=== PATIENT | female | born 1995 | race Caucasian/White ===

== ENCOUNTER 2023-05-06 13:55 | Emergency (ER) | payer MEDICAID, SELFPAY ==
[2023-05-06 14:08] VITALS: BP 103/63; PULSE 85; TEMP 37.1; O2SAT 96; BMI 31.4
[2023-05-06 14:34] LABS: Appearance Urine Clear (Clear); Bilirubin Urine Negative (Negative); Blood Urine Trace-intact (Negative); Color Urine Yellow (Yellow); Glucose Urine Negative (Negative); Ketones Urine Negative (Negative); Leukocyte Esterase Urine Negative (Negative); Nitrite Urine Negative (Negative); Protein Urine Negative (Negative); Specific Gravity Urine 1.025 (1.000-1.030); Urobilinogen Urine 0.2 (0.2-1.0)
--- NOTE | 2023-05-06 14:43 | ED_ITS ---
HPI - General Adult General Chief complaint: Nausea/Vomiting Stated complaint: 6 months pre, vomiting Time Seen by Provider: 05/06/23 14:03 History of Present Illness HPI narrative: This 28-year-old female comes in reporting nausea and vomiting symptoms for the past couple weeks. She states this she is at about 6 weeks gestation. She reports some brief episodes of feeling hot and chilled but does not report any fevers. She does report some dysuria symptoms and wonders if she has a urinary tract infection. Related Data Home Medications Medication Instructions Recorded Confirmed omeprazole 20 mg capsule,delayed 20 mg PO DAILY 05/06/23 05/06/23 release Previous Rx's Medication Instructions Recorded ondansetron HCl 4 mg tablet 4 mg PO Q6H #20 tabs 05/06/23 Allergies Allergy/AdvReac Type Severity Reaction Status Date / Time No Known Drug Allergies Allergy Verified 05/06/23 14:08 Review of Systems Status of ROS: Reports: 10 or more systems reviewed and unremarkable except as noted in History and below Narrative: Constitutional: Generalized weakness. Eyes: No discharge. No vision changes. HENT: No congestion, no sore throat, no ear pain. Cardiovascular: No chest pain, no palpitations. Respiratory: No shortness of breath, no wheezes, no cough. Gastrointestinal: She reports some crampy abdominal pains. Nausea and vomiting episodes. Genitourinary: No dysuria, no hematuria. Musculoskeletal: Normal range of motion. Skin: No rashes, no pruritis. Neurological: No dizziness, weakness, sensory change, speech change. Endo/Heme/Allergies: No bruising or bleeding. No polydipsia. Pysch: no suicidality, no anxiety, no insomnia. All other systems reviewed and are negative. PFSH PFSH Social History Smoking Status: Never smoker How often do you have six or more drinks on one occasion: Never AUDIT-C Alcohol total score: 0 Non-prescribed substance use: denies use Exam Narrative: Exam Narrative: Constitutional: Well-developed, well-nourished, no acute distress. HEENT: Normocephalic, atraumatic. Neck: Normal range of motion. Nontender. Supple. Heart: Regular. No murmurs. Normal rate. Intact distal pulses. Lungs: Clear to auscultation. No chest discomfort. No wheezes, rhonchi, or rales. Abdomen: Normal bowel sounds. Nontender. No rebound tenderness. Genitalia: Deferred. Back: No midline tenderness. Normal range of motion. Extremities: Normal range of motion. No injury. Skin: Intact. No rash. Warm. No erythema or pallor. Neurologic: No altered sensation. No weakness. Alert and oriented. Psychiatric: No suicidality. No anxiety or depression. No insomnia. Nursing notes and vitals signs are reviewed. Const: Vital Signs, click to edit/add: Vital Signs - 24 hr 05/06/23 14:08 Temperature 98.7 F Pulse Rate [Pulse Oximeter] 85 Blood Pressure [Ri ght Upper Arm] 103/63 Pulse Oximetry 96 Oxygen Delivery Me thod Room Air Course Vital Signs Vital signs: Initial Vital Signs Temperature 98.7 F 05/06/23 14:08 Temperature Source Temporal Artery Scan 05/06/23 14:08 Pulse Rate 85 05/06/23 14:08 Pulse Rhythm Regular 05/06/23 14:08 Blood Pressure 103/63 05/06/23 14:08 Blood Pressure Mean 76 05/06/23 14:08 Blood Pressure Position Sitting 05/06/23 14:08 Pulse Oximetry 96 05/06/23 14:08 Oxygen Delivery Method Room Air 05/06/23 14:08 Vital Signs Temperature 98.7 F 05/06/23 14:08 Pulse Rate 85 05/06/23 14:08 Blood Pressure 103/63 05/06/23 14:08 Pulse Oximetry 96 05/06/23 14:08 Oxygen Delivery Method Room Air 05/06/23 14:08 Temperature 98.7 F 05/06/23 14:08 Pulse Rate 85 05/06/23 14:08 Blood Pressure 103/63 05/06/23 14:08 Pulse Oximetry 96 05/06/23 14:08 Oxygen Delivery Method Room Air 05/06/23 14:08 Medications Administered Medications: Discontinued Medications Generic Name Dose Route Start Last Admin Trade Name Freq PRN Reason Stop Dose Admin Sodium Chloride 1,000 mls @ 1,000 mls/hr 05/06/23 14:45 05/06/23 15:50 0.9 % Sodium Chloride 1000 Ml IV 05/06/23 15:44 Infused .Q1H WHITNEY Infusion Ketorolac Tromethamine 15 mg 05/06/23 14:42 05/06/23 15:11 Ketorolac 30 Mg/Ml Inj IVP 05/06/23 14:43 15 mg ONCE ONE Administration Ondansetron HCl 4 mg 05/06/23 14:42 05/06/23 15:11 Ondansetron 2 Mg/Ml Inj IVP 05/06/23 14:43 4 mg ONCE ONE Administration Medical Decision Making MDM Narrative Medical decision making narrative: This patient is 6 weeks and has persistent vomiting typical of hyperemesis gravidarum. An IV was established where the patient did receive a L of normal saline with Toradol 15 mg and Zofran 4 mg. She states that she is feeling better. Lab results in urinalysis returned with normal findings. The patient is okay to be discharged home. She received a prescription for Zofran. Lab Data Labs: Lab Results 05/06/23 05/06/23 05/06/23 Range/Units 14:17 14:28 15:00 WBC 8.79 (4.50-11.00) K/uL RBC 4.23 (4.00-5.20) m/uL Hgb 12.7 (12.0-16.0) gm/dL Hct 38.6 (33.0-51.0) % MCV 91 (80-100) fL MCH 30 (26-34) pg MCHC 33 (32-36) gm/dL RDW Coeff of Davis 12.7 (11.5-15.5) % Plt Count 257 (140-440) K/uL Neut % (Auto) 66.0 (42.0-72.0) % Lymph % (Auto) 23.5 (20-44) % [place] % (Auto) 8.5 (0.0-11.0) % Eos % (Auto) 0.9 (0.0-7.0) % Baso % (Auto) 0.3 (0.0-3.0) % Neut # (Auto) 5.79 (1.7-7.0) K/uL Lymph # (Auto) 2.07 (0.90-2.90) K/uL [place] # (Auto) 0.70 (0.00-0.90) K/UL Eos # (Auto) 0.08 (0.00-0.50) K/uL Baso # (Auto) 0.03 (0.00-0.30) K/uL Abs Immat Gran (auto) 0.07 (0.00-0.30) K/uL Imm/Tot Granulo (auto) 0.8 % Sodium 138 (135-149) mmol/L Potassium 3.9 (3.6-5.1) mmol/L Chloride 109 (96-114) mmol/L Carbon Dioxide 18 L (20-32) mmol/L Anion Gap 11 (7-15) mEq/L BUN 9 (5-24) mg/dL Creatinine 0.6 (0.5-1.5) mg/dL Estimated Creat Clear 128.35 Estimated GFR 124 ml/min Glucose 97 (60-115) mg/dL Calcium 8.8 (8.4-10.6) mg/dL Urine Color Yellow (Yellow) Urine Appearance Clear (Clear) Urine pH 7.0 (5.0-8.5) Ur Specific [place] 1.025 (1.000-1.030) Urine Protein Negative (Negative) Urine Glucose (UA) Negative (Negative) Urine Ketones Negative (Negative) Urine Blood Trace-intact A (Negative) Urine Nitrite Negative (Negative) Urine Bilirubin Negative (Negative) Urine Urobilinogen 0.2 (0.2-1.0) Ur Leukocyte Esterase Negative (Negative) Urine RBC 2-5 A (0-2) Urine WBC 0-2 (0-5) Ur Squamous Epith Cells Few (None-Few) Urine Bacteria Few A (None) SARS-CoV-2 (PCR) Negative SARS-CoV-2 (Negative) Influenza Type A (PCR) Negative PCR FLU A (Negative) Influenza Type B (PCR) Negative PCR FLU B (Negative) RSV (PCR) Negative PCR RSV (Negative) Discharge Plan Discharge Clinical Impression: Hyperemesis gravidarum Patient Disposition: Home, Self-Care Condition: Improved Additional Instructions: Take medication as needed and indicated. Take frequent sips of fluids. Follow up with MD return if worsening. Prescriptions: New ondansetron HCl 4 mg tablet 4 mg PO Q6H Qty: 20 0RF No Action omeprazole 20 mg capsule,delayed release(DR/EC) 20 mg PO DAILY Follow Up/Referrals: Provider,Not a Local [Primary Care Provider] - Stand Alone Forms: [email or web address] Info Instructions
[2023-05-06 14:50] LABS: Bacteria Urine Few; Squamous Epithelial Cell Urine Few (None-Few); WBC Urine 0-2 (0-5)
[2023-05-06 15:07] LABS: Basophils Absolute Auto 0.03 K/uL (0.00-0.30); Basophils Percent Auto 0.3 % (0.0-3.0); Eosinophils Absolute Auto 0.08 K/uL (0.00-0.50); Eosinophils Percent Auto 0.9 % (0.0-7.0); Hematocrit 38.6 % (33.0-51.0); Hemoglobin* 12.7 gm/dL (12.0-16.0); Immature Granulocytes Abs Auto 0.07 K/uL (0.00-0.30); Immature Granulocytes Pct Auto 0.8 %; Lymphocytes Absolute Auto 2.07 K/uL (0.90-2.90); Lymphocytes Percent Auto 23.5 % (20-44); Mean Corpuscular HGB Conc 33 gm/dL (32-36); Mean Corpuscular Hemoglobin 30 pg (26-34); Mean Corpuscular Volume 91 fL (80-100); Monocytes Percent Auto 8.5 % (0.0-11.0); Neutrophils Absolute Auto 5.79 K/uL (1.7-7.0); Platelet Count* 257 K/uL (140-440); RDW Coefficient of Variation % 12.7 % (11.5-15.5); Red Blood Count 4.23 m/uL (4.00-5.20); White Blood Count* 8.79 K/uL (4.50-11.00)
[2023-05-06] MEDS: 0.9 % SODIUM CHLORIDE 1000 ml 1,000 ML IV (15:11)
[2023-05-06] MEDS: ONDANSETRON 2 MG/ML inj 4 MG IVP (15:11)
[2023-05-06] MEDS: KETOROLAC 30 MG/ML inj 15 MG IVP (15:11)
[2023-05-06 15:12] LABS: PCR FLU A Negative PCR FLU A (Negative); PCR FLU B Negative PCR FLU B (Negative); PCR RSV Negative PCR RSV (Negative); SARS PCR* Negative SARS-CoV-2 (Negative)
[2023-05-06 15:19] LABS: Slide Review Reflex No
[2023-05-06 15:22] LABS: Chloride* 109 mmol/L (96-114); Potassium* 3.9 mmol/L (3.6-5.1); Sodium* 138 mmol/L (135-149)
[2023-05-06 15:25] LABS: Anion Gap 11 mEq/L (7-15); Blood Urea Nitrogen* 9 mg/dL (5-24); Carbon Dioxide* 18 mmol/L (20-32); Creatinine* 0.6 mg/dL (0.5-1.5); Est. Creatinine Clearance* 128.35; Estimated Glomerular Filt Rate 124 ml/min; Glucose* 97 mg/dL (60-115)
[2023-05-06 15:26] LABS: Calcium* 8.8 mg/dL (8.4-10.6)
== END 2023-05-06 16:28 | disposition home or self-care (01) ==
PROVIDERS: Emergency Provider Emergency Medicine Emergency Medical Services
DX: O21.0 Mild hyperemesis gravidarum (principal); Z3A.01 Less than 8 weeks gestation of pregnancy
CPT/HCPCS: 36415; 80048; 81001; 85025; 87086; 87631; 96374; 96375; 99283; 99284; J1885; J2405; J7030

== ENCOUNTER 2024-05-13 22:10 | Emergency (ER) | payer SELFPAY ==
--- OUTSIDE RECORDS SUMMARY | 2024-05-13 22:12 | XMS_ITS | Encounter Summary ---
Author Organization [facility] Address [address] [place] [address] Care Team Providers Care Maintenance Millwright Name Role Phone Montse Ruiz D.O. Primary Care Provider [phone] Reason for Visit * Reason Comments Abdominal Pain Encounter Details Date Type Department Care Team (Late st Contact Info) Description 05/12/2024 3:14 AM LAMINATION SPINNER Emergency [facility] [address] [place] [phone] Social History Tobacco Use Types Packs/Day Years Used Date Smoking Tobacco: Former Cigarettes Smokeless Tobacco: Never Alcohol Use Standard Drinks/Week Comments Not Currently 0 (1 standard drink = 0.6 oz pur e alcohol) PHQ-2 Answer Date Recorded PHQ-2 Score 5 06/21/2023 Depression Answer Date Recor ded PHQ-9 Total Score (max 27) 18 06/20 Dental Answer Date Recorded Dental: Regular Dentist Unknown 04/30/19 Education Answer Date Recorded What is the highest level of school you have completed or the highest degree you have received? Associate degree: academic program 05/24/2023 Comments No Sex and Gender Information Value Date Recorded Sex Assigned at Not on file Legal Sex Female 8:30 AM LAMINATION SPINNER Gender Identity Not on file Sexual Orientation Not on file documented as of this encounter Plan of Treatment Not on file documented as of this encounter Visit Diagnoses Not on filedocumented in this encounter Additional Health Concerns Assessment Noted Time PHQ-9 Depression Total Score: 18 024 4:50 PM CDT documented as of this encounter Care Teams Maintenance Millwright Relationship Specialty Start Date End Date Montse Ruiz D.O. [address] [place] [phone] PCP - General Family Medicine 11/27/23 documented as of this encounter
--- OUTSIDE RECORDS SUMMARY | 2024-05-13 22:12 | XMS_ITS | Encounter Summary ---
Author Organization [facility] Address [address] [place] [address] Care Team Providers Care Parallel Computing Software Engineer Name Role Phone Montse Ruiz D.O. Primary Care Provider [phone] Reason for Visit * Reason Comments Abdominal Pain Vomiting Diarrhea Encounter Details Date Type Department Care Team (Late st Contact Info) Description 04/11/2024 4:47 AM QUALITY CONTROL ENGINEERING TECHNICIAN - 04/11/2024 11:59 PM QUALITY CONTROL ENGINEERING TECHNICIAN Emergency [facility] [address] [place] [phone] Discharge Disposition: Home or Self Care Social History Tobacco Use Types Packs/Day Years Used Date Smoking Tobacco: Former Cigarettes Smokeless Tobacco: Never Alcohol Use Standard Drinks/Week Comments Not Currently 0 (1 standard drink = 0.6 oz pur e alcohol) PHQ-2 Answer Date Recorded PHQ-2 Score 5 06/21/2023 Depression Answer Date Recor ded PHQ-9 Total Score (max 27) 18 06/20 Dental Answer Date Recorded Dental: Regular Dentist Unknown 04/30/19 24 Education Answer Date Recorded What is the highest level of school you have completed or the highest degree you have received? Associate degree: academic program 05/24/2023 Comments No Sex and Gender Information Value Date Recorded Sex Assigned at Not on file Legal Sex Female 8:30 AM QUALITY CONTROL ENGINEERING TECHNICIAN Gender Identity Not on file Sexual Orientation Not on file documented as of this encounter Medications at Time of Discharge alum-mag hydroxide-simeth (Maalox) 200-200-20 mg/5 mL suspensionIndicat ions:Pain Epigastric Take 30 mL by mouth daily as needed for indigestion. 354 mL 12/06/2023 dicyclomine (BENTYL) 10 mg capsuleIndication s:Pain Abdominal Chronic Take 1 capsule (10 mg total) by mouth 4 (four) times a day as needed (adominal pain). 120 capsule 5 08/27/2023 08/26/2024 famotidine (Pepcid) 20 mg tabletIndications :Nausea Take 1 tablet (20 mg total) by mouth daily. 90 tablet 3 12/06/2023 FLUoxetine (PROzac) 20 mg capsuleIndication s:Anxiety Generalized Disorder Take 1 capsule (20 mg total) by mouth daily. 90 capsule 3 12/06/2023 hydrOXYzine (Atarax) 25 mg tabletIndications :Anxiety,Insomnia Take 1 tablet (25 mg total) by mouth every 8 (eight) hours as needed for anxiety (at bedtime and to prevent panic attacks). 60 tablet 11/05/2023 omeprazole (PriLOSEC) [address] capsuleIndication s:Pain Abdominal Chronic,Pain Epigastric Take 1 capsule (20 mg total) by mouth daily before morning meal. 90 capsule 3 12/06/2023 12/05/2024 traZODone (DesyreL) 50 mg tabletIndications :Anxiety Generalized Disorder take one tablet by mouth at bedtime as needed for sleep 30 tablet 01/07/2024 documented as of this encounter Plan of Treatment Not on file documented as of this encounter Procedures Procedure Name Priority Date/Time Associated Diagnosis Comments US GALLBLADDER AND OR BILIARY DUCTS RAD - Routine (most inpatients and all outpatients) 04/11/2024 6:49 AM QUALITY CONTROL ENGINEERING TECHNICIAN documented in this encounter Results * US Gallbladder and or Biliary Ducts (04/11/2024 6:49 AM QUALITY CONTROL ENGINEERING TECHNICIAN) Anatomical Region Laterality Modality Abdomen, Ultrasound RST LOS, Ultrasound ARZ LOS, Ultrasound FLA LOS N/A Ultrasound Impressions 04/11/2024 7:03 AM QUALITY CONTROL ENGINEERING TECHNICIAN Biliary sludge without evidence of acute cholecystitis or biliary ductal dilatation. Narrative 04/11/2024 7:03 AM QUALITY CONTROL ENGINEERING TECHNICIAN EXAM: US GALLBLADDER AND OR BILIARY DUCTS COMPARISON: Comparison CT 08/12/2023, ultrasound 08/21/2023. FINDINGS: Gallbladder: Layering biliary sludge is observed within the gallbladder. No gallstones visible. No abnormal wall thickening/pericholecystic fluid. Negative sonographic Crespo sign. Intrahepatic ducts: Not dilated. Common duct: Not dilated. Aorta: Normal caliber. Procedure Note Chaparro Enriquez M.D. - 04/11/2024 EXAM: US GALLBLADDER AND OR BILIARY DUCTS COMPARISON: Comparison CT 08/12/2023, ultrasound 08/21/2023. FINDINGS: Gallbladder: Layering biliary sludge is observed within the gallbladder.No gallstones visible. No abnormal wall thickening/pericholecystic fluid.Negative sonographic Crespo sign. Intrahepatic ducts: Not dilated. Common duct: Not dilated. Aorta: Normal caliber. IMPRESSION: Biliary sludge without evidence of acute cholecystitis or biliary ductaldilatation. us Kaden Mejía M.D. IMG US PROCEDURES Final Res ult documented in this encounter Visit Diagnoses Not on filedocumented in this encounter Additional Health Concerns Assessment Noted Time PHQ-9 Depression Total Score: 18 024 4:50 PM CDT documented as of this encounter Care Teams Parallel Computing Software Engineer Relationship Specialty Start Date End Date Montse Ruiz D.O. [address] [place] [phone] PCP - General Family Medicine 11/27/23 documented as of this encounter
--- OUTSIDE RECORDS SUMMARY | 2024-05-13 22:12 | XMS_ITS | Encounter Summary ---
Author Organization [facility] Address [address] [place] [address] Care Team Providers Care Guide Dog Instructor Name Role Phone Montse Ruiz D.O. Primary Care Provider [phone] Reason for Visit * Reason Comments Abdominal Pain Encounter Details Date Type Department Care Team (Late st Contact Info) Description 04/22/2024 10:59 PM JIG BOX OPERATOR - 04/22/2024 11:59 PM JIG BOX OPERATOR Emergency [facility] [address] [place] [phone] Discharge Disposition: Home or Self Care Social [...] on file Legal Sex Female 8:30 AM JIG BOX OPERATOR Gender Identity Not on file Sexual Orientation [...] documented as of this encounter Care Teams Guide Dog Instructor Relationship Specialty Start Date End Date Montse Ruiz D.O. [address] [place] [phone] PCP - General Family Medicine 11/27/23 documented as of this encounter
--- OUTSIDE RECORDS SUMMARY | 2024-05-13 22:12 | XMS_ITS | Clinical Summary ---
Author Organization [facility] Address [address] [place] [id number] Care Team Providers Care Agricultural Engineering Teacher Name Role Phone Montse Ruiz D.O. Primary Care Provider [phone] Source Comments Patient records contain information from all sites at [facility]. For routine questions regarding patient records, call [phone] during business hours, M-F 8:00 AM - 5:00 PM Central Time. Record requests for emergency care only can be directed to [phone] at any time.[facility] Allergies No known active allergies Medications dicyclomine (BENTYL) 10 mg capsuleIndicatio ns:Pain Abdominal Chronic Take 1 capsule (10 mg total) by mouth 4 (four) times a day as needed (adominal pain). 120 capsule 5 08/27/2023 08/27/19 25 Active hydrOXYzine (Atarax) 25 mg tabletIndication s:Anxiety,Insomn ia Take 1 tablet (25 mg total) by mouth every 8 (eight) hours as needed for anxiety (at bedtime and to prevent panic attacks). 60 tablet 11/05/2023 Active FLUoxetine (PROzac) 20 mg capsuleIndicatio ns:Anxiety Generalized Disorder Take 1 capsule (20 mg total) by mouth daily. 90 capsule 3 12/06/2023 Active alum-mag hydroxide-simeth (Maalox) 200-200-20 mg/5 mL suspensionIndica tions:Pain Epigastric Take 30 mL by mouth daily as needed for indigestion. 354 mL 12/06/2023 Active famotidine (Pepcid) 20 mg tabletIndication s:Nausea Take 1 tablet (20 mg total) by mouth daily. 90 tablet 3 12/06/2023 Active omeprazole (PriLOSEC) [address] capsuleIndicatio ns:Pain Abdominal Chronic,Pain Epigastric Take 1 capsule (20 mg total) by mouth daily before morning meal. 90 capsule 3 12/06/2023 12/06/19 25 Active traZODone (DesyreL) 50 mg tabletIndication s:Anxiety Generalized Disorder take one tablet by mouth at bedtime as needed for sleep 30 tablet 01/07/2024 Active Active Problems No known active problems Encounters Date Type Department Care Team Description 05/12/2024 3:14 AM [facility] Emergency [facility] [address] [place] [phone] 04/22/2024 10:59 PM CHO[facility] ACCOMPANIST - 04/22/2024 11:59 PM [facility] Emergency [facility] [address] [place] [phone] Discharge Disposition: Home or Self Care 04/16/2024 5:11 AM CHO[facility] ACCOMPANIST - 04/16/2024 11:59 PM [facility] Emergency [facility] [address] [place] [phone] Discharge Disposition: Home or Self Care 04/11/2024 4:47 AM CHOIR ACCOMPANIST - 04/11/2024 11:59 PM [facility] Emergency [facility] [address] [place] [phone] Discharge Disposition: Home or Self Care from Last 3 Months Family History Medical History Relation Name Comments Hypertension Grandmother Stroke Grandmother Cancer Maternal Grandfather Prostate cancer Maternal Grandfather Hypertension Mother Relation Name Status Comments Grandmother Alive Maternal Grandfather Mother Social History Tobacco Use Types Packs/Day Years Used Date Smoking Tobacco: Former Cigarettes Smokeless Tobacco: Never Tobacco Cessation:Counseling Given: Not Answered Alcohol Use Standard Drinks/Week Comments Not Currently [...] on file Legal Sex Female 8:30 AM CHOIR ACCOMPANIST Gender Identity Not on file Sexual Orientation Not on file Last Filed Vital Signs Vital Sign Reading Time Taken Comments Blood Pressure 113/76 12/06/2023 1:10 PM CDT Pulse 82 12/06/2023 1:10 PM CDT Temperature 36.7 C (98.1 F) 12/06/2023 1:10 PM CDT Respiratory Rate 19 09/05/2023 12:12 PM CDT Oxygen Saturation 98% 11/05/2023 6:17 PM CDT Inhaled Oxygen Concentration - - Weight 90.8 kg (200 lb 2.8 oz) 12/06/2023 1:10 P M CDT Height 170 cm (5' 6.93) 09/12/2023 2:33 PM CDT Body Mass Index 31.42 09/12/2023 2:33 PM CDT Plan of Treatment Health Maintenance Due Date Last Done Comments Hepatitis C Screening 1993 DTaP,Tdap,and Td Vaccines (1 - Tdap) 2012 Hepatitis B Vaccines (1 of 3 - 19+ 3-dose series) 2012 COVID-19 Vaccine ( - 2023-2 5 season) 2023 Influenza Vaccine (#1) 2023 Depression Screening (Annual PHQ-2) 03/26/2024 Cervical/Vaginal Cancer Screening 05/30/2028 05/31/2023, 05/31/2023 HPV Vaccines Aged Out No longer eligi ble based on patient's age to complete this topic IPV Vaccines Aged Out No longer eligi ble based on patient's age to complete this topic Pneumococcal vaccine (0-49 years) Aged Out No longer eligible b ased on patient's age to complete this topic Procedures Procedure Name Priority Date/Time Associated Diagnosis Comments CT CHEST ABDOMEN PELVIS ANGIOGRAM WITH IV CONTRAST RAD - Semiurgent (Fast; most ED patients; some inpatients) 04/16/2024 6:10 AM CHOIR ACCOMPANIST US GALLBLADDER AND OR BILIARY DUCTS RAD - Routine (most inpatients and all outpatients) 04/11/2024 6:49 AM CHOIR ACCOMPANIST HPV WITH GENOTYPING, PCR, THINPREP Routine 05/31/2023 4:11 PM CHOIR ACCOMPANIST from Last 3 Months or Most Recently Relevant to Health Maintenance Results * CT Chest Abdomen Pelvis Angiogram with IV Contrast (04/16/2024 6:10 AM CHOIR ACCOMPANIST) Anatomical Region Laterality Modality Chest, Abdomen, Pelvis, Card iovascular RST LOS, Abdominal ARZ LOS, Thoracic ARZ LOS, Vascular Interventional ARZ LOS, Thoracic FLA LOS, Procedural, Vascular Interventional NWWI LOS Computed Tomography 04/16/2024 6:13 AM CHOIR ACCOMPANIST Impressions 04/16/2024 6:58 AM CHOIR ACCOMPANIST No acute abnormality in the chest, abdomen, or pelvis. Narrative 04/16/2024 6:58 AM CHOIR ACCOMPANIST EXAM: CT CHEST ABDOMEN PELVIS ANGIOGRAM WITH IV CONTRAST Including 3D image post-processing with or without AI assistance. COMPARISON: 08/12/2023 FINDINGS: Lower Neck / Thoracic inlet: No pathologically enlarged lymph nodes. Mediastinum: No pathologically enlarged lymph nodes. Heart/great vessels: No enlarging aneurysm or evidence of acute aortic injury. Lung/pleura: No pneumothorax. No evidence of pneumonia. Chest wall soft tissues/axilla: No pathologically enlarged lymph nodes. No hematoma or abnormal soft tissue mass. Liver: No suspicious lesion. Gallbladder/bile ducts: No bile duct enlargement. Vicarious excreted contrast. Pancreas: No organized peripancreatic collection or acute inflammatory changes. Spleen: No suspicious lesion. Adrenal glands: Unremarkable. Kidneys, ureters, bladder: No hydronephrosis. GI tract, mesentery/peritoneum: No obstruction. Normal appendix. No bowel wall thickening. No pneumoperitoneum. No pneumatosis. Vasculature: No evidence of aortic aneurysm. Lymph Nodes: No pathologically enlarged lymph nodes. Reproductive: Unremarkable. Bones/soft tissues: No abnormal soft tissue mass or acute fracture. Procedure Note Steve Rojas M.D. - 04/16/2024 EXAM: CT CHEST ABDOMEN PELVIS ANGIOGRAM WITH IV CONTRAST Including 3D image post-processing with or without AI assistance. COMPARISON: 08/12/2023 FINDINGS: Lower Neck / Thoracic inlet: No pathologically enlarged lymph nodes. Mediastinum: No pathologically enlarged lymph nodes. Heart/great vessels: No enlarging aneurysm or evidence of acute aorticinjury. Lung/pleura: No pneumothorax. No evidence of pneumonia. Chest wall soft tissues/axilla: No pathologically enlarged lymph nodes. Nohematoma or abnormal soft tissue mass. Liver: No suspicious lesion. Gallbladder/bile ducts: No bile duct enlargement. Vicarious excretedcontrast. Pancreas: No organized peripancreatic collection or acute inflammatorychanges. Spleen: No suspicious lesion. Adrenal glands: Unremarkable. Kidneys, ureters, bladder: No hydronephrosis. GI tract, mesentery/peritoneum: No obstruction. Normal appendix. No bowelwall thickening. No pneumoperitoneum. No pneumatosis. Vasculature: No evidence of aortic aneurysm. Lymph Nodes: No pathologically enlarged lymph nodes. Reproductive: Unremarkable. Bones/soft tissues: No abnormal soft tissue mass or acute fracture. IMPRESSION: No acute abnormality in the chest, abdomen, or pelvis. us Ronel Hendricks M.D. IM CT PROCEDURES Final Result * US Gallbladder and or Biliary Ducts (04/11/2024 6:49 AM CHOIR ACCOMPANIST) Anatomical Region Laterality Modality Abdomen, Ultrasound RST LOS, Ultrasound ARZ LOS, Ultrasound FLA LOS N/A Ultrasound Impressions 04/11/2024 7:03 AM CHOIR ACCOMPANIST Biliary sludge without evidence of acute cholecystitis or biliary ductal dilatation. Narrative 04/11/2024 7:03 AM CHOIR ACCOMPANIST EXAM: US GALLBLADDER AND OR BILIARY DUCTS [...] M.D. IMG US PROCEDURES Final Res ult * HPV with Genotyping, PCR, ThinPrep (05/31/2023 4:11 PM CHOIR ACCOMPANIST) HPV with Genotyping, ThinPrep, PCR Negative Negative 06/01/2023 3:42 PM CHOIR ACCOMPANIST [facility] Comment: Negative for high risk HPV by nucleic acid amplification. The following high risk HPV types were not detected: 16, 18, 31, 33, 35, 39, 45, 51, 52, 56, 58, 59, 66, and 68 This result does not rule out HPV in the patient, as the sensitivity of the test depends on the timing of the specimen collection and the quality of the specimen. Result should be correlated with patient's history, clinical presentation, and MARKET INTELLIGENCE CONSULTANT cytology report. 05/31/2023 4:11 PM CHOIR ACCOMPANIST 06/01/2023 7:37 AM CHOIR ACCOMPANIST Shanna Gallagher CNM, D.N.P. LAB MICROBIOLOGY - NERAL ORDERABLES Final Result [facility] [address] [place] [id number], [facility] [address] [place] [phone] from Last 3 Months or Most Recently Relevant to Health Maintenance Care Teams Agricultural Engineering Teacher Relationship Specialty Start Date End Date Montse Ruiz D.O. [address] [place] [phone] PCP - General Family Medicine 11/27/23
--- OUTSIDE RECORDS SUMMARY | 2024-05-13 22:12 | XMS_ITS | Encounter Summary ---
Author Organization [facility] Address [address] [place] [address] Care Team Providers Care Home Service Demonstrator Name Role Phone Montse Ruiz D.O. Primary Care Provider [phone] Reason for Visit * Reason Comments Abdominal Pain Encounter Details Date Type Department Care Team (Late st Contact Info) Description 04/16/2024 5:[address] [place] APPEALS JUDGE - 04/16/2024 11:[address] [facility] APPEALS JUDGE Emergency [facility] [address] [place] [phone] Discharge Disposition: Home or Self Care Social [...] on file Legal Sex Female 8:[address] OF APPEALS JUDGE Gender Identity Not on file Sexual Orientation [...] ED patients; some inpatients) 04/16/2024 6:[address] [place] APPEALS JUDGE documented in this encounter Results * CT Chest Abdomen Pelvis Angiogram with IV Contrast (04/16/2024 6:[address] OF APPEALS JUDGE) Anatomical Region Laterality Modality Chest, Abdomen, Pelvis, Card iovascular RST LOS, Abdominal ARZ LOS, Thoracic ARZ LOS, Vascular Interventional ARZ LOS, Thoracic FLA LOS, Procedural, Vascular Interventional NWWI LOS Computed Tomography 04/16/2024 6:[address] OF APPEALS JUDGE Impressions 04/16/2024 6:[address] OF APPEALS JUDGE No acute abnormality in the chest, abdomen, or pelvis. Narrative 04/16/2024 6:[address] OF APPEALS JUDGE EXAM: CT CHEST ABDOMEN PELVIS ANGIOGRAM WITH [...] abnormality in the chest, abdomen, or pelvis. Ronel CHICAS CT PROCEDURES Final Result documented in this encounter Visit Diagnoses Not on filedocumented in this encounter Administered Medications Inactive Administered Medications - up to 3 most recent administrations Medication Order MAR Action Action Date Dose Rate Site iopromide 370 mg iodine/mL injection 100 mL (Ultravist) 100 mL, intravenous, Once in imaging, contrast, Starting on Sun04/16/24 at 0611, For 1 dose Given 04/16/2024 6:[address] OF APPEALS JUDGE 100 mL R ight Forearm sodium chloride 0.9 % flush 80 mL 80 mL, intravenous, Once, On Sun04/16/24 at 0615, For 1 dose Given 04/16/2024 6:[address] OF APPEALS JUDGE 80 mL Right Forearm sodium chloride 0.9 % injection 10 mL 10 mL, intravenous, Once, On Sun04/16/24 at 0615, For 1 dose Given 04/16/2024 6:[address] OF APPEALS JUDGE 10 mL Right Forearm documented in this encounter Active and Recently Administered Medications Times are shown in COURT OF APPEALS JUDGE. Scheduled Medication Order 04/14/2024 04/15/2024 04/16/2024 sodium chloride 0.9 % flush 80 mL (COMPLETED) 80 mL, intravenous, Once, On Sun04/16/24 at 0615, For 1 dose 0606 (Given - Provid er: Malik Fernandez - Comment: ED IV) sodium chloride 0.9 % injection 10 mL (COMPLETED) 10 mL, intravenous, Once, On Sun04/16/24 at 0615, For 1 dose 0606 (Given - Provid er: Malik Fernandez - Comment: ED IV) PRN Medication Order 04/14/2024 04/15/2024 04/16/2024 iopromide 370 mg iodine/mL injection 100 mL (Ultravist) (COMPLETED) 100 mL, intravenous, Once in imaging, contrast, Starting on Sun04/16/24 at 0611, For 1 dose 0606 (Given - Provid er: Malik Fernandez - Comment: ED IV) documented in this encounter Additional Health Concerns Assessment Noted Time PHQ-9 Depression Total Score: 18 024 4:50 PM CDT documented as of this encounter Care Teams Home Service Demonstrator Relationship Specialty Start Date End Date Montse Ruiz D.O. NPNora: [phone] [address] [phone] PCP - General Family Medicine 11/27/23 documented as of this encounter
--- OUTSIDE RECORDS SUMMARY | 2024-05-13 22:13 | XMS_ITS | Clinical Summary ---
Author Organization [facility] Address [address] [place] [id number] Care Team Providers Care Sap Fico Architect Name Role Phone Pcp, No Primary Care Provider Unavailabl e Allergies No known active allergies Medications ondansetron (ZOFRAN ODT) 4 mg disintegrating tabletIndications :Chronic epigastric pain Place 1 Tablet (4 mg) on the tongue every 8 hours if needed for Nausea/Vom iting. 15 Tablet 04/30/19 24 Active polyethylene glycol (Miralax) 17 g per packet packetIndications :Constipation, unspecified constipation type Mix 17 g in liquid then take by mouth once daily. 24 Each 05/17/19 24 Active metoclopramide HCl (REGLAN) 10 mg tabletIndications :Nausea and vomiting during Take 1 Tablet (10 mg) by mouth every 6 hours if needed for Nausea/Vom iting. 20 Tablet 05/17/19 24 Active dicyclomine (BENTYL) 20 mg tabletIndications :Epigastric pain Take 1 Tablet (20 mg) by mouth four times daily. 10 Tablet 04/19/19 25 Active sucralfate (CARAFATE) 100 mg/mL suspensionIndicat ions:Epigastric pain Take 10 mL (1,000 mg) by mouth 2 times daily if needed for GI Upset. Take on empty stomach. 414 mL 04/19/19 25 Active bisacodyL (DULCOLAX) 5 mg delayed release tabletIndications :Chronic abdominal pain Take 2 Tablets (10 mg) by mouth once daily. 30 Tablet 04/23/19 25 Active aluminum-magnesiu m hydroxide-simethi cone (MAALOX PLUS) 200-200-20 mg/5 mL suspensionIndicat ions:Chronic abdominal pain Take 15 mL by mouth 4 times daily if needed for GI Upset. Shake Well. 355 mL 05/12/19 25 Active esomeprazole delayed release capsule (NEXIUM) 40 mgIndications:Chr onic abdominal pain Take 1 Capsule (40 mg) by mouth once daily before a meal. 30 Capsule 05/12/19 25 Active sucralfate (CARAFATE) 1 gram tabletIndications :Epigastric pain,Gastroesopha geal reflux disease, unspecified whether esophagitis present Take 1 Tablet (1 g) by mouth four times daily before meals and at bedtime. 30 Tablet 05/12/19 25 Active omeprazole (PRILOSEC) 20 mg Delayed-Release capsuleIndication s:Abdominal pain, unspecified abdominal location Take 1 Capsule (20 mg) by mouth two times daily before meals. 28 Capsule 08/21/19 24 025 Discontinued sucralfate (CARAFATE) 1 gram tabletIndications :Epigastric pain,Gastroesopha geal reflux disease, unspecified whether esophagitis present Take 1 Tablet (1 g) by mouth four times daily before meals and at bedtime. 30 Tablet 09/30/19 24 025 Discontinued omeprazole (PRILOSEC) 20 mg Delayed-Release capsuleIndication s:Abdominal pain, unspecified abdominal location Take 1 Capsule (20 mg) by mouth two times daily before meals. 28 Capsule 04/16/19 25 025 Discontinued omeprazole (PRILOSEC) 20 mg Delayed-Release capsuleIndication s:Abdominal pain, unspecified abdominal location Take 1 Capsule (20 mg) by mouth two times daily before meals. 28 Capsule 04/16/19 25 025 Discontinued(*M ed complete/Regime n complete/Level of care change) sucralfate (CARAFATE) 100 mg/mL suspensionIndicat ions:Epigastric pain Take 10 mL (1,000 mg) by mouth 2 times daily if needed for GI Upset. Take on empty stomach. 414 mL 04/19/19 25 025 Discontinued dicyclomine (BENTYL) 20 mg tabletIndications :Epigastric pain Take 1 Tablet (20 mg) by mouth four times daily. 10 Tablet 04/19/19 25 025 Discontinued esomeprazole delayed release capsule (NEXIUM) 40 mgIndications:Chr onic abdominal pain Take 1 Capsule (40 mg) by mouth once daily before a meal. 30 Capsule 04/23/19 025 Discontinued aluminum-magnesiu m hydroxide-simethi cone (MAALOX PLUS) 200-200-20 mg/5 mL suspensionIndicat ions:Chronic abdominal pain Take 15 mL by mouth 4 times daily if needed for GI Upset. Shake Well. 355 mL 04/23/19 025 Discontinued Encounters Date Type Department Care Team Description 05/12/2024 3:12 AM [facility] - 05/12/2024 4:[address] [address] Angelo Aggarwal MD Chronic gastritis, presence of bleeding unspecified, unspecified gastritis type (Primary Dx); Chronic abdominal pain; Epigastric pain; Gastroesophageal reflux disease, unspecified whether esophagitis present Discharge Disposition: Home Self Care 05/12/2024 Travel 04/22/2024 11:09 PM [facility] - 04/23/2024 1:[address] [address] Kaden Santos MD Chronic abdominal pain (Primary Dx) Discharge Disposition: Home Self Care 04/22/2024 Travel 04/19/2024 7:53 AM [facility] - 04/19/2024 10:[address] [address] Wallace See DO Epigastric pain (Primary Dx) Discharge Disposition: Home Self Care 04/19/2024 Travel 04/16/2024 5:08 AM [facility] - 04/16/2024 10:[address] [address] Ronel Hendricks MD Ball, Julieanne Patricia, MD Upper abdominal pain (Primary Dx); Vomiting and diarrhea; Abdominal pain, unspecified abdominal location Discharge Disposition: Home Self Care 04/16/2024 Telephone [facility] [address] [place] [address] Sorin Nickerson MD Appointment 04/16/2024 Telephone [facility] [address] [place] [address] Sorin Nickerson MD Appointment (KATHERINE ) 04/11/2024 4:50 AM SCIENTIST PROPAGATOR - 04/11/2024 7:32 AM SCIENTIST PROPAGATOR Emergency [facility] [address] [place] [address] Kaden Mejía MD Chronic abdominal pain (Primary Dx) Discharge Disposition: Home Self Care 04/11/2024 Travel from Last 3 Months Social History Tobacco Use Types Packs/Day Years Used Date Smoking Tobacco: Never Smokeless Tobacco: Never Tobacco Cessation:Counseling Given: Not Answered Alcohol Use Standard Drinks/Week Comments Never 0 (1 standard drink = 0.6 oz pur e alcohol) Interpersonal Safety Answer Date Record ed Are you being hit, kicked, p ushed or yelled at (see row info)? No 05/12/2024 Interpersonal Safety Abuse 12 - 18 Not on file 05/12/2024 Interpersonal Safety Ambulatory Vulnerability No t on file 05/12/2024 Comments No Sex and Gender Information Value Date Recorded Sex Assigned at Not on file Legal Sex Female 8:24 AM SCIENTIST PROPAGATOR Gender Identity Not on file Sexual Orientation Not on file Obstetrics History Para Term AB IAB SAB Ectopic Multiple Livin g Live Births 1 Date Outcome GA Total Labor Labor/2nd/3rd Weight Sex Type Anes PTL Anabell A1 A5 Name Clin Last Filed Vital Signs Vital Sign Reading Time Taken Comments Blood Pressure 115/77 05/12/2024 3:24 AM SCIENTIST PROPAGATOR Pulse 89 05/12/2024 3:24 AM SCIENTIST PROPAGATOR Temperature 36.5 C (97.7 F) 05/12/2024 3:24 AM SCIENTIST PROPAGATOR Respiratory Rate 18 05/12/2024 3:24 AM SCIENTIST PROPAGATOR Oxygen Saturation 99% 05/12/2024 3:24 AM SCIENTIST PROPAGATOR Inhaled Oxygen Concentration - - Weight 96.9 kg (213 lb 9.6 oz) 05/12/2024 3:17 A M SCIENTIST PROPAGATOR Height 165.1 cm (5' 5) 05/12/2024 3:17 AM SCIENTIST PROPAGATOR Body Mass Index 35.54 05/12/2024 3:17 AM SCIENTIST PROPAGATOR Plan of Treatment Upcoming Encounters Date Type Department Care Team (Late st Contact Info) Description 07/10/2024 9:00 AM CDT Office Visit [facility] [address] [facility] [place] [address] Sorin Nickerson MD [address] [place] [address] Health Maintenance Due Date Last Done Comments Tdap 2004 Depression screening for age 12+ 2005 HIV for age 15-65 2008 BMI (ht and wt on same day) for age 18+ 2011 Hepatitis C screening for ag e 18-79 2011 Tetanus booster 2013 Pap test for age 21-65 2014 COVID-19 vaccine series (2023- season) 2023 Influenza for age 9-49 11/25/2023 Pneumococcal series for age 6-49 Aged Out No longer eligible based on patient's age to complete this topic Procedures Procedure Name Priority Date/Time Associated Diagnosis Comments LIPASE STAT 04/19/2024 9:16 AM SCIENTIST PROPAGATOR HEPATIC FUNCTION PANEL STAT 04/19/2024 9:16 AM SCIENTIST PROPAGATOR BASIC METABOLIC PANEL STAT 04/19/2024 9:16 AM SCIENTIST PROPAGATOR CBC WITH AUTO DIFFERENTIAL STAT 04/19/2024 8:16 AM SCIENTIST PROPAGATOR ,SERUM QUALITATIVE STAT 04/19/2024 8:16 AM SCIENTIST PROPAGATOR CBC WITH AUTO DIFFERENTIAL STAT 04/19/2024 8:16 AM SCIENTIST PROPAGATOR TROPONIN T (HS) ONE TIME STAT 04/16/2024 7:41 AM SCIENTIST PROPAGATOR LACTATE VENOUS STAT 04/16/2024 7:41 AM SCIENTIST PROPAGATOR URINALYSIS MICROSCOPIC STAT 04/16/2024 6:15 AM SCIENTIST PROPAGATOR UA W/ SEDIMENT EXAM REFLEXED PER CRITERIA STAT 04/16/2024 6:15 AM SCIENTIST PROPAGATOR DRUG SCREEN RAPID URINE INHOUSE STAT 04/16/2024 6:15 AM SCIENTIST PROPAGATOR CTA CHEST ABDOMEN PELVIS AORTIC DISSECTION W STAT 04/16/2024 6:14 AM SCIENTIST PROPAGATOR EKG 12 LEAD STAT 04/16/2024 5:21 AM SCIENTIST PROPAGATOR C-REACTIVE PROTEIN STAT 04/16/2024 5: 20 AM SCIENTIST PROPAGATOR MAGNESIUM STAT 04/16/2024 5:20 AM SCIENTIST PROPAGATOR CBC WITH AUTO DIFFERENTIAL STAT 04/16/2024 5:20 AM SCIENTIST PROPAGATOR LACTATE VENOUS STAT 04/16/2024 5:20 AM SCIENTIST PROPAGATOR TROPONIN T (HS) ACUTE W/2HR REFLEX STAT 04/16/2024 5:20 AM SCIENTIST PROPAGATOR ,SERUM QUALITATIVE STAT 04/16/2024 5:20 AM SCIENTIST PROPAGATOR LIPASE STAT 04/16/2024 5:20 AM SCIENTIST PROPAGATOR HEPATIC FUNCTION PANEL STAT 04/16/2024 5:20 AM SCIENTIST PROPAGATOR BASIC METABOLIC PANEL STAT 04/16/2024 5:20 AM SCIENTIST PROPAGATOR CBC WITH AUTO DIFFERENTIAL STAT 04/16/2024 5:20 AM SCIENTIST PROPAGATOR US ABDOMEN LIMITED RUQ STAT 04/11/2024 6:47 AM SCIENTIST PROPAGATOR URINALYSIS MICROSCOPIC STAT 04/11/2024 6:04 AM SCIENTIST PROPAGATOR UA W/ SEDIMENT EXAM REFLEXED PER CRITERIA STAT 04/11/2024 6:04 AM SCIENTIST PROPAGATOR ,SERUM QUALITATIVE STAT 04/11/2024 5:13 AM SCIENTIST PROPAGATOR LIPASE STAT 04/11/2024 5:11 AM SCIENTIST PROPAGATOR HEPATIC FUNCTION PANEL STAT 04/11/2024 5:11 AM SCIENTIST PROPAGATOR BASIC METABOLIC PANEL STAT 04/11/2024 5:11 AM SCIENTIST PROPAGATOR CBC W PLT NO DIFF STAT 04/11/2024 5:1 0 AM SCIENTIST PROPAGATOR from Last 3 Months Results * LIPASE (04/19/2024 9:16 AM SCIENTIST PROPAGATOR) Only the most recent of3 resultswithin the time period is included. LIPASE 33.7 13.0 - 60.0 IU/L 04/19/2024 9:[address] [facility] Blood BLOOD SPECIMEN / Unknown Venipuncture / Unknown 04/19/2024 9:16 AM SCIENTIST PROPAGATOR 04/19/2024 9:20 AM SCIENTIST PROPAGATOR Wallace See DO CHEMISTRY Final Resul t [facility] [address] [address] * (ABNORMAL) HEPATIC FUNCTION PANEL (04/19/2024 9:16 AM SCIENTIST PROPAGATOR) Only the most recent of3 resultswithin the time period is included. ALBUMIN 3.9(L) 4.0 - 4.9 g/dL 04/19/2024 9:43 AM SCIENTIST PROPAGATOR [facility] PROTEIN,TOTAL 7.1 6.0 - 8.0 g/dL 04/19/2024 9:[address] [facility] BILIRUBIN,TOTAL 0.2 0.0 - 1.2 mg/dL 04/19/2024 9:43 AM SCIENTIST PROPAGATOR [facility] BILIRUBIN,DIRECT 0.1 0.0 - 0.2 mg/dL 04/19/2024 9:[address] [facility] ALK PHOSPHATASE 70 35 - 104 IU/L 04/19/2024 9:[address] [facility] ALT (SGPT) 22 10 - 35 IU/L 04/19/2024 9:[address] [facility] AST (SGOT) 22 10 - 35 IU/L 04/19/2024 9:[address] [facility] Blood BLOOD SPECIMEN / Unknown Venipuncture / Unknown 04/19/2024 9:16 AM SCIENTIST PROPAGATOR 04/19/2024 9:20 AM [facility] us Wallace See DO CHEMISTRY Final Resul t [facility] [address] [address] * (ABNORMAL) BASIC METABOLIC PANEL (04/19/2024 9:16 AM [facility]) Only the most recent of3 resultswithin the time period is included. SODIUM 140 136 - 145 mmol/L 04/19/2024 9:[address] [facility] POTASSIUM 3.8 3.5 - 5.1 mmol/L 04/19/2024 9:[address] [facility] CHLORIDE 106 98 - 107 mmol/L 04/19/2024 9:[address] [facility] CO2,TOTAL 23 22 - 29 mmol/L 04/19/2024 9:[address] [facility] ANION GAP 11 5 - 18 04/19/2024 9:[address] [facility] GLUCOSE 98 70 - 99 mg/dL 04/19/2024 9:[address] [facility] CALCIUM 8.4(L) 8.8 - 10.4 mg/dL 04/19/2024 9:[address] [facility] Comment: Reference ranges for this test were updated on 01/29/2024 to reflect our healthy population more accurately. Reference range changes are not retroactively applied to results, but previous results using the same methodology can be interpreted in the context of the new reference range. BUN 9 6 - 20 mg/dL 04/19/2024 9:[address] [facility] CREATININE 0.56 0.50 - 0.90 mg/dL 04/19/2024 9:[address] [facility] BUN/CREAT RATIO 16 10 - 20 9:[address] [facility] eGFR >90 >90 mL/min/1.7 3m2 04/19/2024 9:[address] [facility] Comment:As of 2021, eG FR is calculated by the CKD-EPI creatinine equation without race adjustment. eGFR can be influenced by muscle mass, exercise, and diet. The reported eGFR is an estimation only and is only applicable if the renal function is stable. Blood BLOOD SPECIMEN / Unknown Venipuncture / Unknown 04/19/2024 9:16 AM SCIENTIST PROPAGATOR 04/19/2024 9:20 AM [facility] us Wallace See DO CHEMISTRY Final Resul t [facility] [address] [address] * CBC WITH AUTO DIFFERENTIAL (04/19/2024 8:16 AM [facility]) Only the most recent of2 resultswithin the time period is included. WHITE BLOOD COUNT 7.9 4.5 - 11.0 thou/cu mm 04/19/2024 8:[address] [facility] RED BLOOD COUNT 4.33 4.00 - 5.20 mil/cu mm 04/19/2024 8:[address] [facility] HEMOGLOBIN 13.1 12.0 - 16.0 g/dL 04/19/2024 8:[address] [facility] HEMATOCRIT 38.7 33.0 - 51.0 % 04/19/2024 8:[address] [facility] MCV 89 80 - 100 fL 04/19/2024 8:[address] [facility] MCH 30.3 26.0 - 34.0 pg 04/19/2024 8:[address] [facility] MCHC 33.9 32.0 - 36.0 g/dL 04/19/2024 8:[address] [facility] RDW 12.5 11.5 - 15.5 % 04/19/2024 8:[address] [facility] PLATELET COUNT 248 140 - 440 thou/cu mm 04/19/2024 8:[address] [facility] MPV 10.8 6.5 - 11.0 fL 04/19/2024 8:[address] [facility] % NEUT 61.0 % 04/19/2024 8:[address] [facility] % LYMPH 26.5 % 04/19/2024 8:[address] [facility] % MONO 9.6 % 04/19/2024 8:[address] [facility] % EOS 2.5 % 04/19/2024 8:[address] [facility] % BASO 0.4 % 04/19/2024 8:[address] [facility] ABSOLUTE NEUTROPHILS 4.8 1.7 - 7.0 thou/cu mm 04/19/2024 8:[address] [facility] ABSOLUTE LYMPHOCYTES 2.1 0.9 - 2.9 thou/cu mm 04/19/2024 8:[address] [facility] ABSOLUTE MONOCYTES 0.8 <0.9 thou/cu mm 04/19/2024 8:[address] [facility] ABSOLUTE EOSINOPHILS 0.2 <0.5 thou/cu mm 04/19/2024 8:[address] [facility] ABSOLUTE BASOPHILS 0.0 <0.3 thou/cu mm 04/19/2024 8:[address] [facility] Blood BLOOD SPECIMEN / Unknown IV Start / Unknown 04/19/2024 8:16 AM [facility] 04/19/2024 8:18 AM [facility] us Wallace See DO HEMATOLOGY Final Resul t [facility] [address] [address] * ,SERUM QUALITATIVE (04/19/2024 8:16 AM [facility]) Only the most recent of3 resultswithin the time period is included. ,SERU M Negative Negative 04/19/2024 8:34 AM SCIENTIST PROPAGATOR [facility] Blood BLOOD SPECIMEN / Unknown IV Start / Unknown 04/19/2024 8:16 AM SCIENTIST PROPAGATOR 04/19/2024 8:18 AM SCIENTIST PROPAGATOR us Wallace See DO CHEMISTRY Final Resul t Performing Organization Address [facility] Number [facility] [address] [place] [phone] * TROPONIN T (HS) ONE TIME (04/16/2024 7:41 AM SCIENTIST PROPAGATOR) Pathologist [facility] TROPONIN T HS <6 6-10 ng/L ng/L 04/16/2024 8:[address] [facility] Blood BLOOD SPECIMEN / Unknown Venipuncture / Unknown 04/16/2024 7:41 AM SCIENTIST PROPAGATOR 04/16/2024 7:45 AM SCIENTIST PROPAGATOR us Ronel Hendricks MD CHEMISTRY Final Result Performing Organization Address [facility] Number [facility] [address] [phone] * LACTATE VENOUS (04/16/2024 7:41 AM SCIENTIST PROPAGATOR) Only the most recent of2 resultswithin the time period is included. Pathologist [facility] LACTATE,VENOUS 1.9 0.5 - 2.0 mmol/L 04/16/2024 8:[address] [facility] Blood BLOOD SPECIMEN / Unknown Venipuncture / Unknown 04/16/2024 7:41 AM SCIENTIST PROPAGATOR 04/16/2024 7:45 AM SCIENTIST PROPAGATOR us Ronel Hendricks MD CHEMISTRY Final Result Performing Organization Address [facility] Phone [facility] [address] [place] [phone] * DRUG SCREEN RAPID URINE INHOUSE (04/16/2024 6:15 AM SCIENTIST PROPAGATOR) Pathologist [facility] THC METABOLITES,ANA L Not Detected Not Detected 04/16/2024 6:[address] [facility] PCP,QUAL Not Detected Not Detected 04/16/2024 6:[address] [facility] COCAINE,QUAL Not Detected Not Detected 04/16/19 6:[address] [facility] METHAMPHETAMINE , QUALITATIVE Not Detected Not Detected 04/16/2024 6:[address] [facility] OPIATES,QUAL Not Detected Not Detected 04/16/19 6:[address] [facility] AMPHETAMINE, QUALITATIVE Not Detected Not Detected 04/16/2024 6:[address] [facility] BENZODIAZEPINES ,QUAL Not Detected Not Detected 04/16/2024 6:[address] [facility] TRICYCLICS,QUAL Not Detected Not Detected 04/16 6:[address] [facility] METHADONE, QUALITATIVE Not Detected Not Detected 04/16/2024 6:[address] [facility] BARBITURATES,QU AL Not Detected Not Detected 04/16/2024 6:[address] [facility] OXYCODONE, QUALITATIVE Not Detected Not Detected 04/16/2024 6:[address] [facility] BUPRENORPHINE, QUALITATIVE Not Detected Not Detected 04/16/2024 6:[address] [facility] Urine URINE SPECIMEN / Unknown Non-Blood / Unknown 04/16/2024 6:15 AM [facility] 04/16/2024 6:18 AM [facility] - 04/16/2024 6:31 AM [facility] Please Note: This is a screening test only, all results are unconfirmed and should be used for medical purposes only. Unconfirmed results must not be used for non-medical purposes (e.g., employment testing, legal testing). Suggest analyte specific confirmation for all non-negative results. Specimens will be held for 24 hours if additional testing is needed. The following threshold concentrations are used for this analysis: Drug Screening Threshold Buprenorphine 10 ng/mL PCP 25 ng/mL THC Metabolites 50 ng/mL *Opiates 100 ng/mL Oxycodone 100 ng/mL Cocaine 150 ng/mL Benzodiazepines 150 ng/mL Methadone 200 ng/mL Barbiturates 200 ng/mL Tricyclic Antidepressants 300 ng/mL Amphetamines 500 ng/mL Methamphetamines 500 ng/mL *Includes related compounds: Codeine 50 ng/mL Heroin 100 ng/mL Morphine 100 ng/mL Hydrocodone 400 ng/mL Hydromorphone 800 ng/mL Venlafaxine (Effexor) is a known cross reactant in the PCP assay. If clinically indicated, order PCP confirmation. us Ronel Hnedricks MD URINE Final Result Performing Organization Address [facility] Co de Phone Number [address] [phone] * (ABNORMAL) URINALYSIS MICROSCOPIC (04/16/2024 6:15 AM SCIENTIST PROPAGATOR) Only the most recent of2 resultswithin the time period is included. RBC 11-25(A) 0-2, None Seen /HPF 04/16/2024 6:[address] [facility] WBC 0-2 0-2, 3-5, None Seen /HPF 04/16/2024 6:[address] [facility] BACTERIA Few None Seen, Rare, Few Bacteria/H PF 04/16/2024 6:[address] [facility] EPITHELIAL CELLS Few None Seen, Few Epi/HPF 04/16/2024 6:[address] [facility] Urine URINE SPECIMEN / Unknown Non-Blood / Unknown 04/16/2024 6:15 AM SCIENTIST PROPAGATOR 04/16/2024 6:18 AM SCIENTIST PROPAGATOR us Ronel Hendricks MD URINE Final Result Performing Organization Address [facility] Co de Phone Number [address] [phone] * (ABNORMAL) UA W/ SEDIMENT EXAM REFLEXED PER CRITERIA (04/16/2024 6:15 AM SCIENTIST PROPAGATOR) Only the most recent of2 resultswithin the time period is included. COLOR Yellow Yellow Color 04/16/2024 6:[address] [facility] CLARITY Clear Clear Clarity 04/16/2024 6:[address] [facility] SPECIFIC GRAVITY,URINE <=1.005(A) 1.010, 1.015, 1.020, 1.025 04/16/2024 6:[address] [facility] PH,URINE 6.0 6.0, 7.0, 8.0, 5.5, 6.5, 7.5, 8.5 04/16/2024 6:[address] [facility] UROBILINOGEN, QUALITATIVE Normal Normal EU/dl 04/16/2024 6:[address] [facility] PROTEIN, URINE Negative Negative mg/dL 04/16/2024 6:[address] [facility] GLUCOSE, URINE Negative Negative mg/dL 04/16/2024 6:[address] [facility] KETONES,URINE Negative Negative mg/dL 04/16/2024 6:[address] [facility] BILIRUBIN,URI NE Negative Negative 04/16/2024 6:[address] [facility] OCCULT BLOOD,URINE Large(A) Negative 04/16/2024 6:[address] [facility] NITRITE Negative Negative 04/16/2024 6:[address] [facility] LEUKOCYTE ESTERASE Negative Negative 04/16/2024 6:[address] [facility] Urine URINE SPECIMEN / Unknown Non-Blood / Unknown 04/16/2024 6:15 AM SCIENTIST PROPAGATOR 04/16/2024 6:18 AM SCIENTIST PROPAGATOR us Ronel Hendricks MD URINE Final Result Performing Organization Address City/State/[facility] Co de Phone Number [facility] [address] [phone] * CTA CHEST ABDOMEN PELVIS AORTIC DISSECTION W (04/16/2024 6:14 AM SCIENTIST PROPAGATOR) Anatomical Region Laterality Modality CHEST, Abdomen, Pelvis, AORTA, THORAX, HEART Computed Tomography us Ronel Hendricks MD CT Final Result * EKG 12 LEAD (04/16/2024 5:21 AM SCIENTIST PROPAGATOR) Interpretation Normal sinus rhythm Normal ECG No previous ECGs available BEYOND NOW Ventricular Rate 81 BPM BEYOND NOW Atrial Rate 81 BPM BEYOND NOW P-R Interval 148 ms BEYOND NOW QRS Duration 76 ms BEYOND NOW QT 380 ms BEYOND NOW QTc 441 ms BEYOND NOW P [place] 53 degrees BEYOND NOW R [place] 66 degrees BEYOND NOW T [place] 54 degrees BEYOND NOW 04/16/2024 5:21 AM SCIENTIST PROPAGATOR 04/16/2024 8:01 PM SCIENTIST PROPAGATOR us Ronel Hendricks MD EKG ORD Final Result BEYOND NOW [place], [place] * TROPONIN T (HS) ACUTE W/2HR REFLEX (04/16/2024 5:20 AM SCIENTIST PROPAGATOR) TROPONIN T HS 7 6-10 ng/L ng/L 04/16/2024 5:[address] [facility] Blood BLOOD SPECIMEN / Unknown IV Start / Unknown 04/16/2024 5:20 AM SCIENTIST PROPAGATOR 04/16/2024 5:21 AM SCIENTIST PROPAGATOR Narrative [facility] - 04/16/2024 5:52 AM SCIENTIST PROPAGATOR hs-cTnT (Elecsys Troponin T Gen 5) concentration (s) above the sex-specific 99th percentile (16 ng/L or greater for males or 11 ng/L or greater for females) are indicative of myocardial injury. If initial hs-cTnT <=100 ng/L at presentation, a 0h/2h ABSOLUTE (ng/L) delta change (rising or falling) of >=10 ng/L suggests a significant change, whereas a 0h/2h delta change <=3 ng/L suggests no significant change. If initial hs-cTnT >100 ng/L at presentation, a 0h/2h/ RELATIVE (percent, %) delta change of 20% is suggested to distinguish patients with acute vs. chronic myocardial injury. There are multiple etiologies that can cause hs-cTnT increases above the 99th percentile (myocardial injury) other than acute myocardial infarction. Clinical context and careful clinical evaluation are critical for diagnosis and risk-stratification. The diagnosis of acute myocardial infarction requires a rising and/or falling pattern in hs-cTnT concentrations with at least one value above the sex-specific 99th percentile PLUS at least one of the following clinical criteria: ischemic symptoms, new or presumed new significant ST-T wave changes or new LBBB, development of pathological Q waves, imaging evidence of new loss of viable myocardium or new regional wall motion abnormality, or identification of intracoronary atherothrombosis or an acute angiographic culprit on coronary angiography. In appropriate low-risk patients with a non-ischemic electrocardiogram without active chest pain with a symptom onset >3-hours without recurrence, a single initial hs-cTnT<6 ng/L identifies patient with a very low risk in emergency department patient population. us Ronel Hendricks MD CHEMISTRY Final Result Performing Organization Address [facility] Co de Phone Number [facility] [address] [place] [phone] * (ABNORMAL) C-REACTIVE PROTEIN (04/16/2024 5:20 AM SCIENTIST PROPAGATOR) C-REACTIVE PROTEIN 0.5(H) <0.5 mg/dL 04/16/2024 6:18 AM SCIENTIST PROPAGATOR [facility] Blood BLOOD SPECIMEN / Unknown IV Start / Unknown 04/16/2024 5:20 AM SCIENTIST PROPAGATOR 04/16/2024 5:21 AM SCIENTIST PROPAGATOR us Ronel Hendricks MD CHEMISTRY Final Result Performing Organization Address [facility] de Phone Number [facility] [address] [place] [phone] * MAGNESIUM (04/16/2024 5:20 AM SCIENTIST PROPAGATOR) MAGNESIUM 2.0 1.6 - 2.6 mg/dL 04/16/2024 5:55 AM SCIENTIST PROPAGATOR [facility] Blood BLOOD SPECIMEN / Unknown IV Start / Unknown 04/16/2024 5:20 AM SCIENTIST PROPAGATOR 04/16/2024 5:21 AM SCIENTIST PROPAGATOR Ronel Hendricks MD CHEMISTRY Final Result Performing Organization Address [facility] Co de Phone Number [facility] [address] [phone] * US ABDOMEN LIMITED RUQ (04/11/2024 6:47 AM SCIENTIST PROPAGATOR) Anatomical Region Laterality Modality Abdomen, LIVER Ultrasound us Kaden Mejía MD US Final Result * CBC W PLT NO DIFF (04/11/2024 5:10 AM SCIENTIST PROPAGATOR) WHITE BLOOD COUNT 8.9 4.5 - 11.0 thou/cu mm 04/11/2024 5:[address] [facility] RED BLOOD COUNT 4.08 4.00 - 5.20 mil/cu mm 04/11/2024 5:[address] [facility] HEMOGLOBIN 12.5 12.0 - 16.0 g/dL 04/11/2024 5:[address] [facility] HEMATOCRIT 36.8 33.0 - 51.0 % 04/11/2024 5:[address] [facility] MCV 90 80 - 100 fL 04/11/2024 5:[address] [facility] MCH 30.6 26.0 - 34.0 pg 04/11/2024 5:[address] [facility] MCHC 34.0 32.0 - 36.0 g/dL 04/11/2024 5:[address] [facility] RDW 12.7 11.5 - 15.5 % 04/11/2024 5:[address] [facility] PLATELET COUNT 238 140 - 440 thou/cu mm 04/11/2024 5:[address] [facility] MPV 10.3 6.5 - 11.0 fL 04/11/2024 5:[address] [facility] Blood BLOOD SPECIMEN / Unknown Venipuncture / Unknown 04/11/2024 5:10 AM SCIENTIST PROPAGATOR 04/11/2024 5:13 AM SCIENTIST PROPAGATOR Kaden Mejía MD HEMATOLOGY Final Result [facility] [address] [phone] from Last 3 Months Insurance [facility] REFERRAL Member Subscriber Plan / Payer (Ef fective 2024-Present) Name:Esvin Rendon Member ID:[id number] Relation to Subscriber:Self Name:Esvin Rendon Subscriber ID:[id number] Payer ID:Not on file Group ID:Not on file Type:Not on file Address: [employer] Care Teams Sap Fico Architect Relationship Specialty Start Date End Date Pcp, No . PCP - General 04/30/23
[2024-05-13 22:19] VITALS: BP 111/75; PULSE 77; RESP 16; TEMP 36.6; O2SAT 98; BMI 32.6
--- NOTE | 2024-05-13 22:51 | ED.GENADULT ---
HPI - General Adult General Date Seen: 05/13/24 Chief complaint: Heartburn/Gastritis Stated complaint: Pain in esophagus Time Seen by Provider: 05/13/24 22:29 Source: patient and other (Boyfriend interpreting) Mode of arrival: ambulatory Limitations: no limitations History of Present Illness HPI narrative: Patient is a 29-year-old female presenting to the emergency department for epigastric pain. She states she has been dealing with this for several years now. She has been evaluated at the [facility] multiple times for this issue. She states they have told her that her heart is fine and she eventually was able to seem NG. 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 She sees them again on Sunday. She is hoping for something to manage her pain until then. She states typically GI cocktails will help for few days along with an IV dose of Protonix. Oral Protonix does not help she states. She is not having any chest pain or shortness of breath. Denies fevers, chills, diarrhea, constipation, weakness, numbness. Is currently taking Nexium and cimetidine. Related Data Home Medications ?Medication ?Instructions ?Recorded ?Confirmed omeprazole 20 mg capsule,delayed 20 mg PO DAILY 05/06/23 05/06/23 release Previous Rx's ?Medication ?Instructions ?Recorded ondansetron HCl 4 mg tablet 4 mg PO Q6H #20 tabs 05/06/23 Allergies Allergy/AdvReac Type Severity Reaction Status Date / Time No Known Drug Allergies Allergy Verified 05/06/23 14:08 Review of Systems Status of ROS: Reports: 10 or more systems reviewed and unremarkable except as noted in History and below [facility] Social History Smoking Status: Never smoker How often do you have six or more drinks on one occasion: Never AUDIT-C Alcohol total score: 0 Non-prescribed substance use: denies use Exam Narrative: Exam Narrative: Const: Well-nourished, Well-developed, in mild distress Eyes: PERRL, no conjunctival injection, and symmetrical lids HENT: Atraumatic external nose and ears. Moist mucous membranes. Neck: Symmetric, trachea midline, No thyromegaly. CVS: RRR, No murmurs or gallops. Peripheral pulses 2+ and equal in all extremities RESP: Unlabored respiratory effort. Clear to auscultation bilaterally. GI: Nontender/Nondistended, No rebound or guarding. MSK:Extremities w/o deformity, Normal Active ROM Skin: Warm, Dry. No rashes or lesions. Neuro: Normal Muscle tone, No focal neurological deficits. Psych: Awake, Alert, & Oriented x3. Appropriate mood and affect. Const: Vital Signs, click to edit/add: Vital Signs - 24 hr 05/13/24 22:19 Temperature 98 F Pulse Rate [Pulse Oximeter] 77 Respiratory Rate 16 Blood Pressure [[facility]] 111/75 Pulse Oximetry 98 Oxygen Delivery Me thod Room Air Course Vital Signs Vital signs: Initial Vital Signs Temperature 98 F 05/13/24 22:19 Temperature Source Temporal Artery Scan 05/13/24 22:19 Pulse Rate 77 05/13/24 22:19 Respiratory Rate 16 05/13/24 22:19 Blood Pressure 111/75 05/13/24 22:19 Blood Pressure Mean 87 05/13/24 22:19 Blood Pressure Position Sitting 05/13/24 22:19 Pulse Oximetry 98 05/13/24 22:19 Oxygen Delivery Method Room Air 05/13/24 22:19 Vital Signs Temperature 98 F 05/13/24 22:19 Pulse Rate 77 05/13/24 22:19 Respiratory Rate 16 05/13/24 22:19 Blood Pressure 111/75 05/13/24 22:19 Pulse Oximetry 98 05/13/24 22:19 Oxygen Delivery Method Room Air 05/13/24 22:19 Temperature 98 F 05/13/24 22:19 Pulse Rate 77 05/13/24 22:19 Respiratory Rate 16 05/13/24 22:19 Blood Pressure 111/75 05/13/24 22:19 Pulse Oximetry 98 05/13/24 22:19 Oxygen Delivery Method Room Air 05/13/24 22:19 Medications Administered Medications: Generic Name Dose Route Start Last Admin Trade Name Freq PRN Reason Stop Dose Admin Lidocaine/Aluminum/Magnesium/Simeth 30 ml 05/13/24 22:49 05/13/24 23:06 Gi Cocktail (Visc Lido/Antacid) 30 Ml PO 05/13/24 22:50 30 ml ONCE ONE Administration Pantoprazole Sodium 40 mg 05/13/24 22:49 05/13/24 22:58 Pantoprazole Sodium 40 Mg Inj IVP 05/13/24 22:50 40 mg ONCE ONE Administration Medical Decision Making MDM Narrative Medical decision making narrative: Patient is a 29-year-old female presenting to emergency department for gastritis. Has had previous endoscopy showing his gastritis and is scheduled to see GI in a couple days. Has already been evaluated for showing that her heart is fine. Considering all her pain is in epigastric region this is a known problem I do not believe repeat cardiac workup is necessary. At this time I will give her a GI cocktail and give her I would the Protonix as she states that is what helps her the best. Hopefully this will help her manage her pain until her appointment this Sunday. She is feeling much better after the medication. She is feeling well enough to go home she states. Patient will be discharged Discharge Plan Discharge Clinical Impression: Chronic GERD Patient Disposition: Home, Self-Care Condition: Improved Instructions: GERD (Gastroesophageal Reflux Disease) (DC) Additional Instructions: Continue your home medications. Make sure to keep your follow-up appointment on Sunday with [facility]. Prescriptions: No Action omeprazole 20 mg capsule,delayed release(DR/EC) 20 mg PO DAILY ondansetron HCl 4 mg tablet 4 mg PO Q6H Qty: 20 0RF Follow Up/Referrals: Provider,Not a Local [Primary Care Provider] - Stand Alone Forms: Eversight Info Instructions
[2024-05-13] MEDS: PANTOPRAZOLE SODIUM 40 MG INJ IVP (22:58)
--- OUTSIDE RECORDS SUMMARY | 2024-05-13 23:00 | XMS_ITS | Encounter Summary ---
Author Organization [facility] Address [address] [place] [address] Care Team Providers Care Awning Frame Maker Name Role Phone Montse Ruiz D.O. Primary Care Provider [phone] Reason for Visit * Reason Comments Abdominal Pain Encounter Details Date Type Department Care Team (Late st Contact Info) Description 04/16/2024 5:11 AM SPECIAL FORCES WARRANT OFFICER - 04/16/2024 11:59 PM SPECIAL FORCES WARRANT OFFICER Emergency [facility] [address] [place] [phone] Discharge Disposition: Home or Self Care Social [...] on file Legal Sex Female 8:30 AM SPECIAL FORCES WARRANT OFFICER Gender Identity Not on file Sexual Orientation [...] ED patients; some inpatients) 04/16/2024 6:10 AM [employer] FORCES WARRANT OFFICER documented in this encounter Results * CT Chest Abdomen Pelvis Angiogram with IV Contrast (04/16/2024 6:10 AM SPECIAL FORCES WARRANT OFFICER) Anatomical Region Laterality Modality Chest, Abdomen, Pelvis, Card iovascular RST LOS, Abdominal ARZ LOS, Thoracic ARZ LOS, Vascular Interventional ARZ LOS, Thoracic FLA LOS, Procedural, Vascular Interventional NWWI LOS Computed Tomography 04/16/2024 6:13 AM SPECIAL FORCES WARRANT OFFICER Impressions 04/16/2024 6:58 AM [employer] FORCES WARRANT OFFICER No acute abnormality in the chest, abdomen, or pelvis. Narrative 04/16/2024 6:58 AM SPECIAL FORCES WARRANT OFFICER EXAM: CT CHEST ABDOMEN PELVIS ANGIOGRAM WITH [...] For 1 dose Given 04/16/2024 6:06 AM SPECIAL FORCES WARRANT OFFICER 100 mL R ight Forearm sodium chloride 0.9 % flush 80 mL 80 mL, intravenous, Once, On Sun04/16/24 at 0615, For 1 dose Given 04/16/2024 6:06 AM [employer]CES WARRANT OFFICER 80 mL Right Forearm sodium chloride 0.9 % injection 10 mL 10 mL, intravenous, Once, On Sun04/16/24 at 0615, For 1 dose Given 04/16/2024 6:06 AM [employer]CES WARRANT OFFICER 10 mL Right Forearm documented in this encounter Active and Recently Administered Medications Times are shown in SPECIAL FORCES WARRANT OFFICER. Scheduled Medication Order 04/14/2024 04/15/2024 04/16/2024 sodium [...] documented as of this encounter Care Teams Awning Frame Maker Relationship Specialty Start Date End Date Montse Ruiz D.O. NPNora: [phone] [address] [phone] PCP - General Family Medicine 11/27/23 documented as of this encounter
--- OUTSIDE RECORDS SUMMARY | 2024-05-13 23:00 | XMS_ITS | Encounter Summary ---
Author Organization [facility] Address [address] [place] [address] Care Team Providers Care Maintainability Engineer Name Role Phone Montse Ruiz D.O. Primary Care Provider [phone] Reason for Visit * Reason Comments Abdominal Pain Encounter Details Date Type Department Care Team (Late st Contact Info) Description 04/22/2024 10:59 PM BROACH TROUBLE SHOOTER - 04/22/2024 11:59 PM BROACH TROUBLE SHOOTER Emergency [facility] [address] [place] [phone] Discharge Disposition: Home or Self Care Social [...] on file Legal Sex Female 8:30 AM BROACH TROUBLE SHOOTER Gender Identity Not on file Sexual Orientation [...] documented as of this encounter Care Teams Maintainability Engineer Relationship Specialty Start Date End Date Montse Ruiz D.O. [address] [place] [phone] PCP - General Family Medicine 11/27/23 documented as of this encounter
--- OUTSIDE RECORDS SUMMARY | 2024-05-13 23:00 | XMS_ITS | Encounter Summary ---
Author Organization [facility] Address [address] [place] [address] Care Team Providers Care Livestock Dealer Name Role Phone Montse Ruiz D.O. Primary Care Provider [phone] Reason for Visit * Reason Comments Abdominal Pain Encounter Details Date Type Department Care Team (Late st Contact Info) Description 05/12/2024 3:14 AM CLERK TELEVISION PRODUCTION Emergency [facility] [address] [place] [phone] Social History Tobacco Use Types [...] on file Legal Sex Female 8:30 AM CLERK TELEVISION PRODUCTION Gender Identity Not on file Sexual Orientation Not on file documented as of this encounter Plan of Treatment Not on file documented as of this encounter Visit Diagnoses Not on filedocumented in this encounter Additional Health Concerns Assessment Noted Time PHQ-9 Depression Total Score: 18 024 4:50 PM CDT documented as of this encounter Care Teams Livestock Dealer Relationship Specialty Start Date End Date Montse Ruiz D.O. [address] [place] [phone] PCP - General Family Medicine 11/27/23 documented as of this encounter
--- OUTSIDE RECORDS SUMMARY | 2024-05-13 23:00 | XMS_ITS | Encounter Summary ---
Author Organization [facility] Address [address] [place] [address] Care Team Providers Care Foreign Service Teacher Name Role Phone Montse Ruiz D.O. Primary Care Provider [phone] Reason for Visit * Reason Comments Abdominal Pain Vomiting Diarrhea Encounter Details Date Type Department Care Team (Late st Contact Info) Description 04/11/2024 4:47 AM TIME STUDY STATISTICIAN - 04/11/2024 11:59 PM TIME STUDY STATISTICIAN Emergency [facility] [address] [place] [phone] Discharge Disposition: Home or Self Care Social [...] on file Legal Sex Female 8:30 AM TIME STUDY STATISTICIAN Gender Identity Not on file Sexual Orientation [...] inpatients and all outpatients) 04/11/2024 6:49 AM TIME STUDY STATISTICIAN documented in this encounter Results * US Gallbladder and or Biliary Ducts (04/11/2024 6:49 AM TIME STUDY STATISTICIAN) Anatomical Region Laterality Modality Abdomen, Ultrasound RST LOS, Ultrasound ARZ LOS, Ultrasound FLA LOS N/A Ultrasound Impressions 04/11/2024 7:03 AM TIME STUDY STATISTICIAN Biliary sludge without evidence of acute cholecystitis or biliary ductal dilatation. Narrative 04/11/2024 7:03 AM TIME STUDY STATISTICIAN EXAM: US GALLBLADDER AND OR BILIARY DUCTS [...] documented as of this encounter Care Teams Foreign Service Teacher Relationship Specialty Start Date End Date Montse Ruiz D.O. [address] [place] [phone] PCP - General Family Medicine 11/27/23 documented as of this encounter
--- OUTSIDE RECORDS SUMMARY | 2024-05-13 23:01 | XMS_ITS | Clinical Summary ---
Author Organization [facility] Address [address] [place] [address] Care Team Providers Care Licensed Land Surveyor Name Role Phone Montse Ruiz D.O. Primary Care Provider [phone] Source Comments Patient records contain information from all sites at [facility]. For routine questions regarding patient records, call [phone] during business hours, M-F 8:00 AM - 5:00 PM Central Time. Record requests for emergency care only can be directed to [phone] at any time.[facility] Allergies No known active allergies Medications dicyclomine [...] Department Care Team Description 05/12/2024 3:14 AM [facility] Emergency [facility] [address] [place] [phone] 04/22/2024 10:59 PM INVESTIGATION CLERK - 04/22/2024 11:59 PM [facility] Emergency [facility] [address] [place] [phone] Discharge Disposition: Home or Self Care 04/16/2024 5:11 AM INVESTIGATION CLERK - 04/16/2024 11:59 PM [facility] Emergency [facility] [address] [place] [phone] Discharge Disposition: Home or Self Care 04/11/2024 4:47 AM INVESTIGATION CLERK - 04/11/2024 11:59 PM [facility] Emergency [facility] [address] [place] [phone] Discharge Disposition: Home or Self Care from [...] on file Legal Sex Female 8:30 AM INVESTIGATION CLERK Gender Identity Not on file Sexual Orientation [...] ED patients; some inpatients) 04/16/2024 6:10 AM INVESTIGATION CLERK US GALLBLADDER AND OR BILIARY DUCTS RAD - Routine (most inpatients and all outpatients) 04/11/2024 6:49 AM INVESTIGATION CLERK HPV WITH GENOTYPING, PCR, THINPREP Routine 05/31/2023 4:11 PM INVESTIGATION CLERK from Last 3 Months or Most Recently Relevant to Health Maintenance Results * CT Chest Abdomen Pelvis Angiogram with IV Contrast (04/16/2024 6:10 AM INVESTIGATION CLERK) Anatomical Region Laterality Modality Chest, Abdomen, Pelvis, Card iovascular RST LOS, Abdominal ARZ LOS, Thoracic ARZ LOS, Vascular Interventional ARZ LOS, Thoracic FLA LOS, Procedural, Vascular Interventional NWWI LOS Computed Tomography 04/16/2024 6:13 AM INVESTIGATION CLERK Impressions 04/16/2024 6:58 AM INVESTIGATION CLERK No acute abnormality in the chest, abdomen, or pelvis. Narrative 04/16/2024 6:58 AM INVESTIGATION CLERK EXAM: CT CHEST ABDOMEN PELVIS ANGIOGRAM WITH [...] and or Biliary Ducts (04/11/2024 6:49 AM INVESTIGATION CLERK) Anatomical Region Laterality Modality Abdomen, Ultrasound RST LOS, Ultrasound ARZ LOS, Ultrasound FLA LOS N/A Ultrasound Impressions 04/11/2024 7:03 AM INVESTIGATION CLERK Biliary sludge without evidence of acute cholecystitis or biliary ductal dilatation. Narrative 04/11/2024 7:03 AM INVESTIGATION CLERK EXAM: US GALLBLADDER AND OR BILIARY DUCTS [...] with Genotyping, PCR, ThinPrep (05/31/2023 4:11 PM INVESTIGATION CLERK) HPV with Genotyping, ThinPrep, PCR Negative Negative 06/01/2023 3:42 PM INVESTIGATION CLERK MKTO Comment: Negative for high risk HPV [...] correlated with patient's history, clinical presentation, and DIRECTORY COMPILER cytology report. 05/31/2023 4:11 PM INVESTIGATION CLERK 06/01/2023 7:37 AM INVESTIGATION CLERK Shanna Gallagher CNM, D.N.P. LAB MICROBIOLOGY - NERAL ORDERABLES Final Result [facility] [address] [place] [id number], [place] [address] [place] [phone] from Last 3 Months or Most Recently Relevant to Health Maintenance Care Teams Licensed Land Surveyor Relationship Specialty Start Date End Date Montse Ruiz D.O. [address] [place] [phone] PCP - General Family Medicine 11/27/23
--- OUTSIDE RECORDS SUMMARY | 2024-05-13 23:01 | XMS_ITS | Clinical Summary ---
Author Organization [facility] Address [address] [place] [id number] Care Team Providers Care Pot Fluxer Name Role Phone Pcp, No Primary Care [...] Department Care Team Description 05/12/2024 3:12 AM [facility] - 05/12/2024 4:[address] [address] Angelo Aggarwal MD Chronic gastritis, presence of bleeding unspecified, unspecified gastritis type (Primary Dx); Chronic abdominal pain; Epigastric pain; Gastroesophageal reflux disease, unspecified whether esophagitis present Discharge Disposition: Home Self Care 05/12/2024 Travel 04/22/2024 11:09 PM [facility] - 04/23/2024 1:[address] [address] Kaden Santos MD Chronic abdominal pain (Primary Dx) Discharge Disposition: Home Self Care 04/22/2024 Travel 04/19/2024 7:53 AM [facility] - 04/19/2024 10:[address] [address] Wallace See DO Epigastric pain (Primary Dx) Discharge Disposition: Home Self Care 04/19/2024 Travel 04/16/2024 5:08 AM [facility] - 04/16/2024 10:[address] [address] Ronel Hendricks MD Ball, Julieanne Patricia, MD Upper abdominal pain (Primary Dx); Vomiting and diarrhea; Abdominal pain, unspecified abdominal location Discharge Disposition: Home Self Care 04/16/2024 Telephone [facility] [address] [facility] [place] [address] Sorin Nickerson MD Appointment 04/16/2024 Telephone [facility] [address] [facility] [place] [address] Sorin Nickerson MD Appointment (KATHERINE ) 04/11/2024 4:50 AM [facility] - 04/11/2024 7:32 AM [facility] Emergency [facility] [address] [place] [address] Kaedn Mejía MD Chronic abdominal pain (Primary Dx) [...] on file Legal Sex Female 8:24 AM [facility] Gender Identity Not on file Sexual Orientation Not on file Obstetrics History Para Term AB IAB SAB Ectopic Multiple Livin g Live Births 1 Date Outcome GA Total Labor Labor/2nd/3rd Weight Sex Type Anes PTL Anabell A1 A5 Name Clin Last Filed Vital Signs Vital Sign Reading Time Taken Comments Blood Pressure 115/77 05/12/2024 3:24 AM [facility] Pulse 89 05/12/2024 3:24 AM [facility] Temperature 36.5 C (97.7 F) 05/12/2024 3:24 AM [facility] Respiratory Rate 18 05/12/2024 3:24 AM [facility] Oxygen Saturation 99% 05/12/2024 3:24 AM [facility] Inhaled Oxygen Concentration - - Weight 96.9 kg (213 lb 9.6 oz) 05/12/2024 3:17 A M [facility] Height 165.1 cm (5' 5) 05/12/2024 3:17 AM [facility] Body Mass Index 35.54 05/12/2024 3:17 AM [facility] Plan of Treatment Upcoming Encounters Date Type Department Care Team (Late st Contact Info) Description 07/10/2024 9:00 AM CDT Office Visit [facility] [address] [facility] [place] [address] Sorin Nickerson MD [address] [address] Health Maintenance Due Date Last Done Comments [...] Diagnosis Comments LIPASE STAT 04/19/2024 9:16 AM [facility] HEPATIC FUNCTION PANEL STAT 04/19/2024 9:16 AM [facility] BASIC METABOLIC PANEL STAT 04/19/2024 9:16 AM [facility] CBC WITH AUTO DIFFERENTIAL STAT 04/19/2024 8:16 AM [facility] ,SERUM QUALITATIVE STAT 04/19/2024 8:16 AM [facility] CBC WITH AUTO DIFFERENTIAL STAT 04/19/2024 8:16 AM [facility] TROPONIN T (HS) ONE TIME STAT 04/16/2024 7:41 AM [facility] LACTATE VENOUS STAT 04/16/2024 7:41 AM [facility] URINALYSIS MICROSCOPIC STAT 04/16/2024 6:15 AM [facility] UA W/ SEDIMENT EXAM REFLEXED PER CRITERIA STAT 04/16/2024 6:15 AM [facility] DRUG SCREEN RAPID URINE INHOUSE STAT 04/16/2024 6:15 AM [facility] CTA CHEST ABDOMEN PELVIS AORTIC DISSECTION W STAT 04/16/2024 6:14 AM [facility] EKG 12 LEAD STAT 04/16/2024 5:21 AM [facility] C-REACTIVE PROTEIN STAT 04/16/2024 5: 20 AM [facility] MAGNESIUM STAT 04/16/2024 5:20 AM [facility] CBC WITH AUTO DIFFERENTIAL STAT 04/16/2024 5:20 AM [facility] LACTATE VENOUS STAT 04/16/2024 5:20 AM [facility] TROPONIN T (HS) ACUTE W/2HR REFLEX STAT 04/16/2024 5:20 AM [facility] ,SERUM QUALITATIVE STAT 04/16/2024 5:20 AM [facility] LIPASE STAT 04/16/2024 5:20 AM [facility] HEPATIC FUNCTION PANEL STAT 04/16/2024 5:20 AM [facility] BASIC METABOLIC PANEL STAT 04/16/2024 5:20 AM [facility] CBC WITH AUTO DIFFERENTIAL STAT 04/16/2024 5:20 AM [facility] US ABDOMEN LIMITED RUQ STAT 04/11/2024 6:47 AM [facility] URINALYSIS MICROSCOPIC STAT 04/11/2024 6:04 AM [facility] UA W/ SEDIMENT EXAM REFLEXED PER CRITERIA STAT 04/11/2024 6:04 AM [facility] ,SERUM QUALITATIVE STAT 04/11/2024 5:13 AM [facility] LIPASE STAT 04/11/2024 5:11 AM [facility] HEPATIC FUNCTION PANEL STAT 04/11/2024 5:11 AM [facility] BASIC METABOLIC PANEL STAT 04/11/2024 5:11 AM [facility] CBC W PLT NO DIFF STAT 04/11/2024 5:1 0 AM [facility] from Last 3 Months Results * LIPASE (04/19/2024 9:16 AM [facility]) Only the most recent of3 resultswithin the time period is included. LIPASE 33.7 13.0 - 60.0 IU/L 04/19/2024 9:43 AM [facility] Blood BLOOD SPECIMEN / Unknown Venipuncture / Unknown 04/19/2024 9:16 AM [facility] 04/19/2024 9:20 AM [facility] Wallace See DO CHEMISTRY Final Resul t [facility] [address] [address] * (ABNORMAL) HEPATIC FUNCTION PANEL (04/19/2024 9:16 AM [facility]) Only the most recent of3 resultswithin the time period is included. ALBUMIN 3.9(L) 4.0 - 4.9 g/dL 04/19/2024 9:43 AM [facility] PROTEIN,TOTAL 7.1 6.0 - 8.0 g/dL 04/19/2024 9:43 AM [facility] BILIRUBIN,TOTAL 0.2 0.0 - 1.2 mg/dL 04/19/2024 9:43 AM [facility] BILIRUBIN,DIRECT 0.1 0.0 - 0.2 mg/dL 04/19/2024 9:43 AM [facility] ALK PHOSPHATASE 70 35 - 104 IU/L 04/19/2024 9:43 AM [facility] ALT (SGPT) 22 10 - 35 IU/L 04/19/2024 9:43 AM [facility] AST (SGOT) 22 10 - 35 IU/L 04/19/2024 9:43 AM [facility] Blood BLOOD SPECIMEN / Unknown Venipuncture / Unknown 04/19/2024 9:16 AM [facility] 04/19/2024 9:20 AM [facility] us Wallace See DO CHEMISTRY Final Resul t [facility] [address] [address] * (ABNORMAL) BASIC METABOLIC PANEL (04/19/2024 9:16 AM [facility]) Only the most recent of3 resultswithin the time period is included. SODIUM 140 136 - 145 mmol/L 04/19/2024 9:43 AM [facility] POTASSIUM 3.8 3.5 - 5.1 mmol/L 04/19/2024 9:43 AM [facility] CHLORIDE 106 98 - 107 mmol/L 04/19/2024 9:43 AM [facility] CO2,TOTAL 23 22 - 29 mmol/L 04/19/2024 9:43 AM [facility] ANION GAP 11 5 - 18 04/19/2024 9:43 AM [facility] GLUCOSE 98 70 - 99 mg/dL 04/19/2024 9:43 AM [facility] CALCIUM 8.4(L) 8.8 - 10.4 mg/dL 04/19/2024 9:43 AM [facility] Comment: Reference ranges for this test were updated on 01/29/2024 to reflect our healthy population more accurately. Reference range changes are not retroactively applied to results, but previous results using the same methodology can be interpreted in the context of the new reference range. BUN 9 6 - 20 mg/dL 04/19/2024 9:43 AM [facility] CREATININE 0.56 0.50 - 0.90 mg/dL 04/19/2024 9:43 AM [facility] BUN/CREAT RATIO 16 10 - 20 9:43 AM [facility] eGFR >90 >90 mL/min/1.7 3m2 04/19/2024 9:43 AM [facility] Comment:As of 2021, eG FR is calculated by the CKD-EPI creatinine equation without race adjustment. eGFR can be influenced by muscle mass, exercise, and diet. The reported eGFR is an estimation only and is only applicable if the renal function is stable. Blood BLOOD SPECIMEN / Unknown Venipuncture / Unknown 04/19/2024 9:16 AM [facility] 04/19/2024 9:20 AM [facility] us Wallace See DO CHEMISTRY Final Resul t [facility] [address] [address] * CBC WITH AUTO DIFFERENTIAL (04/19/2024 8:16 AM [facility]) Only the most recent of2 resultswithin the time period is included. WHITE BLOOD COUNT 7.9 4.5 - 11.0 thou/cu mm 04/19/2024 8:23 AM [facility] RED BLOOD COUNT 4.33 4.00 - 5.20 mil/cu mm 04/19/2024 8:23 AM [facility] HEMOGLOBIN 13.1 12.0 - 16.0 g/dL 04/19/2024 8:23 AM [facility] HEMATOCRIT 38.7 33.0 - 51.0 % 04/19/2024 8:23 AM [facility] MCV 89 80 - 100 fL 04/19/2024 8:23 AM [facility] MCH 30.3 26.0 - 34.0 pg 04/19/2024 8:23 AM [facility] MCHC 33.9 32.0 - 36.0 g/dL 04/19/2024 8:23 AM [facility] RDW 12.5 11.5 - 15.5 % 04/19/2024 8:23 AM [facility] PLATELET COUNT 248 140 - 440 thou/cu mm 04/19/2024 8:23 AM [facility] MPV 10.8 6.5 - 11.0 fL 04/19/2024 8:23 AM [facility] % NEUT 61.0 % 04/19/2024 8:23 AM [facility] % LYMPH 26.5 % 04/19/2024 8:23 AM [facility] % MONO 9.6 % 04/19/2024 8:23 AM [facility] % EOS 2.5 % 04/19/2024 8:23 AM [facility] % BASO 0.4 % 04/19/2024 8:23 AM [facility] ABSOLUTE NEUTROPHILS 4.8 1.7 - 7.0 thou/cu mm 04/19/2024 8:23 AM [facility] ABSOLUTE LYMPHOCYTES 2.1 0.9 - 2.9 thou/cu mm 04/19/2024 8:23 AM [facility] ABSOLUTE MONOCYTES 0.8 <0.9 thou/cu mm 04/19/2024 8:23 AM [facility] ABSOLUTE EOSINOPHILS 0.2 <0.5 thou/cu mm 04/19/2024 8:23 AM [facility] ABSOLUTE BASOPHILS 0.0 <0.3 thou/cu mm 04/19/2024 8:23 AM [facility] Blood BLOOD SPECIMEN / Unknown IV Start / Unknown 04/19/2024 8:16 AM [facility] 04/19/2024 8:18 AM [facility] us Wallace See DO HEMATOLOGY Final Resul t [facility] [address] [address] * ,SERUM QUALITATIVE (04/19/2024 8:16 AM [facility]) Only the most recent of3 resultswithin the time period is included. ,SERU M Negative Negative 04/19/2024 8:34 AM [facility] Blood BLOOD SPECIMEN / Unknown IV Start / Unknown 04/19/2024 8:16 AM [facility] 04/19/2024 8:18 AM [facility] us Wallace See DO CHEMISTRY Final Resul t Performing Organization Address [facility] Number [facility] [address] [place] [phone] * TROPONIN T (HS) ONE TIME (04/16/2024 7:41 AM [facility]ILER) Pathologist [facility] TROPONIN T HS <6 6-10 ng/L ng/L 04/16/2024 8:13 AM [facility] Blood BLOOD SPECIMEN / Unknown Venipuncture / Unknown 04/16/2024 7:41 AM [facility] 04/16/2024 7:45 AM [facility] us Ronel Hendricks MD CHEMISTRY Final Result Performing Organization Address [facility] Number [facility] [address] [address] * LACTATE VENOUS (04/16/2024 7:41 AM [facility]) Only the most recent of2 resultswithin the time period is included. Pathologist [facility] LACTATE,VENOUS 1.9 0.5 - 2.0 mmol/L 04/16/2024 8:13 AM [facility] Blood BLOOD SPECIMEN / Unknown Venipuncture / Unknown 04/16/2024 7:41 AM [facility] 04/16/2024 7:45 AM [facility] us Ronel Hendricks MD CHEMISTRY Final Result Performing Organization Address [facility] Phone [facility] [address] [place] [phone] * DRUG SCREEN RAPID URINE INHOUSE (04/16/2024 6:15 AM [facility]) Pathologist [facility] THC METABOLITES,ANA L Not Detected Not Detected 04/16/2024 6:31 AM [facility] PCP,QUAL Not Detected Not Detected 04/16/2024 6:31 AM [facility] COCAINE,QUAL Not Detected Not Detected 04/16/19 6:31 AM [facility] METHAMPHETAMINE , QUALITATIVE Not Detected Not Detected 04/16/2024 6:31 AM [facility] OPIATES,QUAL Not Detected Not Detected 04/16/19 6:31 AM [facility] AMPHETAMINE, QUALITATIVE Not Detected Not Detected 04/16/2024 6:31 AM [facility] BENZODIAZEPINES ,QUAL Not Detected Not Detected 04/16/2024 6:31 AM [facility] TRICYCLICS,QUAL Not Detected Not Detected 04/16 6:31 AM [facility] METHADONE, QUALITATIVE Not Detected Not Detected 04/16/2024 6:31 AM [facility] BARBITURATES,QU AL Not Detected Not Detected 04/16/2024 6:31 AM [facility] OXYCODONE, QUALITATIVE Not Detected Not Detected 04/16/2024 6:31 AM [facility] BUPRENORPHINE, QUALITATIVE Not Detected Not Detected 04/16/2024 6:31 AM [facility] Urine URINE SPECIMEN / Unknown Non-Blood / Unknown 04/16/2024 6:15 AM [facility] 04/16/2024 6:18 AM [facility] - 04/16/2024 6:31 AM [facility] Please Note: This is a screening [...] clinically indicated, order PCP confirmation. us Ronel Hendricks MD URINE Final Result Performing Organization Address [facility] Co de Phone Number [address] [phone] * (ABNORMAL) URINALYSIS MICROSCOPIC (04/16/2024 6:15 AM [facility]) Only the most recent of2 resultswithin the time period is included. RBC 11-25(A) 0-2, None Seen /HPF 04/16/2024 6:28 AM [facility] WBC 0-2 0-2, 3-5, None Seen /HPF 04/16/2024 6:28 AM [facility] BACTERIA Few None Seen, Rare, Few Bacteria/H PF 04/16/2024 6:28 AM [facility] EPITHELIAL CELLS Few None Seen, Few Epi/HPF 04/16/2024 6:28 AM [facility] Urine URINE SPECIMEN / Unknown Non-Blood / Unknown 04/16/2024 6:15 AM [facility] 04/16/2024 6:18 AM [facility] us Ronel Hendricks MD URINE Final Result Performing Organization Address [facility] Co de Phone Number [address] [phone] * (ABNORMAL) UA W/ SEDIMENT EXAM REFLEXED PER CRITERIA (04/16/2024 6:15 AM [facility]) Only the most recent of2 resultswithin the time period is included. COLOR Yellow Yellow Color 04/16/2024 6:23 AM [facility] CLARITY Clear Clear Clarity 04/16/2024 6:23 AM [facility] SPECIFIC GRAVITY,URINE <=1.005(A) 1.010, 1.015, 1.020, 1.025 04/16/2024 6:23 AM [facility] PH,URINE 6.0 6.0, 7.0, 8.0, 5.5, 6.5, 7.5, 8.5 04/16/2024 6:23 AM [facility] UROBILINOGEN, QUALITATIVE Normal Normal EU/dl 04/16/2024 6:23 AM [facility] PROTEIN, URINE Negative Negative mg/dL 04/16/2024 6:23 AM [facility] GLUCOSE, URINE Negative Negative mg/dL 04/16/2024 6:23 AM [facility] KETONES,URINE Negative Negative mg/dL 04/16/2024 6:23 AM [facility] BILIRUBIN,URI NE Negative Negative 04/16/2024 6:23 AM [facility] OCCULT BLOOD,URINE Large(A) Negative 04/16/2024 6:23 AM [facility] NITRITE Negative Negative 04/16/2024 6:23 AM [facility] LEUKOCYTE ESTERASE Negative Negative 04/16/2024 6:23 AM [facility] Urine URINE SPECIMEN / Unknown Non-Blood / Unknown 04/16/2024 6:15 AM [facility] 04/16/2024 6:18 AM [facility] us Ronel Hendricks MD URINE Final Result Performing Organization Address City/State/[facility] Co de Phone Number [facility] [address] [phone] * CTA CHEST ABDOMEN PELVIS AORTIC DISSECTION W (04/16/2024 6:14 AM [facility]) Anatomical Region Laterality Modality CHEST, Abdomen, Pelvis, AORTA, THORAX, HEART Computed Tomography us Ronel Hendricks MD CT Final Result * EKG 12 LEAD (04/16/2024 5:21 AM [facility]) Interpretation Normal sinus rhythm Normal ECG No previous ECGs available BEYOND NOW Ventricular Rate 81 BPM BEYOND NOW Atrial Rate 81 BPM BEYOND NOW P-R Interval 148 ms BEYOND NOW QRS Duration 76 ms BEYOND NOW QT 380 ms BEYOND NOW QTc 441 ms BEYOND NOW P [place] 53 degrees BEYOND NOW R [place] 66 degrees BEYOND NOW T [place] 54 degrees BEYOND NOW 04/16/2024 5:21 AM [facility] 04/16/2024 8:01 PM [facility] us Ronel Hendricks MD EKG ORD Final Result [place] NOW [place], [place] * TROPONIN T (HS) ACUTE W/2HR REFLEX (04/16/2024 5:20 AM [facility]) TROPONIN T HS 7 6-10 ng/L ng/L 04/16/2024 5:52 AM [facility] Blood BLOOD SPECIMEN / Unknown IV Start / Unknown 04/16/2024 5:20 AM [facility] 04/16/2024 5:21 AM [facility]ER Narrative [facility] - 04/16/2024 5:52 AM [facility]ER hs-cTnT (Elecsys Troponin T Gen 5) concentration [...] MD CHEMISTRY Final Result Performing Organization Address [facility] Co de Phone Number [facility] [address] [place] [phone] * (ABNORMAL) C-REACTIVE PROTEIN (04/16/2024 5:20 AM [facility]) C-REACTIVE PROTEIN 0.5(H) <0.5 mg/dL 04/16/2024 6:18 AM [facility]ILER [facility] Blood BLOOD SPECIMEN / Unknown IV Start / Unknown 04/16/2024 5:20 AM [facility] 04/16/2024 5:21 AM [facility] us Ronel Hendricks MD CHEMISTRY Final Result Performing Organization Address [facility] de Phone Number [facility] [address] [place] [phone] * MAGNESIUM (04/16/2024 5:20 AM [facility]ER) MAGNESIUM 2.0 1.6 - 2.6 mg/dL 04/16/2024 5:55 AM [facility]LINE OILER [facility] Blood BLOOD SPECIMEN / Unknown IV Start / Unknown 04/16/2024 5:20 AM [facility] 04/16/2024 5:21 AM [facility]ER Ronel Hendricks MD CHEMISTRY Final Result Performing Organization Address [facility] Co de Phone Number [facility] [address] [phone] * US ABDOMEN LIMITED RUQ (04/11/2024 6:47 AM [facility]) Anatomical Region Laterality Modality Abdomen, LIVER Ultrasound us Kaden Mejía MD US Final Result * CBC W PLT NO DIFF (04/11/2024 5:10 AM [facility]ER) WHITE BLOOD COUNT 8.9 4.5 - 11.0 thou/cu mm 04/11/2024 5:17 AM [facility] RED BLOOD COUNT 4.08 4.00 - 5.20 mil/cu mm 04/11/2024 5:17 AM [facility] HEMOGLOBIN 12.5 12.0 - 16.0 g/dL 04/11/2024 5:17 AM [facility] HEMATOCRIT 36.8 33.0 - 51.0 % 04/11/2024 5:17 AM [facility] MCV 90 80 - 100 fL 04/11/2024 5:17 AM [facility] MCH 30.6 26.0 - 34.0 pg 04/11/2024 5:17 AM [facility] MCHC 34.0 32.0 - 36.0 g/dL 04/11/2024 5:17 AM [facility] RDW 12.7 11.5 - 15.5 % 04/11/2024 5:17 AM [facility] PLATELET COUNT 238 140 - 440 thou/cu mm 04/11/2024 5:17 AM [facility] MPV 10.3 6.5 - 11.0 fL 04/11/2024 5:17 AM [facility] Blood BLOOD SPECIMEN / Unknown Venipuncture / Unknown 04/11/2024 5:10 AM [facility] 04/11/2024 5:13 AM [facility]ER Kaden Mejía MD HEMATOLOGY Final Result [facility] [address] [phone] from Last 3 Months Insurance [facility] REFERRAL Member Subscriber Plan / Payer (Ef fective 2024-Present) Name:Esvin Rendon Member ID:[id number] Relation to Subscriber:Self Name:Esvin Rendon Subscriber ID:[id number] Payer ID:Not on file Group ID:Not on file Type:Not on file Address: [employer] Care Teams Pot Fluxer Relationship Specialty Start Date End Date Pcp, No . PCP - General 04/30/23
[2024-05-13] MEDS: GI COCKTAIL (VISC LIDO/ANTACID) 30 ML PO (23:06)
== END 2024-05-13 23:37 | disposition home or self-care (01) ==
PROVIDERS: Emergency Provider Student in an Organized Health Care Education/Training Program
DX: K21.9 Gastro-esophageal reflux disease without esophagitis (principal)
CPT/HCPCS: 96374; 99283; 99284; A9270; J2470

== ENCOUNTER 2024-05-23 22:13 | Inpatient (IN) | payer OTHER, SELFPAY ==
[2024-05-23 22:31] VITALS: BP 121/88; PULSE 99; RESP 18; TEMP 36.7; O2SAT 97; BMI 33.1
[2024-05-23 23:28] LABS: Albumin* 4.4 g/dL (3.3-5.0); Basophils Absolute Auto 0.04 K/uL (0.00-0.30); Basophils Percent Auto 0.4 % (0.0-3.0); Chloride* 103 mmol/L (96-114); Eosinophils Absolute Auto 0.15 K/uL (0.00-0.50); Eosinophils Percent Auto 1.5 % (0.0-7.0); Hematocrit 37.5 % (33.0-51.0); Hemoglobin* 12.6 gm/dL (12.0-16.0); Immature Granulocytes Abs Auto 0.01 K/uL (0.00-0.30); Immature Granulocytes Pct Auto 0.1 %; Lymphocytes Absolute Auto 2.22 K/uL (0.90-2.90); Lymphocytes Percent Auto 21.7 % (20-44); Mean Corpuscular HGB Conc 34 gm/dL (32-36); Mean Corpuscular Hemoglobin 31 pg (26-34); Mean Corpuscular Volume 91 fL (80-100); Monocytes Percent Auto 8.5 % (0.0-11.0); Neutrophils Absolute Auto 6.94 K/uL (1.7-7.0); Neutrophils Percent Auto 67.8 % (42.0-72.0); Platelet Count* 267 K/uL (140-440); RDW Coefficient of Variation % 12.1 % (11.5-15.5); Red Blood Count 4.13 m/uL (4.00-5.20); White Blood Count* 10.23 K/uL (4.50-11.00)
--- NOTE | 2024-05-23 23:28 | ED.GENADULT ---
HPI - General Adult General Chief complaint: Abdominal Pain <Camila Israel MD - Last Filed: 05/25/24 09:25> Stated complaint: gallstone/surgery scheduled 05/27 <Camila Israel MD - Last Filed: 05/25/24 09:25> Time Seen by Provider: 05/23/24 22:46 <Camila Israel MD - Last Filed: 05/25/24 09:25> Source: patient <Camila Israel MD - Last Filed: 05/25/24 09:25> Mode of arrival: ambulatory <Camila Israel MD - Last Filed: 05/25/24 09:25> Limitations: no limitations <Camila Israel MD - Last Filed: 05/25/24 09:25> History of Present Illness HPI narrative: 29-year-old female coming in today complaining of right upper quadrant pain. Patient has had multiple ED visits in [place] for abdominal pain. She had a right upper quadrant ultrasound 05/21/2024 that showed gallstones. She has a cholecystectomy scheduled for 05/27/2024 but states that she cannot wait until then. She states that the pain is daily and constant. She was seen in the ER in [place] this morning. She was discharged home with oxycodone, Maalox and Carafate. She states that her pain is not controlled. She reports constipation and nausea. No vomiting. No fevers. Pain in her epigastric and radiates into her back. Past medical history significant for chronic epigastric abdominal pain that has been diagnosed as dysfunctional dyspepsia until recently when she was found have gallstones. She has never had surgery. Denies any other medical problems. Ate at 8:00 p.m. <Camila Israel MD - Last Filed: 05/25/24 09:25> Related Data Home medications: Home Medications ?Medication ?Instructions ?Recorded ?Confirmed omeprazole 20 mg capsule,delayed 20 mg PO DAILY 05/06/23 05/06/23 release Previous Rx's ?Medication ?Instructions ?Recorded ondansetron HCl 4 mg tablet 4 mg PO Q6H #20 tabs 05/06/23 <Camila Israel MD - Last Filed: 05/25/24 09:25> Allergies/adverse reactions: Allergies Allergy/AdvReac Type Severity Reaction Status Date / Time No Known Drug Allergies Allergy Verified 05/24/24 09:43 <Camila Israel MD - Last Filed: 05/25/24 09:25> Review of Systems Status of ROS: Reports: 10 or more systems reviewed and unremarkable except as noted in History and below <Camila Israel MD - Last Filed: 05/25/24 09:25> [facility] Medical History: Medical History Obesity ?E66.9 - Obesity, unspecified (ICD-10) Miscarriage ?O03.9 - Complete or unspecified spontaneous without complication (ICD-10) H. pylori infection ?A04.8 - Other specified bacterial intestinal infections (ICD-10) <Camila Israel MD - Last Filed: 05/25/24 09:25> Social History: Social History What is your current living situation?: I presently have a place to live Problems where you live: no known problems Problems where you live details: n/a In the past 12 months, utilities in danger of being shut off: no In past 12 months, lack of transportation kept you from medical appts, meetings, work, or getting things needed for daily living: no In the past 12 mos, have been you worried that your food would run out before you had money to buy more?: never true In the past 12 mos, the food you bought just didn't last and you didn't have money to buy more?: never true Highest level of school completed/degree received: some college, no degree Smoking Status: Former smoker How often do you have a drink containing alcohol: monthly or less How often do you have six or more drinks on one occasion: Never AUDIT-C Alcohol total score: 1 Non-prescribed substance use: denies use Caffeine: No How often does anyone, including family, friends and others, physically hurt you: never How often does anyone, including family, friends and others, insult or talk down to you: never How often does anyone, including family, friends and others, threaten you with harm: never How often does anyone, including family, friends and others, scream or curse at you: never service: No <Camila Israel MD - Last Filed: 05/25/24 09:25> Exam Narrative: Exam Narrative: Well-nourished well-developed patient, writhing in pain, groaning reminiscent of a woman in labor. Answers questions appropriately. does most of the speaking for her. HEENT: Normocephalic atraumatic. Pupils are equally round reactive to light. Extraocular muscles are intact. Conjunctivae are moist without any icterus noted. Moist mucous membranes. Posterior pharynx is normal. Neck is soft without any lymphadenopathy or thyromegaly. No masses are appreciated. Cardiovascular: Heart is regular rate and rhythm S1 and S2 are present without any murmurs. Lungs: Clear to auscultation bilaterally no wheezes rhonchi or rales are appreciated. Patient takes deep breaths without any discomfort. Abdomen: Soft and nondistended. Patient yells in pain with right upper quadrant palpation. Normal bowel sounds. Extremities: Bilateral lower extremities are without edema. Normal DP and PT pulses. Skin: Well perfused without any obvious rashes. <Camila Israel MD - Last Filed: 05/25/24 09:25> Const: Vital Signs, click to edit/add: Vital Signs - 24 hr 05/24/24 10:00 05/24/24 12:00 05/24/24 14:00 Temperature 98 F 98 F 98 F Pulse Rate Pulse Rate [Pulse Oximeter] 80 95 95 Respiratory Rate 18 18 18 Blood Pressure Blood Pressure [Le ft Arm] 105/72 117/70 117/70 Pulse Oximetry 98 99 99 Oxygen Delivery Me thod Room Air Room Air Room Air Oxygen Flow Rate 05/24/24 17:21 05/24/24 17:25 05/24/24 17:30 Temperature 97.9 F Pulse Rate 110 H 102 H 89 Pulse Rate [Pulse Oximeter] Respiratory Rate 16 15 15 Blood Pressure 131/76 131/82 120/77 Blood Pressure [Le ft Arm] Pulse Oximetry 96 94 97 Oxygen Delivery Me thod Room Air Room Air Nasal Cannula Oxygen Flow Rate 2 05/24/24 17:35 05/24/24 17:40 05/24/24 17:45 Temperature Pulse Rate 86 99 83 Pulse Rate [Pulse Oximeter] Respiratory Rate 13 19 15 Blood Pressure 125/79 120/73 116/70 Blood Pressure [Le ft Arm] Pulse Oximetry 97 98 93 Oxygen Delivery Me thod Nasal Cannula Nasal Cannula Room Air Oxygen Flow Rate 2 2 05/24/24 17:50 05/24/24 18:00 05/24/24 18:15 Temperature 99.1 F 97.7 F 97.7 F Pulse Rate 95 96 95 Pulse Rate [Pulse Oximeter] Respiratory Rate 12 14 14 Blood Pressure 113/66 127/81 116/70 Blood Pressure [Le ft Arm] Pulse Oximetry 94 91 92 Oxygen Delivery Me thod Room Air Room Air Room Air Oxygen Flow Rate 05/24/24 18:30 05/24/24 18:45 05/24/24 19:00 Temperature 97.5 F L 98.9 F 98.5 F Pulse Rate 86 86 99 Pulse Rate [Pulse Oximeter] Respiratory Rate 14 14 16 Blood Pressure 111/73 112/74 122/71 Blood Pressure [Le ft Arm] Pulse Oximetry 92 93 93 Oxygen Delivery Me thod Room Air Room Air Room Air Oxygen Flow Rate 05/24/24 19:30 05/24/24 20:00 05/24/24 21:00 Temperature 98.5 F 98.7 F Pulse Rate 95 104 H 112 H Pulse Rate [Pulse Oximeter] Respiratory Rate 18 16 14 Blood Pressure 115/75 143/87 H 112/68 Blood Pressure [Le ft Arm] Pulse Oximetry 98 95 93 Oxygen Delivery Me thod Room Air Room Air Room Air Oxygen Flow Rate 05/24/24 22:00 05/24/24 23:00 05/24/24 23:00 Temperature 98.9 F 98.5 F Pulse Rate 114 H 97 Pulse Rate [Pulse Oximeter] 97 Respiratory Rate 16 20 20 Blood Pressure 114/83 116/75 Blood Pressure [Le ft Arm] 116/75 Pulse Oximetry 93 97 97 Oxygen Delivery Me thod Room Air Room Air Room Air Oxygen Flow Rate 05/25/24 00:00 05/25/24 04:19 05/25/24 08:38 Temperature 98.5 F 99.2 F 98.1 F Pulse Rate 108 H Pulse Rate [Pulse Oximeter] 85 94 Respiratory Rate 18 14 18 Blood Pressure 114/67 Blood Pressure [Le ft Arm] 112/83 118/81 Pulse Oximetry 96 94 96 Oxygen Delivery Me thod Room Air Room Air Room Air Oxygen Flow Rate <Camila Israel MD - Last Filed: 05/25/24 09:25> Vital Signs, click to edit/add: Vital Signs - 24 hr 05/24/24 10:00 05/24/24 12:00 05/24/24 14:00 Temperature 98 F 98 F 98 F Pulse Rate Pulse Rate [Pulse Oximeter] 80 95 95 Respiratory Rate 18 18 18 Blood Pressure Blood Pressure [Le ft Arm] 105/72 117/70 117/70 Pulse Oximetry 98 99 99 Oxygen Delivery Me thod Room Air Room Air Room Air Oxygen Flow Rate 05/24/24 17:21 05/24/24 17:25 05/24/24 17:30 Temperature 97.9 F Pulse Rate 110 H 102 H 89 Pulse Rate [Pulse Oximeter] Respiratory Rate 16 15 15 Blood Pressure 131/76 131/82 120/77 Blood Pressure [Le ft Arm] Pulse Oximetry 96 94 97 Oxygen Delivery Me thod Room Air Room Air Nasal Cannula Oxygen Flow Rate 2 05/24/24 17:35 05/24/24 17:40 05/24/24 17:45 Temperature Pulse Rate 86 99 83 Pulse Rate [Pulse Oximeter] Respiratory Rate 13 19 15 Blood Pressure 125/79 120/73 116/70 Blood Pressure [Le ft Arm] Pulse Oximetry 97 98 93 Oxygen Delivery Me thod Nasal Cannula Nasal Cannula Room Air Oxygen Flow Rate 2 2 05/24/24 17:50 05/24/24 18:00 05/24/24 18:15 Temperature 99.1 F 97.7 F 97.7 F Pulse Rate 95 96 95 Pulse Rate [Pulse Oximeter] Respiratory Rate 12 14 14 Blood Pressure 113/66 127/81 116/70 Blood Pressure [Le ft Arm] Pulse Oximetry 94 91 92 Oxygen Delivery Me thod Room Air Room Air Room Air Oxygen Flow Rate 05/24/24 18:30 05/24/24 18:45 05/24/24 19:00 Temperature 97.5 F L 98.9 F 98.5 F Pulse Rate 86 86 99 Pulse Rate [Pulse Oximeter] Respiratory Rate 14 14 16 Blood Pressure 111/73 112/74 122/71 Blood Pressure [Le ft Arm] Pulse Oximetry 92 93 93 Oxygen Delivery Me thod Room Air Room Air Room Air Oxygen Flow Rate 05/24/24 19:30 05/24/24 20:00 05/24/24 21:00 Temperature 98.5 F 98.7 F Pulse Rate 95 104 H 112 H Pulse Rate [Pulse Oximeter] Respiratory Rate 18 16 14 Blood Pressure 115/75 143/87 H 112/68 Blood Pressure [Le ft Arm] Pulse Oximetry 98 95 93 Oxygen Delivery Me thod Room Air Room Air Room Air Oxygen Flow Rate 05/24/24 22:00 05/24/24 23:00 05/24/24 23:00 Temperature 98.9 F 98.5 F Pulse Rate 114 H 97 Pulse Rate [Pulse Oximeter] 97 Respiratory Rate 16 20 20 Blood Pressure 114/83 116/75 Blood Pressure [Le ft Arm] 116/75 Pulse Oximetry 93 97 97 Oxygen Delivery Me thod Room Air Room Air Room Air Oxygen Flow Rate 05/25/24 00:00 05/25/24 04:19 05/25/24 08:38 Temperature 98.5 F 99.2 F 98.1 F Pulse Rate 108 H Pulse Rate [Pulse Oximeter] 85 94 Respiratory Rate 18 14 18 Blood Pressure 114/67 Blood Pressure [Le ft Arm] 112/83 118/81 Pulse Oximetry 96 94 96 Oxygen Delivery Me thod Room Air Room Air Room Air Oxygen Flow Rate <Chaparro Moscoso MD - Last Filed: 05/24/24 03:28> Course Course ED Course: IV is established and patient was given a L of normal saline and IV Dilaudid. If this helps her pain quite a bit. Blood work is unremarkable. Patient is markedly anxious. Given that this is her 3rd ER visit in a couple of days I do think that she will not do well as an outpatient. We do not have any hospital beds at this time. Therefore patient will stay in the ER overnight and will plan for surgery morning since she ate at 8:00 p.m. today. Patient will be kept NPO. I will give her a dose of Ativan to help her sleep tonight. <Camila Israel MD - Last Filed: 05/25/24 09:25> Reevaluation(s) Reevaluation #1: The patient was signed out to me by Dr. Israel with a plan to keep her in the emergency department overnight and have Dr. Casarez operate on her tomorrow morning to remove her gallbladder. After midnight we did have a bed opened up on med/surg and I contacted [facility] for admission. She had been given Ativan and Dilaudid and was resting comfortably. Her went home. Prior to moving her to the floor she is given a 2nd dose of Dilaudid 0.5 mg. She will be kept NPO. I believed that Dr. Israel had spoken to Dr. Casarez but she should be paged in the morning to make sure that she is aware of the admission. <Chaparro Moscoso MD - Last Filed: 05/24/24 03:28> Vital Signs Vital signs: Initial Vital Signs Temperature 98.0 F 05/23/24 22:31 Temperature Source Temporal Artery Scan 05/23/24 22:31 Pulse Rate 99 05/23/24 22:31 Pulse Rhythm Regular 05/23/24 22:31 Respiratory Rate 18 05/23/24 22:31 Blood Pressure 121/88 05/23/24 22:31 Blood Pressure Mean 99 05/23/24 22:31 Blood Pressure Position Sitting 05/23/24 22:31 Pulse Oximetry 97 05/23/24 22:31 Oxygen Delivery Method Room Air 05/23/24 22:31 Vital Signs Temperature 98.0 F 05/23/24 22:31 Pulse Rate 99 05/23/24 22:31 Respiratory Rate 18 05/23/24 22:31 Blood Pressure 121/88 05/23/24 22:31 Pulse Oximetry 97 05/23/24 22:31 Oxygen Delivery Method Room Air 05/23/24 22:31 Temperature 98.1 F 05/25/24 08:38 Pulse Rate 94 05/25/24 08:38 Respiratory Rate 18 05/25/24 08:38 Blood Pressure 118/81 05/25/24 08:38 Pulse Oximetry 96 05/25/24 08:38 Oxygen Delivery Method Room Air 05/25/24 08:38 Oxygen Flow Rate 2 05/24/24 17:40 <Camila Israel MD - Last Filed: 05/25/24 09:25> Initial Vital Signs Temperature 98.0 F 05/23/24 22:31 Temperature Source Temporal Artery Scan 05/23/24 22:31 Pulse Rate 99 05/23/24 22:31 Pulse Rhythm Regular 05/23/24 22:31 Respiratory Rate 18 05/23/24 22:31 Blood Pressure 121/88 05/23/24 22:31 Blood Pressure Mean 99 05/23/24 22:31 Blood Pressure Position Sitting 05/23/24 22:31 Pulse Oximetry 97 05/23/24 22:31 Oxygen Delivery Method Room Air 05/23/24 22:31 Vital Signs Temperature 98.0 F 05/23/24 22:31 Pulse Rate 99 05/23/24 22:31 Respiratory Rate 18 05/23/24 22:31 Blood Pressure 121/88 05/23/24 22:31 Pulse Oximetry 97 05/23/24 22:31 Oxygen Delivery Method Room Air 05/23/24 22:31 Temperature 98.1 F 05/25/24 08:38 Pulse Rate 94 05/25/24 08:38 Respiratory Rate 18 05/25/24 08:38 Blood Pressure 118/81 05/25/24 08:38 Pulse Oximetry 96 05/25/24 08:38 Oxygen Delivery Method Room Air 05/25/24 08:38 Oxygen Flow Rate 2 05/24/24 17:40 <Chaparro Moscoso MD - Last Filed: 05/24/24 03:28> Medications Administered Medications: Generic Name Dose Route Start Last Admin Trade Name Freq PRN Reason Stop Dose Admin Acetaminophen 650 mg 05/25/24 06:40 05/25/24 06:45 Acetaminophen 325 Mg Tablet PO 650 mg Q6H PRN Administration As needed for fever, headache, or minor pain Hydrocodone Bitart/Acetaminophen 1 tab 05/24/24 18:05 05/25/24 01:39 Hydrocodone-Acetamin 5-325 Mg 1 Tab PO 1 tab Q6H PRN Administration Docusate Sodium 100 mg 05/25/24 05:27 05/25/24 06:45 Docusate Sodium 100 Mg Capsule PO 100 mg BID PRN Administration Constipation Hydromorphone HCl 0.5 - 1 mg 05/24/24 03:53 05/25/24 06:44 Hydromorphone 0.5 Mg/0.5 Ml Inj IVP 1 mg Q2H PRN Administration Pain Piperacillin Sod/Tazobactam 100 mls @ 200 mls/hr 05/24/24 21:00 05/25/24 09:02 Sod 3.375 gm/ Sodium Chloride IVPB 200 mls/hr Q6H WHITNEY Administration Ketorolac Tromethamine 30 mg 05/24/24 21:45 05/25/24 04:18 Ketorolac 30 Mg/Ml Inj IVP 30 mg Q6H PRN Administration Moderate Pain Sodium Chloride 5 ml 05/24/24 09:00 05/25/24 09:02 Sodium Chloride 0.9 % (Flush) 10 Ml Syringe IVF 5 ml BID WHITNEY Administration Discontinued Medications Generic Name Dose Route Start Last Admin Trade Name Ricardoq PRN Reason Stop Dose Admin Bupivacaine HCl 30 ml 05/24/24 15:35 05/24/24 15:16 Bupivacaine 0.25% 30 Ml INJECTION 05/24/24 15:36 10 ml ONCE ONE Administration Fentanyl 50 mcg 05/24/24 17:26 05/24/24 17:43 Fentanyl 100 Mcg/2 Ml Inj IVP 50 mcg Q5M PRN Administration Hydromorphone HCl 0.5 mg 05/23/24 23:15 05/23/24 23:43 Hydromorphone 0.5 Mg/0.5 Ml Inj IVP 05/23/24 23:16 0.5 mg ONCE ONE Administration Hydromorphone HCl 0.5 mg 05/24/24 03:03 05/24/24 03:15 Hydromorphone 0.5 Mg/0.5 Ml Inj IVP 05/24/24 03:04 0.5 mg ONCE ONE Administration Sodium Chloride 1,000 mls @ 1,000 mls/hr 05/23/24 23:15 05/24/24 01:10 0.9 % Sodium Chloride 1000 Ml IV 05/24/24 00:14 Infused .Q1H WHITNEY Infusion Sodium Chloride 1,000 mls @ 125 mls/hr 05/24/24 03:56 05/24/24 15:18 0.9 % Sodium Chloride 1000 Ml IV Infused .Q8H WHITNEY Infusion Lactated Ringer's 1,000 mls @ 125 mls/hr 05/24/24 14:30 05/25/24 03:29 Lactated Ringers 1000 Ml IV Infused .Q8H WHTINEY Infusion Lidocaine/Epinephrine 20 ml 05/24/24 15:35 05/24/24 15:16 Lidocaine 1%-Epi 1:100,000 INFILTRATI 05/24/24 15:36 10 ml ONCE ONE Administration Lorazepam 0.5 mg 05/24/24 00:34 05/24/24 00:56 Lorazepam 2 Mg/Ml Inj IVP 05/24/24 00:35 0.5 mg ONCE ONE Administration Ondansetron HCl 4 mg 05/23/24 23:15 05/23/24 23:43 Ondansetron 2 Mg/Ml Inj IVP 05/23/24 23:16 4 mg ONCE ONE Administration Pantoprazole Sodium 40 mg 05/24/24 03:53 05/24/24 04:56 Pantoprazole Sodium 40 Mg Inj IVP 05/24/24 03:54 40 mg DAILY ONE Administration Piperacillin Sod/Tazobactam Sod 3.375 gm 05/24/24 14:48 05/24/24 15:05 Piperacillin/Tazobactam 3.375 Gm Inj IVPB 05/24/24 14:49 3.375 gm ONCE ONE Administration Sodium Chloride 5 ml 05/24/24 03:52 05/24/24 04:56 Sodium Chloride 0.9 % (Flush) 10 Ml Syringe IVF 5 ml .FLUSH PRN Administration <Camila Israel MD - Last Filed: 05/25/24 09:25> Generic Name Dose Route Start Last Admin Trade Name Freq PRN Reason Stop Dose Admin Acetaminophen 650 mg 05/25/24 06:40 05/25/24 06:45 Acetaminophen 325 Mg Tablet PO 650 mg Q6H PRN Administration As needed for fever, headache, or minor pain Hydrocodone Bitart/Acetaminophen 1 tab 05/24/24 18:05 05/25/24 01:39 Hydrocodone-Acetamin 5-325 Mg 1 Tab PO 1 tab Q6H PRN Administration Docusate Sodium 100 mg 05/25/24 05:27 05/25/24 06:45 Docusate Sodium 100 Mg Capsule PO 100 mg BID PRN Administration Constipation Hydromorphone HCl 0.5 - 1 mg 05/24/24 03:53 05/25/24 06:44 Hydromorphone 0.5 Mg/0.5 Ml Inj IVP 1 mg Q2H PRN Administration Pain Piperacillin Sod/Tazobactam 100 mls @ 200 mls/hr 05/24/24 21:00 05/25/24 09:02 Sod 3.375 gm/ Sodium Chloride IVPB 200 mls/hr Q6H WHITNEY Administration Ketorolac Tromethamine 30 mg 05/24/24 21:45 05/25/24 04:18 Ketorolac 30 Mg/Ml Inj IVP 30 mg Q6H PRN Administration Moderate Pain Sodium Chloride 5 ml 05/24/24 09:00 05/25/24 09:02 Sodium Chloride 0.9 % (Flush) 10 Ml Syringe IVF 5 ml BID WHITNEY Administration Discontinued Medications Generic Name Dose Route Start Last Admin Trade Name Sera PRN Reason Stop Dose Admin Bupivacaine HCl 30 ml 05/24/24 15:35 05/24/24 15:16 Bupivacaine 0.25% 30 Ml INJECTION 05/24/24 15:36 10 ml ONCE ONE Administration Fentanyl 50 mcg 05/24/24 17:26 05/24/24 17:43 Fentanyl 100 Mcg/2 Ml Inj IVP 50 mcg Q5M PRN Administration Hydromorphone HCl 0.5 mg 05/23/24 23:15 05/23/24 23:43 Hydromorphone 0.5 Mg/0.5 Ml Inj IVP 05/23/24 23:16 0.5 mg ONCE ONE Administration Hydromorphone HCl 0.5 mg 05/24/24 03:03 05/24/24 03:15 Hydromorphone 0.5 Mg/0.5 Ml Inj IVP 05/24/24 03:04 0.5 mg ONCE ONE Administration Sodium Chloride 1,000 mls @ 1,000 mls/hr 05/23/24 23:15 05/24/24 01:10 0.9 % Sodium Chloride 1000 Ml IV 05/24/24 00:14 Infused .Q1H WHITNEY Infusion Sodium Chloride 1,000 mls @ 125 mls/hr 05/24/24 03:56 05/24/24 15:18 0.9 % Sodium Chloride 1000 Ml IV Infused .Q8H WHITNEY Infusion Lactated Ringer's 1,000 mls @ 125 mls/hr 05/24/24 14:30 05/25/24 03:29 Lactated Ringers 1000 Ml IV Infused .Q8H WHITNEY Infusion Lidocaine/Epinephrine 20 ml 05/24/24 15:35 05/24/24 15:16 Lidocaine 1%-Epi 1:100,000 INFILTRATI 05/24/24 15:36 10 ml ONCE ONE Administration Lorazepam 0.5 mg 05/24/24 00:34 05/24/24 00:56 Lorazepam 2 Mg/Ml Inj IVP 05/24/24 00:35 0.5 mg ONCE ONE Administration Ondansetron HCl 4 mg 05/23/24 23:15 05/23/24 23:43 Ondansetron 2 Mg/Ml Inj IVP 05/23/24 23:16 4 mg ONCE ONE Administration Pantoprazole Sodium 40 mg 05/24/24 03:53 05/24/24 04:56 Pantoprazole Sodium 40 Mg Inj IVP 05/24/24 03:54 40 mg DAILY ONE Administration Piperacillin Sod/Tazobactam Sod 3.375 gm 05/24/24 14:48 05/24/24 15:05 Piperacillin/Tazobactam 3.375 Gm Inj IVPB 05/24/24 14:49 3.375 gm ONCE ONE Administration Sodium Chloride 5 ml 05/24/24 03:52 05/24/24 04:56 Sodium Chloride 0.9 % (Flush) 10 Ml Syringe IVF 5 ml .FLUSH PRN Administration <Chaparro Moscoso MD - Last Filed: 05/24/24 03:28> Medical Decision Making Lab Data Labs: Lab Results 05/23/24 05/24/24 05/24/24 Range/Units 22:44 00:00 08:17 WBC 10.23 7.90 (4.50-11.00) K/uL RBC 4.13 4.25 (4.00-5.20) m/uL Hgb 12.6 12.8 (12.0-16.0) gm/dL Hct 37.5 39.3 (33.0-51.0) % MCV 91 93 (80-100) fL MCH 31 30 (26-34) pg MCHC 34 33 (32-36) gm/dL RDW Coeff of Davis 12.1 12.4 (11.5-15.5) % Plt Count 267 268 (140-440) K/uL Neut % (Auto) 67.8 65.5 (42.0-72.0) % Lymph % (Auto) 21.7 24.9 (20-44) % [place] % (Auto) 8.5 8.1 (0.0-11.0) % Eos % (Auto) 1.5 1.0 (0.0-7.0) % Baso % (Auto) 0.4 0.4 (0.0-3.0) % Neut # (Auto) 6.94 5.17 (1.7-7.0) K/uL Lymph # (Auto) 2.22 1.97 (0.90-2.90) K/uL [place] # (Auto) 0.90 0.60 (0.00-0.90) K/UL Eos # (Auto) 0.15 0.08 (0.00-0.50) K/uL Baso # (Auto) 0.04 0.03 (0.00-0.30) K/uL Abs Immat Gran (auto) 0.01 0.01 (0.00-0.30) K/uL Imm/Tot Granulo (auto) 0.1 0.1 % Sodium 136 138 (135-149) mmol/L Potassium 3.8 3.8 (3.6-5.1) mmol/L Chloride 103 103 (96-114) mmol/L Carbon Dioxide 25 27 (20-32) mmol/L Anion Gap 8 8 (7-15) mEq/L BUN 10 8 (5-24) mg/dL Creatinine 0.6 0.6 (0.5-1.5) mg/dL Estimated Creat Clear 127.18 122.25 Estimated GFR 123 123 ml/min Glucose 88 95 (60-115) mg/dL Lactate 1.0 (0.5-1.9) mmol/L Calcium 8.6 8.4 (8.4-10.6) mg/dL Total Bilirubin 0.1 0.5 (0.1-1.5) mg/dL Direct Bilirubin 0.1 (0.0-0.5) mg/dL AST 33 35 (12-35) U/L ALT 39 H 41 H (4-35) U/L Alkaline Phosphatase 66 60 (40-150) U/L C-Reactive Protein 1.1 H (0.5-1.0) mg/dL Total Protein 7.7 7.4 (6.0-8.3) g/dL Albumin 4.4 4.1 (3.3-5.0) g/dL Lipase 91 66 (23-300) U/L Urine Color Yellow (Yellow) Urine Appearance Clear (Clear) Urine pH 7.0 (5.0-8.5) Ur Specific [place] 1.015 (1.000-1.030) Urine Protein Negative (Negative) Urine Glucose (UA) Negative (Negative) Urine Ketones Negative (Negative) Urine Blood Trace-intact A (Negative) Urine Nitrite Negative (Negative) Urine Bilirubin Negative (Negative) Urine Urobilinogen 0.2 (0.2-1.0) Ur Leukocyte Esterase Negative (Negative) Urine RBC 0-2 (0-2) Urine WBC 0-2 (0-5) Ur Squamous Epith Cells None (None-Few) Urine Bacteria None (None) Urine HCG, Qual Negative (Negative) 05/25/24 Range/Units 08:22 WBC 11.08 H (4.50-11.00) K/uL RBC 3.93 L (4.00-5.20) m/uL Hgb 11.9 L (12.0-16.0) gm/dL Hct 35.7 (33.0-51.0) % MCV 91 (80-100) fL MCH 30 (26-34) pg MCHC 33 (32-36) gm/dL RDW Coeff of Davis 12.1 (11.5-15.5) % Plt Count 267 (140-440) K/uL Neut % (Auto) 86.8 H (42.0-72.0) % Lymph % (Auto) 7.5 L (20-44) % [place] % (Auto) 5.5 (0.0-11.0) % Eos % (Auto) 0.0 (0.0-7.0) % Baso % (Auto) 0.1 (0.0-3.0) % Neut # (Auto) 9.60 H (1.7-7.0) K/uL Lymph # (Auto) 0.80 L (0.90-2.90) K/uL [place] # (Auto) 0.60 (0.00-0.90) K/UL Eos # (Auto) 0.00 (0.00-0.50) K/uL Baso # (Auto) 0.00 (0.00-0.30) K/uL Abs Immat Gran (auto) 0.00 (0.00-0.30) K/uL Imm/Tot Granulo (auto) 0.1 % Sodium (135-149) mmol/L Potassium (3.6-5.1) mmol/L Chloride (96-114) mmol/L Carbon Dioxide (20-32) mmol/L Anion Gap (7-15) mEq/L BUN (5-24) mg/dL Creatinine (0.5-1.5) mg/dL Estimated Creat Clear Estimated GFR ml/min Glucose (60-115) mg/dL Lactate (0.5-1.9) mmol/L Calcium (8.4-10.6) mg/dL Total Bilirubin 0.3 (0.1-1.5) mg/dL Direct Bilirubin 0.1 (0.0-0.5) mg/dL AST 52 H (12-35) U/L ALT 56 H (4-35) U/L Alkaline Phosphatase 61 (40-150) U/L C-Reactive Protein (0.5-1.0) mg/dL Total Protein 6.9 (6.0-8.3) g/dL Albumin 3.8 (3.3-5.0) g/dL Lipase (23-300) U/L Urine Color (Yellow) Urine Appearance (Clear) Urine pH (5.0-8.5) Ur Specific [place] (1.000-1.030) Urine Protein (Negative) Urine Glucose (UA) (Negative) Urine Ketones (Negative) Urine Blood (Negative) Urine Nitrite (Negative) Urine Bilirubin (Negative) Urine Urobilinogen (0.2-1.0) Ur Leukocyte Esterase (Negative) Urine RBC (0-2) Urine WBC (0-5) Ur Squamous Epith Cells (None-Few) Urine Bacteria (None) Urine HCG, Qual (Negative) <Camila Israel MD - Last Filed: 05/25/24 09:25> Lab Results 05/23/24 05/24/24 05/24/24 Range/Units 22:44 00:00 08:17 WBC 10.23 7.90 (4.50-11.00) K/uL RBC 4.13 4.25 (4.00-5.20) m/uL Hgb 12.6 12.8 (12.0-16.0) gm/dL Hct 37.5 39.3 (33.0-51.0) % MCV 91 93 (80-100) fL MCH 31 30 (26-34) pg MCHC 34 33 (32-36) gm/dL RDW Coeff of [place] 12.1 12.4 (11.5-15.5) % Plt Count 267 268 (140-440) K/uL Neut % (Auto) 67.8 65.5 (42.0-72.0) % Lymph % (Auto) 21.7 24.9 (20-44) % [place] % (Auto) 8.5 8.1 (0.0-11.0) % Eos % (Auto) 1.5 1.0 (0.0-7.0) % Baso % (Auto) 0.4 0.4 (0.0-3.0) % Neut # (Auto) 6.94 5.17 (1.7-7.0) K/uL Lymph # (Auto) 2.22 1.97 (0.90-2.90) K/uL [place] # (Auto) 0.90 0.60 (0.00-0.90) K/UL Eos # (Auto) 0.15 0.08 (0.00-0.50) K/uL Baso # (Auto) 0.04 0.03 (0.00-0.30) K/uL Abs Immat Gran (auto) 0.01 0.01 (0.00-0.30) K/uL Imm/Tot Granulo (auto) 0.1 0.1 % Sodium 136 138 (135-149) mmol/L Potassium 3.8 3.8 (3.6-5.1) mmol/L Chloride 103 103 (96-114) mmol/L Carbon Dioxide 25 27 (20-32) mmol/L Anion Gap 8 8 (7-15) mEq/L BUN 10 8 (5-24) mg/dL Creatinine 0.6 0.6 (0.5-1.5) mg/dL Estimated Creat Clear 127.18 122.25 Estimated GFR 123 123 ml/min Glucose 88 95 (60-115) mg/dL Lactate 1.0 (0.5-1.9) mmol/L Calcium 8.6 8.4 (8.4-10.6) mg/dL Total Bilirubin 0.1 0.5 (0.1-1.5) mg/dL Direct Bilirubin 0.1 (0.0-0.5) mg/dL AST 33 35 (12-35) U/L ALT 39 H 41 H (4-35) U/L Alkaline Phosphatase 66 60 (40-150) U/L C-Reactive Protein 1.1 H (0.5-1.0) mg/dL Total Protein 7.7 7.4 (6.0-8.3) g/dL Albumin 4.4 4.1 (3.3-5.0) g/dL Lipase 91 66 (23-300) U/L Urine Color Yellow (Yellow) Urine Appearance Clear (Clear) Urine pH 7.0 (5.0-8.5) Ur Specific [place] 1.015 (1.000-1.030) Urine Protein Negative (Negative) Urine Glucose (UA) Negative (Negative) Urine Ketones Negative (Negative) Urine Blood Trace-intact A (Negative) Urine Nitrite Negative (Negative) Urine Bilirubin Negative (Negative) Urine Urobilinogen 0.2 (0.2-1.0) Ur Leukocyte Esterase Negative (Negative) Urine RBC 0-2 (0-2) Urine WBC 0-2 (0-5) Ur Squamous Epith Cells None (None-Few) Urine Bacteria None (None) Urine HCG, Qual Negative (Negative) 05/25/24 Range/Units 08:22 WBC 11.08 H (4.50-11.00) K/uL RBC 3.93 L (4.00-5.20) m/uL Hgb 11.9 L (12.0-16.0) gm/dL Hct 35.7 (33.0-51.0) % MCV 91 (80-100) fL MCH 30 (26-34) pg MCHC 33 (32-36) gm/dL RDW Coeff of [place] 12.1 (11.5-15.5) % Plt Count 267 (140-440) K/uL Neut % (Auto) 86.8 H (42.0-72.0) % Lymph % (Auto) 7.5 L (20-44) % [place] % (Auto) 5.5 (0.0-11.0) % Eos % (Auto) 0.0 (0.0-7.0) % Baso % (Auto) 0.1 (0.0-3.0) % Neut # (Auto) 9.60 H (1.7-7.0) K/uL Lymph # (Auto) 0.80 L (0.90-2.90) K/uL [place] # (Auto) 0.60 (0.00-0.90) K/UL Eos # (Auto) 0.00 (0.00-0.50) K/uL Baso # (Auto) 0.00 (0.00-0.30) K/uL Abs Immat Gran (auto) 0.00 (0.00-0.30) K/uL Imm/Tot Granulo (auto) 0.1 % Sodium (135-149) mmol/L Potassium (3.6-5.1) mmol/L Chloride (96-114) mmol/L Carbon Dioxide (20-32) mmol/L Anion Gap (7-15) mEq/L BUN (5-24) mg/dL Creatinine (0.5-1.5) mg/dL Estimated Creat Clear Estimated GFR ml/min Glucose (60-115) mg/dL Lactate (0.5-1.9) mmol/L Calcium (8.4-10.6) mg/dL Total Bilirubin 0.3 (0.1-1.5) mg/dL Direct Bilirubin 0.1 (0.0-0.5) mg/dL AST 52 H (12-35) U/L ALT 56 H (4-35) U/L Alkaline Phosphatase 61 (40-150) U/L C-Reactive Protein (0.5-1.0) mg/dL Total Protein 6.9 (6.0-8.3) g/dL Albumin 3.8 (3.3-5.0) g/dL Lipase (23-300) U/L Urine Color (Yellow) Urine Appearance (Clear) Urine pH (5.0-8.5) Ur Specific [place] (1.000-1.030) Urine Protein (Negative) Urine Glucose (UA) (Negative) Urine Ketones (Negative) Urine Blood (Negative) Urine Nitrite (Negative) Urine Bilirubin (Negative) Urine Urobilinogen (0.2-1.0) Ur Leukocyte Esterase (Negative) Urine RBC (0-2) Urine WBC (0-5) Ur Squamous Epith Cells (None-Few) Urine Bacteria (None) Urine HCG, Qual (Negative) <Chaparro Moscoso MD - Last Filed: 05/24/24 03:28> Discharge Plan Discharge Clinical Impression: Cholelithiasis <Camila Israel MD - Last Filed: 05/25/24 09:25> Patient Disposition: Admitted As Observation <Camila Israel MD - Last Filed: 05/25/24 09:25> Discharge Location: [facility] <Camila Israel MD - Last Filed: 05/25/24 09:25> Condition: Stable <Camila Israel MD - Last Filed: 05/25/24 09:25>
[2024-05-23 23:29] LABS: Potassium* 3.8 mmol/L (3.6-5.1); Sodium* 136 mmol/L (135-149)
[2024-05-23 23:30] LABS: Slide Review Reflex No
[2024-05-23 23:31] LABS: Anion Gap 8 mEq/L (7-15); Aspartate Amino Transferase* 33 U/L (12-35); Bilirubin Direct* 0.1 mg/dL (0.0-0.5); Bilirubin Total* 0.1 mg/dL (0.1-1.5); Blood Urea Nitrogen* 10 mg/dL (5-24); Carbon Dioxide* 25 mmol/L (20-32); Creatinine* 0.6 mg/dL (0.5-1.5); Est. Creatinine Clearance* 127.18; Estimated Glomerular Filt Rate 123 ml/min; Total Protein* 7.7 g/dL (6.0-8.3)
[2024-05-23 23:32] LABS: Alanine Aminotransferase* 39 U/L (4-35); Alkaline Phosphatase* 66 U/L (40-150); Calcium* 8.6 mg/dL (8.4-10.6); Glucose* 88 mg/dL (60-115); Lipase* 91 U/L (23-300)
[2024-05-23 23:34] LABS: C Reactive Protein* 1.1 mg/dL (0.5-1.0)
[2024-05-23] MEDS: ONDANSETRON 2 MG/ML inj 4 MG IVP (23:43)
[2024-05-23] MEDS: HYDROmorphone 0.5 mg/0.5 ml inj IVP (23:43)
[2024-05-23] MEDS: 0.9 % SODIUM CHLORIDE 1000 ml 1,000 ML IV (23:43)
[2024-05-24] VITALS (21 sets, daily range): BP systolic 105–143; BP diastolic 66–87; PULSE 80–114; RESP 12–20; TEMP 36.4–37.3; O2SAT 91–100; BMI 35.3
[2024-05-24 00:03] LABS: Appearance Urine Clear (Clear); Bilirubin Urine Negative (Negative); Blood Urine Trace-intact (Negative); Color Urine Yellow (Yellow); Glucose Urine Negative (Negative); Ketones Urine Negative (Negative); Leukocyte Esterase Urine Negative (Negative); Nitrite Urine Negative (Negative); Protein Urine Negative (Negative); Specific Gravity Urine 1.015 (1.000-1.030); Urobilinogen Urine 0.2 (0.2-1.0)
[2024-05-24 00:06] LABS: RBC Urine 0-2 (0-2); Ur HCG Qualitative* Negative (Negative); WBC Urine 0-2 (0-5)
[2024-05-24] MEDS: LORazepam 2 MG/ML inj 0.5 MG IVP (00:56)
[2024-05-24] MEDS: HYDROmorphone 0.5 mg/0.5 ml inj IVP ×4 (03:15→22:30)
--- NOTE | 2024-05-24 04:09 | W.PM.TELEH&P ---
Telehealth- H&P: HPI History of Present Illness Time Seen by Provider: 04:06 Date Seen: 05/24/24 Chief complaint: gallstone/surgery scheduled 05/27 Narrative: Esvin Taylor is seen as an Interactive Telehealth visit. Esvin Taylor is a 29 year old male who has been admitted through the emergency department. The patient is being admitted with the assistance of nursing staff. She does not speak German - a workers compensation paralegal was used. She denied significant past medical history but does take Nexium on a regular basis for presumed gastroesophageal reflux disease. She presented to the [facility] emergency department on 05/23/2024 for evaluation of right upper quadrant abdominal pain. The patient had previously had multiple ED visits in [place] for the same reason. She had a right upper quadrant ultrasound on 05/21/2024 that revealed gallstones. She reportedly has a scheduled cholecystectomy on 05/27/2024 but stated that she could not wait until then because her pain was too severe and constant. On discharge from [place] she was given pain medication, Maalox, and Carafate but this has not controlled her pain, which prompted her to come to the emergency department. She denied prior history of surgery. She reported that her last meal was at about 8 PM . She was originally going to stay in the ER until the morning and see general surgery due to lack of availability of beds. A bed materialized and now she will be admitted to the general medical floor prior to being seen by surgery. The patient's right upper quadrant ultrasound (in the [facility] system at [place]), was done on 05/21/2024 and showed showed gallstones without evidence of biliary tree dilatation or cholecystitis. Review of Systems Narrative: She did note epigastric/right upper quadrant abdominal pain which radiated to the back, as well as occasional nausea and vomiting. She denied fever, chills, chest pain, shortness of breath, bright red blood per rectum, hematuria, dysuria [facility] Social History Smoking Status: Never smoker How often do you have six or more drinks on one occasion: Never AUDIT-C Alcohol total score: 0 Non-prescribed substance use: denies use Meds Home Medications and Allergies Home Medications ?Medication ?Instructions ?Recorded ?Confirmed ?Type omeprazole 20 mg capsule,delayed 20 mg PO DAILY 05/06/23 05/06/23 History release Allergies Allergy/AdvReac Type Severity Reaction Status Date / Time No Known Drug Allergies Allergy Verified 05/06/23 14:08 Exam Narrative Exam Narrative: Physical Exam GENERAL: ?vital signs reviewed, well developed and nourished, in no distress HEENT: pupils are equal round and reactive to light, extraocular movements are grossly within normal limits and oral mucosa is moist. NECK: Supple without lymphadenopathy or thyromegaly according to nursing staff examination observation HEART: Regular rate and rhythm without any rubs, murmurs, or gallops. LUNGS: Clear to auscultation bilaterally with good air movement throughout ABDOMEN: Observation from nurse assisted exam, abdomen appears soft, + RUQ tenderness, and nondistended with Positive bowel sounds. EXTREMITIES: No edema noted SKIN:? Observed warm and dry with color normal Const Vital Signs, click to edit/add: Vital Signs - 24 hr 05/23/24 22:31 Temperature 98.0 F Pulse Rate [Pulse Oximeter] 99 Respiratory Rate 18 Blood Pressure [Right Upper Arm] 121/88 Pulse Oximetry 97 Oxygen Delivery Method Room Air Documenting provider has reviewed patient's vital signs: yes Hospitalist - H&P: Result Labs Labs: Short CBC 05/23/24 Range/Units 22:44 WBC 10.23 (4.50-11.00) K/uL Hgb 12.6 (12.0-16.0) gm/dL Hct 37.5 (33.0-51.0) % Plt Count 267 (140-440) K/uL BMP 05/23/24 22:44 Sodium 136 Potassium 3.8 Chloride 103 Carbon Dioxide 25 BUN 10 Creatinine 0.6 Glucose 88 Calcium 8.6 Liver Function 05/23/24 Range/Units 22:44 Total Bilirubin 0.1 (0.1-1.5) mg/dL Direct Bilirubin 0.1 (0.0-0.5) mg/dL AST 33 (12-35) U/L ALT 39 H (4-35) U/L Alkaline Phosphatase 66 (40-150) U/L Albumin 4.4 (3.3-5.0) g/dL Urine 05/24/24 Range/Units 00:00 Urine Color Yellow (Yellow) Urine Appearance Clear (Clear) Urine pH 7.0 (5.0-8.5) Ur Specific [place] 1.015 (1.000-1.030) Urine Protein Negative (Negative) Urine Glucose (UA) Negative (Negative) Assessment and Plan Assessment and plan (1) Cholelithiasis: Status: Acute (2) Chronic GERD: Status: Acute Plan Cholelithiasis with abdominal pain Observation -IV fluids -Antiemetics -As needed IV narcotics -N.p.o. -General Surgery aware of the patient and will see her later this morning -Patient medically optimized for planned procedure Chronic gastroesophageal reflux disease -Will give IV Protonix for now CODE STATUS full Telehealth: Statement Statement Telehealth Visit: Today's History and Physical is provided via interactive telehealth by Ramin Stringer MD.? Patient is located at [facility].? Provider is located at [facility].? Nursing staff assisted with the patient's exam. The visit being done today meets criteria for a telehealth visit and the patient or patient?s parent/guardian is aware the visit is a telehealth visit. Camera Start Time: 04:06 Camera End Time: 04:26
[2024-05-24] MEDS: PANTOPRAZOLE SODIUM 40 MG INJ IVP (04:56)
[2024-05-24] MEDS: 0.9 % SODIUM CHLORIDE 1000 ml 1,000 ML 125 ML IV (04:56)
[2024-05-24] MEDS: SODIUM CHLORIDE 0.9 % (FLUSH) 10 ML SYRINGE 5 ML IVF ×2 (04:56→20:15)
--- NOTE | 2024-05-24 05:48 | PC.NURSE ---
Patient to the unit at 0320 with c/o URQ abd pain. Independent in room. Seneg[place]e speaking so utilized iPad diplomatic interpreter/translator. Pain managed with PRN medication. NPO. Anticipate surgery Sunday.
[2024-05-24 08:26] LABS: Basophils Absolute Auto 0.03 K/uL (0.00-0.30); Basophils Percent Auto 0.4 % (0.0-3.0); Eosinophils Absolute Auto 0.08 K/uL (0.00-0.50); Hematocrit 39.3 % (33.0-51.0); Hemoglobin* 12.8 gm/dL (12.0-16.0); Immature Granulocytes Abs Auto 0.01 K/uL (0.00-0.30); Immature Granulocytes Pct Auto 0.1 %; Lymphocytes Absolute Auto 1.97 K/uL (0.90-2.90); Lymphocytes Percent Auto 24.9 % (20-44); Mean Corpuscular HGB Conc 33 gm/dL (32-36); Mean Corpuscular Hemoglobin 30 pg (26-34); Mean Corpuscular Volume 93 fL (80-100); Monocytes Percent Auto 8.1 % (0.0-11.0); Neutrophils Absolute Auto 5.17 K/uL (1.7-7.0); Neutrophils Percent Auto 65.5 % (42.0-72.0); Platelet Count* 268 K/uL (140-440); RDW Coefficient of Variation % 12.4 % (11.5-15.5); Red Blood Count 4.25 m/uL (4.00-5.20)
[2024-05-24 08:28] LABS: Slide Review Reflex No
[2024-05-24 08:38] LABS: Albumin* 4.1 g/dL (3.3-5.0); Chloride* 103 mmol/L (96-114); Sodium* 138 mmol/L (135-149)
[2024-05-24 08:39] LABS: Potassium* 3.8 mmol/L (3.6-5.1)
[2024-05-24 08:41] LABS: Alkaline Phosphatase* 60 U/L (40-150); Anion Gap 8 mEq/L (7-15); Aspartate Amino Transferase* 35 U/L (12-35); Bilirubin Total* 0.5 mg/dL (0.1-1.5); Blood Urea Nitrogen* 8 mg/dL (5-24); Calcium* 8.4 mg/dL (8.4-10.6); Carbon Dioxide* 27 mmol/L (20-32); Creatinine* 0.6 mg/dL (0.5-1.5); Est. Creatinine Clearance* 122.25; Estimated Glomerular Filt Rate 123 ml/min; Glucose* 95 mg/dL (60-115); Lipase* 66 U/L (23-300); Total Protein* 7.4 g/dL (6.0-8.3)
[2024-05-24 08:42] LABS: Alanine Aminotransferase* 41 U/L (4-35)
--- NOTE | 2024-05-24 09:16 | PM.IMPN1 ---
Progress Note: A&P Assessment and plan (1) Chronic abdominal pain: Problem details: - worsening abdominal pain that has been going on over the last year. Was previously treated for H pylori and has since tested negative. Has been on medication for dyspepsia without much relief. Gallstones found recently which may be symptomatic. Recent chills without fever and white count is within normal limits, unlikely cholecystitis, but will do imaging today. I spoke with Dr. Casarez from General surgery who recommended repeating CT abdomen and pelvis and right upper quadrant ultrasound. - update: Results of imaging are above. Dr. Casarez is planning to take the patient to the OR today for cholecystectomy. Status: Acute (2) Cholelithiasis: Problem details: - suspect symptomatic, as above Status: Acute (3) Chronic GERD: Problem details: - continue omeprazole Status: Chronic (4) Obesity: Status: Chronic Time Spent With Patient Total time spent: Today I spent 50 minutes seeing the patient with an per diem interpreter, discussing the case with Dr. Casarez, reviewing [facility] and [facility] notes/diagnostics/labs, discussing the care plan with our care team that includes social work, PT/OT, pharmacy, RT, detention and documenting my impressions and plan in the medical record. Subjective Time Seen by Provider: 08:49 Date Seen: 05/24/24 Interval history: I spoke with Betty via a video interpreter deaf. Betty started having abdominal pain when she was in March through May of last year. She had a miscarriage, but continued to have abdominal pain after that. She had an EGD and was diagnosed with H pylori. She completed the treatment for that and was H pylori negative on the next check, but continued to have the same abdominal pain. She was then diagnosed with dyspepsia and started on medications for that. She notes that she had about 10-15 days where she was completely pain-free while on medications for dyspepsia. It is unclear what started up the pain again, but she has had multiple ER visits and imaging studies due to ongoing chronic abdominal pain. She notes that the pain is mostly on her right side, mostly in the upper abdomen and occasionally radiates across her abdomen and into the back just off to the right. the pain also sometimes goes up and down. it appears that she is talking about intensity when she made that remark, because she says that the pain never goes up into her chest or down into her lower abdomen. She has never had any shoulder pain. She denies fevers, but does have some chills in the last few days when the pain is severe. Pain medications help with the pain. She notes worsening of the pain with eating, but no other exacerbating factors. She is having normal bowel movements and flatus. Exam Narrative: Exam Narrative: General: No acute distress. Flat affect. No eye contact. Awake, alert, oriented x3. No pallor. No jaundice. Obese. Oropharynx: Clear. Mucous membranes moist. Cardiovascular: Regular rate and rhythm. No murmurs, gallops, or rubs. Respiratory: Clear to auscultation bilaterally. No wheezes or crackles. Abdomen: Bowel sounds present. Soft, nondistended, tender in the right upper quadrant, positive Crespo sign. Also tender in the right lower quadrant, which is tender to a greater degree than in the right upper quadrant. She was unaware of the right lower quadrant pain and notes that it does not hurt if I am not pressing on it. She has no rebound tenderness or guarding. Const: Vital Signs, click to edit/add: Vital Signs - 24 hr 05/23/24 22:31 05/24/24 04:12 Temperature 98.0 F 97.6 F Pulse Rate [Pulse Oximeter] 99 87 Respiratory Rate 18 16 Blood Pressure [Le ft Arm] 112/77 Blood Pressure [Ri ght Upper Arm] 121/88 Pulse Oximetry 97 100 Oxygen Delivery Me thod Room Air Room Air Labs Labs: Laboratory Results - last 24 hr 05/23/24 05/24/24 05/24/24 22:44 00:00 08:17 WBC 10.23 7.90 RBC 4.13 4.25 Hgb 12.6 12.8 Hct 37.5 39.3 MCV 91 93 MCH 31 30 MCHC 34 33 RDW Coeff of [place] 12.1 12.4 Plt Count 267 268 Neut % (Auto) 67.8 65.5 Lymph % (Auto) 21.7 24.9 [place] % (Auto) 8.5 8.1 Eos % (Auto) 1.5 1.0 Baso % (Auto) 0.4 0.4 Neut # (Auto) 6.94 5.17 Lymph # (Auto) 2.22 1.97 [place] # (Auto) 0.90 0.60 Eos # (Auto) 0.15 0.08 Baso # (Auto) 0.04 0.03 Abs Immat Gran (auto) 0.01 0.01 Imm/Tot Granulo (auto) 0.1 0.1 Sodium 136 138 Potassium 3.8 3.8 Chloride 103 103 Carbon Dioxide 25 27 Anion Gap 8 8 BUN 10 8 Creatinine 0.6 0.6 Estimated Creat Clear 127.18 122.25 Estimated GFR 123 123 Glucose 88 95 Lactate 1.0 Calcium 8.6 8.4 Total Bilirubin 0.1 0.5 Direct Bilirubin 0.1 AST 33 35 ALT 39 H 41 H Alkaline Phosphatase 66 60 C-Reactive Protein 1.1 H Total Protein 7.7 7.4 Albumin 4.4 4.1 Lipase 91 66 Urine Color Yellow Urine Appearance Clear Urine pH 7.0 Ur Specific [place] 1.015 Urine Protein Negative Urine Glucose (UA) Negative Urine Ketones Negative Urine Blood Trace-intact A Urine Nitrite Negative Urine Bilirubin Negative Urine Urobilinogen 0.2 Ur Leukocyte Esterase Negative Urine RBC 0-2 Urine WBC 0-2 Ur Squamous Epith Cells None Urine Bacteria None Urine HCG, Qual Negative
[2024-05-24] MEDS: LACTATED RINGERS 1000 ML 1,000 ML 125 ML IV ×2 (14:29→20:15)
--- NOTE | 2024-05-24 14:48 | PM.GSCN ---
History of Present Illness Consult details Date Seen: 05/24/24 Consult date: 05/24/24 Narrative: 29-year-old female presented to emergency room with right upper quadrant abdominal pain. Patient had this pain on and off for several weeks. She was previously seen in [facility] at least 4 times. She was diagnosed with gastritis and her last with visit was yesterday. She does have a history of H pylori that was diagnosed in the summer of 2024 and has been taking Nexium for a while. Since she tolerated p.o. she was discharged home with clinic follow-up. Patient's pain persisted and she decided to present to emergency room at the [facility]. Patient states that the pain usually is brought on by eating and sometimes can happen without eating at all. In the past she had an abdominal CT scan that did not show any gallbladder inflammation or other acute abnormalities that would explain her abdominal pain. Previous ultrasound in [facility] the system showed sludge in the gallbladder without stones, that was in March of 2024. I personally reviewed her workup at the [facility]. Her WBC was found to be normal. Her LFTs were normal. An abdominal CT was obtained that showed distended gallbladder with pericholecystic inflammation. There was no evidence of dilated small large intestine. A gallbladder ultrasound was obtained that showed common bile duct of almost 7 mm with distended gallbladder and no definitive evidence of gallstones. Review of Systems Narrative: General: no fevers HENT: no problems swallowing CV: no shortness of breath Resp: no cough GI: No nausea, vomiting, abdominal pain : no dysuria, no increased urinary frequency, no hematuria Skin: no new rashes Musculoskeletal: no back pain Neuro: no muscle weakness Psyche: no depression, no anxiety PFSH PFSH Medical History Obesity ?E66.9 - Obesity, unspecified (ICD-10) Miscarriage ?O03.9 - Complete or unspecified spontaneous without complication (ICD-10) H. pylori infection ?A04.8 - Other specified bacterial intestinal infections (ICD-10) Social History What is your current living situation?: I presently have a place to live Problems where you live: no known problems Problems where you live details: n/a In the past 12 months, utilities in danger of being shut off: no In past 12 months, lack of transportation kept you from medical appts, meetings, work, or getting things needed for daily living: no In the past 12 mos, have been you worried that your food would run out before you had money to buy more?: never true In the past 12 mos, the food you bought just didn't last and you didn't have money to buy more?: never true Highest level of school completed/degree received: some college, no degree Smoking Status: Former smoker How often do you have a drink containing alcohol: monthly or less How often do you have six or more drinks on one occasion: Never AUDIT-C Alcohol total score: 1 Non-prescribed substance use: denies use Caffeine: No How often does anyone, including family, friends and others, physically hurt you: never How often does anyone, including family, friends and others, insult or talk down to you: never How often does anyone, including family, friends and others, threaten you with harm: never How often does anyone, including family, friends and others, scream or curse at you: never service: No Meds Home Medications and Allergies Home Medications ?Medication ?Instructions ?Recorded ?Confirmed ?Type omeprazole 20 mg capsule,delayed 20 mg PO DAILY 05/06/23 05/06/23 History release Allergies Allergy/AdvReac Type Severity Reaction Status Date / Time No Known Drug Allergies Allergy Verified 05/24/24 09:43 Exam Narrative: Exam Narrative: General appearance: Alert, cooperative, and in no distress Pulmonary: Chest symmetric, lungs clear bilaterally Cardiovascular Heart: Regular rate and rhythm, S1, S2, no murmurs/rubs/gallops Gastrointestinal Abdominal: soft, not distended, patient is tender to palpation in the right upper quadrant with positive Crespo sign. No tenderness anywhere else. Skin: Normal skin color, texture, and turgor. No rashes or lesions. Psychiatric: Alert, cooperative, normal affect. Const: Vital Signs, click to edit/add: Vital Signs - 24 hr 05/23/24 22:31 05/24/24 04:12 05/24/24 10:00 Temperature 98.0 F 97.6 F 98 F Pulse Rate [Pulse Oximeter] 99 87 80 Respiratory Rate 18 16 18 Blood Pressure [Le ft Arm] 112/77 105/72 Blood Pressure [Ri ght Upper Arm] 121/88 Pulse Oximetry 97 100 98 Oxygen Delivery Me thod Room Air Room Air Room Air 05/24/24 12:00 Temperature 98 F Pulse Rate [Pulse Oximeter] 95 Respiratory Rate 18 Blood Pressure [Le ft Arm] 117/70 Blood Pressure [Ri ght Upper Arm] Pulse Oximetry 99 Oxygen Delivery Me thod Room Air Results Labs Labs: Abnormal lab results 05/23/24 05/24/24 05/24/24 Range/Units 22:44 00:00 08:17 ALT 39 H 41 H (4-35) U/L C-Reactive Protein 1.1 H (0.5-1.0) mg/dL Urine Blood Trace-intact A (Negative) Diabetes panel 05/23/24 05/24/24 Range/Units 22:44 08:17 Sodium 136 138 (135-149) mmol/L Potassium 3.8 3.8 (3.6-5.1) mmol/L Chloride 103 103 (96-114) mmol/L Carbon Dioxide 25 27 (20-32) mmol/L BUN 10 8 (5-24) mg/dL Creatinine 0.6 0.6 (0.5-1.5) mg/dL Glucose 88 95 (60-115) mg/dL Calcium 8.6 8.4 (8.4-10.6) mg/dL AST 33 35 (12-35) U/L ALT 39 H 41 H (4-35) U/L Alkaline Phosphatase 66 60 (40-150) U/L Total Protein 7.7 7.4 (6.0-8.3) g/dL Albumin 4.4 4.1 (3.3-5.0) g/dL Calcium panel 05/23/24 05/24/24 Range/Units 22:44 08:17 Calcium 8.6 8.4 (8.4-10.6) mg/dL Albumin 4.4 4.1 (3.3-5.0) g/dL Pituitary panel 05/23/24 05/24/24 Range/Units 22:44 08:17 Sodium 136 138 (135-149) mmol/L Potassium 3.8 3.8 (3.6-5.1) mmol/L Chloride 103 103 (96-114) mmol/L Carbon Dioxide 25 27 (20-32) mmol/L BUN 10 8 (5-24) mg/dL Creatinine 0.6 0.6 (0.5-1.5) mg/dL Glucose 88 95 (60-115) mg/dL Calcium 8.6 8.4 (8.4-10.6) mg/dL Adrenal panel 05/23/24 05/24/24 Range/Units 22:44 08:17 Sodium 136 138 (135-149) mmol/L Potassium 3.8 3.8 (3.6-5.1) mmol/L Chloride 103 103 (96-114) mmol/L Carbon Dioxide 25 27 (20-32) mmol/L BUN 10 8 (5-24) mg/dL Creatinine 0.6 0.6 (0.5-1.5) mg/dL Glucose 88 95 (60-115) mg/dL Calcium 8.6 8.4 (8.4-10.6) mg/dL Total Bilirubin 0.1 0.5 (0.1-1.5) mg/dL AST 33 35 (12-35) U/L ALT 39 H 41 H (4-35) U/L Alkaline Phosphatase 66 60 (40-150) U/L Total Protein 7.7 7.4 (6.0-8.3) g/dL Albumin 4.4 4.1 (3.3-5.0) g/dL All other labs normal. Progress Note:A&P Assessment and plan (1) Cholecystitis, acute: Status: Acute Plan 29-year-old female presents with recurrent episodes of right upper quadrant pain that is most likely due to acute cholecystitis. I discussed with the patient my clinical findings. We also talked about her laboratory and imaging findings. Patient's clinical history and her imaging findings are consistent with acute cholecystitis. I recommended to proceed with laparoscopic cholecystectomy. The procedure was discussed in detail. The risks associated procedure including infection, bleeding, injury to intra-abdominal organs, and injury to the common bile duct were all discussed with the patient through cognos report developer and she agreed to proceed.
--- NOTE | 2024-05-24 14:54 | PM.GSPRC ---
Operative Note Date of procedure: 05/24/24 Pre-op diagnosis: 1. Acute on chronic cholecystitis. Post-op diagnosis: 1. Acute on chronic cholecystitis. Type of Procedure: 1. Laparoscopic cholecystectomy. Indications: 29-year-old female presented to emergency room with recurrent episodes of abdominal pain. She was seen in the emergency room at the outside hospital multiple times. Patient was seen at outside hospital emergency room 2 days ago and was then discharged home with follow-up in surgery clinic.. However her pain continued to be persistent and patient presented to our hospital. Patient's workup revealed distended gallbladder on the abdominal CT scan. There was no evidence of pancreatitis. There was no evidence of dilated small or large intestine. On clinical exam patient had tenderness to palpation in the right upper quadrant with positive Crespo sign. Given patient's clinical history and her physical exam, acute cholecystitis was suspected and laparoscopic cholecystectomy was recommended. The procedure discussed in detail. The risks associated procedure including infection, bleeding, injury to intra-abdominal organs, injury to the common bile duct were all discussed with the patient, and she agreed to proceed. Procedure Description: After discussing the risks and benefits of the procedure, the patient signed informed consent.? The operative site was marked and the patient was brought to the operating room and placed on the operating table in supine position.? Care was taken to pad the patient's pressure points.?? The patient was then intubated by anesthesia.?? The operative site was then prepped and draped in the usual sterile fashion.? A time-out was then performed. A 5-mm laparoscopy port was placed in the left upper quadrant guided by a 5-mm laparoscope placed into a translucent trochar.~ Passage through the layers of the abdominal wall was visualized with the laparoscope.~ A pneumoperitoneum was established. A 0-degree 5-mm laparoscope was advanced into the abdomen. The abdomen was briefly surveyed, and no adhesions were noted. A 10-mm port were placed infraumbilically and two more 5 mm ports were placed on the right under direct visualization by laparoscope. The camera was then changed to 10 mm 30-degree scope and placed into the abdomen through the 10 mm port. The left upper quadrant port entrance was examined and no injury to intra-abdominal organs was identified. The gallbladder was identified, and was distended and taut. The gallbladder was decompressed with laparoscopic needle and syringe. Clear fluid was suctioned from the gallbladder with a needle confirming diagnosis of gallbladder hydrops. The fundus grasped and retracted cephalad. The infundibulum was grasped and retracted laterally, exposing the peritoneum overlying the triangle of Calot. Moderate amount of inflammation was noted in the gallbladder wall and in the triangle of Calot. The structures of triangle of Calot then were dissected bluntly and with hook cautery carefully. The cystic artery was identified in the medial gallbladder fossa and was dissected circumferentially. Only the distal most portion of the cystic duct was seen and the rest of the cystic duct was covered with a fatty inflammatory tissue. The soft tissue in the triangle of Calot was carefully divided bluntly and with hook cautery until a clear window was identified and the liver was seen posterior to the cystic duct. The cystic artery was clearly going into the gallbladder. This was clipped with two 5 mm clips on the patient's side and a single clip on the specimen side and divided with scissors. Despite multiple attempts to clear the distal cystic duct off the inflammatory fatty tissue, I was not successful. To avoid injury to the common bile duct and portal structures I elected to divide the cystic duct at the most distal part at its entrance to the infundibulum. However, this was edematous and thickened, and I was not able to place a 5 mm or 10 mm clip across the infundibulum. I elected to use Endo DAVID stapler. The left upper quadrant port was upsized to 12 mm port. A vascular staple load was then used to divide the gallbladder at its infundibulum. No bleeding was seen from the staple line. I then continued dissecting the gallbladder from the gallbladder fossa. The gallbladder wall was edematous with acute and chronic inflammation. Multiple openings were created in the gallbladder wall because it was difficult to tell the plane between the gallbladder and the liver. The gallbladder was free of the gallbladder fossa, it was placed into an Endo-Catch bag and removed from the abdomen through the infraumbilical incision. Fascia of the infraumbilical incision had to be divided further to accommodate removal of the gallbladder. The surgical field was then examined for bleeding and oozing was noted from the gallbladder fossa. This was controlled with hook cautery. Gavin was then sprayed into the gallbladder fossa. I elected to place a 15 round Favio drain into the subhepatic fossa. The drain was advanced into the abdomen through the lowest right sided abdominal incision. The port was removed and the drain was secured to the skin with nylon stitch. The drain was placed into the subhepatic space. The infraumbilical incision was then closed under direct visualization using 0-0 Vicryl and Alexander-Guillermina. Left upper quadrant port was also removed and the fascia of the left upper quadrant port was then closed with 0-0 Vicryl using Alexander Esa as well. Pneumoperitoneum was completely reduced. The skin was then closed with 4-0 monocryl and steristrips were applied. Drain sponge was applied under the drain. Instrument, sponge, and needle counts were correct at closure and at the conclusion of the case. The patient was transferred to PACU in stable condition. Findings: Acute and chronic inflammation with moderate edema in the triangle of Calot and surrounding the gallbladder. Gallbladder hydrops. Anesthesia: DELMIS Surgeon: Oj Casarez MD Estimated blood loss (mL): 10 Specimen: Gallbladder Condition: stable Disposition: PACU
--- NOTE | 2024-05-24 14:56 | PC.NURSE ---
Updated patient with plan of care at approximately 0830 via submarine diver. Answered questions. Patient denies pain on assessment, says it is mild/tolerable and is not wanting any medications. Spoke with patient via around 1300. Patient is thrashing in bed, moaning, and raising voice. Declines submarine diver (has signed declination and has opted to use at this time). explains that patient wants to transfer to another hospital and feels things are moving fast enough. Explained that CT/US results are being evaluated by surgeon. I have asked patient if she is having pain and again she states she is not having pain, she is moaning because she is wanting to eat and feeling hungry. asking if patient can eat, explained that with pending surgery it would not be safe to eat anything at this time. Patient states she is dehydrated because her IV is not working. IVF have been running when I have been in room. Intermittently beeping as patient has IV in AC and is bending arm. At this time, IV was noted to be turned off and facing patient. Myself and primary nurse have not turned pump off. Pump had been on and infusing in prior 10 minutes when I was in room. IVF turned back on by this nurse. Assured patient she is getting IVF and this is keeping her hydrated. Patient was updated via on telephone at 1330 that surgery plan is for 1430. Patient and are agreeable to this plan. Awaiting surgeon arrival.
[2024-05-24] MEDS: PIPERACILLIN/TAZOBACTAM 3.375 GM INJ IVPB (15:05)
[2024-05-24] MEDS: LIDOCAINE 1%-EPI 1:100,000 20 ML INFILTRATI (15:16)
[2024-05-24] MEDS: BUPIVACAINE 0.25% 30 ML INJECTION (15:16)
--- NOTE | 2024-05-24 15:41 | W.ANESCHARGE ---
Anesthesia Charges Start Date/Time Anesthesia Start Date: 05/24/24 Anesthesia Start Time: 14:54 Stop Date/Time Anesthesia Stop Date: 05/24/24 Anesthesia Stop Time: 17:25 Summary Emergency: FUEL CELL REPAIRER Coding CPT Codes CPT Codes: ANESTH SURG UPPER ABDOMEN - 58943 ([id number]) P2 - PATIENT W/MILD SYST DISEASE, QZ - FUEL CELL REPAIRER SVC W/O NURSES' ASSOCIATION COUNSELOR BY Additional Codes: Summary - Emergency: FUEL CELL REPAIRER ([id number])
[2024-05-24] MEDS: fentaNYL 100 MCG/2 ML inj 50 MCG IVP ×3 (17:26→17:43)
--- NOTE | 2024-05-24 19:00 | PC.NURSE ---
Shift Summary: Patient pleasant and cooperative. Up independently prior to surgery, post-op has not gotten up yet, returned to floor around 1800. o2 sat >90% on RA. IMANI drain present, dressing C/D/I. Cable Television Technician used throughout shift. PRN medication for pain, see MAR.
[2024-05-24] MEDS: PIPERACILLIN/TAZOBACTAM 3.375 GM in 0.9 % SODIUM CHLORIDE Mini-bag 100 ML IVPB (22:23)
[2024-05-24] MEDS: KETOROLAC 30 MG/ML inj IVP (22:30)
[2024-05-25] VITALS (7 sets, daily range): BP systolic 112–120; BP diastolic 67–83; PULSE 85–108; RESP 14–22; TEMP 36.6–37.3; O2SAT 94–96
[2024-05-25] MEDS: HYDROmorphone 0.5 mg/0.5 ml inj IVP ×4 (01:39→23:41)
[2024-05-25] MEDS: HYDROCODONE-ACETAMIN 5-325 MG 1 TAB PO ×4 (01:39→22:03)
[2024-05-25] MEDS: PIPERACILLIN/TAZOBACTAM 3.375 GM in 0.9 % SODIUM CHLORIDE Mini-bag 100 ML IVPB ×4 (03:35→21:01)
[2024-05-25] MEDS: KETOROLAC 30 MG/ML inj IVP ×3 (04:18→21:11)
--- NOTE | 2024-05-25 05:41 | PC.NURSE ---
[id number]: Patient with 8-10/10 abd pain. PRN Montezuma, Dilaudid, and Toradol utilized for relief. Ice used for a short period but patient states it is too cold. Patient moaning loudly and walking in a bent-over position when up to BR. Speech Language Pathology Assistant used when SO not present. Dressing to abd C/D/I. IMANI drain patent. Denies N/V. Eating and voiding. Afebrile.
[2024-05-25] MEDS: ACETAMINOPHEN 325 MG TABLET 650 MG PO (06:45)
[2024-05-25] MEDS: DOCUSATE SODIUM 100 MG CAPSULE PO (06:45)
[2024-05-25 08:53] LABS: Albumin* 3.8 g/dL (3.3-5.0)
[2024-05-25 08:56] LABS: Alkaline Phosphatase* 61 U/L (40-150); Aspartate Amino Transferase* 52 U/L (12-35); Bilirubin Direct* 0.1 mg/dL (0.0-0.5); Bilirubin Total* 0.3 mg/dL (0.1-1.5); Total Protein* 6.9 g/dL (6.0-8.3)
[2024-05-25 08:57] LABS: Alanine Aminotransferase* 56 U/L (4-35); Basophils Percent Auto 0.1 % (0.0-3.0); Hematocrit 35.7 % (33.0-51.0); Hemoglobin* 11.9 gm/dL (12.0-16.0); Immature Granulocytes Pct Auto 0.1 %; Lymphocytes Percent Auto 7.5 % (20-44); Mean Corpuscular HGB Conc 33 gm/dL (32-36); Mean Corpuscular Hemoglobin 30 pg (26-34); Mean Corpuscular Volume 91 fL (80-100); Monocytes Percent Auto 5.5 % (0.0-11.0); Neutrophils Percent Auto 86.8 % (42.0-72.0); Platelet Count* 267 K/uL (140-440); RDW Coefficient of Variation % 12.1 % (11.5-15.5); Red Blood Count 3.93 m/uL (4.00-5.20); White Blood Count* 11.08 K/uL (4.50-11.00)
[2024-05-25] MEDS: SODIUM CHLORIDE 0.9 % (FLUSH) 10 ML SYRINGE 5 ML IVF ×2 (09:02→22:03)
[2024-05-25 09:04] LABS: Slide Review Reflex No
--- NOTE | 2024-05-25 09:36 | PM.GSPN ---
Subjective Subjective Date Seen: 05/25/24 Interval history: Patient complained of pain overnight. The pain is mostly present with movement. IMANI drain put out minimal amount of fluid. Patient tolerated some Jell-O yesterday. Urinated multiple times. Exam Narrative: Exam Narrative: Abdomen is soft, not distended, tender palpation in epigastrium and right upper quadrant, no peritoneal signs. IMANI drain with minimal amount of serosanguineous fluid. Const: Vital Signs, click to edit/add: Vital Signs - 24 hr 05/24/24 10:00 05/24/24 12:00 05/24/24 14:00 Temperature 98 F 98 F 98 F Pulse Rate Pulse Rate [Pulse Oximeter] 80 95 95 Respiratory Rate 18 18 18 Blood Pressure Blood Pressure [Le ft Arm] 105/72 117/70 117/70 Pulse Oximetry 98 99 99 Oxygen Delivery Me thod Room Air Room Air Room Air Oxygen Flow Rate 05/24/24 17:21 05/24/24 17:25 05/24/24 17:30 Temperature 97.9 F Pulse Rate 110 H 102 H 89 Pulse Rate [Pulse Oximeter] Respiratory Rate 16 15 15 Blood Pressure 131/76 131/82 120/77 Blood Pressure [Le ft Arm] Pulse Oximetry 96 94 97 Oxygen Delivery Me thod Room Air Room Air Nasal Cannula Oxygen Flow Rate 2 05/24/24 17:35 05/24/24 17:40 05/24/24 17:45 Temperature Pulse Rate 86 99 83 Pulse Rate [Pulse Oximeter] Respiratory Rate 13 19 15 Blood Pressure 125/79 120/73 116/70 Blood Pressure [Le ft Arm] Pulse Oximetry 97 98 93 Oxygen Delivery Me thod Nasal Cannula Nasal Cannula Room Air Oxygen Flow Rate 2 2 05/24/24 17:50 05/24/24 18:00 05/24/24 18:15 Temperature 99.1 F 97.7 F 97.7 F Pulse Rate 95 96 95 Pulse Rate [Pulse Oximeter] Respiratory Rate 12 14 14 Blood Pressure 113/66 127/81 116/70 Blood Pressure [Le ft Arm] Pulse Oximetry 94 91 92 Oxygen Delivery Me thod Room Air Room Air Room Air Oxygen Flow Rate 05/24/24 18:30 05/24/24 18:45 05/24/24 19:00 Temperature 97.5 F L 98.9 F 98.5 F Pulse Rate 86 86 99 Pulse Rate [Pulse Oximeter] Respiratory Rate 14 14 16 Blood Pressure 111/73 112/74 122/71 Blood Pressure [Le ft Arm] Pulse Oximetry 92 93 93 Oxygen Delivery Me thod Room Air Room Air Room Air Oxygen Flow Rate 05/24/24 19:30 05/24/24 20:00 05/24/24 21:00 Temperature 98.5 F 98.7 F Pulse Rate 95 104 H 112 H Pulse Rate [Pulse Oximeter] Respiratory Rate 18 16 14 Blood Pressure 115/75 143/87 H 112/68 Blood Pressure [Le ft Arm] Pulse Oximetry 98 95 93 Oxygen Delivery Me thod Room Air Room Air Room Air Oxygen Flow Rate 05/24/24 22:00 05/24/24 23:00 05/24/24 23:00 Temperature 98.9 F 98.5 F Pulse Rate 114 H 97 Pulse Rate [Pulse Oximeter] 97 Respiratory Rate 16 20 20 Blood Pressure 114/83 116/75 Blood Pressure [Le ft Arm] 116/75 Pulse Oximetry 93 97 97 Oxygen Delivery Me thod Room Air Room Air Room Air Oxygen Flow Rate 05/25/24 00:00 05/25/24 04:19 05/25/24 08:38 Temperature 98.5 F 99.2 F 98.1 F Pulse Rate 108 H Pulse Rate [Pulse Oximeter] 85 94 Respiratory Rate 18 14 18 Blood Pressure 114/67 Blood Pressure [Le ft Arm] 112/83 118/81 Pulse Oximetry 96 94 96 Oxygen Delivery Me thod Room Air Room Air Room Air Oxygen Flow Rate Progress Note:A&P Assessment and plan (1) Cholecystitis, acute: Status: Acute Plan 29-year-old female s/p laparoscopic cholecystectomy POD 1. Patient's WBC was elevated to 11. I discussed with the patient through the per diem interpreter that we will keep her on antibiotics for now. Patient can advance her diet as tolerated. We will keep the IMANI drain in place for now. Given the amount of inflammation patient had surrounding the gallbladder, I am not surprised that she has a lot of pain. We will work on controlling her pain with p.o. medications. Possible discharge home tomorrow.
[2024-05-25] MEDS: polyethylene glycoL 3350 17 GM PACK PO (11:15)
--- NOTE | 2024-05-25 13:11 | PM.IMPN1 ---
Progress Note: A&P Assessment and plan (1) Cholecystitis, acute: Problem details: - status post laparoscopic cholecystectomy by Dr. Casarez on 05/24/2024 - 05/[address] Casarez, white count is mildly elevated and patient is painful in right upper quadrant, continue Zosyn Status: Acute (2) Dysuria: Problem details: - urinalysis done yesterday is unremarkable. Patient is on Zosyn for treatment of acute cholecystitis, which would cover for UTI anyway. Status: Acute (3) Chronic abdominal pain: Problem details: - worsening abdominal pain that has been going on over the last year. Was previously treated for H pylori and has since tested negative. Has been on medication for dyspepsia without much relief. Gallstones found recently which may be symptomatic. Recent chills without fever and white count is within normal limits, unlikely cholecystitis, but will do imaging today. I spoke with Dr. Casarez from General surgery who recommended repeating CT abdomen and pelvis and right upper quadrant ultrasound. - update: Results of imaging are above. Dr. Casarez is planning to take the patient to the OR today for cholecystectomy. - 30 laparoscopic cholecystectomy yesterday. Patient has pain today in right upper quadrant related to surgery. Unclear if chronic abdominal pain has improved or resolved. Status: Acute (4) Cholelithiasis: Problem details: - suspect symptomatic, as above - lap felicia 05/24/2024 Status: Resolved (5) Chronic GERD: Problem details: - continue omeprazole Status: Chronic (6) Obesity: Status: Chronic Time Spent With Patient Total time spent: Today I spent 35 minutes seeing the patient, reviewing [facility]panse and EPIC notes/diagnostics/labs, discussing the care plan with our care team that includes social work, PT/OT, pharmacy, RT, [place] [facility] and documenting my impressions and plan in the medical record. Subjective Time Seen by Provider: 12:00 Date Seen: 05/25/24 Interval history: I spoke with Betty with the help of a video language interpreter. Betty complains of pain in the RUQ. She no longer has pain in her RLQ. She endorses constipation and pain with urination. Exam Narrative: Exam Narrative: General: No acute distress. Flat affect. No eye contact. Awake, alert, oriented. No pallor. No jaundice. Obese. Oropharynx: Clear. Mucous membranes moist. Cardiovascular: Regular rate and rhythm. No murmurs, gallops, or rubs. Respiratory: Clear to auscultation bilaterally. No wheezes or crackles. Abdomen: Bowel sounds present. Post surgical abdomen with IMANI drain. Scant amount of serosanguineous fluid in the drain. Tender to palpation in the right upper quadrant without rebound tenderness or guarding. Abdomen is otherwise nontender. Surgical wounds are clean, dry, and intact. Const: Vital Signs, click to edit/add: Vital Signs - 24 hr 05/24/24 14:00 05/24/24 17:21 05/24/24 17:25 Temperature 98 F 97.9 F Pulse Rate 110 H 102 H Pulse Rate [Pulse Oximeter] 95 Respiratory Rate 18 16 15 Blood Pressure 131/76 131/82 Blood Pressure [Le ft Arm] 117/70 Pulse Oximetry 99 96 94 Oxygen Delivery Me thod Room Air Room Air Room Air Oxygen Flow Rate 05/24/24 17:30 05/24/24 17:35 05/24/24 17:40 Temperature Pulse Rate 89 86 99 Pulse Rate [Pulse Oximeter] Respiratory Rate 15 13 19 Blood Pressure 120/77 125/79 120/73 Blood Pressure [Le ft Arm] Pulse Oximetry 97 97 98 Oxygen Delivery Me thod Nasal Cannula Nasal Cannula Nasal Cannula Oxygen Flow Rate 2 2 2 05/24/24 17:45 05/24/24 17:50 05/24/24 18:00 Temperature 99.1 F 97.7 F Pulse Rate 83 95 96 Pulse Rate [Pulse Oximeter] Respiratory Rate 15 12 14 Blood Pressure 116/70 113/66 127/81 Blood Pressure [Le ft Arm] Pulse Oximetry 93 94 91 Oxygen Delivery Me thod Room Air Room Air Room Air Oxygen Flow Rate 05/24/24 18:15 05/24/24 18:30 05/24/24 18:45 Temperature 97.7 F 97.5 F L 98.9 F Pulse Rate 95 86 86 Pulse Rate [Pulse Oximeter] Respiratory Rate 14 14 14 Blood Pressure 116/70 111/73 112/74 Blood Pressure [Le ft Arm] Pulse Oximetry 92 92 93 Oxygen Delivery Me thod Room Air Room Air Room Air Oxygen Flow Rate 05/24/24 19:00 05/24/24 19:30 05/24/24 20:00 Temperature 98.5 F 98.5 F 98.7 F Pulse Rate 99 95 104 H Pulse Rate [Pulse Oximeter] Respiratory Rate 16 18 16 Blood Pressure 122/71 115/75 143/87 H Blood Pressure [Le ft Arm] Pulse Oximetry 93 98 95 Oxygen Delivery Me thod Room Air Room Air Room Air Oxygen Flow Rate 05/24/24 21:00 05/24/24 22:00 05/24/24 23:00 Temperature 98.9 F 98.5 F Pulse Rate 112 H 114 H Pulse Rate [Pulse Oximeter] 97 Respiratory Rate 14 16 20 Blood Pressure 112/68 114/83 Blood Pressure [Le ft Arm] 116/75 Pulse Oximetry 93 93 97 Oxygen Delivery Me thod Room Air Room Air Room Air Oxygen Flow Rate 05/24/24 23:00 05/25/24 00:00 05/25/24 04:19 Temperature 98.5 F 99.2 F Pulse Rate 97 108 H Pulse Rate [Pulse Oximeter] 85 Respiratory Rate 20 18 14 Blood Pressure 116/75 114/67 Blood Pressure [Le ft Arm] 112/83 Pulse Oximetry 97 96 94 Oxygen Delivery Me thod Room Air Room Air Room Air Oxygen Flow Rate 05/25/24 08:38 05/25/24 11:00 Temperature 98.1 F 97.9 F Pulse Rate Pulse Rate [Pulse Oximeter] 94 99 Respiratory Rate 18 20 Blood Pressure Blood Pressure [Le ft Arm] 118/81 112/77 Pulse Oximetry 96 96 Oxygen Delivery Me thod Room Air Room Air Oxygen Flow Rate Labs Labs: Laboratory Results - last 24 hr 05/25/24 08:22 WBC 11.08 H RBC 3.93 L Hgb 11.9 L Hct 35.7 MCV 91 MCH 30 MCHC 33 RDW Coeff of Davis 12.1 Plt Count 267 Neut % (Auto) 86.8 H Lymph % (Auto) 7.5 L Marshall % (Auto) 5.5 Eos % (Auto) 0.0 Baso % (Auto) 0.1 Neut # (Auto) 9.60 H Lymph # (Auto) 0.80 L Marshall # (Auto) 0.60 Eos # (Auto) 0.00 Baso # (Auto) 0.00 Abs Immat Gran (auto) 0.00 Imm/Tot Granulo (auto) 0.1 Total Bilirubin 0.3 Direct Bilirubin 0.1 AST 52 H ALT 56 H Alkaline Phosphatase 61 Total Protein 6.9 Albumin 3.8
--- NOTE | 2024-05-25 18:53 | PC.NURSE ---
Shift Summary: Patient pleasant and cooperative. Up independently, when having pain has called staff into room to assist getting out of bed. Vitals stable and WNL, afebrile. Denies nausea with regular diet however did have pain following dinner, see MAR for pharmacological pain management. Tolerating ice pack over abdomen. Lap sites C/D/I, IMANI has little output throughout shift. Patient passing gas and had BM, stated she felt much better after. Ipad court interpreter used throughout shift.
[2024-05-26] MEDS: CALCIUM CARBONATE 500 MG CHEW 1000 MG PO (00:20)
[2024-05-26] MEDS: KETOROLAC 30 MG/ML inj IVP (03:08)
[2024-05-26] MEDS: PIPERACILLIN/TAZOBACTAM 3.375 GM in 0.9 % SODIUM CHLORIDE Mini-bag 100 ML IVPB ×2 (03:11→09:15)
[2024-05-26 03:15] VITALS: BP 124/75; RESP 20; TEMP 36.9; O2SAT 94
--- NOTE | 2024-05-26 06:51 | PC.NURSE ---
End of shift summary: Pt has been A&O, afebrile and VSS overnight. She c/o mid abdominal pain continuously at 8-9/10. PRN IV Toradol given x2 with last dose @ 0310 and IV Dilaudid x1 dose @ 2340. Pt reports adequate pain relief with IV pain meds. She is SBA with transfers d/t needing help getting out of bed d/t pain. hourly sign language interpreter used on iPad and?S/O?was here for a few hours so he translated for patient as well. PIV in right AC SL. IMANI drain in RUQ dressing C/D/I with a total output of 20 mL overnight. Lap sites x3 have some dried, bloody drainage on steri-strips but they?re still intact. RQ bowel sounds were absent and LQ bowel sounds were hypoactive. Pt c/o pain with eating but had Jell-O, apples and chicken salad at bedside from significant other. Pt does not feel like she?s ready for discharge today 3/3 d/t pain not being under control. ?
[2024-05-26 07:00] VITALS: BP 122/68; RESP 18; TEMP 36.8; O2SAT 94
[2024-05-26] MEDS: HYDROCODONE-ACETAMIN 5-325 MG 1 TAB PO (07:49)
[2024-05-26] MEDS: HYDROmorphone 0.5 mg/0.5 ml inj IVP (07:50)
[2024-05-26] MEDS: SODIUM CHLORIDE 0.9 % (FLUSH) 10 ML SYRINGE 5 ML IVF (09:15)
[2024-05-26] MEDS: polyethylene glycoL 3350 17 GM PACK PO (09:15)
--- NOTE | 2024-05-26 09:15 | PM.DS1 ---
DS: Providers Provider Date Seen: 05/26/24 Primary care physician: Not a Local Provider Consults: 05/24/24 03:53 Consult to Physician [CONS] Routine Comment: Consulting Provider: Oj Casarez Has provider been notified: Yes 05/24/24 04:17 Consult to Ship Captain [CONS] Routine Comment: Reason for Consult:: Plant Reliability Engineer Needed Attending Physician on discharge: Oj Casarez MD DS: Diagnosis Discharge Diagnosis (1) S/P laparoscopic cholecystectomy: Status: Acute DS: Summary Hospital Course Hospital Course: Patient was admitted to the hospital after she underwent laparoscopic cholecystectomy for hydrops gallbladder. Patient had significant amount of pain postoperatively. Her pain was controlled with pain medication. Her drain put out small amount of serosanguineous fluid and was removed today. Patient tolerated diet. She had a bowel movement after having MiraLax. Time Spent with Patient Time attestation: Total time spent providing and/or coordinating discharge services: Exam Narrative: Exam Narrative: Abdomen is soft, not distended, mildly sent tender to palpation in the right upper quadrant, this is improved from yesterday, laparoscopic incisions are covered with dry steries. IMANI drain had small amount of serosanguineous fluid. The IMANI drain was removed. Bacitracin and gauze were placed over the IMANI drain site. Const: Vital Signs, click to edit/add: Vital Signs - 24 hr 05/25/24 11:00 05/25/24 15:27 05/25/24 21:10 Temperature 97.9 F 98.1 F 98.6 F Pulse Rate [Pulse Oximeter] 99 98 94 Respiratory Rate 20 18 20 Blood Pressure [Le ft Arm] 112/77 120/75 115/80 Pulse Oximetry 96 95 96 Oxygen Delivery Me thod Room Air Room Air Room Air Oxygen Flow Rate 05/25/24 23:40 05/25/24 23:40 05/26/24 03:15 Temperature 98.2 F 98.4 F Pulse Rate [Pulse Oximeter] 94 94 Respiratory Rate 22 22 20 Blood Pressure [Le ft Arm] 114/75 124/75 Pulse Oximetry 95 94 Oxygen Delivery Me thod Room Air Room Air Oxygen Flow Rate 2 Discharge Plan Discharge Disposition: Home w/ Parent or Adult Discharging Surgeon: Oj Casarez Follow-Up Appointment: 2 weeks [facility] Prescriptions: New polyethylene glycol 3350 [Miralax] 17 gram powder in packet 17 g PO DAILY Qty: 10 0RF oxycodone-acetaminophen 5-325 mg tablet 1 tab PO Q6H PRN (Reason: pain) Qty: 25 0RF omeprazole magnesium [Prilosec OTC] 20 mg tablet,delayed release (DR/EC) 20 mg PO DAILY Qty: 30 2RF amoxicillin-pot clavulanate 875-125 mg tablet 1 tab PO BID Qty: 10 0RF Continued metoclopramide HCl 10 mg tablet 10 mg PO Q6H PRN polyethylene glycol 3350 [ClearLax] 17 gram/dose powder 17 g PO DAILY PRN Discontinued alum-mag hydroxide-simeth [Antacid Plus Anti-Gas] 200-200-20 mg/5 mL suspension 15 ml PO Q6H PRN esomeprazole magnesium 40 mg capsule,delayed release(DR/EC) 40 mg PO DAILY oxycodone 5 mg tablet 5 mg PO Q4H PRN ondansetron HCl 4 mg tablet 4 mg PO Q8H PRN (Reason: nausea and vomiting) No Action sucralfate 1 gram tablet 1 g PO ACHS Activity Level: No strenuous activity Activity Detail: No strenuous activity or lifting more than 15-20 lbs for 4-6 weeks. Take laxative such as MiraLax for the first 10 days after surgery to prevent constipation. Discharge Diet: Regular Patient Instructions: General Anesthesia (DC), Laparoscopic Cholecystectomy (DC), Post-Operative Instructions: Laparoscopic Cholecystectomy Additional Instructions: Apply bacitracin and gauze to the right mid abdominal incision where the drain used to be. Prior to taking a shower remove the dressing. Okay to shower and let the water run around the incision. Reapply bacitracin and gauze over the incision. Change the dressing at least daily. When there is no drainage noted from that incision, you can stop applying bacitracin and gauze. Follow-up: Oj Casarez MD [Staff Physician] - Discharge Orders: Discharge Order (Routine); Ordered 05/26/24 Ordered By: Oj Casarez
[2024-05-26 11:00] VITALS: BP 106/58; RESP 18; TEMP 36.6; O2SAT 100
--- NOTE | 2024-05-26 15:06 | PC.NURSE ---
Pt discharged @ 1445 via wheelchair, accompanied by spouse. IV removed. Discharge form signed. Discharge instructions given via in person cable testers helper. Pt reported understanding. Pain controlled. AxOx4.
== END 2024-05-26 14:45 | disposition home or self-care (01) | DRG 263 ==
LOC: ED 05-24 03:11 → MEDSURG 05-24 14:04 → SS 05-24 14:48 → MEDSURG 05-24 18:15 → SS 05-26 09:51 → MEDSURG 05-26 10:14
PROVIDERS: Admitting Provider Family Medicine; Emergency Provider Family Medicine; Visit Provider Surgery
PROC: 0FT44ZZ Resection of Gallbladder, Percutaneous Endoscopic Approach (ICD-10-PCS; CPT 47562; principal; 2024-05-24 14:30)
DX: K80.12 Calculus of gallbladder with acute and chronic cholecystitis without obstruction (principal); K82.1 Hydrops of gallbladder; G89.18 Other acute postprocedural pain; R10.11 Right upper quadrant pain; R30.0 Dysuria; K21.9 Gastro-esophageal reflux disease without esophagitis; E66.9 Obesity, unspecified; Z68.34 Body mass index [BMI] 34.0-34.9, adult; G89.29 Other chronic pain
CPT/HCPCS: 00790; 36415; 74177; 76705; 80048; 80053; 80076; 81001; 81025; 83605; 83690; 85025; 86140; 88304; 99140; 99284; 99285; T1013; A9270; G0378; J0330; J0665; J1100; J1171; J1885; J2060; J2250; J2405; J2470; J2543; J2704; J3010; J3490; J7030; J7120; Q9967

== ENCOUNTER 2024-05-26 20:57 | Observation (INO) | payer OTHER, SELFPAY ==
--- OUTSIDE RECORDS SUMMARY | 2024-05-26 21:00 | XMS_ITS | Encounter Summary ---
Author Organization [facility] Address [address] [place] [address] Care Team Providers Care Retoucher Name Role Phone Montse Ruiz D.O. Primary Care Provider [phone] Reason for Visit * Reason Comments Abdominal Pain Encounter Details Date Type Department Care Team (Late st Contact Info) Description 04/22/2024 10:59 PM GLASS EDGER - 04/22/2024 11:59 PM GLASS EDGER Emergency [facility] [address] [place] [address] Discharge Disposition: Home or Self Care Social [...] on file Legal Sex Female 8:30 AM GLASS EDGER Gender Identity Not on file Sexual Orientation [...] documented as of this encounter Care Teams Retoucher Relationship Specialty Start Date End Date Montse Ruiz D.O. [address] [place] [address] PCP - General Family Medicine 11/27/23 documented as of this encounter
--- OUTSIDE RECORDS SUMMARY | 2024-05-26 21:00 | XMS_ITS | Encounter Summary ---
Author Organization [facility] Address [address] [place] [address] Care Team Providers Care Toy Painter Name Role Phone Montse Ruiz D.O. Primary Care Provider [phone] Reason for Visit * Reason Comments Abdominal Pain Encounter Details Date Type Department Care Team (Late st Contact Info) Description 05/12/2024 3:14 AM CREDIT SPECIALIST - 05/12/2024 11:59 PM CREDIT SPECIALIST Emergency [facility] [address] [facility] [place] [address] Discharge Disposition: Home or Self [...] on file Legal Sex Female 8:30 AM CREDIT SPECIALIST Gender Identity Not on file Sexual Orientation [...] documented as of this encounter Care Teams Toy Painter Relationship Specialty Start Date End Date Montse Ruiz D.O. [address] [place] [address] PCP - General Family Medicine 11/27/23 documented as of this encounter
--- OUTSIDE RECORDS SUMMARY | 2024-05-26 21:00 | XMS_ITS | Encounter Summary ---
Author Organization [facility] Address [address] [place] [address] Care Team Providers Care National Expansion Recruiter Name Role Phone Montse Ruiz D.O. Primary Care Provider [phone] Reason for Visit * Reason Comments Abdominal Pain Encounter Details Date Type Department Care Team (Late st Contact Info) Description 04/16/2024 5:11 AM LOADING MANAGER - 04/16/2024 11:59 PM LOADING MANAGER Emergency [facility] [address] [place] [address] Discharge Disposition: Home or Self [...] on file Legal Sex Female 8:30 AM LOADING MANAGER Gender Identity Not on file Sexual Orientation [...] ED patients; some inpatients) 04/16/2024 6:10 AM LOADING MANAGER documented in this encounter Results * CT Chest Abdomen Pelvis Angiogram with IV Contrast (04/16/2024 6:10 AM LOADING MANAGER) Anatomical Region Laterality Modality Chest, Abdomen, Pelvis, Card iovascular RST LOS, Abdominal ARZ LOS, Thoracic ARZ LOS, Vascular Interventional ARZ LOS, Thoracic FLA LOS, Procedural, Vascular Interventional NWWI LOS Computed Tomography 04/16/2024 6:13 AM LOADING MANAGER Impressions 04/16/2024 6:58 AM LOADING MANAGER No acute abnormality in the chest, abdomen, or pelvis. Narrative 04/16/2024 6:58 AM LOADING MANAGER EXAM: CT CHEST ABDOMEN PELVIS ANGIOGRAM WITH [...] abdomen, or pelvis. us Ronel Hendricks M.D. IMRodo CT PROCEDURES Final Result documented in this [...] For 1 dose Given 04/16/2024 6:06 AM LOADING MANAGER 100 mL R ight Forearm sodium chloride 0.9 % flush 80 mL 80 mL, intravenous, Once, On Sun04/16/24 at 0615, For 1 dose Given 04/16/2024 6:06 AM LOADING MANAGER 80 mL Right Forearm sodium chloride 0.9 % injection 10 mL 10 mL, intravenous, Once, On Sun04/16/24 at 0615, For 1 dose Given 04/16/2024 6:06 AM LOADING MANAGER 10 mL Right Forearm documented in this encounter Active and Recently Administered Medications Times are shown in LOADING MANAGER. Scheduled Medication Order 04/14/2024 04/15/2024 04/16/2024 sodium [...] documented as of this encounter Care Teams National Expansion Recruiter Relationship Specialty Start Date End Date Montse Ruiz D.O. [address] [place] [address] PCP - General Family Medicine 11/27/23 documented as of this encounter
--- OUTSIDE RECORDS SUMMARY | 2024-05-26 21:00 | XMS_ITS | Encounter Summary ---
Author Organization [facility] Address [address] [place] [address] Care Team Providers Care Diesel Automotive Technician Name Role Phone Montse Ruiz D.O. Primary Care Provider [phone] Reason for Visit * Reason Comments Abdominal Pain Vomiting Diarrhea Encounter Details Date Type Department Care Team (Late st Contact Info) Description 04/11/2024 4:47 AM PRIVATE BRANCH EXCHANGE SERVICE ADVISER - 04/11/2024 11:59 PM PRIVATE BRANCH EXCHANGE SERVICE ADVISER [facility] [place] [address] Discharge Disposition: Home or Self [...] on file Legal Sex Female 8:30 AM PRIVATE BRANCH EXCHANGE SERVICE ADVISER Gender Identity Not on file Sexual Orientation [...] inpatients and all outpatients) 04/11/2024 6:49 AM PRIVATE BRANCH EXCHANGE SERVICE ADVISER documented in this encounter Results * US Gallbladder and or Biliary Ducts (04/11/2024 6:49 AM PRIVATE BRANCH EXCHANGE SERVICE ADVISER) Anatomical Region Laterality Modality Abdomen, Ultrasound RST LOS, Ultrasound ARZ LOS, Ultrasound FLA LOS N/A Ultrasound Impressions 04/11/2024 7:03 AM PRIVATE BRANCH EXCHANGE SERVICE ADVISER Biliary sludge without evidence of acute cholecystitis or biliary ductal dilatation. Narrative 04/11/2024 7:03 AM PRIVATE BRANCH EXCHANGE SERVICE ADVISER EXAM: US GALLBLADDER AND OR BILIARY DUCTS [...] documented as of this encounter Care Teams Diesel Automotive Technician Relationship Specialty Start Date End Date Montse Ruiz D.O. NPNora: [id number] [address] [place] [phone] PCP - General Family Medicine 11/27/23 documented as of this encounter
--- OUTSIDE RECORDS SUMMARY | 2024-05-26 21:01 | XMS_ITS | Encounter Summary ---
Author Organization [facility] Address [address] [place] [address] Care Team Providers Care Ammunition Specialist Name Role Phone Montse Ruiz D.O. Primary Care Provider [phone] Encounter Details Date Type Department Care Team (Late st Contact Info) Description 05/23/2024 Orders Only Department of Radiology in [place], [place] [address] [place] [address] Stephenie Anne R.TRosa(R)(CT), R.T.(R) [address] [place] [address] Social History Tobacco Use Types Packs/Day Years [...] on file Legal Sex Female 8:30 AM OPTICAL MANAGER Gender Identity Not on file Sexual Orientation Not on file documented as of this encounter Plan of Treatment Not on file documented as of this encounter Visit Diagnoses Not on filedocumented in this encounter Additional Health Concerns Assessment Noted Time PHQ-9 Depression Total Score: 18 06/20/ 024 4:50 PM CDT documented as of this encounter Care Teams Ammunition Specialist Relationship Specialty Start Date End Date Montse Ruiz D.O. [address] [place] [phone] PCP - General Family Medicine 11/27/23 documented as of this encounter
--- OUTSIDE RECORDS SUMMARY | 2024-05-26 21:01 | XMS_ITS | Clinical Summary ---
Author Organization [facility] Address [address] [place] [id number] Care Team Providers Care Sales Performance Analyst Name Role Phone Pcp, No Primary Care Provider Unavailabl e Allergies No known active allergies Medications ondansetron (ZOFRAN ODT) 4 mg disintegrating tabletIndications: Chronic epigastric pain Place 1 Tablet (4 mg) on the tongue every 8 hours if needed for Nausea/Vomi ting. 15 Tablet 04/30/19 24 Active polyethylene glycol (Miralax) 17 g per packet packetIndications: Constipation, unspecified constipation type Mix 17 g in liquid then take by mouth once daily. 24 Each 05/17/19 24 Active metoclopramide HCl (REGLAN) 10 mg tabletIndications: Nausea and vomiting during Take 1 Tablet (10 mg) by mouth every 6 hours if needed for Nausea/Vomi ting. 20 Tablet 05/17/19 24 Active dicyclomine (BENTYL) 20 mg tabletIndications: Epigastric pain Take 1 Tablet (20 mg) by mouth four times daily. 10 Tablet 04/19/19 25 Active sucralfate (CARAFATE) 100 mg/mL suspensionIndicati ons:Epigastric pain Take 10 mL (1,000 mg) by mouth 2 times daily if needed for GI Upset. Take on empty stomach. 414 mL 04/19/19 25 Active bisacodyL (DULCOLAX) 5 mg delayed release tabletIndications: Chronic abdominal pain Take 2 Tablets (10 mg) by mouth once daily. 30 Tablet 04/23/19 25 Active aluminum-magnesium hydroxide-simethic one (MAALOX PLUS) 200-200-20 mg/5 mL suspensionIndicati ons:Chronic abdominal pain Take 15 mL by mouth 4 times daily if needed for GI Upset. Shake Well. 355 mL 05/12/19 25 Active esomeprazole delayed release capsule (NEXIUM) 40 mgIndications:Care Specialist julius abdominal pain Take 1 Capsule (40 mg) by mouth once daily before a meal. 30 Capsule 05/12/19 25 Active sucralfate (CARAFATE) 1 gram tabletIndications: Epigastric pain,Gastroesophag eal reflux disease, unspecified whether esophagitis present Take 1 Tablet (1 g) by mouth four times daily before meals and at bedtime. 30 Tablet 05/12/19 25 Active oxyCODONE (ROXICODONE) 5 mg immediate release tabletIndications: Abdominal pain, unspecified abdominal location Take 1 Tablet (5 mg) by mouth every 4 hours if needed for Pain. 8 Tablet 05/23/19 25 Active aluminum-magnesium hydroxide-simethic one (MAALOX PLUS) 200-200-20 mg/5 mL suspensionIndicati ons:Gastritis, presence of bleeding unspecified, unspecified chronicity, unspecified gastritis type Take 15 mL by mouth 4 times daily if needed for GI Upset. Shake Well. 355 mL 05/23/19 25 Active sucralfate (CARAFATE) 1 gram tabletIndications: Gastritis, presence of bleeding unspecified, unspecified chronicity, unspecified gastritis type Take 1 Tablet (1 g) by mouth four times daily before meals and at bedtime. 30 Tablet 05/23/19 25 Active sucralfate (CARAFATE) 1 gram tabletIndications: Epigastric pain,Gastroesophag eal reflux disease, unspecified whether esophagitis present Take 1 Tablet (1 g) by mouth four times daily before meals and at bedtime. 30 Tablet 09/30/19 24 025 Discontinued esomeprazole delayed release capsule (NEXIUM) 40 mgIndications:Care Specialist julius abdominal pain Take 1 Capsule (40 mg) by mouth once daily before a meal. 30 Capsule 04/23/19 25 025 Discontinued aluminum-magnesium hydroxide-simethic one (MAALOX PLUS) 200-200-20 mg/5 mL suspensionIndicati ons:Chronic abdominal pain Take 15 mL by mouth 4 times daily if needed for GI Upset. Shake Well. 355 mL 04/23/19 025 Discontinued Encounters Date Type Department Care Team Description 05/23/2024 8:01 AM [facility] - 05/23/2024 11:[address] [address] Deandra Murillo PA Ide, Emma Merritt, DO Abdominal pain, unspecified abdominal location (Primary Dx); Gastritis, presence of bleeding unspecified, unspecified chronicity, unspecified gastritis type; Gallstones Discharge Disposition: Home Self Care 05/23/2024 Telephone [facility] [address] [place] [address] Sorin Nickerson MD Questions (Earlier appointment ) 05/23/2024 Travel 05/21/2024 10:08 PM [facility] - 05/22/2024 1:[address] [address] Geri Desai MD Biliary colic (Primary Dx); Abdominal pain, unspecified abdominal location; Gastritis, presence of bleeding unspecified, unspecified chronicity, unspecified gastritis type Discharge Disposition: Home Self Care 05/21/2024 Travel 05/12/2024 3:12 AM [facility] - 05/12/2024 4:[address] [address] Angelo Aggarwal MD Chronic gastritis, presence of bleeding unspecified, unspecified gastritis type (Primary Dx); Chronic abdominal pain; Epigastric pain; Gastroesophageal reflux disease, unspecified whether esophagitis present Discharge Disposition: Home Self Care 05/12/2024 Travel 04/22/2024 11:09 PM [facility] - 04/23/2024 1:[address] [address] Kaden Santos MD Chronic abdominal pain (Primary Dx) Discharge Disposition: Home Self Care 04/22/2024 Travel 04/19/2024 7:53 AM [facility] - 04/19/2024 10:40 AM [place] [id number] [place] [address] Wallace See DO Epigastric pain (Primary Dx) Discharge Disposition: Home Self Care 04/19/2024 Travel 04/16/2024 5:08 AM [facility] - 04/16/2024 10:[address] [address] Ronel Hendricks MD Ball, Julieanne Patricia, MD Upper abdominal pain (Primary Dx); Vomiting and diarrhea; Abdominal pain, unspecified abdominal location Discharge Disposition: Home Self Care 04/16/2024 Telephone [facility] [address] [place] [address] Sorin Nickerson MD Appointment 04/16/2024 Telephone [facility] [address] [place] [address] Sorin Nickerson MD Appointment (KATHERINE ) 04/11/2024 4:50 AM [facility] - 04/11/2024 7:[address] [address] Kaden Mejía MD Chronic abdominal pain (Primary [...] or yelled at (see row info)? No 05/23/2024 Interpersonal Safety Abuse 12 - 18 Not on file 05/23/2024 Interpersonal Safety Ambulatory Vulnerability No t on file 05/23/2024 Comments No Sex and Gender Information Value Date Recorded Sex Assigned at Not on file Legal Sex Female 8:24 AM [facility] Gender Identity Not on file Sexual Orientation Not on file Obstetrics History Para Term AB IAB SAB Ectopic Multiple Livin g Live Births 1 Date Outcome GA Total Labor Labor/2nd/3rd Weight Sex Type Anes PTL Anabell A1 A5 Name Clin Last Filed Vital Signs Vital Sign Reading Time Taken Comments Blood Pressure 120/70 05/23/2024 11:02 AM [facility] Pulse 89 05/23/2024 11:01 AM [facility] Temperature 36.9 C (98.4 F) 05/23/2024 8:02 AM [facility] Respiratory Rate 16 05/23/2024 11:02 AM [facility] Oxygen Saturation 99% 05/23/2024 11:01 AM [facility] Inhaled Oxygen Concentration - - Weight 95.7 kg (211 lb) 05/23/2024 8:02 AM [facility] Height 170.2 cm (5' 7) 05/23/2024 8:02 AM [facility] Body Mass Index 33.05 05/23/2024 8:02 AM [facility] Plan of Treatment Upcoming Encounters Date Type Department Care Team (Late st Contact Info) Description 07/10/2024 9:00 AM CDT Office Visit [facility] [address] [place] [address] Sorin Nickerson MD [address] [place] [address] Health Maintenance Due Date Last Done Comments Tdap 2004 Depression screening for age 12+ 2005 HIV for age 15-65 2008 BMI (ht and wt on same day) for age 18+ 2011 Hepatitis C screening for ag e 18-79 2011 Tetanus booster 2013 Pap test for age 21-65 2014 COVID-19 vaccine series ( season) 2023 Influenza for age 9-49 11/25/2023 Pneumococcal series for age 6-49 Aged Out No longer eligible based on patient's age to complete this topic Procedures Procedure Name Priority Date/Time Associated Diagnosis Comments CBC WITH AUTO DIFFERENTIAL STAT 05/23/2024 8:24 AM [facility] CBC WITH AUTO DIFFERENTIAL STAT 05/23/2024 8:24 AM [facility] LIPASE STAT 05/23/2024 8:24 AM [facility] HEPATIC FUNCTION PANEL STAT 05/23/2024 8:24 AM [facility] BASIC METABOLIC PANEL STAT 05/23/2024 8:24 AM [facility] URINALYSIS MICROSCOPIC STAT 05/22/2024 12:50 AM [facility] URINE STAT 05/22/2024 12:50 AM [facility] UA W/ SEDIMENT EXAM REFLEXED PER CRITERIA STAT 05/22/2024 12:50 AM [facility] US ABDOMEN LIMITED STAT 05/21/2024 11 :10 PM [facility] CBC WITH AUTO DIFFERENTIAL STAT 05/21/2024 10:45 PM [facility] LIPASE STAT 05/21/2024 10:45 PM [facility] HEPATIC FUNCTION PANEL STAT 05/21/2024 10:45 PM [facility] BASIC METABOLIC PANEL STAT 05/21/2024 10:45 PM [facility] CBC WITH AUTO DIFFERENTIAL STAT 05/21/2024 10:45 PM [facility] LIPASE STAT 04/19/2024 9:16 AM [facility] HEPATIC FUNCTION PANEL STAT 04/19/2024 9:16 AM [facility] BASIC METABOLIC PANEL STAT 04/19/2024 9:16 AM [facility] CBC WITH AUTO DIFFERENTIAL STAT 04/19/2024 8:16 AM [facility] ,SERUM QUALITATIVE STAT 04/19/2024 8:16 AM [facility] CBC WITH AUTO DIFFERENTIAL STAT 04/19/2024 8:16 AM [facility] TROPONIN T (HS) ONE TIME STAT 04/16/2024 7:41 AM [facility] LACTATE VENOUS STAT 04/16/2024 7:41 AM [facility] URINALYSIS MICROSCOPIC STAT 04/16/2024 6:15 AM [facility] UA W/ SEDIMENT EXAM REFLEXED PER CRITERIA STAT 04/16/2024 6:15 AM [facility] DRUG SCREEN RAPID URINE INHOUSE STAT 04/16/2024 6:15 AM [facility] CTA CHEST ABDOMEN PELVIS AORTIC DISSECTION W STAT 04/16/2024 6:14 AM [facility] EKG 12 LEAD STAT 04/16/2024 5:21 AM [facility] C-REACTIVE PROTEIN STAT 04/16/2024 5: 20 AM [facility] MAGNESIUM STAT 04/16/2024 5:20 AM [facility] CBC WITH AUTO DIFFERENTIAL STAT 04/16/2024 5:20 AM [facility] LACTATE VENOUS STAT 04/16/2024 5:20 AM [facility] TROPONIN T (HS) ACUTE W/2HR REFLEX STAT 04/16/2024 5:20 AM [facility] ,SERUM QUALITATIVE STAT 04/16/2024 5:20 AM [facility] LIPASE STAT 04/16/2024 5:20 AM [facility] HEPATIC FUNCTION PANEL STAT 04/16/2024 5:20 AM [facility] BASIC METABOLIC PANEL STAT 04/16/2024 5:20 AM [facility] CBC WITH AUTO DIFFERENTIAL STAT 04/16/2024 5:20 AM [facility] US ABDOMEN LIMITED RUQ STAT 04/11/2024 6:47 AM [facility] URINALYSIS MICROSCOPIC STAT 04/11/2024 6:04 AM [facility] UA W/ SEDIMENT EXAM REFLEXED PER CRITERIA STAT 04/11/2024 6:04 AM [facility] ,SERUM QUALITATIVE STAT 04/11/2024 5:13 AM [facility] LIPASE STAT 04/11/2024 5:11 AM [facility] HEPATIC FUNCTION PANEL STAT 04/11/2024 5:11 AM [facility] BASIC METABOLIC PANEL STAT 04/11/2024 5:11 AM [facility] CBC W PLT NO DIFF STAT 04/11/2024 5:1 0 AM [facility] from Last 3 Months Results * CBC WITH AUTO DIFFERENTIAL (05/23/2024 8:24 AM [facility]) Only the most recent of4 resultswithin the time period is included. WHITE BLOOD COUNT 7.3 4.5 - 11.0 thou/cu mm 05/23/2024 8:34 AM [facility] RED BLOOD COUNT 4.11 4.00 - 5.20 mil/cu mm 05/23/2024 8:34 AM [facility] HEMOGLOBIN 12.5 12.0 - 16.0 g/dL 05/23/2024 8:34 AM [facility] HEMATOCRIT 38.4 33.0 - 51.0 % 05/23/2024 8:34 AM [facility] MCV 93 80 - 100 fL 05/23/2024 8:34 AM [facility] MCH 30.4 26.0 - 34.0 pg 05/23/2024 8:34 AM [facility] MCHC 32.6 32.0 - 36.0 g/dL 05/23/2024 8:34 AM [facility] RDW 12.3 11.5 - 15.5 % 05/23/2024 8:34 AM [facility] PLATELET COUNT 247 140 - 440 thou/cu mm 05/23/2024 8:34 AM [facility] MPV 10.6 6.5 - 11.0 fL 05/23/2024 8:34 AM [facility] % NEUT 64.2 % 05/23/2024 8:34 AM [facility] % LYMPH 24.4 % 05/23/2024 8:34 AM [facility] % MONO 8.6 % 05/23/2024 8:34 AM [facility] % EOS 2.5 % 05/23/2024 8:34 AM [facility] % BASO 0.3 % 05/23/2024 8:34 AM [facility] ABSOLUTE NEUTROPHILS 4.7 1.7 - 7.0 thou/cu mm 05/23/2024 8:34 AM [facility] ABSOLUTE LYMPHOCYTES 1.8 0.9 - 2.9 thou/cu mm 05/23/2024 8:34 AM [facility] ABSOLUTE MONOCYTES 0.6 <0.9 thou/cu mm 05/23/2024 8:34 AM [facility] ABSOLUTE EOSINOPHILS 0.2 <0.5 thou/cu mm 05/23/2024 8:34 AM [facility] ABSOLUTE BASOPHILS 0.0 <0.3 thou/cu mm 05/23/2024 8:34 AM [facility] Blood BLOOD SPECIMEN / Unknown IV Start / Unknown 05/23/2024 8:24 AM [facility] 05/23/2024 8:31 AM [facility] Deandra ESCOBAR HEMATOLOGY Final Re sult [facility] [address] [address] * LIPASE (05/23/2024 8:24 AM [facility]) Only the most recent of5 resultswithin the time period is included. LIPASE 26.4 13.0 - 60.0 IU/L 05/23/2024 8:59 AM [facility] Blood BLOOD SPECIMEN / Unknown IV Start / Unknown 05/23/2024 8:24 AM [facility] 05/23/2024 8:31 AM [facility] Deandra ESCOBAR CHEMISTRY Final Re sult Performing Organization Address [facility] Co de Phone Number [facility] [address] [phone] * HEPATIC FUNCTION PANEL (05/23/2024 8:24 AM [facility]) Only the most recent 5 resultswithin the time period is included. ALBUMIN 4.0 4.0 - 4.9 g/dL 05/23/2024 8:59 AM [facility] PROTEIN,TOTAL 7.4 6.0 - 8.0 g/dL 05/23/2024 8:59 AM [facility] BILIRUBIN,TOTAL 0.3 0.0 - 1.2 mg/dL 05/23/2024 8:59 AM [facility] BILIRUBIN,DIRECT 0.1 0.0 - 0.2 mg/dL 05/23/2024 8:59 AM [facility] BILIRUBIN,INDIRE CT 0.2 0.2 - 0.8 mg/dL 05/23/2024 8:59 AM [facility] ALK PHOSPHATASE 68 35 - 104 IU/L 05/23/2024 8:59 AM [facility] ALT (SGPT) 29 10 - 35 IU/L 05/23/2024 8:59 AM [facility] AST (SGOT) 28 10 - 35 IU/L 05/23/2024 8:59 AM [facility] Blood BLOOD SPECIMEN / Unknown IV Start / Unknown 05/23/2024 8:24 AM [facility] 05/23/2024 8:31 AM [facility] Deandra ESCOBAR CHEMISTRY Final Re sult Performing Organization Address [facility]/ZIP Co de Phone Number [facility] [address] [address] * BASIC METABOLIC PANEL (05/23/2024 8:24 AM [facility]) Only the most recent 5 resultswithin the time period is included. Pathologist [facility] SODIUM 138 136 - 145 mmol/L 05/23/2024 8:59 AM [facility] POTASSIUM 4.0 3.5 - 5.1 mmol/L 05/23/2024 8:59 AM [facility] CHLORIDE 102 98 - 107 mmol/L 05/23/2024 8:59 AM [facility] CO2,TOTAL 26 22 - 29 mmol/L 05/23/2024 8:59 AM [facility] ANION GAP 10 5 - 18 05/23/2024 8:59 AM [facility] GLUCOSE 94 70 - 99 mg/dL 05/23/2024 8:59 AM [facility] CALCIUM 9.0 8.8 - 10.4 mg/dL 05/23/2024 8:59 AM [facility] Comment: Reference ranges for this test were updated on 01/29/2024 to reflect our healthy population more accurately. Reference range changes are not retroactively applied to results, but previous results using the same methodology can be interpreted in the context of the new reference range. BUN 9 6 - 20 mg/dL 05/23/2024 8:59 AM [facility] CREATININE 0.60 0.50 - 0.90 mg/dL 05/23/2024 8:59 AM [facility] BUN/CREAT RATIO 15 10 - 20 8:59 AM [facility] eGFR >90 >90 mL/min/1.7 3m2 05/23/2024 8:59 AM [facility] Comment:As of 2021, eG FR is calculated by the CKD-EPI creatinine equation without race adjustment. eGFR can be influenced by muscle mass, exercise, and diet. The reported eGFR is an estimation only and is only applicable if the renal function is stable. Blood BLOOD SPECIMEN / Unknown IV Start / Unknown 05/23/2024 8:24 AM [facility] 05/23/2024 8:31 AM [facility] us Deandra ESCOBAR CHEMISTRY Final Re sult [facility] [address] [address] * (ABNORMAL) URINALYSIS MICROSCOPIC (05/22/2024 12:50 AM [facility]) Only the most recent of3 resultswithin the time period is included. RBC 0-2 0-2, None Seen /HPF 05/22/2024 1:02 AM [facility] WBC 0-2 0-2, 3-5, None Seen /HPF 05/22/2024 1:02 AM [facility] BACTERIA Few None Seen, Rare, Few Bacteria/H PF 05/22/2024 1:02 AM [facility] EPITHELIAL CELLS Many(A) None Seen, Few Epi/HPF 05/22/2024 1:02 AM [facility] Mucus Present 05/22/2024 1:02 AM [facility] Urine URINE SPECIMEN / Unknown Non-Blood / Unknown 05/22/2024 12:50 AM [facility] 05/22/2024 12:52 AM [facility] us Geri Desai MD URINE Final Result [facility] [address] [address] * (ABNORMAL) URINALYSIS W REFLEX MICROSCOPIC IF POSITIVE (05/22/2024 12:50 AM [facility]) Only the most recent of3 resultswithin the time period is included. COLOR Yellow Yellow Color 05/22/2024 12:56 AM [facility] CLARITY Clear Clear Clarity 05/22/2024 12:56 AM [facility] SPECIFIC GRAVITY,URINE 1.020 1.010, 1.015, 1.020, 1.025 05/22/2024 12:56 AM [facility] PH,URINE 7.0 6.0, 7.0, 8.0, 5.5, 6.5, 7.5, 8.5 05/22/2024 12:56 AM [facility] UROBILINOGEN,Q UALITATIVE Normal Normal EU/dl 05/22/2024 12:56 AM [facility] PROTEIN, URINE Negative Negative mg/dL 05/22/2024 12:56 AM [facility] GLUCOSE, URINE Negative Negative mg/dL 05/22/2024 12:56 AM [facility] KETONES,URINE Negative Negative mg/dL 05/22/2024 12:56 AM [facility] BILIRUBIN,URIN E Negative Negative 05/22/2024 12:56 AM [facility] OCCULT BLOOD,URINE Trace(A) Negative 05/22/2024 12:56 AM [facility] NITRITE Negative Negative 05/22/2024 12:56 AM [facility] LEUKOCYTE ESTERASE Negative Negative 05/22/2024 12:56 AM [facility] Urine URINE SPECIMEN / Unknown Non-Blood / Unknown 05/22/2024 12:50 AM [facility] 05/22/2024 12:52 AM [facility] Geri Desai MD URINE Final Result Performing Organization Address [facility]/ZIP Co de Phone Number [facility] [address] [address] * URINE (05/22/2024 12:50 AM [facility] N[facility]URS[facility]) ,URIN E Negative Negative 05/22/2024 12:56 AM [facility] Urine URINE SPECIMEN / Unknown Non-Blood / Unknown 05/22/2024 12:50 AM [facility]UR[facility] 05/22/2024 12:52 AM [facility] Geri Desai MD URINE Final Result Performing Organization Address [facility]/ZIP Co de Phone Number [facility] [address] [address] * US ABDOMEN LIMITED (05/21/2024 11:10 PM REGISTERED NURSE NURSERY) Anatomical Region Laterality Modality Abdomen, LIVER, KIDNEYS, PANCREAS, GALLBLADDER, SPLEEN Ultrasound Geri Desai MD US Final Result * ,SERUM QUALITATIVE (04/19/2024 8:16 AM [facility] N[facility]URS[facility]) Only the most recent of3 resultswithin the time period is included. ,SERU M Negative Negative 04/19/2024 8:34 AM [facility]ISTERED NURSE NURSERY [facility] Blood BLOOD SPECIMEN / Unknown IV Start / Unknown 04/19/2024 8:16 AM [facility] N[facility] NURS[facility] 04/19/2024 8:18 AM [facility]URS[facility] us Wallace See DO CHEMISTRY Final Resul t Performing Organization Address [facility] de Phone Number [address] [phone] * TROPONIN T (HS) ONE TIME (04/16/2024 7:41 AM REGISTERED NURSE NURSERY) Pathologist [facility] TROPONIN T HS <6 6-10 ng/L ng/L 04/16/2024 8:13 AM REGISTERED NURSE NURSERY [facility] Blood BLOOD SPECIMEN / Unknown Venipuncture / Unknown 04/16/2024 7:41 AM [facility]ED NURSE NURSERY 04/16/2024 7:45 AM [facility]URS[facility] us Ronel Hendricks MD CHEMISTRY Final Result Performing Organization Address [facility] Phone [address] [address] * LACTATE VENOUS (04/16/2024 7:41 AM REGISTERED NURSE NURSERY) Only the most recent of2 resultswithin the time period is included. Pathologist [facility] LACTATE,VENOUS 1.9 0.5 - 2.0 mmol/L 04/16/2024 8:13 AM REGISTERED NURSE NURSERY [facility] Blood BLOOD SPECIMEN / Unknown Venipuncture / Unknown 04/16/2024 7:41 AM [facility]ED NURSE NURSERY 04/16/2024 7:45 AM [facility] NURSE NURSERY us Ronel Hendricks MD CHEMISTRY Final Result Performing Organization Address [facility] de Phone Number [address] [address] * DRUG SCREEN RAPID URINE INHOUSE (04/16/2024 6:15 AM [facility]) [facility] THC METABOLITES,ANA L Not Detected Not Detected 04/16/2024 6:31 AM [facility] PCP,QUAL Not Detected Not Detected 04/16/2024 6:31 AM [facility] COCAINE,QUAL Not Detected Not Detected 04/16/19 6:31 AM [facility] METHAMPHETAMINE , QUALITATIVE Not Detected Not Detected 04/16/2024 6:31 AM [facility] OPIATES,QUAL Not Detected Not Detected 04/16/19 6:31 AM [facility] AMPHETAMINE, QUALITATIVE Not Detected Not Detected 04/16/2024 6:31 AM [facility] BENZODIAZEPINES ,QUAL Not Detected Not Detected 04/16/2024 6:31 AM [facility] TRICYCLICS,QUAL Not Detected Not Detected 04/16 6:31 AM [facility] METHADONE, QUALITATIVE Not Detected Not Detected 04/16/2024 6:31 AM [facility] BARBITURATES,QU AL Not Detected Not Detected 04/16/2024 6:31 AM [facility] OXYCODONE, QUALITATIVE Not Detected Not Detected 04/16/2024 6:31 AM [facility] BUPRENORPHINE, QUALITATIVE Not Detected Not Detected 04/16/2024 6:31 AM [facility] Urine URINE SPECIMEN / Unknown Non-Blood / Unknown 04/16/2024 6:15 AM [facility] 04/16/2024 6:18 AM [facility] - 04/16/2024 6:31 AM [facility] Please Note: This is a screening [...] us Ronel Hendricks MD URINE Final Result [facility] [address] [address] * CTA CHEST ABDOMEN PELVIS AORTIC DISSECTION W (04/16/2024 6:14 AM REGISTERED NURSE NURSERY) Anatomical Region Laterality Modality CHEST, Abdomen, Pelvis, AORTA, THORAX, HEART Computed Tomography us Ronel Hendricks MD CT Final Result * EKG 12 LEAD (04/16/2024 5:21 AM REGISTERED NURSE NURSERY) Pathologist [facility] Interpretation Normal sinus rhythm Normal ECG No previous ECGs available BEYOND NOW Ventricular Rate 81 BPM BEYOND NOW Atrial Rate 81 BPM BEYOND NOW P-R Interval 148 ms BEYOND NOW QRS Duration 76 ms BEYOND NOW QT 380 ms BEYOND NOW QTc 441 ms BEYOND NOW P Hiller 53 degrees BEYOND NOW R Hiller 66 degrees BEYOND NOW T Hiller 54 degrees BEYOND NOW 04/16/2024 5:2 1 AM REGISTERED NURSE NURSERY 04/16/2024 8:01 PM REGISTERED NURSE NURSERY us Ronel Hendricks MD EKG ORD Final Result BEYOND NOW [place], [place] * TROPONIN T (HS) ACUTE W/2HR REFLEX (04/16/2024 5:20 AM REGISTERED NURSE NURSERY) Pathologist [facility] TROPONIN T HS 7 6-10 ng/L ng/L 04/16/2024 5:52 AM [facility] Blood BLOOD SPECIMEN / Unknown IV Start / Unknown 04/16/2024 5:20 AM REGISTERED NURSE NURSERY 04/16/2024 5:21 AM REGISTERED NURSE NURSERY [facility] - 04/16/2024 5:52 AM REGISTERED NURSE NURSERY hs-cTnT (Elecsys Troponin T Gen 5) concentration [...] low risk in emergency department patient population. Ronel Hendricks MD CHEMISTRY Final Result [facility] [id number] [id number] * (ABNORMAL) C-REACTIVE PROTEIN (04/16/2024 5:20 AM REGISTERED NURSE NURSERY) [facility] C-REACTIVE PROTEIN 0.5(H) <0.5 mg/dL 04/16/2024 6:18 AM [facility] Blood BLOOD SPECIMEN / Unknown IV Start / Unknown 04/16/2024 5:20 AM REGISTERED NURSE NURSERY 04/16/2024 5:21 AM REGISTERED NURSE NURSERY us Ronel Hendricks MD CHEMISTRY Final Result Performing Organization Address City/[facility] Co de Phone Number [address] [phone] * MAGNESIUM (04/16/2024 5:20 AM REGISTERED NURSE NURSERY) [facility] Children MAGNESIUM 2.0 1.6 - 2.6 mg/dL 04/16/2024 5:55 AM [facility] Blood BLOOD SPECIMEN / Unknown IV Start / Unknown 04/16/2024 5:20 AM REGISTERED NURSE NURSERY 04/16/2024 5:21 AM REGISTERED NURSE NURSERY us Ronel Hendricks MD CHEMISTRY Final Result Performing Organization Address [facility] de Phone Number [address] [address] * US ABDOMEN LIMITED RUQ (04/11/2024 6:47 AM REGISTERED NURSE NURSERY) Anatomical Region Laterality Modality Abdomen, LIVER Ultrasound us Kaden Mejía MD US Final Result * CBC W PLT NO DIFF (04/11/2024 5:10 AM REGISTERED NURSE NURSERY) Pathologist [facility] WHITE BLOOD COUNT 8.9 4.5 - 11.0 thou/cu mm 04/11/2024 5:17 AM [facility] RED BLOOD COUNT 4.08 4.00 - 5.20 mil/cu mm 04/11/2024 5:17 AM [facility] HEMOGLOBIN 12.5 12.0 - 16.0 g/dL 04/11/2024 5:17 AM [facility] HEMATOCRIT 36.8 33.0 - 51.0 % 04/11/2024 5:17 AM [facility] MCV 90 80 - 100 fL 04/11/2024 5:17 AM [facility] MCH 30.6 26.0 - 34.0 pg 04/11/2024 5:17 AM [facility] MCHC 34.0 32.0 - 36.0 g/dL 04/11/2024 5:17 AM [facility] RDW 12.7 11.5 - 15.5 % 04/11/2024 5:17 AM [facility] PLATELET COUNT 238 140 - 440 thou/cu mm 04/11/2024 5:17 AM [facility] MPV 10.3 6.5 - 11.0 fL 04/11/2024 5:17 AM [facility] Blood BLOOD SPECIMEN / Unknown Venipuncture / Unknown 04/11/2024 5:10 AM REGISTERED NURSE NURSERY 04/11/2024 5:13 AM [facility] us Kaden Mejía MD HEMATOLOGY Final Result [facility] [address] [address] from Last 3 Months Insurance [facility] Member Subscriber Plan / Payer (Ef fective 2024-Present) Name:Esvin Rendon Member ID:[id number] Relation to Subscriber:Self Name:Esvin Rendon Subscriber ID:[id number] Payer ID:Not on file Group ID:Not on file Type:Not on file Address: [employer] Care Teams Sales Performance Analyst Relationship Specialty Start Date End Date Pcp, No . PCP - General 04/30/23
--- OUTSIDE RECORDS SUMMARY | 2024-05-26 21:01 | XMS_ITS | Encounter Summary ---
Author Organization [facility] Address [address] [place] [address] Care Team Providers Care Assembler Engine Name Role Phone Montse Ruiz D.O. Primary Care Provider [phone] Reason for Visit * Reason Comments Post-op Problem Pt presents with abd pain that started to become severe today. Post op day 2 gallbladder removal. Pt states she feels constipated. Encounter Details Date Type Department Care Team (Late st Contact Info) Description 05/26/2024 5:33 PM SLAB WORKER - 05/26/2024 7:49 PM SLAB WORKER Emergency [facility] Emergency Department [address] [place] [phone] Kristin Meza APRN, C.N.P., D.N.P. [address] [place] [address] Discharge Disposition: Left Against Medical Advice or Discontinued Care Social History Tobacco Use Types Packs/Day [...] on file Legal Sex Female 8:30 AM SLAB WORKER Gender Identity Not on file Sexual Orientation Not on file documented as of this encounter Last Filed Vital Signs Vital Sign Reading Time Taken Comments Blood Pressure 114/72 05/26/2024 5:33 PM SLAB WORKER Pulse 80 05/26/2024 5:33 PM SLAB WORKER Temperature 37 C (98.6 F) 05/26/2024 5:33 PM SLAB WORKER Respiratory Rate 20 05/26/2024 5:33 PM SLAB WORKER Oxygen Saturation 97% 05/26/2024 5:33 PM SLAB WORKER Inhaled Oxygen Concentration - - Weight 95.3 kg (210 lb) 05/26/2024 5:34 PM SLAB WORKER Height - - Body Mass Index 32.96 09/12/2023 2:33 PM CDT documented in this encounter Medications at Time of Discharge [...] tablet 01/07/2024 documented as of this encounter Progress Notes * Blank, Kristin M, AERODYNAMICIST, C.NNolvia, D.N.P. - 05/26/2024 5:42 PM CST HISTORY OF PRESENT ILLNESS Patient seen and briefly evaluated in triage for chief complaint of abdominal pain. Patient had a cholecystectomy at an outside facility 2 days ago. States since being discharged she has severe generalized abdominal pain. Reports she is having difficulty urinating. Denies painful urination. States she believes she is constipated. Her last bowel movement was yesterday. She has tried taking [place] as well as a laxative, but has had no improvement. No fevers. Initial Vitals [05/26/24 1733] Temperature 37 ??C Pulse Rate 80 Heart Rate Resp Rate 20 Blood Pressure 114/72 SpO2 97 % Pain Score PHYSICAL EXAMINATION General: Patient is in no acute distress HEENT: Normocephalic atraumatic Neck: Normal cervical ROM Respiratory: Effort normal, no respiratory distress. CV: Heart normal rate and no cyanosis Abd: Bowel sounds present and normoactive. Generalized abdominal pain on palpation. No rigidity. MSK: Extremities are atraumatic without deformity, ROM intact SKIN: Warm and dry Neuro: Alert and oriented MDM: Based on initial evaluation, labs are currently indicated and radiology studies are currently indicated. Patient counseled on process, plan, and necessity for staying for completing the evaluation. Patient seen in the triage room as no available rooms in the emergency department. Diagnostic workup initiated as above and will continue further workup and evaluation upon being roomed in the emergency department. Patient left ER before CT results communicated to them. Patient called and discussed results regarding concern for bilary leak. They state they are on their way to the [facility] where the surgery was done because they did not want to wait in the lobby. Kristin Meza APRN, C.N.P., D.N.P. 05/26/24 1744 Kristin Meza APRN, C.N.PRosa, D.N.P. 05/26/24 192 WORKER WORKER documented in this encounter Plan of Treatment Scheduled Orders Name Type Priority Associated Diagnoses Orde r Schedule Urinalysis with Microscopic if Indicated: Urine, Midstream Lab Routine Routine lab col lection (next collection) for 1 Occurrences starting 05/26/2024 until 05/26/2024 documented as of this encounter Procedures Procedure Name Priority Date/Time Associated Diagnosis Comments CT ABDOMEN PELVIS WITH IV CONTRAST RAD - Semiurgent (Fast; most ED patients; some inpatients) 05/26/2024 6:49 PM SLAB WORKER CBC WITH DIFFERENTIAL, B STAT 05/26/2024 5:51 PM SLAB WORKER COMPREHENSIVE METABOLIC PANEL, S/P STAT 05/26/2024 5:51 PM SLAB WORKER documented in this encounter Results * CT Abdomen Pelvis with IV Contrast (05/26/2024 6:49 PM SLAB WORKER) Anatomical Region Laterality Modality Abdomen, Pelvis, Abdominal R ST LOS, Abdominal ARZ LOS, Abdominal FLA LOS N/A Computed Tomography 05/26/2024 6:52 PM SLAB WORKER Impressions 05/26/2024 6:54 PM SLAB WORKER 1. Fluid and mild emphysema within the gallbladder fossa, suspicious for a biliary leak. 2. Mild bibasilar atelectasis. Narrative 05/26/2024 6:54 PM SLAB WORKER EXAM: CT ABDOMEN PELVIS WITH IV CONTRAST COMPARISON: 08/12/2023 FINDINGS: Lung bases: There is mild dependent atelectasis at each lung base. Liver: No focal lesion identified. Normal enhancement. Gallbladder and Biliary Tree: The patient is status post cholecystectomy, with fluid identified in the gallbladder fossa and mild free air. The possibility of a biliary leak is not excluded on the basis of this study. Spleen: No focal lesion is identified. No evidence of splenomegaly. Pancreas: Normal enhancement. No focal lesion or ductal dilatation. Adrenal glands: No focal lesion identified. Kidneys, ureters, and bladder: Normal enhancement. No evidence of hydronephrosis or hydroureter. No suspicious mass lesion. No renal or ureteral calculi. GI tract: There are mildly dilated fluid-filled loops of distal small bowel with no specific transition zone, nonspecific ileus. The bowel is otherwise unremarkable without obstruction. Soft tissues: No retroperitoneal or pelvic lymphadenopathy. Mild emphysema along the inferior umbilical region, likely due to a recent laparoscopic procedure. Reproductive: Unremarkable. Bones: Unremarkable for age. Procedure Note Steve Fall M.D. - 05/26/2024 EXAM: CT ABDOMEN PELVIS WITH IV CONTRAST COMPARISON: 08/12/2023 FINDINGS: Lung bases: There is mild dependent atelectasis at each lungbase. Liver: No focal lesion identified. Normal enhancement. Gallbladder and Biliary Tree: The patient is status post cholecystectomy,with fluid identified in the gallbladder fossa and mild free air. Thepossibility of a biliary leak is not excluded on the basis of thisstudy. Spleen: No focal lesion is identified. No evidence of splenomegaly. Pancreas: Normal enhancement. No focal lesion or ductal dilatation. Adrenal glands: No focal lesion identified. Kidneys, ureters, and bladder: Normal enhancement. No evidence ofhydronephrosis or hydroureter. No suspicious mass lesion. No renal orureteral calculi. GI tract: There are mildly dilated fluid-filled loops of distal smallbowel with no specific transition zone, nonspecific ileus. The bowel isotherwise unremarkable without obstruction. Soft tissues: No retroperitoneal or pelvic lymphadenopathy. Mild emphysemaalong the inferior umbilical region, likely due to a recent laparoscopicprocedure. Reproductive: Unremarkable. Bones: Unremarkable for age. IMPRESSION: 1. Fluid and mild emphysema within the gallbladder fossa, suspicious for abiliary leak. 2. Mild bibasilar atelectasis. Kristin Meza APRN, C.N.P., D.N.P. IMG CT PROCED URES Final Result * (ABNORMAL) Comprehensive Metabolic Panel (05/26/2024 5:51 PM SLAB WORKER) Potassium, P 3.9 3.6 - 5.2 mmol/L 05/26/2024 6:24 PM SLAB WORKER [facility] Sodium, P 140 135 - 145 mmol/L 05/26/2024 6:24 PM SLAB WORKER [facility] Chloride, P 105 98 - 107 mmol/L 05/26/2024 6:24 PM SLAB WORKER [facility] Bicarbonate, P 22 22 - 29 mmol/L 05/26/2024 6:24 PM SLAB WORKER [facility] Anion Gap, P 13 7 - 15 05/26/2024 6:24 PM SLAB WORKER [facility] BUN (Blood Urea Nitrogen), P 9 6 - 21 mg/dL 05/26/2024 6:24 PM SLAB WORKER [facility] Creatinine 0.54(L) 0.59 - 1.04 mg/dL 05/26/2024 6:24 PM SLAB WORKER [facility] Estimated GFR (eGFR) >90 >=60 mL/min/BS A 05/26/2024 6:24 PM SLAB WORKER [facility] Comment: Estimated GFR calculated using the 2020 CKD_EPI creatinine equation. Calcium, Total, P 8.4(L) 8.6 - 10.0 mg/dL 05/26/2024 6:24 PM SLAB WORKER [facility] Glucose, P 100 70 - 140 mg/dL 05/26/2024 6:24 PM SLAB WORKER [facility] Protein, Total, P 7.1 6.3 - 7.9 g/dL 05/26/2024 6:24 PM SLAB WORKER [facility] Albumin, P 3.9 3.5 - 5.0 g/dL 05/26/2024 6:24 PM SLAB WORKER [facility] Aspartate Aminotransferase (AST), P 42 8 - 43 U/L 05/26/2024 6:24 PM SLAB WORKER [facility] Alkaline Phosphatase, P 67 35 - 104 U/L 05/26/2024 6:24 PM SLAB WORKER [facility] Alanine Aminotransferase (ALT), P 49(H) 7 - 45 U/L 05/26/2024 6:24 PM SLAB WORKER [facility] Bilirubin, Total, P 0.2 0.0 - 1.2 mg/dL 05/26/2024 6:24 PM SLAB WORKER [facility] Blood (Blood, Venous) 05/26/2024 5:51 PM SLAB WORKER 05/26/2024 5:59 PM SLAB WORKER us Kristin Meza APRN, C.N.P., D.N.P. LAB BLOOD ADD -ON Final Result [facility] [address] [place] [address], [facility] MK[facility] in [address] [address] * CBC with Differential, Blood (05/26/2024 5:51 PM SLAB WORKER) [facility] Hemoglobin 12.0 11.6 - 15.0 g/dL 05/26/2024 6:02 PM SLAB WORKER [facility] Hematocrit 36.0 35.5 - 44.9 % 05/26/2024 6:02 PM SLAB WORKER [facility] Erythrocytes 4.02 3.92 - 5.13 x10(12)/L 05/26/2024 6:02 PM SLAB WORKER [facility] MCV 89.6 78.2 - 97.9 fL 05/26/2024 6:02 PM SLAB WORKER [facility] RBC Distrib Width 12.4 12.2 - 16.1 % 05/26/2024 6:02 PM SLAB WORKER [facility] Platelet Count 261 157 - 371 x10(9)/L 05/26/2024 6:02 PM SLAB WORKER [facility] Leukocytes 8.9 3.4 - 9.6 x10(9)/L 05/26/2024 6:02 PM SLAB WORKER [facility] Neutrophils 5.82 1.56 - 6.45 x10(9)/L 05/26/2024 6:02 PM SLAB WORKER [facility] Lymphocytes 2.25 0.95 - 3.07 x10(9)/L 05/26/2024 6:02 PM SLAB WORKER [facility] Monocytes 0.71 0.26 - 0.81 x10(9)/L 05/26/2024 6:02 PM SLAB WORKER [facility] Eosinophils 0.11 0.03 - 0.48 x10(9)/L 05/26/2024 6:02 PM SLAB WORKER [facility] Basophils <0.03 0.01 - 0.08 x10(9)/L 05/26/2024 6:02 PM SLAB WORKER [facility] Blood (Blood, Venous) 05/26/2024 5:51 PM SLAB WORKER 05/26/2024 5:59 PM SLAB WORKER us Kristin Meza APRN, C.N.P., D.N.P. LAB BLOOD ADD -ON Final Result [facility] [place] [address], [facility] [place] [address] [place] [address] documented in this encounter Visit Diagnoses Not on filedocumented in this encounter Administered Medications Inactive Administered Medications - up to 3 most recent administrations Medication Order MAR Action Action Date Dose Rate Site iohexoL 300 mg iodine/mL solution 1-200 mL (Omnipaque) 1-200 mL, intravenous, Once in imaging, contrast, Starting on Sun05/26/24 at 1847, For 1 dose Given 05/26/2024 6:50 PM SLAB WORKER 100 mL ketorolac injection 15 mg (ToradoL) 15 mg, intravenous, Once, On Sun05/26/24 at 1742, For 1 dose, Adult IV push rate: Over 15 seconds. Peds IV push rate: Over 1 minute. Doses > 15 mg IV/IM are discouraged due to lack of additional analgesic benefit. Given 05/26/2024 5:53 PM SLAB WORKER 15 mg sodium chloride 0.9 % flush 100 mL 100 mL, intravenous, Once in imaging, line care, for CT Exam, Starting on Sun05/26/24 at 1847, For 1 dose Given 05/26/2024 6:50 PM SLAB WORKER 100 mL documented in this encounter Active and Recently Administered Medications Times are shown in SLAB WORKER. Scheduled Medication Order 05/24/2024 05/25/2024 05/26/2024 ketorolac injection 15 mg (ToradoL) (COMPLETED) 15 mg, intravenous, Once, On Sun05/26/24 at 1742, For 1 dose, Adult IV push rate: Over 15 seconds. Peds IV push rate: Over 1 minute. Doses > 15 mg IV/IM are discouraged due to lack of additional analgesic benefit. 1753 (Given - Provid er: Evelyn Solis R.N.) PRN Medication Order 05/24/2024 05/25/2024 05/26/2024 iohexoL 300 mg iodine/mL solution 1-200 mL (Omnipaque) (COMPLETED) 1-200 mL, intravenous, Once in imaging, contrast, Starting on Sun05/26/24 at 1847, For 1 dose 1850 (Given - Provid er: Kaden Hodge) sodium chloride 0.9 % flush 100 mL (COMPLETED) 100 mL, intravenous, Once in imaging, line care, for CT Exam, Starting on Sun05/26/24 at 1847, For 1 dose 1850 (Given - Provid er: Kaden Hodge) documented in this encounter Additional Health Concerns Assessment Noted Time PHQ-9 Depression Total Score: 18 024 4:50 PM CDT documented as of this encounter Care Teams Assembler Engine Relationship Specialty Start Date End Date Montse Ruiz D.O. [address] [place] [address] PCP - General Family Medicine 11/27/23 documented as of this encounter
--- OUTSIDE RECORDS SUMMARY | 2024-05-26 21:01 | XMS_ITS | Encounter Summary ---
Author Organization [facility] Address [address] [place] [address] Care Team Providers Care Dairy Farmer Name Role Phone Montse Ruiz D.O. Primary Care Provider [phone] Reason for Visit * Reason Comments Abdominal Pain Encounter Details Date Type Department Care Team (Late st Contact Info) Description 05/21/2024 10:07 PM LAB MANAGER - 05/21/2024 11:59 PM LAB MANAGER Emergency [facility] [address] [place] [address] Discharge Disposition: Home or Self [...] on file Legal Sex Female 8:30 AM LAB MANAGER Gender Identity Not on file Sexual [...] GALLBLADDER AND OR BILIARY DUCTS RAD - Semiurgent (Fast; most ED patients; some inpatients) 05/21/2024 11:16 PM LAB MANAGER documented in this encounter Results * US Gallbladder and or Biliary Ducts (05/21/2024 11:16 PM LAB MANAGER) Anatomical Region Laterality Modality Abdomen, Ultrasound RST LOS, Ultrasound ARZ LOS, Ultrasound FLA LOS N/A Ultrasound Impressions 05/21/2024 11:31 PM LAB MANAGER Cholelithiasis without evidence of cholecystitis. Narrative 05/21/2024 11:31 PM LAB MANAGER EXAM: US GALLBLADDER AND OR BILIARY DUCTS COMPARISON: Abdomen CT 04/16/2024 FINDINGS: Gallbladder: Cholelithiasis. No wall thickening or pericholecystic fluid. Negative sonographic Crespo sign. Intrahepatic ducts: Not dilated. Common duct: Not dilated. Aorta: Normal caliber. Procedure Note Jd Torrez M.D. - 05/21/2024 EXAM: US GALLBLADDER AND OR BILIARY DUCTS COMPARISON: Abdomen CT 04/16/2024 FINDINGS: Gallbladder: Cholelithiasis. No wall thickening or pericholecystic fluid.Negative sonographic Crespo sign. Intrahepatic ducts: Not dilated. Common duct: Not dilated. Aorta: Normal caliber. IMPRESSION: Cholelithiasis without evidence of cholecystitis. us Geri Desai M.D. IMG US PROCEDURES Final Re sult documented in this encounter Visit Diagnoses Not on filedocumented in this encounter Additional Health Concerns Assessment Noted Time PHQ-9 Depression Total Score: 18 024 4:50 PM CDT documented as of this encounter Care Teams Dairy Farmer Relationship Specialty Start Date End Date Montse Ruiz D.O. [address] [phone] PCP - General Family Medicine 11/27/23 documented as of this encounter
--- OUTSIDE RECORDS SUMMARY | 2024-05-26 21:01 | XMS_ITS | Encounter Summary ---
Author Organization [facility] Address [address] [place] [address] Care Team Providers Care Winder Helper Name Role Phone Montse Ruiz D.O. Primary Care Provider [phone] Encounter Details Date Type Department Care Team (Late st Contact Info) Description 05/23/2024 7:48 AM STATOR TESTER - 05/23/2024 11:59 PM STATOR TESTER Emergency [facility] [address] [place] [address] Discharge Disposition: Home or Self [...] on file Legal Sex Female 8:30 AM STATOR TESTER Gender Identity Not on file Sexual Orientation [...] documented as of this encounter Care Teams Winder Helper Relationship Specialty Start Date End Date Montse Ruiz D.O. [address] [place] [phone] PCP - General Family Medicine 11/27/23 documented as of this encounter
--- OUTSIDE RECORDS SUMMARY | 2024-05-26 21:01 | XMS_ITS | Clinical Summary ---
Author Organization [facility] Address [address] [place] [address] Care Team Providers Care Meteorological Observer Name Role Phone Montse Ruiz D.O. Primary Care Provider [phone] Source Comments Patient records contain information from all sites at [facility]. For routine questions regarding patient records, call [phone] during business hours, M-F 8:00 AM - 5:00 PM Central Time. Record requests for emergency care only can be directed to [phone] at any time.[facility] Allergies No known active allergies Medications [...] 12/06/2023 Active omeprazole (PriLOSEC) [address] Chadwick ns:Pain Abdominal Chronic,Pain Epigastric Take 1 capsule (20 mg total) by mouth daily before morning meal. 90 capsule 3 12/06/2023 12/06/19 25 Active traZODone (DesyreL) 50 mg tabletIndication s:Anxiety Generalized Disorder take one tablet by mouth at bedtime as needed for sleep 30 tablet 01/07/2024 Active Active Problems No known active problems Encounters Date Type Department Care Team Description 05/26/2024 5:33 PM CAREER PLACEMENT SERVICES COUNSELOR - 05/26/2024 7:49 PM CAREER PLACEMENT SERVICES COUNSELOR Emergency [facility] Emergency Department [address] [place] [address] Kristin Meza, OLGA, C.N.P., D.N.P. Discharge Disposition: Left Against Medical Advice or Discontinued Care 05/23/2024 7:48 AM CAREER PLACEMENT SERVICES COUNSELOR - 05/23/2024 11:59 PM CAREER PLACEMENT SERVICES COUNSELOR Emergency [facility] [address] [place] [phone] Discharge Disposition: Home or Self Care 05/23/2024 Orders Only Department of Radiology in [place], [place] [address] [phone] Stephenie Anne R.TRosa(R)(CT), R.T.(R) 05/21/2024 10:07 PM CAREER PLACEMENT SERVICES COUNSELOR - 05/21/2024 11:59 PM CAREER PLACEMENT SERVICES COUNSELOR Emergency [facility] [address] [place] [phone] Discharge Disposition: Home or Self Care 05/12/2024 3:14 AM CAREER PLACEMENT SERVICES COUNSELOR - 05/12/2024 11:59 PM CAREER PLACEMENT SERVICES COUNSELOR Emergency [facility] [address] [place] [phone] Discharge Disposition: Home or Self Care 04/22/2024 10:59 PM CAREER PLACEMENT SERVICES COUNSELOR - 04/22/2024 11:59 PM CAREER PLACEMENT SERVICES COUNSELOR Emergency [facility] [address] [place] [phone] Discharge Disposition: Home or Self Care 04/16/2024 5:11 AM CAREER PLACEMENT SERVICES COUNSELOR - 04/16/2024 11:59 PM CAREER PLACEMENT SERVICES COUNSELOR Emergency [facility] [address] [place] [address] Discharge Disposition: Home or Self Care 04/11/2024 4:47 AM CAREER PLACEMENT SERVICES COUNSELOR - 04/11/2024 11:59 PM CAREER PLACEMENT SERVICES COUNSELOR Emergency [facility] [address] [place] [address] Discharge Disposition: Home or Self Care from [...] on file Legal Sex Female 8:30 AM CAREER PLACEMENT SERVICES COUNSELOR Gender Identity Not on file Sexual Orientation Not on file Last Filed Vital Signs Vital Sign Reading Time Taken Comments Blood Pressure 114/72 05/26/2024 5:33 PM CAREER PLACEMENT SERVICES COUNSELOR Pulse 80 05/26/2024 5:33 PM CAREER PLACEMENT SERVICES COUNSELOR Temperature 37 C (98.6 F) 05/26/2024 5:33 PM CAREER PLACEMENT SERVICES COUNSELOR Respiratory Rate 20 05/26/2024 5:33 PM CAREER PLACEMENT SERVICES COUNSELOR Oxygen Saturation 97% 05/26/2024 5:33 PM CAREER PLACEMENT SERVICES COUNSELOR Inhaled Oxygen Concentration - - Weight 95.3 kg (210 lb) 05/26/2024 5:34 PM CAREER PLACEMENT SERVICES COUNSELOR Height 170 cm (5' 6.93) 09/12/2023 2:33 PM CDT Body Mass Index 32.96 09/12/2023 2:33 PM CDT Plan of Treatment Health Maintenance Due Date Last Done Comments Hepatitis B Screening 1993 Hepatitis C Screening 1993 DTaP,Tdap,and Td Vaccines (1 - Tdap) 2012 Hepatitis B Vaccines (1 of 3 - 19+ 3-dose series) 2012 COVID-19 Vaccine (1 - 2023-2 5 season) 2023 Influenza Vaccine [...] ED patients; some inpatients) 05/26/2024 6:49 PM CAREER PLACEMENT SERVICES COUNSELOR COMPREHENSIVE METABOLIC PANEL, S/P STAT 05/26/2024 5:51 PM CAREER PLACEMENT SERVICES COUNSELOR CBC WITH DIFFERENTIAL, B STAT 05/26/2024 5:51 PM CAREER PLACEMENT SERVICES COUNSELOR US GALLBLADDER AND OR BILIARY DUCTS RAD - Semiurgent (Fast; most ED patients; some inpatients) 05/21/2024 11:16 PM CAREER PLACEMENT SERVICES COUNSELOR CT CHEST ABDOMEN PELVIS ANGIOGRAM WITH IV CONTRAST RAD - Semiurgent (Fast; most ED patients; some inpatients) 04/16/2024 6:10 AM CAREER PLACEMENT SERVICES COUNSELOR US GALLBLADDER AND OR BILIARY DUCTS RAD - Routine (most inpatients and all outpatients) 04/11/2024 6:49 AM CAREER PLACEMENT SERVICES COUNSELOR HPV WITH GENOTYPING, PCR, THINPREP Routine 05/31/2023 4:11 PM CAREER PLACEMENT SERVICES COUNSELOR from Last 3 Months or Most Recently Relevant to Health Maintenance Results * CT Abdomen Pelvis with IV Contrast (05/26/2024 6:49 PM CAREER PLACEMENT SERVICES COUNSELOR) Anatomical Region Laterality Modality Abdomen, Pelvis, Abdominal R ST LOS, Abdominal ARZ LOS, Abdominal FLA LOS N/A Computed Tomography 05/26/2024 6:52 PM CAREER PLACEMENT SERVICES COUNSELOR Impressions 05/26/2024 6:54 PM CAREER PLACEMENT SERVICES COUNSELOR 1. Fluid and mild emphysema within the gallbladder fossa, suspicious for a biliary leak. 2. Mild bibasilar atelectasis. Narrative 05/26/2024 6:54 PM CAREER PLACEMENT SERVICES COUNSELOR EXAM: CT ABDOMEN PELVIS WITH IV CONTRAST [...] for abiliary leak. 2. Mild bibasilar atelectasis. us Kristin Meza APRN, C.N.P., D.N.P. IMG CT PROCED URES Final Result * CBC with Differential, Blood (05/26/2024 5:51 PM CAREER PLACEMENT SERVICES COUNSELOR) Hemoglobin 12.0 11.6 - 15.0 g/dL 05/26/2024 6:02 PM CAREER PLACEMENT SERVICES COUNSELOR MKTO Hematocrit 36.0 35.5 - 44.9 % 05/26/2024 6:02 PM CAREER PLACEMENT SERVICES COUNSELOR [facility] Erythrocytes 4.02 3.92 - 5.13 x10(12)/L 05/26/2024 6:02 PM CAREER PLACEMENT SERVICES COUNSELOR [facility] MCV 89.6 78.2 - 97.9 fL 05/26/2024 6:02 PM CAREER PLACEMENT SERVICES COUNSELOR [facility] RBC Distrib Width 12.4 12.2 - 16.1 % 05/26/2024 6:02 PM CAREER PLACEMENT SERVICES COUNSELOR [facility] Platelet Count 261 157 - 371 x10(9)/L 05/26/2024 6:02 PM CAREER PLACEMENT SERVICES COUNSELOR [facility]TO Leukocytes 8.9 3.4 - 9.6 x10(9)/L 05/26/2024 6:02 PM CAREER PLACEMENT SERVICES COUNSELOR [facility]TO Neutrophils 5.82 1.56 - 6.45 x10(9)/L 05/26/2024 6:02 PM CAREER PLACEMENT SERVICES COUNSELOR [facility] Lymphocytes 2.25 0.95 - 3.07 x10(9)/L 05/26/2024 6:02 PM CAREER PLACEMENT SERVICES COUNSELOR [facility]TO Monocytes 0.71 0.26 - 0.81 x10(9)/L 05/26/2024 6:02 PM CAREER PLACEMENT SERVICES COUNSELOR [facility]TO Eosinophils 0.11 0.03 - 0.48 x10(9)/L 05/26/2024 6:02 PM CAREER PLACEMENT SERVICES COUNSELOR MKTO Basophils <0.03 0.01 - 0.08 x10(9)/L 05/26/2024 6:02 PM CAREER PLACEMENT SERVICES COUNSELOR [facility]TO Blood (Blood, Venous) 05/26/2024 5:51 PM CAREER PLACEMENT SERVICES COUNSELOR 05/26/2024 5:59 PM CAREER PLACEMENT SERVICES COUNSELOR us Kristin Meza APRN, C.N.P., D.N.P. LAB BLOOD ADD -ON Final Result [facility] [address] [place] [address], [facility] [address] [facility] [place] [address] [place] [address] * (ABNORMAL) Comprehensive Metabolic Panel (05/26/2024 5:51 PM CAREER PLACEMENT SERVICES COUNSELOR) Potassium, P 3.9 3.6 - 5.2 mmol/L 05/26/2024 6:24 PM CAREER PLACEMENT SERVICES COUNSELOR MKTO Sodium, P 140 135 - 145 mmol/L 05/26/2024 6:24 PM CAREER PLACEMENT SERVICES COUNSELOR [facility] Chloride, P 105 98 - 107 mmol/L 05/26/2024 6:24 PM CAREER PLACEMENT SERVICES COUNSELOR [facility] Bicarbonate, P 22 22 - 29 mmol/L 05/26/2024 6:24 PM CAREER PLACEMENT SERVICES COUNSELOR [facility] Anion Gap, P 13 7 - 15 05/26/2024 6:24 PM CAREER PLACEMENT SERVICES COUNSELOR [facility] BUN (Blood Urea Nitrogen), P 9 6 - 21 mg/dL 05/26/2024 6:24 PM CAREER PLACEMENT SERVICES COUNSELOR [facility]TO Creatinine 0.54(L) 0.59 - 1.04 mg/dL 05/26/2024 6:24 PM CAREER PLACEMENT SERVICES COUNSELOR MKTO Estimated GFR (eGFR) >90 >=60 mL/min/BS A 05/26/2024 6:24 PM CAREER PLACEMENT SERVICES COUNSELOR [facility] Comment: Estimated GFR calculated using the 2020 CKD_EPI creatinine equation. Calcium, Total, P 8.4(L) 8.6 - 10.0 mg/dL 05/26/2024 6:24 PM CAREER PLACEMENT SERVICES COUNSELOR MKTO Glucose, P 100 70 - 140 mg/dL 05/26/2024 6:24 PM CAREER PLACEMENT SERVICES COUNSELOR [facility] Protein, Total, P 7.1 6.3 - 7.9 g/dL 05/26/2024 6:24 PM CAREER PLACEMENT SERVICES COUNSELOR MKTO Albumin, P 3.9 3.5 - 5.0 g/dL 05/26/2024 6:24 PM CAREER PLACEMENT SERVICES COUNSELOR [facility] Aspartate Aminotransferase (AST), P 42 8 - 43 U/L 05/26/2024 6:24 PM CAREER PLACEMENT SERVICES COUNSELOR MKTO Alkaline Phosphatase, P 67 35 - 104 U/L 05/26/2024 6:24 PM CAREER PLACEMENT SERVICES COUNSELOR [facility]TO Alanine Aminotransferase (ALT), P 49(H) 7 - 45 U/L 05/26/2024 6:24 PM CAREER PLACEMENT SERVICES COUNSELOR MKTO Bilirubin, Total, P 0.2 0.0 - 1.2 mg/dL 05/26/2024 6:24 PM CAREER PLACEMENT SERVICES COUNSELOR MKTO Blood (Blood, Venous) 05/26/2024 5:51 PM CAREER PLACEMENT SERVICES COUNSELOR 05/26/2024 5:59 PM CAREER PLACEMENT SERVICES COUNSELOR us Kristin Meza APRN, C.N.P., D.N.P. LAB BLOOD ADD -ON Final Result [facility] [address] [place] [address], [facility] [address] [facility] [place] [address] * US Gallbladder and or Biliary Ducts (05/21/2024 11:16 PM CAREER PLACEMENT SERVICES COUNSELOR) Only the most recent of2 resultswithin the time period is included. Anatomical Region Laterality Modality Abdomen, Ultrasound RST LOS, Ultrasound ARZ LOS, Ultrasound FLA LOS N/A Ultrasound Impressions 05/21/2024 11:31 PM CAREER PLACEMENT SERVICES COUNSELOR Cholelithiasis without evidence of cholecystitis. Narrative 05/21/2024 11:31 PM CAREER PLACEMENT SERVICES COUNSELOR EXAM: US GALLBLADDER AND OR BILIARY DUCTS [...] M.D. IMG US PROCEDURES Final Re sult * CT Chest Abdomen Pelvis Angiogram with IV Contrast (04/16/2024 6:10 AM CAREER PLACEMENT SERVICES COUNSELOR) Anatomical Region Laterality Modality Chest, Abdomen, Pelvis, Card iovascular RST LOS, Abdominal ARZ LOS, Thoracic ARZ LOS, Vascular Interventional ARZ LOS, Thoracic FLA LOS, Procedural, Vascular Interventional NWWI LOS Computed Tomography 04/16/2024 6:13 AM CAREER PLACEMENT SERVICES COUNSELOR Impressions 04/16/2024 6:58 AM CAREER PLACEMENT SERVICES COUNSELOR No acute abnormality in the chest, abdomen, or pelvis. Narrative 04/16/2024 6:58 AM CAREER PLACEMENT SERVICES COUNSELOR EXAM: CT CHEST ABDOMEN PELVIS ANGIOGRAM WITH [...] in the chest, abdomen, or pelvis. Ronel Hendricks M.D. [facility] CT PROCEDURES Final Result * HPV with Genotyping, PCR, ThinPrep (05/31/2023 4:11 PM CAREER PLACEMENT SERVICES COUNSELOR) HPV with Genotyping, ThinPrep, PCR Negative Negative 06/01/2023 3:42 PM CAREER PLACEMENT SERVICES COUNSELOR MKTO Comment: Negative for high risk HPV [...] correlated with patient's history, clinical presentation, and CHILD CARE ASSOCIATE cytology report. 05/31/2023 4:11 PM CAREER PLACEMENT SERVICES COUNSELOR 06/01/2023 7:37 AM CAREER PLACEMENT SERVICES COUNSELOR Shanna Gallagher CNM, D.N.P. LAB MICROBIOLOGY - GE NERAL ORDERABLES Final Result [facility] [address] [place] [address], [facility] [address] [facility] [address] [place] [address] from Last 3 Months or Most Recently Relevant to Health Maintenance Insurance THEA Hernandez [id number] [facility] [address] [address] Care Teams Meteorological Observer Relationship Specialty Start Date End Date Montse Ruiz D.O. [address] [place] [address] PCP - General Family Medicine 11/27/23
[2024-05-26 21:13] VITALS: BP 121/80; PULSE 81; RESP 18; TEMP 37.3; O2SAT 100; BMI 33.0
--- NOTE | 2024-05-26 21:20 | ED.GENADULT ---
HPI - General Adult General Time Seen by Provider: 21:20 Date Seen: 05/26/24 Chief complaint: Post Op Complication Stated complaint: Worsened condition after discharge Time Seen by Provider: 05/26/24 21:15 Source: patient, family, RN notes reviewed and old records reviewed Mode of arrival: ambulatory Limitations: no limitations History of Present Illness HPI narrative: The patient is a 29-year-old female who is postop day 2. Status post cholecystectomy who comes to the emergency room with concerns regarding her biliary leak. Patient was noted to have presented to [facility] on 05/23 after having had multiple visits at [facility] with the most recent diagnosis that day being gastritis. She came to the [place] [facility] at which time an abdominal CT did show a distended gallbladder with pericholecystic inflammation. A follow-up ultrasound showed a common bile duct that was dilated at 7 mm. She was admitted to the hospital and surgery consult id on May 24. At that time it was suspected that she had acute cholecystitis and she was taken to the OR. Postoperatively her diagnosis was acute on chronic cholecystitis with gallbladder hydrops and edema noted. Patient was admitted to the hospital for ongoing pain and antibiotics. She was discharged earlier today. Patient notes that as soon as she got home pain seem to be increasing. Her boyfriend who is from [place] came to get her and they went to the [place] ER at which time there were no beds available but she had part of her workup done in the waiting room. She had laboratory values done which showed a normal hemoglobin, elevated ALT but other blackmon normal LFTs, normal bilirubin. Her CT showed some free air and edema in the gallbladder fossa and Radiology noted that this can be seen with a bile leak. However by the time they went to discuss this the patient and her significant other had departed. They were called and told that there was a leak and that they should go to a hospital. They elected to come back to [place] because this is where they had had their surgery. Patient notes the discomfort started on her left abdomen at approximately 0230 and radiated to the right. She did have an urge to have a bowel movement but was unable to do so. She stated that was it is even hard to sit down to urinate. She describes the pain as everywhere and radiating into her back. She has not had any vomiting. She has not had any fevers. Yesterday she had a very small soft bowel movement but otherwise has not had any bowel movements. She notes that she was given a dose of what she thinks was MiraLax prior to her departure. Looking through records patient has had multiple visits to the [place] ED and was diagnosed with H pylori in the summer of 2024 she tells me that her abdominal pain is actually been going on for 2 years. She has had weight gain and no weight loss. No history of Crohn's or ulcerative colitis. She has not had any blood in her stool. She has been on Nexium chronically. Related Data Home Medications ?Medication ?Instructions ?Recorded ?Confirmed metoclopramide HCl 10 mg tablet 10 mg PO Q6H PRN 05/25/24 05/25/24 polyethylene glycol 3350 17 17 g PO DAILY PRN 05/25/24 05/25/24 gram/dose oral powder (ClearLax) Previous Rx's ?Medication ?Instructions ?Recorded amoxicillin 875 mg-potassium 1 tab PO BID #10 tabs 05/26/24 clavulanate 125 mg tablet omeprazole magnesium 20 mg 20 mg PO DAILY #30 tabs 05/26/24 tablet,delayed release (Prilosec OTC) oxycodone-acetaminophen 5 mg-325 1 tab PO Q6H PRN pain #25 tabs 05/26/24 mg tablet polyethylene glycol 3350 17 gram 17 g PO DAILY #10 ea 05/26/24 oral powder packet (Miralax) Allergies Allergy/AdvReac Type Severity Reaction Status Date / Time No Known Drug Allergies Allergy Verified 05/26/24 21:16 Review of Systems Status of ROS: Reports: 10 or more systems reviewed and unremarkable except as noted in History and below Const: Reports: fatigue; Denies: fever or chills Eyes: Denies: change in vision ENMT: Denies: throat pain, neck pain or nasal congestion Cardio: Denies: chest pain or shortness of breath with exertion Resp: Denies: shortness of breath or cough GI: Reports: abdominal pain and constipation; Denies: vomiting or blood in stool : Reports: difficulty voiding; Denies: painful urination Musculo: Reports: back pain; Denies: neck pain Integ/Breast: Denies: rash Endo: Reports: fatigue PFSH PFS Medical History Obesity ?E66.9 - Obesity, unspecified (ICD-10) Miscarriage ?O03.9 - Complete or unspecified spontaneous without complication (ICD-10) H. pylori infection ?A04.8 - Other specified bacterial intestinal infections (ICD-10) Surgical History S/P laparoscopic cholecystectomy ?Z90.49 - Acquired absence of other specified parts of digestive tract (ICD-10) Social History What is your current living situation?: I presently have a place to live Problems where you live: no known problems Problems where you live details: n/a In the past 12 months, utilities in danger of being shut off: no In past 12 months, lack of transportation kept you from medical appts, meetings, work, or getting things needed for daily living: no In the past 12 mos, have been you worried that your food would run out before you had money to buy more?: never true In the past 12 mos, the food you bought just didn't last and you didn't have money to buy more?: never true Highest level of school completed/degree received: some college, no degree Smoking Status: Former smoker How often do you have a drink containing alcohol: monthly or less How often do you have six or more drinks on one occasion: Never AUDIT-C Alcohol total score: 1 Non-prescribed substance use: denies use Caffeine: No How often does anyone, including family, friends and others, physically hurt you: never How often does anyone, including family, friends and others, insult or talk down to you: never How often does anyone, including family, friends and others, threaten you with harm: never How often does anyone, including family, friends and others, scream or curse at you: never service: No Exam Narrative: Exam Narrative: Patient is alert and oriented. Occasionally groaning in pain. EOM is full. Significant other does translation for us. Head is atraumatic. Oral cavity with moist mucous membranes. Neck is supple with no lymphadenopathy. Heart with regular rate and rhythm. Lungs are clear bilaterally. Abdomen shows decreased bowel sounds throughout. No significant tenderness with palpation. Patient noted to have some slight oozing from the umbilicus incision. Otherwise incisions do not appear to be erythematous. Rectal exam does show stool that is quite high in the rectal vault. No tenderness with insertion of the digit. Const: Vital Signs, click to edit/add: Vital Signs - 24 hr 05/26/24 21:13 05/26/24 23:30 Temperature 99.2 F Pulse Rate 97 Pulse Rate [Pulse Oximeter] 81 Respiratory Rate 18 18 Blood Pressure 119/82 Blood Pressure [Le ft Upper Arm] 121/80 Pulse Oximetry 100 97 Oxygen Delivery Me thod Room Air Room Air Documenting provider has reviewed patient's vital signs: yes Course Course ED Course: Differential diagnosis includes but is not limited to small-bowel obstruction, ileus, biliary leak, anxiety, constipation. At this time I do review notes from [place]. CT results from radiology note distal small bowel dilatation nonspecific ileus with no transition point. The gallbladder fossa does have some fluid and a small amount of air. WBC, hemoglobin, LFTs, bilirubin all within normal limits. I do consult with our surgeon who has low suspicion of a bile leak as bilirubin and white count are completely normal. I do explain this to the patient and her significant other. They are concerned regarding the ongoing pain. Given laboratory findings as well as recent surgery, recent narcotic use I suspect that she is constipated and that is blackmon she is feeling this rather diffuse discomfort radiating into her back with inability to have a bowel movement. I will check a urine at this time and have suggested an enema to see if we can stimulate some stool production. I sense that she will not do well at home handling her discomfort and have spoken with our hospitalist as well as surgeon on-call Dr Garcia for possible admission, limiting narcotics while helping her with bowel stimulation. The plan would be to have Dr. Matthew see this patient in the morning. I did tell patient I would like to avoid narcotics as much as possible. Looking back she did have Toradol while in the ED in [place]. Therefore will try Ativan 0.5 mg as I think a lot of what we are seeing here in the ED may be anxiety as well. I did call [place] to ask them if there were other concerns regarding the CT as the findings on CT were more likely postoperative changes normally found rather than a bile leak. Did they did not have any further concerns. Reevaluation(s) Reevaluation #1: Patient noted to be improved after Ativan. She also had a very large stool production. States the left side of her abdomen does feel better. However, I do feel she will benefit from admission as previously discussed with surgeon and hospitalist. Patient noted to have significant discomfort return in a colic like fashion. I suspect that she is having peristalsis and is attempting to move through a stool and contents of small-bowel. No evidence of a small-bowel obstruction tonight. I do think she will benefit from MiraLax, maximizing nonnarcotic pain medication and occasional doses of Ativan in helping her to relieve this discomfort. Vital Signs Vital signs: Initial Vital Signs Temperature 99.2 F 05/26/24 21:13 Temperature Source Temporal Artery Scan 05/26/24 21:13 Pulse Rate 81 05/26/24 21:13 Respiratory Rate 18 05/26/24 21:13 Blood Pressure 121/80 05/26/24 21:13 Blood Pressure Mean 93 05/26/24 21:13 Blood Pressure Position Sitting 05/26/24 21:13 Pulse Oximetry 100 05/26/24 21:13 Oxygen Delivery Method Room Air 05/26/24 21:13 Vital Signs Temperature 99.2 F 05/26/24 21:13 Pulse Rate 81 05/26/24 21:13 Respiratory Rate 18 05/26/24 21:13 Blood Pressure 121/80 05/26/24 21:13 Pulse Oximetry 100 05/26/24 21:13 Oxygen Delivery Method Room Air 05/26/24 21:13 Temperature 99.2 F 05/26/24 21:13 Pulse Rate 97 05/26/24 23:30 Respiratory Rate 18 05/26/24 23:30 Blood Pressure 119/82 05/26/24 23:30 Pulse Oximetry 97 05/26/24 23:30 Oxygen Delivery Method Room Air 05/26/24 23:30 Medications Administered Medications: Generic Name Dose Route Start Last Admin Trade Name Freq PRN Reason Stop Dose Admin Ketorolac Tromethamine 15 mg 05/26/24 23:22 05/26/24 23:35 Ketorolac 15 Mg/Ml Inj IVP 05/26/24 23:23 15 mg ONCE ONE Administration Discontinued Medications Generic Name Dose Route Start Last Admin Trade Name Freq PRN Reason Stop Dose Admin Sodium Chloride 1,000 mls @ 1,000 mls/hr 05/26/24 21:37 05/26/24 22:53 0.9 % Sodium Chloride 1000 Ml IV 05/26/24 22:36 Infused .Q1H WHITNEY Infusion Lorazepam 0.5 mg 05/26/24 21:37 05/26/24 21:51 Lorazepam 2 Mg/Ml Inj IVP 05/26/24 21:38 0.5 mg ONCE ONE Administration Medical Decision Making MDM Narrative Medical decision making narrative: 1. Postoperative pain-patient noted to be postop day 2. Laparoscopic cholecystectomy fortunately no concerns regarding bile leak as initially noted on CT scan with normal bilirubin, white count and LFTs. Small oozing noted from umbilical surgical site. No evidence of erythema or purulent drainage. The Steri-Strips some were removed S and a small gauze pad was replaced. 2. Constipation-I do believe that the majority of patient's discomfort is coming from inability does stool. There is a nonspecific ileus noted on CT. Patient noted to have considerable stool after tap water enema with some relief of her symptoms. She now has increasing colic like symptoms and abdominal pain. I would have explained that I would like to avoid all narcotic pain medication as I do think this is part of her problem with constipation. I did give her a 2nd dose of Toradol 6 hours after initial dose in [place]. Both thing 15 mg each. Ativan seems to have helped quite a bit 0.5 mg given upon her arrival. 3. Disposition-admit at this time under the care of Dr. Davidson. I did explain to patient and her significant other but the purpose of this visit was to help her past stool and that we would not be giving her medicines that would completely take her pain away but take the edge off of her discomfort. They do seem to understand this. Would like to maximize the use of non narcotics, NSAIDs with occasional use of Ativan as needed. Again, they do voice understanding to this plan. Medical Records Medical records reviewed: Yes I reviewed the patient's medical records Lab Data Lab results reviewed: Yes I reviewed the patient's lab results Labs: Lab Results 05/26/24 Range/Units 22:40 Urine Color Yellow (Yellow) Urine Appearance Clear (Clear) Urine pH 7.5 (5.0-8.5) Ur Specific Hindman 1.010 (1.000-1.030) Urine Protein Negative (Negative) Urine Glucose (UA) Negative (Negative) Urine Ketones Negative (Negative) Urine Blood Trace-intact A (Negative) Urine Nitrite Negative (Negative) Urine Bilirubin Negative (Negative) Urine Urobilinogen 0.2 (0.2-1.0) Ur Leukocyte Esterase Negative (Negative) Urine RBC 0-2 (0-2) Urine WBC 0-2 (0-5) Ur Squamous Epith Cells Few (None-Few) Amorphous Sediment Few A (None) Urine Bacteria Few A (None) Discharge Plan Discharge Clinical Impression: Post-operative pain, Ileus Patient Disposition: Admitted As Observation Condition: Improved
[2024-05-26] MEDS: LORazepam 2 MG/ML inj 0.5 MG IVP (21:51)
[2024-05-26] MEDS: 0.9 % SODIUM CHLORIDE 1000 ml 1,000 ML IV (21:52)
[2024-05-26 22:47] LABS: Appearance Urine Clear (Clear); Bilirubin Urine Negative (Negative); Blood Urine Trace-intact (Negative); Color Urine Yellow (Yellow); Glucose Urine Negative (Negative); Ketones Urine Negative (Negative); Leukocyte Esterase Urine Negative (Negative); Nitrite Urine Negative (Negative); Protein Urine Negative (Negative); Urobilinogen Urine 0.2 (0.2-1.0); pH Urine 7.5 (5.0-8.5)
[2024-05-26 23:01] LABS: Amorphous Sediment Urine Few; Bacteria Urine Few; RBC Urine 0-2 (0-2); Squamous Epithelial Cell Urine Few (None-Few); WBC Urine 0-2 (0-5)
[2024-05-26 23:30] VITALS: BP 119/82; PULSE 97; RESP 18; O2SAT 97
[2024-05-26] MEDS: KETOROLAC 15 MG/ML inj IVP (23:35)
--- NOTE | 2024-05-26 23:56 | PM.IMHP1 ---
Hospitalist- H&P: HPI History of Present Illness Date Seen: 05/26/24 Chief complaint: Worsened condition after discharge Narrative: Esvin Taylor is a 29 year old female w/ PMH of chronic abdominal pain, who was discharged on 05/26/24 s/p chuck but came back c/o uncontrolled abdominal pain. She was admitted to the hospital and surgery consult id on May 24. At that time it was suspected that she had acute cholecystitis and she was taken to the OR. Postoperatively her diagnosis was acute on chronic cholecystitis with gallbladder hydrops and edema noted. Her boyfriend who is from [place] came to get her and they went to the [place] ER at which time there were no beds available but she had part of her workup done in the waiting room. She had laboratory values done which showed a normal hemoglobin, elevated ALT but other blackmon normal LFTs, normal bilirubin. Her CT showed some free air and edema in the gallbladder fossa and Radiology noted that this can be seen with a bile leak. However by the time they went to discuss this the patient and her significant other had departed. They were called and told that there was a leak and that they should go to a hospital. They elected to come back to [place] because this is where they had had their surgery. At the ED, Physician contacted [facility] (Dr Garcia) who has low suspicion of a bile leak as bilirubin and white count are completely normal. CT also suggested ileus, so Enema was given at the Ed and pt had a BM. Plan is to limit opioids d/t ileus. Surgeon to see the pt in the AM. Review of Systems Status of ROS: Reports: 6 or more systems reviewed and unremarkable except as noted in History and below [facility] Medical History (Updated 05/27/24 @ 01:31 by Belinda Davis MD) Chronic abdominal pain ?R10.9 - Unspecified abdominal pain (ICD-10) ?G89.29 - Other chronic pain (ICD-10) Obesity ?E66.9 - Obesity, unspecified (ICD-10) Miscarriage ?O03.9 - Complete or unspecified spontaneous without complication (ICD-10) H. pylori infection ?A04.8 - Other specified bacterial intestinal infections (ICD-10) Surgical History (Updated 05/27/24 @ 01:28 by Belinda Davis MD) S/P laparoscopic cholecystectomy ?Z90.49 - Acquired absence of other specified parts of digestive tract (ICD-10) Social History What is your current living situation?: I presently have a place to live Problems where you live: no known problems Problems where you live details: n/a In the past 12 months, utilities in danger of being shut off: no In past 12 months, lack of transportation kept you from medical appts, meetings, work, or getting things needed for daily living: no In the past 12 mos, have been you worried that your food would run out before you had money to buy more?: never true In the past 12 mos, the food you bought just didn't last and you didn't have money to buy more?: never true Highest level of school completed/degree received: some college, no degree Smoking Status: Former smoker How often do you have a drink containing alcohol: monthly or less How often do you have six or more drinks on one occasion: Never AUDIT-C Alcohol total score: 1 Non-prescribed substance use: denies use Caffeine: No How often does anyone, including family, friends and others, physically hurt you: never How often does anyone, including family, friends and others, insult or talk down to you: never How often does anyone, including family, friends and others, threaten you with harm: never How often does anyone, including family, friends and others, scream or curse at you: never service: No Meds Home Medications and Allergies Home Medications ?Medication ?Instructions ?Recorded ?Confirmed ?Type metoclopramide HCl 10 mg tablet 10 mg PO Q6H PRN 05/25/24 05/25/24 History polyethylene glycol 3350 17 17 g PO DAILY PRN 05/25/24 05/25/24 History gram/dose oral powder (ClearLax) Allergies Allergy/AdvReac Type Severity Reaction Status Date / Time No Known Drug Allergies Allergy Verified 05/26/24 21:16 Exam Narrative: Exam Narrative: Physical exam HEAD AND NECK: Atraumatic, normocephalic CARDIOVASCULAR: RRR. Normal S1, S2. No murmurs. RESPIRATORY: Clear to auscultation B/L. Good air entry B/L. No wheezes or rhonchi. GASTROINTESTINAL: Not distended, diffuse tenderness to palpation. clean dressing s/p lapchole NEUROLOGY: Alert, awake, oriented X 4. Normal speech. PSYCH: Anxious Const: Vital Signs, click to edit/add: Vital Signs - 24 hr 05/26/24 21:13 05/26/24 23:30 Temperature 99.2 F Pulse Rate 97 Pulse Rate [Pulse Oximeter] 81 Respiratory Rate 18 18 Blood Pressure 119/82 Blood Pressure [Le ft Upper Arm] 121/80 Pulse Oximetry 100 97 Oxygen Delivery Me thod Room Air Room Air Hospitalist - H&P: Result Labs Labs: Urine 05/26/24 Range/Units 22:40 Urine Color Yellow (Yellow) Urine Appearance Clear (Clear) Urine pH 7.5 (5.0-8.5) Ur Specific [place] 1.010 (1.000-1.030) Urine Protein Negative (Negative) Urine Glucose (UA) Negative (Negative) Assessment and Plan Assessment and plan (1) Post-operative pain: Problem comment: -severe inflammation noted during Sx around the gallbladder area that may contribute to severe post op pain. -Avoid opioids d/t ileus -Will give Tylenol + NSAIDs, pt had an endoscopy that didnt show gastritis or PUD but pt told she had dyspepsia. (H pylori negative). -PPI -Will cont her Abx course w/ Zosyn Status: Acute (2) Ileus: Problem comment: -Avoid opioids Status: Acute (3) S/P laparoscopic cholecystectomy: Problem comment: As in HPI Status: Acute (4) Chronic abdominal pain: Problem comment: - worsening abdominal pain that has been going on over the last year. Was previously treated for H pylori and has since tested negative. Has been on medication for dyspepsia without much relief. Gallstones found recently which may be symptomatic. Recent chills without fever and white count is within normal limits, unlikely cholecystitis, but will do imaging today. I spoke with Dr. Casarez from General surgery who recommended repeating CT abdomen and pelvis and right upper quadrant ultrasound. - update: Results of imaging are above. Dr. Casarez is planning to take the patient to the OR today for cholecystectomy. - 3/2 laparoscopic cholecystectomy. Patient has pain today in right upper quadrant related to surgery. Unclear if chronic abdominal pain has improved or resolved. - 3/3: Pt was DCed but comes back w/ abdominal pain, admitted for pain management. Status: Acute Total Time Spent Total Time Spent: Time spent: Today I spent 75 minutes seeing the patient, discussing the patient with ER staff, reviewing [facility]panse and EPIC notes/diagnostics, discussing the care plan with our care time that includes social work, PT/OT, pharmacy, RT, jail and documenting my impressions and plan in the medical record.
[2024-05-27] VITALS: BP 119/74; PULSE 95; RESP 18; TEMP 36.1; O2SAT 97; BMI 33.0
[2024-05-27] MEDS: ACETAMINOPHEN 325 MG TABLET 650 MG PO ×2 (00:53→08:10)
[2024-05-27] MEDS: PIPERACILLIN/TAZOBACTAM 3.375 GM in 0.9 % SODIUM CHLORIDE Mini-bag 100 ML IVPB ×2 (00:54→06:26)
[2024-05-27] MEDS: PANTOPRAZOLE SODIUM 40 MG INJ IVP (00:54)
[2024-05-27] MEDS: SODIUM CHLORIDE 0.9 % (FLUSH) 10 ML SYRINGE 5 ML IVF (00:55)
[2024-05-27 03:00] VITALS: BP 120/74; PULSE 83; RESP 18; TEMP 36.9; O2SAT 96
--- NOTE | 2024-05-27 06:10 | PC.NURSE ---
shift note: pt admit @ 0000 05/27/24. abd pain unrated. pain increases with movement. BS active. rt abd drsg c/d/i, lap site to umbilicus open to air. lt abd lap site x2 steri strips intact. pt refused interpeter svc via ipad. iv patent
[2024-05-27 06:20] LABS: Lactate* 0.5 mmol/L (0.5-1.9)
[2024-05-27 06:23] LABS: Hematocrit 34.4 % (33.0-51.0); Hemoglobin* 11.4 gm/dL (12.0-16.0); Mean Corpuscular HGB Conc 33 gm/dL (32-36); Mean Corpuscular Hemoglobin 30 pg (26-34); Mean Corpuscular Volume 91 fL (80-100); Platelet Count* 252 K/uL (140-440); Red Blood Count 3.78 m/uL (4.00-5.20)
[2024-05-27 06:24] LABS: Slide Review Reflex No
[2024-05-27 06:41] LABS: Albumin* 3.6 g/dL (3.3-5.0)
[2024-05-27 06:42] LABS: Chloride* 105 mmol/L (96-114); Potassium* 3.7 mmol/L (3.6-5.1); Sodium* 137 mmol/L (135-149)
[2024-05-27 06:44] LABS: Anion Gap 8 mEq/L (7-15); Aspartate Amino Transferase* 35 U/L (12-35); Bilirubin Total* 0.5 mg/dL (0.1-1.5); Blood Urea Nitrogen* 10 mg/dL (5-24); Carbon Dioxide* 24 mmol/L (20-32); Creatinine* 0.5 mg/dL (0.5-1.5); Est. Creatinine Clearance* 152.62; Estimated Glomerular Filt Rate 129 ml/min; Total Protein* 6.7 g/dL (6.0-8.3)
[2024-05-27 06:45] LABS: Alanine Aminotransferase* 49 U/L (4-35); Alkaline Phosphatase* 57 U/L (40-150); Calcium* 8.3 mg/dL (8.4-10.6); Glucose* 83 mg/dL (60-115); Magnesium* 1.8 mg/dL (1.5-2.6)
[2024-05-27 08:00] VITALS: BP 114/78; PULSE 82; RESP 16; TEMP 36.7; O2SAT 96
[2024-05-27] MEDS: polyethylene glycoL 3350 17 GM PACK PO (08:10)
[2024-05-27] MEDS: KETOROLAC 30 MG/ML inj IVP (08:11)
[2024-05-27] MEDS: ENOXAPARIN 40 MG/0.4 ML INJ SUBCUT (08:57)
--- NOTE | 2024-05-27 10:26 | PM.GSCN ---
History of Present Illness Consult details Date Seen: 05/27/24 Consult date: 05/27/24 Narrative: 29-year-old female presented to emergency room with ongoing abdominal pain and I was asked by Dr. Swift to see her in consultation. Patient was discharged yesterday after she underwent laparoscopic cholecystectomy over the weekend. Patient was doing well but continued to have abdominal pain. Patient was picked up by her boyfriend and went home for few hours. She complained of inability to urinate and felt bloated. She then went straight to [facility] emergency room with ongoing pain. In [place] she had an abdominal CT scan done that showed foci of air in the right upper quadrant with small amount of fluid. This was concerning to them for a bile leak. However, [facility] did not have any beds for to admit the patient. Patient left the emergency room and presented to [place] [facility]. Patient had blood work done at the [facility] which showed ALT of 49 which was improved from her previous check of 56. The rest of her liver function tests were normal. Her WBC was normal. Patient was admitted for pain control. Patient had an enema in the emergency room until that her pain is significantly improved. Review of Systems Narrative: General: no fevers HENT: no problems swallowing CV: no shortness of breath Resp: no cough GI: No nausea, vomiting, abdominal pain : no dysuria, no increased urinary frequency, no hematuria Skin: no new rashes Musculoskeletal: no back pain Neuro: no muscle weakness Psyche: no depression, no anxiety PFSH PFSH Medical History Chronic abdominal pain ?R10.9 - Unspecified abdominal pain (ICD-10) ?G89.29 - Other chronic pain (ICD-10) Obesity ?E66.9 - Obesity, unspecified (ICD-10) Miscarriage ?O03.9 - Complete or unspecified spontaneous without complication (ICD-10) H. pylori infection ?A04.8 - Other specified bacterial intestinal infections (ICD-10) Surgical History S/P laparoscopic cholecystectomy ?Z90.49 - Acquired absence of other specified parts of digestive tract (ICD-10) Social History What is your current living situation?: I presently have a place to live Problems where you live: no known problems Problems where you live details: no In the past 12 months, utilities in danger of being shut off: no In past 12 months, lack of transportation kept you from medical appts, meetings, work, or getting things needed for daily living: no In the past 12 mos, have been you worried that your food would run out before you had money to buy more?: never true In the past 12 mos, the food you bought just didn't last and you didn't have money to buy more?: never true Highest level of school completed/degree received: some college, no degree Smoking Status: Former smoker How often do you have a drink containing alcohol: monthly or less How often do you have six or more drinks on one occasion: Never AUDIT-C Alcohol total score: 1 Non-prescribed substance use: denies use Caffeine: No How often does anyone, including family, friends and others, physically hurt you: never How often does anyone, including family, friends and others, insult or talk down to you: never How often does anyone, including family, friends and others, threaten you with harm: never How often does anyone, including family, friends and others, scream or curse at you: never service: No Meds Home Medications and Allergies Home Medications ?Medication ?Instructions ?Recorded ?Confirmed ?Type metoclopramide HCl 10 mg tablet 10 mg PO Q6H PRN 05/25/24 05/27/24 History polyethylene glycol 3350 17 17 g PO DAILY PRN 05/25/24 05/27/24 History gram/dose oral powder (ClearLax) aluminum-mag hydroxide-simethicone 15 ml PO QID PRN 05/27/24 05/27/24 History 200 mg-200 mg-20 mg/5 mL oral susp Allergies Allergy/AdvReac Type Severity Reaction Status Date / Time No Known Drug Allergies Allergy Verified 05/26/24 21:16 Exam Narrative: Exam Narrative: General appearance: Alert, cooperative, and in no distress Pulmonary: Chest symmetric, lungs clear bilaterally Cardiovascular Heart: Regular rate and rhythm, S1, S2, no murmurs/rubs/gallops Gastrointestinal Abdominal: soft, not distended, minimally tender to palpation in the right upper quadrant. Laparoscopic incisions are covered with clean steries Skin: Normal skin color, texture, and turgor. No rashes or lesions. Psychiatric: Alert, cooperative, normal affect. Const: Vital Signs, click to edit/add: Vital Signs - 24 hr 05/26/24 21:13 05/26/24 23:30 05/27/24 00:00 Temperature 99.2 F 97 F L Pulse Rate 97 Pulse Rate [Pulse Oximeter] 81 Pulse Rate [Right Brachial] 95 Respiratory Rate 18 18 18 Blood Pressure 119/82 Blood Pressure [Le ft Upper Arm] 121/80 Blood Pressure [Ri ght Arm] 119/74 Pulse Oximetry 100 97 97 Oxygen Delivery Me thod Room Air Room Air Room Air 05/27/24 00:00 05/27/24 03:00 05/27/24 08:00 Temperature 97 F L 98.4 F 98.1 F Pulse Rate Pulse Rate [Pulse Oximeter] Pulse Rate [Right Brachial] 95 83 82 Respiratory Rate 18 18 16 Blood Pressure Blood Pressure [Le ft Upper Arm] Blood Pressure [Ri ght Arm] 119/74 120/74 114/78 Pulse Oximetry 97 96 96 Oxygen Delivery Me thod Room Air Room Air Room Air Results Labs Labs: Abnormal lab results 05/26/24 05/27/24 Range/Units 22:40 06:08 RBC 3.78 L (4.00-5.20) m/uL Hgb 11.4 L (12.0-16.0) gm/dL Calcium 8.3 L (8.4-10.6) mg/dL ALT 49 H (4-35) U/L Urine Blood Trace-intact A (Negative) Amorphous Sediment Few A (None) Urine Bacteria Few A (None) Diabetes panel 05/27/24 Range/Units 06:08 Sodium 137 (135-149) mmol/L Potassium 3.7 (3.6-5.1) mmol/L Chloride 105 (96-114) mmol/L Carbon Dioxide 24 (20-32) mmol/L BUN 10 (5-24) mg/dL Creatinine 0.5 (0.5-1.5) mg/dL Glucose 83 (60-115) mg/dL Calcium 8.3 L (8.4-10.6) mg/dL AST 35 (12-35) U/L ALT 49 H (4-35) U/L Alkaline Phosphatase 57 (40-150) U/L Total Protein 6.7 (6.0-8.3) g/dL Albumin 3.6 (3.3-5.0) g/dL Calcium panel 05/27/24 Range/Units 06:08 Calcium 8.3 L (8.4-10.6) mg/dL Albumin 3.6 (3.3-5.0) g/dL Pituitary panel 05/27/24 Range/Units 06:08 Sodium 137 (135-149) mmol/L Potassium 3.7 (3.6-5.1) mmol/L Chloride 105 (96-114) mmol/L Carbon Dioxide 24 (20-32) mmol/L BUN 10 (5-24) mg/dL Creatinine 0.5 (0.5-1.5) mg/dL Glucose 83 (60-115) mg/dL Calcium 8.3 L (8.4-10.6) mg/dL Adrenal panel 05/27/24 Range/Units 06:08 Sodium 137 (135-149) mmol/L Potassium 3.7 (3.6-5.1) mmol/L Chloride 105 (96-114) mmol/L Carbon Dioxide 24 (20-32) mmol/L BUN 10 (5-24) mg/dL Creatinine 0.5 (0.5-1.5) mg/dL Glucose 83 (60-115) mg/dL Calcium 8.3 L (8.4-10.6) mg/dL Total Bilirubin 0.5 (0.1-1.5) mg/dL AST 35 (12-35) U/L ALT 49 H (4-35) U/L Alkaline Phosphatase 57 (40-150) U/L Total Protein 6.7 (6.0-8.3) g/dL Albumin 3.6 (3.3-5.0) g/dL All other labs normal. Progress Note:A&P Assessment and plan (1) S/P laparoscopic cholecystectomy: Status: Acute Time Spent With Patient Total time spent: 29-year-old female s/p laparoscopic cholecystectomy POD 4 readmitted with postoperative pain. I discussed with the patient her CT findings from [facility] emergency room. Patient had small amount of fluid and air in the gallbladder fossa. This is most likely due to presents of drain that was removed several hours prior to her presentation to the [facility] ER. Patient's lab values are normal and it would be extremely unusual to have a bile leak with normal bilirubin. I discussed with the patient that she can advance her diet as tolerated. We had a long discussion about presence of pain and that having surgery results in pain from the incisions. I told the patient several times that she will not be pain free and I would discourage her from taking pain medications constantly because of her constipation. Patient can continue taking pain medications as needed and continue with MiraLax to avoid constipation. Patient is safe to discharge home from surgery standpoint.
--- NOTE | 2024-05-27 12:19 | PM.DS1 ---
DS: Providers Provider Date Seen: 05/27/24 Date of admission: 05/26/24 23:49 Primary care physician: Not a Local Provider Admitting Clinician: Belinda Davis MD Attending Physician on discharge: Thao Pascal MD Date of Discharge: 05/27/24 DS: Diagnosis Discharge Diagnosis (1) Post-operative pain: Status: Acute Problem details: - improved on 05/27 with IV Ketorolac + APAP - advanced diet and appropriate for d/c home 05/27/24 (2) Ileus: Status: Acute Problem details: - resolved, + BM x4 during stay (3) S/P laparoscopic cholecystectomy: Status: Acute Problem details: - 05/24/24 (4) Chronic abdominal pain: Status: Acute Problem details: - acute on chronic, + cholecystitis on 05/24, s/p lab felicia with Dr. Casarez of general surgery - discharged on 05/26, returned with worsening pain, better on 05/27 and ready for d/c home DS: Summary Hospital Course Hospital Course: Betty was admitted for postoperative pain (had lap felicia with Dr. Casarez on 05/24/24) and constipation on 05/26. Received Toradol and Acetaminophen for pain, able to have 3-4 BMs without any nausea or vomiting. Seen by Dr. Casarez, no further surgical needs identified. Tolerating po intake on 05/27/24. Patient medically appropriate for d/c home after discussion regarding expectations, pain management, activity restrictions. Status at Discharge Functional status at discharge: independent ambulation Overall status at discharge: patient is progressing back to baseline Time Spent with Patient Time attestation: Total time spent providing and/or coordinating discharge services: Time spent: Greater than 30 minutes Specific discharge activities: patient education, chart review, collaboration with nursing team and General Surgery Exam Narrative: Exam Narrative: Patient is sitting comfortably in bedside chair, nontoxic Mild discomfort with abdominal palpation, appropriate for postoperative status Pulse palpates as regular rate and rhythm Breathing comfortably Const: Vital Signs, click to edit/add: Vital Signs - 24 hr 05/26/24 21:13 05/26/24 23:30 05/27/24 00:00 Temperature 99.2 F 97 F L Pulse Rate 97 Pulse Rate [Pulse Oximeter] 81 Pulse Rate [Right Brachial] 95 Respiratory Rate 18 18 18 Blood Pressure 119/82 Blood Pressure [Le ft Upper Arm] 121/80 Blood Pressure [Ri ght Arm] 119/74 Pulse Oximetry 100 97 97 Oxygen Delivery Me thod Room Air Room Air Room Air 05/27/24 00:00 05/27/24 03:00 05/27/24 08:00 Temperature 97 F L 98.4 F 98.1 F Pulse Rate Pulse Rate [Pulse Oximeter] Pulse Rate [Right Brachial] 95 83 82 Respiratory Rate 18 18 16 Blood Pressure Blood Pressure [Le ft Upper Arm] Blood Pressure [Ri ght Arm] 119/74 120/74 114/78 Pulse Oximetry 97 96 96 Oxygen Delivery Me thod Room Air Room Air Room Air DS: Data Data Completed and Pending Labs on day of discharge: Labs from last 24 hours 05/27/24 05/26/24 06:08 22:40 WBC 8.10 RBC 3.78 L Hgb 11.4 L Hct 34.4 MCV 91 MCH 30 MCHC 33 Plt Count 252 Sodium 137 Potassium 3.7 Chloride 105 Carbon Dioxide 24 Anion Gap 8 BUN 10 Creatinine 0.5 Estimated Creat Clear 152.62 Estimated GFR 129 Glucose 83 Lactate 0.5 Calcium 8.3 L Magnesium 1.8 Total Bilirubin 0.5 AST 35 ALT 49 H Alkaline Phosphatase 57 Total Protein 6.7 Albumin 3.6 Urine Color Yellow Urine Appearance Clear Urine pH 7.5 Ur Specific [place] 1.010 Urine Protein Negative Urine Glucose (UA) Negative Urine Ketones Negative Urine Blood Trace-intact A Urine Nitrite Negative Urine Bilirubin Negative Urine Urobilinogen 0.2 Ur Leukocyte Esterase Negative Urine RBC 0-2 Urine WBC 0-2 Ur Squamous Epith Cells Few Amorphous Sediment Few A Urine Bacteria Few A Preliminary micro results at discharge 05/26/24 22:40 Urine Culture - Preliminary Urine,Clean Catch Culture in Progress Discharge Plan Discharge Disposition: Home, Self-Care Date of Admission: 05/26/24 23:49 Attending Provider on Discharge: Thao Pascal Primary Care Provider: Provider,Not a Local Condition: Improved Anticipated Discharge Date/Time: 05/27/24 12:17 Discharge Medications: Continued metoclopramide HCl 10 mg tablet 10 mg PO Q6H PRN polyethylene glycol 3350 [ClearLax] 17 gram/dose powder 17 g PO DAILY PRN polyethylene glycol 3350 [Miralax] 17 gram powder in packet 17 g PO DAILY Qty: 10 0RF oxycodone-acetaminophen 5-325 mg tablet 1 tab PO Q6H PRN (Reason: pain) Qty: 25 0RF omeprazole magnesium [Prilosec OTC] 20 mg tablet,delayed release (DR/EC) 20 mg PO DAILY Qty: 30 2RF amoxicillin-pot clavulanate 875-125 mg tablet 1 tab PO BID Qty: 10 0RF alum-mag hydroxide-simeth 200-200-20 mg/5 mL suspension 15 ml PO QID PRN Discharge Orders: Discharge Order (Routine); Ordered 05/27/24 Ordered By: Thao Pascal Additional Instructions: Keep appt with Dr. Casarez on 06/04/24 at 1:45 Activity Level: No strenuous activity Diet Detail: bland Follow Up Appointments: Provider,Not a Local [Primary Care Provider] - Forms: MyHealth Info Instructions
[2024-05-27] MEDS: IBUPROFEN 400 MG TABLET PO (14:53)
[2024-05-27] MEDS: SIMETHICONE 80 MG TAB.CHEW PO (14:53)
--- NOTE | 2024-05-27 14:58 | PC.NURSE ---
Patient discharge to home with S.O. Patient amubulate off unit. All discharge papers givena nd questions answered with sliver lap machine tender present. Pt verbalized understanding of instructions
== END 2024-05-27 15:00 | disposition home or self-care (01) ==
LOC: ED 23:22 → MEDSURG 23:49
PROVIDERS: Admitting Provider Student in an Organized Health Care Education/Training Program; Emergency Provider Family Medicine; Visit Provider Student in an Organized Health Care Education/Training Program
DX: R10.9 Unspecified abdominal pain (principal); K59.00 Constipation, unspecified; G89.18 Other acute postprocedural pain; K56.7 Ileus, unspecified; Z90.49 Acquired absence of other specified parts of digestive tract; G89.29 Other chronic pain; M54.9 Dorsalgia, unspecified; K21.9 Gastro-esophageal reflux disease without esophagitis; R53.83 Other fatigue; K80.12 Calculus of gallbladder with acute and chronic cholecystitis without obstruction; K82.1 Hydrops of gallbladder; R30.0 Dysuria; E66.9 Obesity, unspecified; Z68.34 Body mass index [BMI] 34.0-34.9, adult
CPT/HCPCS: 36415; 80053; 81001; 83605; 83735; 85027; 87086; 96361; 96365; 96372; 96375; 99284; 99285; T1013; A9270; G0378; J1650; J1885; J2060; J2470; J2543; J7030

== ENCOUNTER 2024-06-01 07:03 | Emergency (ER) | payer OTHER, SELFPAY ==
[2024-06-01 07:17] VITALS: BP 115/75; PULSE 90; RESP 18; TEMP 37.2; O2SAT 95; BMI 29.7
--- NOTE | 2024-06-01 08:11 | ED.ABDPAIN ---
HPI - Abdominal Pain General Chief Complaint: Abdominal Pain Stated Complaint: abdominal pain Time Seen by Provider: 06/01/24 08:01 History of Present Illness HPI narrative: Patient is a 29-year-old woman who had her gallbladder removed 8 days ago. Since that time she has had multiple ER visits in the surrounding area for abdominal pain. She was just discharged several hours ago from the ER in [place]. Ultrasound of that time was unremarkable. Workup per reports that the patient brings in it was unremarkable as well. Patient discharged with acid control. Patient has had no fevers no chills no blood in her bowel movement. She does have reflux chronically. She has had no chest pain no shortness of breath. She states the abdominal pain is diffuse and radiates through to her back. Related Data Home Medications ?Medication ?Instructions ?Recorded ?Confirmed metoclopramide HCl 10 mg tablet 10 mg PO Q6H PRN 05/25/24 05/27/24 polyethylene glycol 3350 17 17 g PO DAILY PRN 05/25/24 05/27/24 gram/dose oral powder (ClearLax) aluminum-mag hydroxide-simethicone 15 ml PO QID PRN 05/27/24 05/27/24 200 mg-200 mg-20 mg/5 mL oral susp famotidine 20 mg tablet 20 mg PO BID 06/01/24 06/01/24 Previous Rx's ?Medication ?Instructions ?Recorded amoxicillin 875 mg-potassium 1 tab PO BID #10 tabs 05/26/24 clavulanate 125 mg tablet omeprazole magnesium 20 mg 20 mg PO DAILY #30 tabs 05/26/24 tablet,delayed release (Prilosec OTC) oxycodone-acetaminophen 5 mg-325 1 tab PO Q6H PRN pain #25 tabs 05/26/24 mg tablet polyethylene glycol 3350 17 gram 17 g PO DAILY #10 ea 05/26/24 oral powder packet (Miralax) Allergies Allergy/AdvReac Type Severity Reaction Status Date / Time No Known Drug Allergies Allergy Verified 05/26/24 21:16 Review of Systems Status of ROS Reports: 10 or more systems reviewed and unremarkable except as noted in History and below [facility] Medical History Chronic abdominal pain ?R10.9 - Unspecified abdominal pain (ICD-10) ?G89.29 - Other chronic pain (ICD-10) Obesity ?E66.9 - Obesity, unspecified (ICD-10) Miscarriage ?O03.9 - Complete or unspecified spontaneous without complication (ICD-10) H. pylori infection ?A04.8 - Other specified bacterial intestinal infections (ICD-10) Surgical History S/P laparoscopic cholecystectomy ?Z90.49 - Acquired absence of other specified parts of digestive tract (ICD-10) Social History What is your current living situation?: I presently have a place to live Problems where you live: no known problems Problems where you live details: no In the past 12 months, utilities in danger of being shut off: no In past 12 months, lack of transportation kept you from medical appts, meetings, work, or getting things needed for daily living: no In the past 12 mos, have been you worried that your food would run out before you had money to buy more?: never true In the past 12 mos, the food you bought just didn't last and you didn't have money to buy more?: never true Highest level of school completed/degree received: some college, no degree Smoking Status: Former smoker How often do you have a drink containing alcohol: monthly or less How often do you have six or more drinks on one occasion: Never AUDIT-C Alcohol total score: 1 Non-prescribed substance use: denies use Caffeine: No How often does anyone, including family, friends and others, physically hurt you: never How often does anyone, including family, friends and others, insult or talk down to you: never How often does anyone, including family, friends and others, threaten you with harm: never How often does anyone, including family, friends and others, scream or curse at you: never service: No Exam Narrative: Exam Narrative: EXAM GENERAL: Patient appears distressed. EYES: No scleral icterus. LYMPH: No supraclavicular or cervical lymphadenopathy. SKIN: Visible skin seen during exam normal or with benign process only. EXT: No dependent lower extremity pedal edema. HEART: Regular rate and rhythm with no murmurs, rubs, or gallops. LUNGS: Clear to auscultation bilaterally with no crackles or wheezes. ABD: Soft, non tender, non distended. Previous surgery sites noted. Healing well. PSYCH: Good eye contact, speech is not pressured. Const: Vital Signs, click to edit/add: Vital Signs - 24 hr 06/01/24 07:17 06/01/24 10:41 Temperature 99 F Pulse Rate [Pulse Oximeter] 90 89 Respiratory Rate 18 18 Blood Pressure [Ri ght Upper Arm] 115/75 129/68 Pulse Oximetry 95 98 Oxygen Delivery Me thod Room Air Course Course ED Course: I am suspicious that we are not going to find any major findings. I do think that proceeding with evaluation due to the patient's symptoms is reasonable. I did send off CBC CMP lipase CT abdomen pelvis and give her L of normal saline. Vital Signs Vital signs: Initial Vital Signs Temperature 99 F 06/01/24 07:17 Temperature Source Temporal Artery Scan 06/01/24 07:17 Pulse Rate 90 06/01/24 07:17 Respiratory Rate 18 06/01/24 07:17 Blood Pressure 115/75 06/01/24 07:17 Blood Pressure Mean 88 06/01/24 07:17 Pulse Oximetry 95 06/01/24 07:17 Vital Signs Temperature 99 F 06/01/24 07:17 Pulse Rate 90 06/01/24 07:17 Respiratory Rate 18 06/01/24 07:17 Blood Pressure 115/75 06/01/24 07:17 Pulse Oximetry 95 06/01/24 07:17 Temperature 99 F 06/01/24 07:17 Pulse Rate 89 06/01/24 10:41 Respiratory Rate 18 06/01/24 10:41 Blood Pressure 129/68 06/01/24 10:41 Pulse Oximetry 98 06/01/24 10:41 Oxygen Delivery Method Room Air 06/01/24 10:41 Medications Administered Medications: Generic Name Dose Route Start Last Admin Trade Name Freq PRN Reason Stop Dose Admin Sodium Chloride 1,000 mls @ 125 mls/hr 06/01/24 11:05 06/01/24 11:21 0.9 % Sodium Chloride 1000 Ml IV 125 mls/hr .Q8H WHITNEY Administration Discontinued Medications Generic Name Dose Route Start Last Admin Trade Name Freq PRN Reason Stop Dose Admin Sodium Chloride 1,000 mls @ 1,000 mls/hr 06/01/24 08:09 06/01/24 10:09 0.9 % Sodium Chloride 1000 Ml IV 06/01/24 09:08 Infused .Q1H WHITNEY Infusion Lorazepam 1 mg 06/01/24 11:05 06/01/24 11:19 Lorazepam 2 Mg/Ml Inj IVP 06/01/24 11:06 1 mg ONCE ONE Administration MDM - Abdominal Pain MDM Narrative Medical decision making narrative: Patient presents with abdominal pain 8 days after having a cholecystectomy. She had multiple evaluations ER visits prior to today and in fact came directly from the ER in [place]. Initially did really think we are going to fine much bite she does have significant elevation in her transaminases and appears to have common bowel duct stone. She is treated with hydration. My intention was to keep her NPO transfer her for ERCP and further evaluation. I went in to see the patient and found her eating lunchables brought in by her family. She is immediately made NPO again at this point she is being transferred for further evaluation and treatment. After speaking with the accepting hospital at [facility] I did speak with both GI and hospitalist service. There is concern of the severity of the transaminase elevation. They are willing to accept the patient transfer. Lab Data Labs: Lab Results 06/01/24 06/01/24 Range/Units 08:20 08:30 WBC 6.08 (4.50-11.00) K/uL RBC 4.24 (4.00-5.20) m/uL Hgb 12.8 (12.0-16.0) gm/dL Hct 37.9 (33.0-51.0) % MCV 89 (80-100) fL MCH 30 (26-34) pg MCHC 34 (32-36) gm/dL RDW Coeff of [place] 12.1 (11.5-15.5) % Plt Count 267 (140-440) K/uL Neut % (Auto) 71.1 (42.0-72.0) % Lymph % (Auto) 14.5 L (20-44) % Ward % (Auto) 12.5 H (0.0-11.0) % Eos % (Auto) 1.2 (0.0-7.0) % Baso % (Auto) 0.5 (0.0-3.0) % Neut # (Auto) 4.33 (1.7-7.0) K/uL Lymph # (Auto) 0.90 (0.90-2.90) K/uL Ward # (Auto) 0.80 (0.00-0.90) K/UL Eos # (Auto) 0.07 (0.00-0.50) K/uL Baso # (Auto) 0.03 (0.00-0.30) K/uL Abs Immat Gran (auto) 0.01 (0.00-0.30) K/uL Imm/Tot Granulo (auto) 0.2 % Sodium 138 (135-149) mmol/L Potassium 4.4 (3.6-5.1) mmol/L Chloride 105 (96-114) mmol/L Carbon Dioxide 24 (20-32) mmol/L Anion Gap 9 (7-15) mEq/L BUN 14 (5-24) mg/dL Creatinine 0.7 (0.5-1.5) mg/dL Estimated Creat Clear 121.70 Estimated GFR 119 ml/min Glucose 96 (60-115) mg/dL Calcium 9.1 (8.4-10.6) mg/dL Total Bilirubin 2.0 H (0.1-1.5) mg/dL AST 1218 H (12-35) U/L ALT 1058 H (4-35) U/L Alkaline Phosphatase 278 H (40-150) U/L Total Protein 7.9 (6.0-8.3) g/dL Albumin 4.3 (3.3-5.0) g/dL Lipase 128 (23-300) U/L Urine Color Yellow (Yellow) Urine Appearance Clear (Clear) Urine pH 6.0 (5.0-8.5) Ur Specific [place] 1.010 (1.000-1.030) Urine Protein Negative (Negative) Urine Glucose (UA) Negative (Negative) Urine Ketones Negative (Negative) Urine Blood Trace-intact A (Negative) Urine Nitrite Negative (Negative) Urine Bilirubin Negative (Negative) Urine Urobilinogen 0.2 (0.2-1.0) Ur Leukocyte Esterase 2+ A (Negative) Urine RBC 0-2 (0-2) Urine WBC 10-25 A (0-5) Ur Squamous Epith Cells Moderate A (None-Few) Urine Bacteria Few A (None) Discharge Plan Discharge Clinical Impression: Hepatitis Patient Disposition: Xfer Other Discharge Location: [facility] [place] Condition: Guarded Activity Level: Other Discharge Diet: Other Prescriptions: No Action metoclopramide HCl 10 mg tablet 10 mg PO Q6H PRN polyethylene glycol 3350 [ClearLax] 17 gram/dose powder 17 g PO DAILY PRN polyethylene glycol 3350 [Miralax] 17 gram powder in packet 17 g PO DAILY Qty: 10 0RF oxycodone-acetaminophen 5-325 mg tablet 1 tab PO Q6H PRN (Reason: pain) Qty: 25 0RF omeprazole magnesium [Prilosec OTC] 20 mg tablet,delayed release (DR/EC) 20 mg PO DAILY Qty: 30 2RF amoxicillin-pot clavulanate 875-125 mg tablet 1 tab PO BID Qty: 10 0RF alum-mag hydroxide-simeth 200-200-20 mg/5 mL suspension 15 ml PO QID PRN famotidine 20 mg tablet 20 mg PO BID Follow Up/Referrals: Provider,Not a Local [Primary Care Provider] - Stand Alone Forms: MyHealth Info Instructions
--- OUTSIDE RECORDS SUMMARY | 2024-06-01 08:21 | XMS_ITS | Encounter Summary ---
Author Organization [facility] Address [address] [place] [address] Care Team Providers Care [employer]iner Name Role Phone Montse Ruiz D.O. Primary Care Provider [phone] Reason for Visit * Reason Comments Abdominal Pain Encounter Details Date Type Department Care Team (Late st Contact Info) Description 04/16/2024 5:11 AM MIMEOGRAPH OPERATOR - 04/16/2024 11:59 PM MIMEOGRAPH OPERATOR Emergency [facility] [address] [facility] [place] [address] Discharge Disposition: Home or Self [...] on file Legal Sex Female 8:30 AM MIMEOGRAPH OPERATOR Gender Identity Not on file Sexual [...] (adominal pain). 120 capsule 5 08/27/2023 08/26/2024 FLUoxetine (PROzac) 20 mg capsuleIndication s:Anxiety Generalized [...] as needed for sleep 30 tablet 01/07/2024 famotidine (Pepcid) 20 mg tabletIndications :Nausea Take 1 tablet (20 mg total) by mouth daily. 90 tablet 3 12/06/2023 05/31/2024 documented as of this encounter Plan of Treatment Not on file documented as of this encounter Procedures Procedure Name Priority Date/Time Associated Diagnosis Comments CT CHEST ABDOMEN PELVIS ANGIOGRAM WITH IV CONTRAST RAD - Semiurgent (Fast; most ED patients; some inpatients) 04/16/2024 6:10 AM MIMEOGRAPH OPERATOR documented in this encounter Results * CT Chest Abdomen Pelvis Angiogram with IV Contrast (04/16/2024 6:10 AM MIMEOGRAPH OPERATOR) Anatomical Region Laterality Modality Chest, Abdomen, Pelvis, Card iovascular RST LOS, Abdominal ARZ LOS, Thoracic ARZ LOS, Vascular Interventional ARZ LOS, Thoracic FLA LOS, Procedural, Vascular Interventional NWWI LOS Computed Tomography 04/16/2024 6:13 AM MIMEOGRAPH OPERATOR Impressions 04/16/2024 6:58 AM MIMEOGRAPH OPERATOR No acute abnormality in the chest, abdomen, or pelvis. Narrative 04/16/2024 6:58 AM MIMEOGRAPH OPERATOR EXAM: CT CHEST ABDOMEN PELVIS ANGIOGRAM WITH [...] For 1 dose Given 04/16/2024 6:06 AM MIMEOGRAPH OPERATOR 100 mL R ight Forearm sodium chloride 0.9 % flush 80 mL 80 mL, intravenous, Once, On Sun04/16/24 at 0615, For 1 dose Given 04/16/2024 6:06 AM MIMEOGRAPH OPERATOR 80 mL Right Forearm sodium chloride 0.9 % injection 10 mL 10 mL, intravenous, Once, On Sun04/16/24 at 0615, For 1 dose Given 04/16/2024 6:06 AM MIMEOGRAPH OPERATOR 10 mL Right Forearm documented in this encounter Active and Recently Administered Medications Times are shown in MIMEOGRAPH OPERATOR. Scheduled Medication Order 04/14/2024 04/15/2024 04/16/2024 sodium [...] Noted Time PHQ-9 Depression Total Score: 18 06/20/2 024 4:50 PM CDT documented as of this encounter Care Teams [employer] Relationship Specialty Start Date End Date Montse Ruiz D.O. [address] [place] [address] PCP - General Family Medicine 11/27/23 documented as of this encounter
--- OUTSIDE RECORDS SUMMARY | 2024-06-01 08:21 | XMS_ITS | Encounter Summary ---
Author Organization [facility] Address [address] [place] [address] Care Team Providers Care Slag Mixer Name Role Phone Montse Ruiz D.O. Primary Care Provider [phone] Reason for Visit * Reason Comments Abdominal Pain Encounter Details Date Type Department Care Team (Late st Contact Info) Description 05/12/2024 3:14 AM MATERIAL ASSISTANT - 05/12/2024 11:59 PM MATERIAL ASSISTANT Emergency [facility] [address] [place] [address] Discharge Disposition: Home or Self [...] on file Legal Sex Female 8:30 AM MATERIAL ASSISTANT Gender Identity Not on file Sexual Orientation [...] documented as of this encounter Care Teams Slag Mixer Relationship Specialty Start Date End Date Montse Ruiz D.O. [address] [place] [address] PCP - General Family Medicine 11/27/23 documented as of this encounter
--- OUTSIDE RECORDS SUMMARY | 2024-06-01 08:21 | XMS_ITS | Encounter Summary ---
Author Organization [facility] Address [address] [place] [address] Care Team Providers Care Magento Developer Name Role Phone Montse Ruiz D.O. Primary Care Provider [phone] Reason for Visit * Reason Comments Abdominal Pain Encounter Details Date Type Department Care Team (Late st Contact Info) Description 04/22/2024 10:59 PM NET SOFTWARE ARCHITECT - 04/22/2024 11:59 PM NET SOFTWARE ARCHITECT Emergency [facility] [address] [place] [address] Discharge Disposition: Home or Self [...] on file Legal Sex Female 8:30 AM NET SOFTWARE ARCHITECT Gender Identity Not on file Sexual Orientation [...] documented as of this encounter Care Teams Magento Developer Relationship Specialty Start Date End Date Montse Ruiz D.O. [address] [place] [phone] PCP - General Family Medicine 11/27/23 documented as of this encounter
--- OUTSIDE RECORDS SUMMARY | 2024-06-01 08:21 | XMS_ITS | Encounter Summary ---
Author Organization [facility] Address [address] [place] [address] Care Team Providers Care Assessment Manager Name Role Phone Montse Ruiz D.O. Primary Care Provider [phone] Reason for Referral * Outpatient (Routine) - Authorized Specialty Diagnoses / Procedures Referred By Gautam small Referred To Contact Emergency Medicine Diagnoses Abdominal Pain Pain Epigastric Maxwell Pereira D.O., M.S. [address] [place] [phone] Phone: tel: fax: [facility] Region Referral ID Status Reason Start Date Expiration Date V isits Requested Visits Authorized [id number] Authorized 05/31/2024 11/30/2025 1 1 OUS PLASTERER Reason for Visit * Reason Comments Abdominal Pain Patient arrives c/o ongoing abdominal pain since gallbladder surgery on Sunday. Patient reports mid abdominal pain that radiates to her back. Reports difficulty urinating d/t pain. 10/10 pain in triage. VSS. Encounter Details Date Type Department Care Team (Late st Contact Info) Description 05/31/2024 12:10 PM FIBROUS PLASTERER - 05/31/2024 9:48 PM FIBROUS PLASTERER Emergency [facility] Emergency Department [address] [place] [phone] Marvin Hutchinson M.D. [address] [place] [phone] Maxwell Pereira D.O., M.S. [address] [place] [phone] Abdominal Pain (Primary Dx); Pain Epigastric Discharge Disposition: Home or Self Care Social [...] on file Legal Sex Female 8:30 AM FIBROUS PLASTERER Gender Identity Not on file Sexual Orientation Not on file documented as of this encounter Last Filed Vital Signs Vital Sign Reading Time Taken Comments Blood Pressure 111/77 05/31/2024 8:00 PM FIBROUS PLASTERER Pulse 84 05/31/2024 8:00 PM FIBROUS PLASTERER Temperature 36.8 C (98.2 F) 05/31/2024 11:52 AM FIBROUS PLASTERER Respiratory Rate - - Oxygen Saturation 97% 05/31/2024 8:00 PM FIBROUS PLASTERER Inhaled Oxygen Concentration - - Weight 93.9 kg (207 lb) 05/31/2024 11:52 AM FIBROUS PLASTERER Height 170 cm (5' 6.93) 05/31/2024 11:52 AM FIBROUS PLASTERER Body Mass Index 32.49 05/31/2024 11:52 AM FIBROUS PLASTERER documented in this encounter Discharge Instructions * Discharge Instructions* Maxwell ePreira D.O., M.S. - 05/31/2024 9:41 PM FIBROUS PLASTERER You were seen in the emergency department for evaluation of your symptoms. Please begin taking MiraLax, 1 capful 3 times a day for the next 2 days. Please transitioned to 1 to 2 capfuls per day to achieve 1 to 2 soft stools per day. A referral was placed for GI that has arts administrator or manager should contact youin 2 business days. We are hopeful that you can see them this upcoming week given multiple ER visits and ongoing symptoms. Please begin taking the Pepcid as prescribed. For pain, please utilize ibuprofen 400 to 600 mg every 6 hours and Tylenol 1000 mg every 6 hours. Please do return to the emergency department with any new or worrisome symptoms including but not limited to, worsening/uncontrolledpain. OUS PLASTERER documented in this encounter Medications at Time [...] 5 08/27/2023 08/26/2024 famotidine (Pepcid) 20 mg tablet Take 1 tablet (20 mg total) by mouth 2 (two) times a day. 60 tablet 05/31/2024 06/30/2024 FLUoxetine (PROzac) 20 mg capsuleIndication s:Anxiety Generalized [...] tablet 01/07/2024 documented as of this encounter ED Notes * Maxwell Pereira D.O., M.S. - 05/31/2024 3:32 PM CST Care of patient transferred to mi by Dr. Hutchinson. Disposition pending HIDA scan for possible leak.. VITAL SIGNS BP 111/77 Pulse 84 Temp 36.8 ??C (Temporal) Ht 170 cm Wt 93.9 kg LMP 05/16/2024 SpO2 97% BMI 32.49 kg/m?? ED Course as of 05/31/242141 Sat May 31, 2024 1533 Patient had surgery at [facility] Patient's pain is a 3 or 4 at this time. Patient is bit off at PPI/H2 pat for several weeks. Patient's symptoms unchanged relative after her surgery. Was discuss with patient, gallstones maynot have been the overall cause for patient's ongoing acute on chronic pain. Dosing for MiraLax discussed. Objective findings discussed. Did reach out to radiology as well who did interpret the HIDA scan is negative for leak. Patient's exam remains reassuring. GI consult placed for second opinion. Final Diagnoses: as of 05/31/242141 Abdominal Pain Pain Epigastric Maxwell Pereira D.O., M.S. 05/31/242141 OUS PLASTERER * Marvin Hutchinson M.D. - 05/31/2024 12:50 PM CST SUBJECTIVE CHIEF COMPLAINT / REASON FOR VISIT Abdominal Pain (Patient arrives c/o ongoing abdominal pain since gallbladder surgery on Sunday. Patient reports mid abdominal pain that radiates to her back. Reports difficulty urinating d/t pain. 10/10 pain in triage. VSS. ) HISTORY OF PRESENT ILLNESS Patient is a 29 y.o. female with medical history as below presenting to the emergency department for abdominal pain. Patient recently underwent cholecystectomy last week and since then has been experiencing significant abdominal pain that has not improved despite multiple visits to various emergency departments. Patient states she has ongoing nausea but denies fever, shortness of breath, chest pain. Patient states her pain is located in the right upper quadrant area with no associated syncope. Patient has radiation of pain to her left upper quadrant and describes her pain as significant 10 of10 sensation REVIEW OF SYSTEMS Constitutional: Negative for activity change, fatigue and fever. HENT: Negative for congestion and ear pain. Respiratory: Negative for cough, shortness of breath and wheezing. Cardiovascular: Negative for chest pain and palpitations. Gastrointestinal: Positive for abdominal pain and nausea. Negative for diarrhea and vomiting. Genitourinary: Negative for dysuria. Musculoskeletal: Negative for arthralgias and myalgias. ALLERGIES / CONTRAINDICATIONS Reviewed in medical record. CURRENT MEDICATIONS Reviewed in medical record. MEDICAL HISTORY Medical History[1] There are no active problems to display for this patient. SURGICAL HISTORY Surgical History[2] FAMILY HISTORY Reviewed in chart. SOCIAL HISTORY Social History Tobacco Use Smoking status: Former Types: Cigarettes Smokeless tobacco: Never Substance Use Topics Alcohol use: Not Currently Social History Substance and Sexual Activity Alcohol Use Not Currently Social History Substance and Sexual Activity Drug Use Not Currently OBJECTIVE VITAL SIGNS Initial Vitals Temperature 05/31/24 1152 36.8 ??C Pulse Rate 05/31/24 1152 95 Heart Rate -- Resp -- Blood Pressure 05/31/24 1152 (!) 129/115 SpO2 05/31/24 1152 98 % Pain Score 05/31/24 1157 10 - Worst possible pain PHYSICAL EXAMINATION Constitutional: Nursing note and vitals reviewed. No distress. HENT: Head: Normocephalic and atraumatic. Mouth/Throat: Mucous membranes are moist. Eyes: EOM are normal. Pupils are equal, round, and reactive to light. Neck: Neck supple. Cardiovascular: Normal rate, regular rhythm and normal heart sounds. Capillary refill: takes less than 3 seconds Pulmonary/Chest: Effort normal and breath sounds normal. There is normal air entry. No respiratory distress. Abdominal: Soft. There is abdominal tenderness in the right upper quadrant. There is guarding. Musculoskeletal: General: Normal range of motion. Cervical back: Normal range of motion and neck supple. Neurological: Alert and oriented to person, place, and time. She is not disoriented. Skin: Skin is warm, skin not cool and dry. She is not diaphoretic. ED COURSE: Final Diagnoses: as of 05/31/24 1759 Abdominal Pain INTERVENTIONS: Medications morphine injection 4 mg (4 mg intravenous Not Given 05/31/24 1701) NaCl 0.9% infusion (has no administration in time range) morphine injection 4 mg (4 mg intravenous Given 05/31/24 1246) ketorolac injection 15 mg (ToradoL) (15 mg intravenous Given 05/31/24 1528) NaCl 0.9 % bolus 1,000 mL (1,000 mL intravenous New Bag 05/31/24 1648) DIAGNOSTICS LABS: Labs Reviewed COMPREHENSIVE METABOLIC PANEL, S/P - Abnormal Result Value Potassium, P 4.4 Sodium, P 139 Chloride, P 105 Bicarbonate, P 23 Anion Gap, P 11 BUN (Blood Urea Nitrogen), P 15 Creatinine 0.61 Estimated GFR (eGFR) >90 Calcium, Total, P 8.9 Glucose, P 97 Protein, Total, P 7.3 Albumin, P 3.9 Aspartate Aminotransferase (AST), P SEE COMMENT Alkaline Phosphatase, P 203 (*) Alanine Aminotransferase (ALT), P 152 (*) Bilirubin, Total, P 0.5 CBC WITH DIFFERENTIAL, B Hemoglobin 12.5 Hematocrit 37.5 Erythrocytes 4.15 MCV 90.4 RBC Distrib Width 12.2 Platelet Count 281 Leukocytes 8.4 Neutrophils 6.34 Lymphocytes 1.27 Monocytes 0.68 Eosinophils 0.09 Basophils 0.03 LIPASE, S/P Lipase, P 44 HUMAN CHORIONIC GONADOTROPIN (HCG), BRISA, HCG, Quantitative, , P <1.0 ECG: RADIOLOGY: US Gallbladder and or Biliary Ducts Final Result Postoperative findings status post cholecystectomy. Small amount of fluid within the gallbladder fossa, similar findings on recent postoperative CT from 05/26/2024. Nuclear medicine hepatobiliary scintigraphy more sensitive for evaluation of localized bile leak ifclinically indicated. NM Hepatobiliary (Results Pending) PROCEDURES: ASSESSMENT / PLAN IMPRESSION AND PLAN 29-year-old female with medical history as above presenting to the emergency department for abdominal pain. Physical examination as described above showing abdominal tenderness in the right upper quadrant with guarding present on examination. Patient is hemodynamically stable on arrival to the emergency department. Lab work performed today demonstrates mildly elevated ALT and alk phos otherwise no leukocytosis with no additional abnormalities in the remainder of patient's tested lab panels. Imaging performed today shows postsurgical changes with no biliary duct dilation, recommendation for hepatobiliary scintigraphy to be performed. Nuclear med hepatobiliary scan order placed in currently pending at the time of this writing. Patient case signed out to oncoming emergency department provider pending completion of the study for further evaluation of potential biliary leak. DIFFERENTIAL DIAGNOSIS Biliary leak, postsurgical pain, hepatitis I personally reviewed the lab result(s) and my interpretation is documented in ED Course. I personally reviewed the radiology image(s), discussed radiology exam(s) with radiologist and reviewed the radiology report(s). DIAGNOSIS: Final diagnoses: [R10.9] Abdominal Pain ED DISCHARGE MEDS: ED Prescriptions None DISPOSITION: Signed out to oncoming ED provider FOLLOW UP: Marvin Hutchinson M.D. Emergency Medicine [1] Past Medical History: Diagnosis Date Constipation Depression Anxiety Dysmenorrhea Gastritis Gastroesophageal Reflux Disease NOS Gonorrhea Helicobacter Pylori As The Cause Of Diseases Classified Elsewhere Herpes Simplex Infection Kidney Insomnia Menorrhagia Wart Genital [2] No past surgical history on file. Marvin Hutchinson M.D. 05/31/24 [id number] OUS PLASTERER documented in this encounter Plan of Treatment Scheduled Referrals Name Type Priority Associated Diagnoses Order Schedule POST ED VISIT Gastroenterology and Hepatology Outpatient Referral Routine Abdominal Pain Pain Epigastric Expected: 05/31/2024, Expires: 08/31/2025 documented as of this encounter Procedures Procedure Name Priority Date/Time Associated Diagnosis Comments NM HEPATOBILIARY RAD - Routine (most inpatients and all outpatients) 05/31/2024 7:33 PM FIBROUS PLASTERER US GALLBLADDER AND OR BILIARY DUCTS RAD - Semiurgent (Fast; most ED patients; some inpatients) 05/31/2024 1:29 PM FIBROUS PLASTERER CBC WITH DIFFERENTIAL, B STAT 05/31/2024 12:56 PM FIBROUS PLASTERER HUMAN CHORIONIC GONADOTROPIN (HCG), BRISA, STAT 05/31/2024 12:56 PM FIBROUS PLASTERER LIPASE, S/P STAT 05/31/2024 12:56 PM FIBROUS PLASTERER COMPREHENSIVE METABOLIC PANEL, S/P STAT 05/31/2024 12:56 PM FIBROUS PLASTERER documented in this encounter Results * NM Hepatobiliary (05/31/2024 7:33 PM FIBROUS PLASTERER) Anatomical Region Laterality Modality Abdomen, Nuclear Medicine RS T LOS, Nuclear Medicine ARZ LOS, Nuclear Medicine FLA LOS, Nuclear Medicine N/A Nuclea r Medicine Impressions 05/31/2024 8:08 PM FIBROUS PLASTERER Normal post cholecystectomy HIDA scan. Narrative 05/31/2024 8:08 PM FIBROUS PLASTERER REVISED REPORT: EXAM: NM HEPATOBILIARY COMPARISON: None PROCEDURE: Serial images were obtained until small bowel activity could be confirmed and gallbladder visualized. FINDINGS: Radiotracer distribution throughout the liver and biliary tree: Normal Small bowel activity visualized within 60 minutes. The patient is status post cholecystectomy. There is no collection of activity within the gallbladder fossa to suggest a biliary leak. RADIOPHARMACEUTICAL/MEDS: Route: intravenous technetium Tc 99m mebrofenin (Tc-99m Choletec),7 millicurie Procedure Note Steve Fall M.D. - 05/31/2024 REVISED REPORT: EXAM: NM HEPATOBILIARY COMPARISON: None PROCEDURE: Serial images were obtained until small bowel activity could be confirmedand gallbladder visualized. FINDINGS: Radiotracer distribution throughout the liver and biliary tree: Normal Small bowel activity visualized within 60 minutes. The patient is status post cholecystectomy. There is no collection ofactivity within the gallbladder fossa to suggest a biliary leak. RADIOPHARMACEUTICAL/MEDS: Route: intravenous technetium Tc 99m mebrofenin (Tc-99m Choletec),7 millicurie IMPRESSION: Normal post cholecystectomy HIDA scan. Marvin Hutchinson M.D. [facility] [place] PROCEDURES Edited Re sult - Final * US Gallbladder and or Biliary Ducts (05/31/2024 1:29 PM FIBROUS PLASTERER) Anatomical Region Laterality Modality Abdomen, Ultrasound RST LOS, Ultrasound ARZ LOS, Ultrasound FLA LOS N/A Ultrasound Impressions 05/31/2024 1:44 PM FIBROUS PLASTERER Postoperative findings status post cholecystectomy. Small amount of fluid within the gallbladder fossa, similar findings on recent postoperative CT from 05/26/2024. Nuclear medicine hepatobiliary scintigraphy more sensitive for evaluation of localized bile leak if clinically indicated. Narrative 05/31/2024 1:44 PM FIBROUS PLASTERER EXAM: US GALLBLADDER AND OR BILIARY DUCTS COMPARISON: Preoperative sonography 05/21/2024, 04/11/2024. Postoperative CT 05/26/2024. FINDINGS: Gallbladder: Surgically absent. Small hypoechoic area within the gallbladder fossa likely sequela of recent surgery, corresponding small low-attenuation area at this location on recent CT. Nuclear medicine hepatobiliary scintigraphy more sensitive for evaluation of postoperative bile leak if clinically indicated. Negative sonographic Crespo sign. Intrahepatic ducts: Not dilated. Common duct: Not dilated. Aorta: Normal caliber. Procedure Note Ervin Miles M.D. - 05/31/2024 EXAM: US GALLBLADDER AND OR BILIARY DUCTS COMPARISON: Preoperative sonography 05/21/2024, 04/11/2024. Postoperative CT 05/26/2024. FINDINGS: Gallbladder: Surgically absent. Small hypoechoic area within thegallbladder fossa likely sequela of recent surgery, corresponding smalllow-attenuation area at this location on recent CT. Nuclear medicinehepatobiliary scintigraphy more sensitive for evaluation of postoperative bile leak if clinically indicated. Negative sonographic Crespo sign. Intrahepatic ducts: Not dilated. Common duct: Not dilated. Aorta: Normal caliber. IMPRESSION: Postoperative findings status post cholecystectomy. Small amount of fluid within the gallbladder fossa, similar findings onrecent postoperative CT from 05/26/2024. Nuclear medicine hepatobiliary scintigraphy more sensitive for evaluationof localized bile leak if clinically indicated. Marvin Hutchinson M.D. IMG US PROCEDURES Final Res ult * hCG (Human Chorionic Gonadotropin), Quantitative, (05/31/2024 12:56 PM FIBROUS PLASTERER) HCG, Quantitative, , P <1.0 <5 IU/L 05/31/2024 2:52 PM FIBROUS PLASTERER [facility] Blood (Blood, Venous) 05/31/2024 12:56 PM FIBROUS PLASTERER 05/31/2024 2:37 PM FIBROUS PLASTERER Marvin Hutchinson M.D. LAB BLOOD ADD-ON Final Resu lt [facility] [address] [place] [address], [facility] [place] [address] [place] [address] * Lipase (05/31/2024 12:56 PM FIBROUS PLASTERER) Lipase, P 44 13 - 60 U/L 05/31/2024 1: 31 PM FIBROUS PLASTERER [facility] Blood (Blood, Venous) 05/31/2024 12:56 PM FIBROUS PLASTERER 05/31/2024 1:11 PM FIBROUS PLASTERER us Marvin Hutchinson M.D. LAB BLOOD ADD-ON Final Resu lt [facility] [address] [place] [address], [facility] [place] [address] [place] [address] * (ABNORMAL) Comprehensive Metabolic Panel (05/31/2024 12:56 PM FIBROUS PLASTERER) Potassium, P 4.4 3.6 - 5.2 mmol/L 05/31/2024 1:31 PM FIBROUS PLASTERER [facility] Sodium, P 139 135 - 145 mmol/L 05/31/2024 1:31 PM FIBROUS PLASTERER [facility] Chloride, P 105 98 - 107 mmol/L 05/31/2024 1:31 PM FIBROUS PLASTERER [facility] Bicarbonate, P 23 22 - 29 mmol/L 05/31/2024 1:31 PM FIBROUS PLASTERER [facility] Anion Gap, P 11 7 - 15 05/31/2024 1:31 PM FIBROUS PLASTERER [facility] BUN (Blood Urea Nitrogen), P 15 6 - 21 mg/dL 05/31/2024 1:31 PM FIBROUS PLASTERER [facility] Creatinine 0.61 0.59 - 1.04 mg/dL 05/31/2024 1:31 PM FIBROUS PLASTERER [facility] Estimated GFR (eGFR) >90 >=60 mL/min/B SA 05/31/2024 1:31 PM FIBROUS PLASTERER [facility] Comment: Estimated GFR calculated using the 2020 CKD_EPI creatinine equation. Calcium, Total, P 8.9 8.6 - 10.0 mg/dL 05/31/2024 1:31 PM FIBROUS PLASTERER [facility] Glucose, P 97 70 - 140 mg/dL 05/31/2024 1:31 PM FIBROUS PLASTERER [facility] Protein, Total, P 7.3 6.3 - 7.9 g/dL 05/31/2024 1:31 PM FIBROUS PLASTERER [facility] Albumin, P 3.9 3.5 - 5.0 g/dL 05/31/2024 1:31 PM FIBROUS PLASTERER [facility] Aspartate Aminotransferase (AST), P SEE COMMENT 8 - 43 U/L 05/31/2024 2:00 PM FIBROUS PLASTERER [facility] Comment:Specimen was hemolyz ed. Alkaline Phosphatase, P 203(H) 35 - 104 U/L 05/31/2024 1:31 PM FIBROUS PLASTERER [facility] Alanine Aminotransferase (ALT), P 152(H) 7 - 45 U/L 05/31/2024 1:31 PM FIBROUS PLASTERER [facility] Bilirubin, Total, P 0.5 0.0 - 1.2 mg/dL 05/31/2024 1:31 PM FIBROUS PLASTERER [facility] Blood (Blood, Venous) 05/31/2024 12:56 PM FIBROUS PLASTERER 05/31/2024 1:11 PM FIBROUS PLASTERER us Marvin Hutchinson M.D. LAB BLOOD ADD-ON Final Resu lt [facility] [address] [place] [address], [facility] [place] [address] [place] [address] * CBC with Differential, Blood (05/31/2024 12:56 PM FIBROUS PLASTERER) Hemoglobin 12.5 11.6 - 15.0 g/dL 05/31/2024 1:17 PM FIBROUS PLASTERER [facility] Hematocrit 37.5 35.5 - 44.9 % 05/31/2024 1:17 PM FIBROUS PLASTERER [facility] Erythrocytes 4.15 3.92 - 5.13 x10(12)/L 05/31/2024 1:17 PM FIBROUS PLASTERER [facility] MCV 90.4 78.2 - 97.9 fL 05/31/2024 1:17 PM FIBROUS PLASTERER [facility] RBC Distrib Width 12.2 12.2 - 16.1 % 05/31/2024 1:17 PM FIBROUS PLASTERER [facility] Platelet Count 281 157 - 371 x10(9)/L 05/31/2024 1:17 PM FIBROUS PLASTERER [facility] Leukocytes 8.4 3.4 - 9.6 x10(9)/L 05/31/2024 1:17 PM FIBROUS PLASTERER [facility] Neutrophils 6.34 1.56 - 6.45 x10(9)/L 05/31/2024 1:17 PM FIBROUS PLASTERER [facility] Lymphocytes 1.27 0.95 - 3.07 x10(9)/L 05/31/2024 1:17 PM FIBROUS PLASTERER [facility] Monocytes 0.68 0.26 - 0.81 x10(9)/L 05/31/2024 1:17 PM FIBROUS PLASTERER [facility] Eosinophils 0.09 0.03 - 0.48 x10(9)/L 05/31/2024 1:17 PM FIBROUS PLASTERER [facility] Basophils 0.03 0.01 - 0.08 x10(9)/L 05/31/2024 1:17 PM FIBROUS PLASTERER [facility] Blood (Blood, Venous) 05/31/2024 12:56 PM FIBROUS PLASTERER 05/31/2024 1:11 PM FIBROUS PLASTERER us Marvin Hutchinson M.D. LAB BLOOD ADD-ON Final Resu lt [facility] [place] [address], [facility] [place] [address] [place] [address] documented in this encounter Visit Diagnoses Diagnosis Abdominal Pain- Primary Pain Epigastric documented in this encounter Administered Medications Inactive Administered Medications - up to 3 most recent administrations Medication Order MAR Action Action Date Dose Rate Site ketorolac injection 15 mg (ToradoL) 15 mg, intravenous, Once, On 05/31/24 at 1454, For 1 dose, Adult IV push rate: Over 15 seconds. Peds IV push rate: Over 1 minute. Doses > 15 mg IV/IM are discouraged due to lack of additional analgesic benefit. Given 05/31/2024 3:28 PM FIBROUS PLASTERER 15 mg ketorolac injection 15 mg (ToradoL) 15 mg, intravenous, Once, On 05/31/24 at 2124, For 1 dose, Adult IV push rate: Over 15 seconds. Peds IV push rate: Over 1 minute. Doses > 15 mg IV/IM are discouraged due to lack of additional analgesic benefit. Given 05/31/2024 9:27 PM FIBROUS PLASTERER 15 mg lidocaine viscous 2 % 15 mL, alum-mag hydroxide-simeth 30 mL suspension 45 mL, oral, Once, On 05/31/24 at 2124, For 1 dose, Mix ingredients prior to administration Given 05/31/2024 9:27 PM FIBROUS PLASTERER 45 mL morphine injection 4 mg 4 mg, intravenous, Once, On 05/31/24 at 1240, For 1 dose Given 05/31/2024 12:46 PM FIBROUS PLASTERER 4 mg NaCl 0.9 % bolus 1,000 mL 1,000 mL, intravenous, at 1,000 mL/hr, Administer over 1 Hours, Once, On 05/31/24 at 1631, For 1 dose Restarted 05/31/2024 7:29 PM FIBROUS PLASTERER 1000 mL/hr New Bag 05/31/2024 4:48 PM FIBROUS PLASTERER 1,000 mL 1000 mL/hr NaCl 0.9% infusion 100 mL/hr, intravenous, Continuous, Starting on 05/31/24 at 1631 New Bag 05/31/2024 8:00 PM FIBROUS PLASTERER 100 mL/hr 100 mL/hr technetium Tc 99m mebrofenin (Tc-99m Choletec) 7 millicurie, intravenous, Once, On 05/31/24 at 1813, For 1 dose, Imaging Protocol Orders Given 05/31/2024 6:12 PM FIBROUS PLASTERER 7 millicuries documented in this encounter Active and Recently Administered Medications Times are shown in FIBROUS PLASTERER. Scheduled Medication Order 05/29/2024 05/30/2024 05/31/2024 ketorolac injection 15 mg (ToradoL) (COMPLETED) 15 mg, intravenous, Once, On 05/31/24 at 1454, For 1 dose, Adult IV push rate: Over 15 seconds. Peds IV push rate: Over 1 minute. Doses > 15 mg IV/IM are discouraged due to lack of additional analgesic benefit. 1528 (Given - Provid er: Chivo Elena R.Juan Alberto.) ketorolac injection 15 mg (ToradoL) (COMPLETED) 15 mg, intravenous, Once, On 05/31/24 at 2124, For 1 dose, Adult IV push rate: Over 15 seconds. Peds IV push rate: Over 1 minute. Doses > 15 mg IV/IM are discouraged due to lack of additional analgesic benefit. 2126 (Given - Provid er: Elias Esparza R.N.) lidocaine viscous 2 % 15 mL, alum-mag hydroxide-simeth 30 mL suspension (COMPLETED) 45 mL, oral, Once, On 05/31/24 at 2123, For 1 dose, Mix ingredients prior to administration 2126 (Given - Provid er: Elias Esparza R.N.) morphine injection 4 mg (COMPLETED) 4 mg, intravenous, Once, On 05/31/24 at 1240, For 1 dose 1246 (Given - Provid er: Chivo Elena R.N.) morphine injection 4 mg 4 mg, intravenous, Once, On 05/31/24 at 1434, For 1 dose 1701 (Not Given - Pr ovider: Chivo Elena R.N. - Reason: Patient/family refused) NaCl 0.9 % bolus 1,000 mL (COMPLETED) 1,000 mL, intravenous, at 1,000 mL/hr, Administer over 1 Hours, Once, On 05/31/24 at 1631, For 1 dose 1648 (New Bag - Prov ider: Chivo Elena R.N.)192 (Restarted - Provider: Elias Esparza R.N. - Comment: Pt. just got back from IR)2005 (Stopped - Provider: Elias Esparza R.N.) technetium Tc 99m mebrofenin (Tc-99m Choletec) (COMPLETED) 7 millicurie, intravenous, Once, On 05/31/24 at 1813, For 1 dose, Imaging Protocol Orders 1811 (Given - Provid er: Donald BarlowMRosaTRosa) Continuous Medication Order 05/29/2024 05/30/2024 05/31/2024 NaCl 0.9% infusion 100 mL/hr, intravenous, Continuous, Starting on 05/31/24 at 1631 1999 (New Bag - Prov ider: Elias Esparza R.N.) documented in this encounter Additional Health Concerns Assessment Noted Time PHQ-9 Depression Total Score: 18 024 4:50 PM CDT documented as of this encounter Care Teams Assessment Manager Relationship Specialty Start Date End Date Montse Ruiz D.O. [address] [place] [phone] PCP - General Family Medicine 11/27/23 documented as of this encounter
--- OUTSIDE RECORDS SUMMARY | 2024-06-01 08:22 | XMS_ITS | Clinical Summary ---
Author Organization [facility] Address [address] [place] [id number] Care Team Providers Care Nail Polish Brush Machine Feeder Name Role Phone Pcp, No Primary Care [...] Active esomeprazole delayed release capsule (NEXIUM) 40 mgIndications:Pilot julius abdominal pain Take 1 Capsule (40 [...] Discontinued esomeprazole delayed release capsule (NEXIUM) 40 mgIndications:Pilot julius abdominal pain Take 1 Capsule (40 mg) by mouth once daily before a meal. 30 Capsule 04/23/19 25 025 Discontinued aluminum-magnesium hydroxide-simethic one (MAALOX PLUS) 200-200-20 mg/5 mL suspensionIndicati ons:Chronic abdominal pain Take 15 mL by mouth 4 times daily if needed for GI Upset. Shake Well. 355 mL 04/23/19 25 025 Discontinued Encounters Date Type Department Care Team Description 05/26/2024 Lab Requisition [facility] [phone] Oj Casarez MD 05/23/2024 8:01 AM [facility] - 05/23/2024 11:[address] [address] Deandra Murillo PA Ide, Emma Merritt, DO Abdominal pain, unspecified abdominal location (Primary Dx); Gastritis, presence of bleeding unspecified, unspecified chronicity, unspecified gastritis type; Gallstones Discharge Disposition: Home Self Care 05/23/[address] [address] Sorin Nickerson MD Questions (Earlier appointment ) 05/23/2024 Travel 05/21/2024 10:08 PM [facility] - 05/22/2024 1:[address] [address] Geri Desai MD Biliary colic (Primary Dx); Abdominal pain, unspecified abdominal location; Gastritis, presence of bleeding unspecified, unspecified chronicity, unspecified gastritis type Discharge Disposition: Home Self Care 05/21/2024 Travel 05/12/2024 3:12 AM [facility] - 05/12/2024 4:[address] [address] Angelo Aggarwal MD Chronic gastritis, presence of bleeding unspecified, unspecified gastritis type (Primary Dx); Chronic abdominal pain; Epigastric pain; Gastroesophageal reflux disease, unspecified whether esophagitis present Discharge Disposition: Home Self Care 05/12/2024 Travel 04/22/2024 11:09 PM [facility] - 04/23/2024 1:[address] [address] Kaden Santos MD Chronic abdominal pain (Primary Dx) Discharge Disposition: Home Self Care 04/22/2024 Travel 04/19/2024 7:53 AM [facility] - 04/19/2024 10:[address] [address] Wallace See DO Epigastric pain (Primary Dx) Discharge Disposition: Home Self Care 04/19/2024 Travel 04/16/2024 5:08 AM [facility] - 04/16/2024 10:[address] [address] Ronel Hendricks MD Ball, Julieanne Patricia, MD Upper abdominal pain (Primary Dx); Vomiting and diarrhea; Abdominal pain, unspecified abdominal location Discharge Disposition: Home Self Care 04/16/2024 Telephone [facility] [address] [place] [address] Sorin Nickerson MD Appointment 04/16/2024 Telephone [facility] [address] [place] [address] Sorin Nickerson MD Appointment (KATHERINE ) 04/11/2024 4:50 AM [facility] - 04/11/2024 7:[address] [address] Kaden Mejía MD Chronic abdominal pain (Primary [...] on file Legal Sex Female 8:24 AM HEARING THERAPY TEACHER Gender Identity Not on file Sexual Orientation Not on file Obstetrics History Para Term AB IAB SAB Ectopic Multiple Livin g Live Births 1 Date Outcome GA Total Labor Labor/2nd/3rd Weight Sex Type Anes PTL Anabell A1 A5 Name Clin Last Filed Vital Signs Vital Sign Reading Time Taken Comments Blood Pressure 120/70 05/23/2024 11:02 AM HEARING THERAPY TEACHER Pulse 89 05/23/2024 11:01 AM HEARING THERAPY TEACHER Temperature 36.9 C (98.4 F) 05/23/2024 8:02 AM HEARING THERAPY TEACHER Respiratory Rate 16 05/23/2024 11:02 AM HEARING THERAPY TEACHER Oxygen Saturation 99% 05/23/2024 11:01 AM HEARING THERAPY TEACHER Inhaled Oxygen Concentration - - Weight 95.7 kg (211 lb) 05/23/2024 8:02 AM HEARING THERAPY TEACHER Height 170.2 cm (5' 7) 05/23/2024 8:02 AM HEARING THERAPY TEACHER Body Mass Index 33.05 05/23/2024 8:02 AM HEARING THERAPY TEACHER Plan of Treatment Upcoming Encounters Date Type Department Care Team (Late st Contact Info) Description 07/10/2024 9:00 AM CDT Office Visit [facility] [address] [place] [address] Sorin Nickerson MD [address] [place] [address] Health Maintenance Due Date Last Done Comments Tdap 2004 Depression screening for age 12+ 2005 HIV for age 15-65 2008 BMI (ht and wt on same day) for age 18+ 2011 Hepatitis C screening for ag e 18-79 2011 Tetanus booster 2013 Pap test for age 21-65 2014 COVID-19 vaccine series ( season) 2023 Influenza Vaccine (#1) 2023 Pneumococcal series for age 6-49 Aged Out No longer eligible based on patient's age to complete this topic Procedures Procedure Name Priority Date/Time Associated Diagnosis Comments PATH TISSUE EXAM Routine 05/24/2024 4:45 PM HEARING THERAPY TEACHER LAB TRACKING EVENT Routine 05/24/2024 4: 42 PM HEARING THERAPY TEACHER CBC WITH AUTO DIFFERENTIAL STAT 05/23/2024 8:24 AM HEARING THERAPY TEACHER CBC WITH AUTO DIFFERENTIAL STAT 05/23/2024 8:24 AM HEARING THERAPY TEACHER LIPASE STAT 05/23/2024 8:24 AM HEARING THERAPY TEACHER HEPATIC FUNCTION PANEL STAT 05/23/2024 8:24 AM HEARING THERAPY TEACHER BASIC METABOLIC PANEL STAT 05/23/2024 8:24 AM HEARING THERAPY TEACHER URINALYSIS MICROSCOPIC STAT 05/22/2024 12:50 AM HEARING THERAPY TEACHER URINE STAT 05/22/2024 12:50 AM HEARING THERAPY TEACHER UA W/ SEDIMENT EXAM REFLEXED PER CRITERIA STAT 05/22/2024 12:50 AM HEARING THERAPY TEACHER US ABDOMEN LIMITED STAT 05/21/2024 11 :10 PM HEARING THERAPY TEACHER CBC WITH AUTO DIFFERENTIAL STAT 05/21/2024 10:45 PM HEARING THERAPY TEACHER LIPASE STAT 05/21/2024 10:45 PM HEARING THERAPY TEACHER HEPATIC FUNCTION PANEL STAT 05/21/2024 10:45 PM HEARING THERAPY TEACHER BASIC METABOLIC PANEL STAT 05/21/2024 10:45 PM HEARING THERAPY TEACHER CBC WITH AUTO DIFFERENTIAL STAT 05/21/2024 10:45 PM HEARING THERAPY TEACHER LIPASE STAT 04/19/2024 9:16 AM HEARING THERAPY TEACHER HEPATIC FUNCTION PANEL STAT 04/19/2024 9:16 AM HEARING THERAPY TEACHER BASIC METABOLIC PANEL STAT 04/19/2024 9:16 AM HEARING THERAPY TEACHER CBC WITH AUTO DIFFERENTIAL STAT 04/19/2024 8:16 AM HEARING THERAPY TEACHER ,SERUM QUALITATIVE STAT 04/19/2024 8:16 AM HEARING THERAPY TEACHER CBC WITH AUTO DIFFERENTIAL STAT 04/19/2024 8:16 AM HEARING THERAPY TEACHER TROPONIN T (HS) ONE TIME STAT 04/16/2024 7:41 AM HEARING THERAPY TEACHER LACTATE VENOUS STAT 04/16/2024 7:41 AM HEARING THERAPY TEACHER URINALYSIS MICROSCOPIC STAT 04/16/2024 6:15 AM HEARING THERAPY TEACHER UA W/ SEDIMENT EXAM REFLEXED PER CRITERIA STAT 04/16/2024 6:15 AM HEARING THERAPY TEACHER DRUG SCREEN RAPID URINE INHOUSE STAT 04/16/2024 6:15 AM HEARING THERAPY TEACHER CTA CHEST ABDOMEN PELVIS AORTIC DISSECTION W STAT 04/16/2024 6:14 AM HEARING THERAPY TEACHER EKG 12 LEAD STAT 04/16/2024 5:21 AM HEARING THERAPY TEACHER C-REACTIVE PROTEIN STAT 04/16/2024 5: 20 AM HEARING THERAPY TEACHER MAGNESIUM STAT 04/16/2024 5:20 AM HEARING THERAPY TEACHER CBC WITH AUTO DIFFERENTIAL STAT 04/16/2024 5:20 AM HEARING THERAPY TEACHER LACTATE VENOUS STAT 04/16/2024 5:20 AM HEARING THERAPY TEACHER TROPONIN T (HS) ACUTE W/2HR REFLEX STAT 04/16/2024 5:20 AM HEARING THERAPY TEACHER ,SERUM QUALITATIVE STAT 04/16/2024 5:20 AM HEARING THERAPY TEACHER LIPASE STAT 04/16/2024 5:20 AM HEARING THERAPY TEACHER HEPATIC FUNCTION PANEL STAT 04/16/2024 5:20 AM HEARING THERAPY TEACHER BASIC METABOLIC PANEL STAT 04/16/2024 5:20 AM HEARING THERAPY TEACHER CBC WITH AUTO DIFFERENTIAL STAT 04/16/2024 5:20 AM HEARING THERAPY TEACHER US ABDOMEN LIMITED RUQ STAT 04/11/2024 6:47 AM HEARING THERAPY TEACHER URINALYSIS MICROSCOPIC STAT 04/11/2024 6:04 AM HEARING THERAPY TEACHER UA W/ SEDIMENT EXAM REFLEXED PER CRITERIA STAT 04/11/2024 6:04 AM HEARING THERAPY TEACHER ,SERUM QUALITATIVE STAT 04/11/2024 5:13 AM HEARING THERAPY TEACHER LIPASE STAT 04/11/2024 5:11 AM HEARING THERAPY TEACHER HEPATIC FUNCTION PANEL STAT 04/11/2024 5:11 AM HEARING THERAPY TEACHER BASIC METABOLIC PANEL STAT 04/11/2024 5:11 AM HEARING THERAPY TEACHER CBC W PLT NO DIFF STAT 04/11/2024 5:1 0 AM HEARING THERAPY TEACHER from Last 3 Months Results * PATH TISSUE EXAM (05/24/2024 4:45 PM HEARING THERAPY TEACHER) Case Report Pathology Report Case: [id number] Authorizing Provider: Oj Casarez MD Collected: 05/24/2024 1645 Ordering Location: [facility] Received: 05/26/2024 1415 Pathologist: Isac Bobby MD Specimen: Gallbladder 05/27/2024 4:32 PM HEARING THERAPY TEACHER [facility] Final Diagnosis A) GALLBLADDER, CHOLECYSTECTOMY: 1. Chronic cholecystitis with fibrosis and wall thickening 2. Negative for cholelithiasis 3. Negative for dysplasia and malignancy 4. One benign pericystic lymph node 05/27/2024 4:32 PM HEARING THERAPY TEACHER [facility] Clinical Information Ms. Taylor is a 29 y.o. who undergoes cholecystectomy. 05/27/2024 4:32 PM HEARING THERAPY TEACHER [facility] Gross Description A) Received in formalin, labeled with the patient's name and gallbladder, is a 7.2 x 3.4 x 2.5 cm disrupted gallbladder. No discrete gallstones are identified. There is fine yellow stippling in the mucosa; no other lesions are identified. The average wall thickness is 0.4 cm. There is no abnormal wall thickening identified. A possible lymph node is present. Assistant Signal Maintainer sections are submitted in 2 cassettes. EVM 05/26/2024 05/27/2024 4:32 PM HEARING THERAPY TEACHER [facility] Microscopic Description The final diagnosis is based on microscopic examination of appropriate sections of all specimens. 05/27/2024 4:32 PM HEARING THERAPY TEACHER [facility] Additional Information Interpreted at [facility] - [address] [facility] [address], [place] [address] 05/27/2024 4:32 PM HEARING THERAPY TEACHER [facility] Other SPECIMEN FROM GALLBLADDER / Unknown 05/24/2024 4:45 PM HEARING THERAPY TEACHER 05/26/2024 2:15 PM HEARING THERAPY TEACHER Oj Casarez MD PATHOLOGY/CYTOLOGY Final R esult Performing Organization Address [facility] Co de Phone Number [facility] [address] [place] [address], * LAB TRACKING EVENT (05/24/2024 4:42 PM HEARING THERAPY TEACHER) Other (Other) Client Collect / Unknown 05/24/2024 4:42 PM HEARING THERAPY TEACHER 05/26/2024 12:58 PM HEARING THERAPY TEACHER us Oj Casarez MD LAB BILL ONLY Final Resu lt Performing Organization Address [facility]/ZIP Co de Phone Number [facility] [address] [place] [address], * CBC WITH AUTO DIFFERENTIAL (05/23/2024 8:24 AM HEARING THERAPY TEACHER) Only the most recent of4 resultswithin the time period is included. WHITE BLOOD COUNT 7.3 4.5 - 11.0 thou/cu mm 05/23/2024 8:34 AM [facility] RED BLOOD COUNT 4.11 4.00 - 5.20 mil/cu mm 05/23/2024 8:34 AM [facility] HEMOGLOBIN 12.5 12.0 - 16.0 g/dL 05/23/2024 8:34 AM [facility] HEMATOCRIT 38.4 33.0 - 51.0 % 05/23/2024 8:34 AM [facility] MCV 93 80 - 100 fL 05/23/2024 8:34 AM [facility] MCH 30.4 26.0 - 34.0 pg 05/23/2024 8:34 AM [facility] MCHC 32.6 32.0 - 36.0 g/dL 05/23/2024 8:34 AM [facility] RDW 12.3 11.5 - 15.5 % 05/23/2024 8:34 AM [facility] PLATELET COUNT 247 140 - 440 thou/cu mm 05/23/2024 8:34 AM [facility] MPV 10.6 6.5 - 11.0 fL 05/23/2024 8:34 AM [facility] % NEUT 64.2 % 05/23/2024 8:34 AM [facility] % LYMPH 24.4 % 05/23/2024 8:34 AM [facility] % MONO 8.6 % 05/23/2024 8:34 AM [facility] % EOS 2.5 % 05/23/2024 8:34 AM [facility] % BASO 0.3 % 05/23/2024 8:34 AM [facility] ABSOLUTE NEUTROPHILS 4.7 1.7 - 7.0 thou/cu mm 05/23/2024 8:34 AM [facility] ABSOLUTE LYMPHOCYTES 1.8 0.9 - 2.9 thou/cu mm 05/23/2024 8:34 AM [facility] ABSOLUTE MONOCYTES 0.6 <0.9 thou/cu mm 05/23/2024 8:34 AM [facility] ABSOLUTE EOSINOPHILS 0.2 <0.5 thou/cu mm 05/23/2024 8:34 AM [facility] ABSOLUTE BASOPHILS 0.0 <0.3 thou/cu mm 05/23/2024 8:34 AM [facility] Blood BLOOD SPECIMEN / Unknown IV Start / Unknown 05/23/2024 8:24 AM HEARING THERAPY TEACHER 05/23/2024 8:31 AM HEARING THERAPY TEACHER Deandra ESCOBAR HEMATOLOGY Final Re sult Performing Organization Address [facility] de Phone Number [address] [phone] * LIPASE (05/23/2024 8:24 AM HEARING THERAPY TEACHER) Only the most recent of5 resultswithin the time period is included. LIPASE 26.4 13.0 - 60.0 IU/L 05/23/2024 8:59 AM [facility] Blood BLOOD SPECIMEN / Unknown IV Start / Unknown 05/23/2024 8:24 AM HEARING THERAPY TEACHER 05/23/2024 8:31 AM HEARING THERAPY TEACHER Deandra ESCOBAR CHEMISTRY Final Re sult Performing Organization Address [facility] Phone Number [address] [phone] * HEPATIC FUNCTION PANEL (05/23/2024 8:24 AM HEARING THERAPY TEACHER) Only the most recent of5 resultswithin the time period is included. ALBUMIN 4.0 4.0 - 4.9 g/dL 05/23/2024 8:59 AM [facility] PROTEIN,TOTAL 7.4 6.0 - 8.0 g/dL 05/23/2024 8:59 AM [facility] BILIRUBIN,TOTAL 0.3 0.0 - 1.2 mg/dL 05/23/2024 8:59 AM [facility] BILIRUBIN,DIRECT 0.1 0.0 - 0.2 mg/dL 05/23/2024 8:59 AM [facility] BILIRUBIN,INDIRE CT 0.2 0.2 - 0.8 mg/dL 05/23/2024 8:59 AM [facility] ALK PHOSPHATASE 68 35 - 104 IU/L 05/23/2024 8:59 AM [facility] ALT (SGPT) 29 10 - 35 IU/L 05/23/2024 8:59 AM [facility] AST (SGOT) 28 10 - 35 IU/L 05/23/2024 8:59 AM [facility] Blood BLOOD SPECIMEN / Unknown IV Start / Unknown 05/23/2024 8:24 AM HEARING THERAPY TEACHER 05/23/2024 8:31 AM [facility] us Deandra ESCOBAR CHEMISTRY Final Re sult [facility] [address] [address] * BASIC METABOLIC PANEL (05/23/2024 8:24 AM [facility]) Only the most recent of5 resultswithin the time period is included. SODIUM 138 136 - 145 mmol/L 05/23/2024 8:59 AM [facility] POTASSIUM 4.0 3.5 - 5.1 mmol/L 05/23/2024 8:59 AM [facility] CHLORIDE 102 98 - 107 mmol/L 05/23/2024 8:59 AM [facility] CO2,TOTAL 26 22 - 29 mmol/L 05/23/2024 8:59 AM [facility] ANION GAP 10 5 - 18 05/23/2024 8:59 AM [facility] GLUCOSE 94 70 - 99 mg/dL 05/23/2024 8:59 AM [facility] CALCIUM 9.0 8.8 - 10.4 mg/dL 05/23/2024 8:59 AM [facility] Comment: Reference ranges for this test were updated on 01/29/2024 to reflect our healthy population more accurately. Reference range changes are not retroactively applied to results, but previous results using the same methodology can be interpreted in the context of the new reference range. BUN 9 6 - 20 mg/dL 05/23/2024 8:59 AM [facility] CREATININE 0.60 0.50 - 0.90 mg/dL 05/23/2024 8:59 AM [facility] BUN/CREAT RATIO 15 10 - 20 8:59 AM [facility] eGFR >90 >90 mL/min/1.7 3m2 05/23/2024 8:59 AM [facility] Comment:As of 2021, eG FR is calculated by the CKD-EPI creatinine equation without race adjustment. eGFR can be influenced by muscle mass, exercise, and diet. The reported eGFR is an estimation only and is only applicable if the renal function is stable. Blood BLOOD SPECIMEN / Unknown IV Start / Unknown 05/23/2024 8:24 AM HEARING THERAPY TEACHER 05/23/2024 8:31 AM HEARING THERAPY TEACHER us Deandra ESCOBAR CHEMISTRY Final Re sult Performing Organization Address [facility]/ZIP Co de Phone Number [facility] [address] [address] * (ABNORMAL) URINALYSIS MICROSCOPIC (05/22/2024 12:50 AM HEARING THERAPY TEACHER) Only the most recent of3 resultswithin the time period is included. RBC 0-2 0-2, None Seen /HPF 05/22/2024 1:02 AM [facility] WBC 0-2 0-2, 3-5, None Seen /HPF 05/22/2024 1:02 AM [facility] BACTERIA Few None Seen, Rare, Few Bacteria/H PF 05/22/2024 1:02 AM [facility] EPITHELIAL CELLS Many(A) None Seen, Few Epi/HPF 05/22/2024 1:02 AM [facility] Mucus Present 05/22/2024 1:02 AM [facility] Urine URINE SPECIMEN / Unknown Non-Blood / Unknown 05/22/2024 12:50 AM HEARING THERAPY TEACHER 05/22/2024 12:52 AM HEARING THERAPY TEACHER us Geri Desai MD URINE Final Result [facility] [address] [address] * (ABNORMAL) URINALYSIS W REFLEX MICROSCOPIC IF POSITIVE (05/22/2024 12:50 AM HEARING THERAPY TEACHER) Only the most recent of3 resultswithin the time period is included. COLOR Yellow Yellow Color 05/22/2024 12:56 AM [facility] CLARITY Clear Clear Clarity 05/22/2024 12:56 AM [facility] SPECIFIC GRAVITY,URINE 1.020 1.010, 1.015, 1.020, 1.025 05/22/2024 12:56 AM [facility] PH,URINE 7.0 6.0, 7.0, 8.0, 5.5, 6.5, 7.5, 8.5 05/22/2024 12:56 AM [facility] UROBILINOGEN,Q UALITATIVE Normal Normal EU/dl 05/22/2024 12:56 AM [facility] PROTEIN, URINE Negative Negative mg/dL 05/22/2024 12:56 AM [facility] GLUCOSE, URINE Negative Negative mg/dL 05/22/2024 12:56 AM [facility] KETONES,URINE Negative Negative mg/dL 05/22/2024 12:56 AM [facility] BILIRUBIN,URIN E Negative Negative 05/22/2024 12:56 AM [facility] OCCULT BLOOD,URINE Trace(A) Negative 05/22/2024 12:56 AM [facility] NITRITE Negative Negative 05/22/2024 12:56 AM [facility] LEUKOCYTE ESTERASE Negative Negative 05/22/2024 12:56 AM [facility] Urine URINE SPECIMEN / Unknown Non-Blood / Unknown 05/22/2024 12:50 AM HEARING THERAPY TEACHER 05/22/2024 12:52 AM [facility] us Geri Desai MD URINE Final Result Performing Organization Address City/[facility]/ZIP Co de Phone Number [facility] [address] [address] * URINE (05/22/2024 12:50 AM HEARING THERAPY TEACHER) ,URIN E Negative Negative 05/22/2024 12:56 AM HEARING THERAPY TEACHER [facility] Urine URINE SPECIMEN / Unknown Non-Blood / Unknown 05/22/2024 12:50 AM HEARING THERAPY TEACHER 05/22/2024 12:52 AM HEARING THERAPY TEACHER us Geri Desai MD URINE Final Result [facility] [address] [address] * US ABDOMEN LIMITED (05/21/2024 11:10 PM HEARING THERAPY TEACHER) Anatomical Region Laterality Modality Abdomen, LIVER, KIDNEYS, PANCREAS, GALLBLADDER, SPLEEN Ultrasound Geri Desai MD US Final Result * ,SERUM QUALITATIVE (04/19/2024 8:16 AM HEARING THERAPY TEACHER) Only the most recent of3 resultswithin the time period is included. ,SERU M Negative Negative 04/19/2024 8:34 AM HEARING THERAPY TEACHER [facility] Blood BLOOD SPECIMEN / Unknown IV Start / Unknown 04/19/2024 8:16 AM HEARING THERAPY TEACHER 04/19/2024 8:18 AM HEARING THERAPY TEACHER Wallace See DO CHEMISTRY Final Resul t [facility] [address] [address] * TROPONIN T (HS) ONE TIME (04/16/2024 7:41 AM HEARING THERAPY TEACHER) Pathologist [facility] TROPONIN T HS <6 6-10 ng/L ng/L 04/16/2024 8:13 AM HEARING THERAPY TEACHER [facility] Blood BLOOD SPECIMEN / Unknown Venipuncture / Unknown 04/16/2024 7:41 AM HEARING THERAPY TEACHER 04/16/2024 7:45 AM HEARING THERAPY TEACHER us Ronel Hendricks MD CHEMISTRY Final Result Performing Organization Address City/[facility]/ZIP Co de Phone Number [address] [address] * LACTATE VENOUS (04/16/2024 7:41 AM HEARING THERAPY TEACHER) Only the most recent of2 resultswithin the time period is included. Pathologist [facility] LACTATE,VENOUS 1.9 0.5 - 2.0 mmol/L 04/16/2024 8:13 AM [facility] Blood BLOOD SPECIMEN / Unknown Venipuncture / Unknown 04/16/2024 7:41 AM HEARING THERAPY TEACHER 04/16/2024 7:45 AM HEARING THERAPY TEACHER us Ronel Hendricks MD CHEMISTRY Final Result Performing Organization Address [facility] Co de Phone Number [address] [address] * DRUG SCREEN RAPID URINE INHOUSE (04/16/2024 6:15 AM HEARING THERAPY TEACHER) [facility] THC METABOLITES,ANA L Not Detected Not Detected 04/16/2024 6:31 AM [facility] PCP,QUAL Not Detected Not Detected 04/16/2024 6:31 AM [facility] COCAINE,QUAL Not Detected Not Detected 04/16/19 6:31 AM [facility] METHAMPHETAMINE , QUALITATIVE Not Detected Not Detected 04/16/2024 6:31 AM [facility] OPIATES,QUAL Not Detected Not Detected 04/16/19 6:31 AM [facility] AMPHETAMINE, QUALITATIVE Not Detected Not Detected 04/16/2024 6:31 AM [facility] BENZODIAZEPINES ,QUAL Not Detected Not Detected 04/16/2024 6:31 AM [facility] TRICYCLICS,QUAL Not Detected Not Detected 04/16 6:31 AM [facility] METHADONE, QUALITATIVE Not Detected Not Detected 04/16/2024 6:31 AM [facility] BARBITURATES,QU AL Not Detected Not Detected 04/16/2024 6:31 AM [facility] OXYCODONE, QUALITATIVE Not Detected Not Detected 04/16/2024 6:31 AM [facility] BUPRENORPHINE, QUALITATIVE Not Detected Not Detected 04/16/2024 6:31 AM [facility] Urine URINE SPECIMEN / Unknown Non-Blood / Unknown 04/16/2024 6:15 AM HEARING THERAPY TEACHER 04/16/2024 6:[address] [facility] - 04/16/2024 6:31 AM HEARING THERAPY TEACHER Please Note: This is a screening test [...] Hendricks MD URINE Final Result [facility] [address] [address] * CTA CHEST ABDOMEN PELVIS AORTIC DISSECTION W (04/16/2024 6:14 AM HEARING THERAPY TEACHER) Anatomical Region Laterality Modality CHEST, Abdomen, Pelvis, AORTA, THORAX, HEART Computed Tomography us Ronel Hendricks MD CT Final Result * EKG 12 LEAD (04/16/2024 5:21 AM HEARING THERAPY TEACHER) Interpretation Normal sinus rhythm Normal ECG No previous ECGs available BEYOND NOW Ventricular Rate 81 BPM BEYOND NOW Atrial Rate 81 BPM BEYOND NOW P-R Interval 148 ms BEYOND NOW QRS Duration 76 ms BEYOND NOW QT 380 ms BEYOND NOW QTc 441 ms BEYOND NOW P [place] 53 degrees BEYOND NOW R [place] 66 degrees BEYOND NOW T [place] 54 degrees BEYOND NOW 04/16/2024 5:21 AM HEARING THERAPY TEACHER 04/16/2024 8:01 PM HEARING THERAPY TEACHER us Ronel Hendricks MD EKG ORD Final Result [facility] NOW [place], [place] * TROPONIN T (HS) ACUTE W/2HR REFLEX (04/16/2024 5:20 AM HEARING THERAPY TEACHER) [facility] TROPONIN T HS 7 6-10 ng/L ng/L 04/16/2024 5:52 AM [facility] Blood BLOOD SPECIMEN / Unknown IV Start / Unknown 04/16/2024 5:20 AM HEARING THERAPY TEACHER 04/16/2024 5:21 AM HEARING THERAPY TEACHER Narrative [facility] - 04/16/2024 5:52 AM HEARING THERAPY TEACHER hs-cTnT (Elecsys Troponin T Gen 5) concentration [...] population. Ronel Hendricks MD CHEMISTRY Final Result Performing Organization Address [facility] Co de Phone Number [address] [phone] * (ABNORMAL) C-REACTIVE PROTEIN (04/16/2024 5:20 AM HEARING THERAPY TEACHER) C-REACTIVE PROTEIN 0.5(H) <0.5 mg/dL 04/16/2024 6:18 AM HEARING THERAPY TEACHER [facility] Blood BLOOD SPECIMEN / Unknown IV Start / Unknown 04/16/2024 5:20 AM HEARING THERAPY TEACHER 04/16/2024 5:21 AM HEARING THERAPY TEACHER Ronel Hendricks MD CHEMISTRY Final Result Performing Organization Address [facility] Health/[facility] Co de Phone Number [address] [address] * MAGNESIUM (04/16/2024 5:20 AM HEARING THERAPY TEACHER) MAGNESIUM 2.0 1.6 - 2.6 mg/dL 04/16/2024 5:55 AM HEARING THERAPY TEACHER [facility] Blood BLOOD SPECIMEN / Unknown IV Start / Unknown 04/16/2024 5:20 AM HEARING THERAPY TEACHER 04/16/2024 5:21 AM HEARING THERAPY TEACHER Ronel Hendricks MD CHEMISTRY Final Result [facility] [address] [phone] * US ABDOMEN LIMITED RUQ (04/11/2024 6:47 AM HEARING THERAPY TEACHER) Anatomical Region Laterality Modality Abdomen, LIVER Ultrasound Kaden Mejía MD US Final Result * CBC W PLT NO DIFF (04/11/2024 5:10 AM HEARING THERAPY TEACHER) WHITE BLOOD COUNT 8.9 4.5 - 11.0 thou/cu mm 04/11/2024 5:17 AM [facility] RED BLOOD COUNT 4.08 4.00 - 5.20 mil/cu mm 04/11/2024 5:17 AM [facility] HEMOGLOBIN 12.5 12.0 - 16.0 g/dL 04/11/2024 5:17 AM [facility] HEMATOCRIT 36.8 33.0 - 51.0 % 04/11/2024 5:17 AM [facility] MCV 90 80 - 100 fL 04/11/2024 5:17 AM [facility] MCH 30.6 26.0 - 34.0 pg 04/11/2024 5:17 AM [facility] MCHC 34.0 32.0 - 36.0 g/dL 04/11/2024 5:17 AM [facility] RDW 12.7 11.5 - 15.5 % 04/11/2024 5:17 AM [facility] PLATELET COUNT 238 140 - 440 thou/cu mm 04/11/2024 5:17 AM [facility] MPV 10.3 6.5 - 11.0 fL 04/11/2024 5:17 AM [facility] Blood BLOOD SPECIMEN / Unknown Venipuncture / Unknown 04/11/2024 5:10 AM 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 TEACHER 04/11/2024 5:13 AM HEARING THERAPY TEACHER Kaden Mejía MD HEMATOLOGY Final Result [facility] [address] [place] [address] from Last 3 Months Insurance [facility] REFERRAL Member Subscriber Plan / Payer (Ef fective 2024-Present) Name:Esvin Rendon Member ID:[id number] Relation to Subscriber:Self Name:Esvin Rendon Subscriber ID:[id number] Payer ID:Not on file Group ID:Not on file Type:Not on file Address: [employer] Care Teams Nail Polish Brush Machine Feeder Relationship Specialty Start Date End Date Pcp, No . PCP - General 04/30/23
--- OUTSIDE RECORDS SUMMARY | 2024-06-01 08:23 | XMS_ITS | Clinical Summary ---
Author Organization [facility] Address [address] [place] [address] Care Team Providers Care E Commerce Developer Name Role Phone Montse Ruiz D.O. Primary Care Provider Source Comments Patient records contain information from all sites at [facility]. For routine questions regarding patient records, call [phone] during business hours, M-F 8:00 AM - 5:00 PM Central Time. Record requests for emergency care only can be directed to [phone] at any time.[facility] Allergies No known active allergies Medications dicyclomine (BENTYL) 10 mg capsuleIndicatio ns:Pain Abdominal Chronic Take 1 capsule (10 mg total) by mouth 4 (four) times a day as needed (adominal pain). 120 capsule 5 4 08/27/19 25 Active hydrOXYzine (Atarax) 25 mg tabletIndication s:Anxiety,Insomn ia Take 1 tablet (25 mg total) by mouth every 8 (eight) hours as needed for anxiety (at bedtime and to prevent panic attacks). 60 tablet 4 Active FLUoxetine (PROzac) 20 mg capsuleIndicatio ns:Anxiety Generalized Disorder Take 1 capsule (20 mg total) by mouth daily. 90 capsule 3 4 Active alum-mag hydroxide-simeth (Maalox) 200-200-20 mg/5 mL suspensionIndica tions:Pain Epigastric Take 30 mL by mouth daily as needed for indigestion. 354 mL 4 Active omeprazole (PriLOSEC) [address] capsuleIndicatio ns:Pain Abdominal Chronic,Pain Epigastric Take 1 capsule (20 mg total) by mouth daily before morning meal. 90 capsule 3 4 12/06/19 25 Active traZODone (DesyreL) 50 mg tabletIndication s:Anxiety Generalized Disorder take one tablet by mouth at bedtime as needed for sleep 30 tablet 4 Active famotidine (Pepcid) 20 mg tablet Take 1 tablet (20 mg total) by mouth 2 (two) times a day. 60 tablet 5 07/01/19 25 Active famotidine (Pepcid) 20 mg tabletIndication s:Nausea Take 1 tablet (20 mg total) by mouth daily. 90 tablet 3 4 06/01/19 25 Discontinu ed(Therapy completed) Active Problems No known active problems Encounters Date Type Department Care Team Description 05/31/2024 12:10 PM V BELT BUILDER - 05/31/2024 9:48 PM [facility] Emergency [facility] Emergency Department [facility] [place] [address] Marvin Hutchinson M.D. Williams, Paul D, D.O., M.S. Abdominal Pain (Primary Dx); Pain Epigastric Discharge Disposition: Home or Self Care 05/26/2024 5:33 PM V BELT BUILDER - 05/26/2024 7:49 PM [facility] Emergency [facility] Emergency Department [address] [place] [phone] Kristin Meza APRN, C.N.P., D.N.P. Abdominal Pain (Primary Dx) Discharge Disposition: Left Against Medical Advice or Discontinued Care 05/23/2024 7:48 AM V BELT BUILDER - 05/23/2024 11:59 PM [facility] Emergency [facility] [address] [place] [phone] Discharge Disposition: Home or Self Care 05/23/2024 Orders Only Department of Radiology in [place], [place] [address] [place] [address] Stephenie Anne RRosaTRosa(R)(CT), R.T.(R) 05/21/2024 10:07 PM V BELT BUILDER - 05/21/2024 11:59 PM V BELT BUILDER Emergency [facility] [address] [place] [address] Discharge Disposition: Home or Self Care 05/12/2024 3:14 AM V BELT BUILDER - 05/12/2024 11:59 PM V BELT BUILDER Emergency [facility] [address] [place] [address] Discharge Disposition: Home or Self Care 04/22/2024 10:59 PM V BELT BUILDER - 04/22/2024 11:59 PM V BELT BUILDER Emergency [facility] [address] [place] [address] Discharge Disposition: Home or Self Care 04/16/2024 5:11 AM V BELT BUILDER - 04/16/2024 11:59 PM V BELT BUILDER Emergency [facility] [address] [place] [address] Discharge Disposition: Home or Self Care 04/11/2024 4:47 AM V BELT BUILDER - 04/11/2024 11:59 PM V BELT BUILDER Emergency [facility] [address] [place] [address] Discharge Disposition: Home or Self Care from [...] on file Legal Sex Female 8:30 AM V BELT BUILDER Gender Identity Not on file Sexual Orientation Not on file Last Filed Vital Signs Vital Sign Reading Time Taken Comments Blood Pressure 111/77 05/31/2024 8:00 PM V BELT BUILDER Pulse 84 05/31/2024 8:00 PM V BELT BUILDER Temperature 36.8 C (98.2 F) 05/31/2024 11:52 AM V BELT BUILDER Respiratory Rate 20 05/26/2024 5:33 PM V BELT BUILDER Oxygen Saturation 97% 05/31/2024 8:00 PM V BELT BUILDER Inhaled Oxygen Concentration - - Weight 93.9 kg (207 lb) 05/31/2024 11:52 AM V BELT BUILDER Height 170 cm (5' 6.93) 05/31/2024 11:52 AM V BELT BUILDER Body Mass Index 32.49 05/31/2024 11:52 AM V BELT BUILDER Plan of Treatment Health Maintenance Due Date Last Done Comments Hepatitis C Screening 1993 DTaP,Tdap,and Td Vaccines (1 - Tdap) 2012 Hepatitis B Vaccines (1 of 3 - 19+ 3-dose series) 2012 COVID-19 Vaccine (2023-2 5 season) 2023 Influenza Vaccine (#1) 2023 [...] inpatients and all outpatients) 05/31/2024 7:33 PM V BELT BUILDER US GALLBLADDER AND OR BILIARY DUCTS RAD - Semiurgent (Fast; most ED patients; some inpatients) 05/31/2024 1:29 PM V BELT BUILDER HUMAN CHORIONIC GONADOTROPIN (HCG), BRISA, STAT 05/31/2024 12:56 PM V BELT BUILDER LIPASE, S/P STAT 05/31/2024 12:56 PM V BELT BUILDER COMPREHENSIVE METABOLIC PANEL, S/P STAT 05/31/2024 12:56 PM V BELT BUILDER CBC WITH DIFFERENTIAL, B STAT 05/31/2024 12:[address] ABDOMEN PELVIS WITH IV CONTRAST RAD - Semiurgent (Fast; most ED patients; some inpatients) 05/26/2024 6:49 PM V BELT BUILDER COMPREHENSIVE METABOLIC PANEL, S/P STAT 05/26/2024 5:51 PM V BELT BUILDER CBC WITH DIFFERENTIAL, B STAT 05/26/2024 5:51 PM V BELT BUILDER US GALLBLADDER AND OR BILIARY DUCTS RAD - Semiurgent (Fast; most ED patients; some inpatients) 05/21/2024 11:[address] CHEST ABDOMEN PELVIS ANGIOGRAM WITH IV CONTRAST RAD - Semiurgent (Fast; most ED patients; some inpatients) 04/16/2024 6:10 AM V BELT BUILDER US GALLBLADDER AND OR BILIARY DUCTS RAD - Routine (most inpatients and all outpatients) 04/11/2024 6:49 AM V BELT BUILDER HPV WITH GENOTYPING, PCR, THINPREP Routine 05/31/2023 4:11 PM V BELT BUILDER from Last 3 Months or Most Recently Relevant to Health Maintenance Results * NM Hepatobiliary (05/31/2024 7:33 PM V BELT BUILDER) Anatomical Region Laterality Modality Abdomen, Nuclear Medicine RS T LOS, Nuclear Medicine ARZ LOS, Nuclear Medicine FLA LOS, Nuclear Medicine N/A Nuclea r Medicine Impressions 05/31/2024 8:08 PM V BELT BUILDER Normal post cholecystectomy HIDA scan. Narrative 05/31/2024 8:08 PM V BELT BUILDER REVISED REPORT: EXAM: NM HEPATOBILIARY COMPARISON: None [...] millicurie IMPRESSION: Normal post cholecystectomy HIDA scan. us Marvin Hutchinson M.D. [facility] PROCEDURES Edited Re sult - Final * US Gallbladder and or Biliary Ducts (05/31/2024 1:29 PM V BELT BUILDER) Only the most recent of3 resultswithin the time period is included. Anatomical Region Laterality Modality Abdomen, Ultrasound RST LOS, Ultrasound ARZ LOS, Ultrasound FLA LOS N/A Ultrasound Impressions 05/31/2024 1:44 PM V BELT BUILDER Postoperative findings status post cholecystectomy. Small amount of fluid within the gallbladder fossa, similar findings on recent postoperative CT from 05/26/2024. Nuclear medicine hepatobiliary scintigraphy more sensitive for evaluation of localized bile leak if clinically indicated. Narrative 05/31/2024 1:44 PM V BELT BUILDER EXAM: US GALLBLADDER AND OR BILIARY DUCTS [...] evaluationof localized bile leak if clinically indicated. us Marvin Hutchinson M.D. IMG US PROCEDURES Final Res ult * CBC with Differential, Blood (05/31/2024 12:56 PM V BELT BUILDER) Only the most recent of2 resultswithin the time period is included. Hemoglobin 12.5 11.6 - 15.0 g/dL 05/31/2024 1:17 PM V BELT BUILDER [facility] Hematocrit 37.5 35.5 - 44.9 % 05/31/2024 1:17 PM V BELT BUILDER [facility] Erythrocytes 4.15 3.92 - 5.13 x10(12)/L 05/31/2024 1:17 PM V BELT BUILDER [facility] MCV 90.4 78.2 - 97.9 fL 05/31/2024 1:17 PM V BELT BUILDER [facility] RBC Distrib Width 12.2 12.2 - 16.1 % 05/31/2024 1:17 PM V BELT BUILDER [facility] Platelet Count 281 157 - 371 x10(9)/L 05/31/2024 1:17 PM V BELT BUILDER [facility] Leukocytes 8.4 3.4 - 9.6 x10(9)/L 05/31/2024 1:17 PM V BELT BUILDER [facility] Neutrophils 6.34 1.56 - 6.45 x10(9)/L 05/31/2024 1:17 PM V BELT BUILDER [facility] Lymphocytes 1.27 0.95 - 3.07 x10(9)/L 05/31/2024 1:17 PM V BELT BUILDER [facility] Monocytes 0.68 0.26 - 0.81 x10(9)/L 05/31/2024 1:17 PM V BELT BUILDER [facility] Eosinophils 0.09 0.03 - 0.48 x10(9)/L 05/31/2024 1:17 PM V BELT BUILDER [facility] Basophils 0.03 0.01 - 0.08 x10(9)/L 05/31/2024 1:17 PM V BELT BUILDER [facility] Blood (Blood, Venous) 05/31/2024 12:56 PM V BELT BUILDER 05/31/2024 1:11 PM V BELT BUILDER Marvin Hutchinson M.D. LAB BLOOD ADD-ON Final Resu lt [facility] [address] [place] [address], [place] [address] * hCG (Human Chorionic Gonadotropin), Quantitative, (05/31/2024 12:56 PM V BELT BUILDER) HCG, Quantitative, , P <1.0 <5 IU/L 05/31/2024 2:52 PM V BELT BUILDER [facility] Blood (Blood, Venous) 05/31/2024 12:56 PM V BELT BUILDER 05/31/2024 2:37 PM V BELT BUILDER Marvin Hutchinson M.D. LAB BLOOD ADD-ON Final Resu lt [facility] [address] [place] [address], [place] [address] * Lipase (05/31/2024 12:56 PM V BELT BUILDER) Lipase, P 44 13 - 60 U/L 05/31/2024 1: 31 PM V BELT BUILDER [facility] Blood (Blood, Venous) 05/31/2024 12:56 PM V BELT BUILDER 05/31/2024 1:11 PM V BELT BUILDER us Marvin Hutchinson M.D. LAB BLOOD ADD-ON Final Resu lt [facility] [address] [place] [address], [facility] MKTO [facility] [place] [address] [place] [address] * (ABNORMAL) Comprehensive Metabolic Panel (05/31/2024 12:56 PM V BELT BUILDER) Only the most recent of2 resultswithin the time period is included. Potassium, P 4.4 3.6 - 5.2 mmol/L 05/31/2024 1:31 PM V BELT BUILDER [facility] Sodium, P 139 135 - 145 mmol/L 05/31/2024 1:31 PM V BELT BUILDER [facility] Chloride, P 105 98 - 107 mmol/L 05/31/2024 1:31 PM V BELT BUILDER [facility] Bicarbonate, P 23 22 - 29 mmol/L 05/31/2024 1:31 PM V BELT BUILDER [facility] Anion Gap, P 11 7 - 15 05/31/2024 1:31 PM V BELT BUILDER [facility] BUN (Blood Urea Nitrogen), P 15 6 - 21 mg/dL 05/31/2024 1:31 PM V BELT BUILDER [facility] Creatinine 0.61 0.59 - 1.04 mg/dL 05/31/2024 1:31 PM V BELT BUILDER [facility] Estimated GFR (eGFR) >90 >=60 mL/min/B SA 05/31/2024 1:31 PM V BELT BUILDER [facility] Comment: Estimated GFR calculated using the 2020 CKD_EPI creatinine equation. Calcium, Total, P 8.9 8.6 - 10.0 mg/dL 05/31/2024 1:31 PM V BELT BUILDER [facility] Glucose, P 97 70 - 140 mg/dL 05/31/2024 1:31 PM V BELT BUILDER [facility] Protein, Total, P 7.3 6.3 - 7.9 g/dL 05/31/2024 1:31 PM V BELT BUILDER [facility] Albumin, P 3.9 3.5 - 5.0 g/dL 05/31/2024 1:31 PM V BELT BUILDER [facility] Aspartate Aminotransferase (AST), P SEE COMMENT 8 - 43 U/L 05/31/2024 2:00 PM V BELT BUILDER [facility] Comment:Specimen was hemolyz ed. Alkaline Phosphatase, P 203(H) 35 - 104 U/L 05/31/2024 1:31 PM V BELT BUILDER [facility] Alanine Aminotransferase (ALT), P 152(H) 7 - 45 U/L 05/31/2024 1:31 PM V BELT BUILDER [facility] Bilirubin, Total, P 0.5 0.0 - 1.2 mg/dL 05/31/2024 1:31 PM V BELT BUILDER [facility] Blood (Blood, Venous) 05/31/2024 12:56 PM V BELT BUILDER 05/31/2024 1:11 PM V BELT BUILDER us Marvin Hutchinson M.D. LAB BLOOD ADD-ON Final Resu lt [facility] [address] [place] [address], [facility] MK[facility] [place] [address] * CT Abdomen Pelvis with IV Contrast (05/26/2024 6:49 PM V BELT BUILDER) Anatomical Region Laterality Modality Abdomen, Pelvis, Abdominal R ST LOS, Abdominal ARZ LOS, Abdominal FLA LOS N/A Computed Tomography 05/26/2024 6:52 PM V BELT BUILDER Impressions 05/26/2024 6:54 PM V BELT BUILDER 1. Fluid and mild emphysema within the gallbladder fossa, suspicious for a biliary leak. 2. Mild bibasilar atelectasis. Narrative 05/26/2024 6:54 PM V BELT BUILDER EXAM: CT ABDOMEN PELVIS WITH IV CONTRAST [...] IMG CT PROCED URES Final Result * CT Chest Abdomen Pelvis Angiogram with IV Contrast (04/16/2024 6:10 AM V BELT BUILDER) Anatomical Region Laterality Modality Chest, Abdomen, Pelvis, Card iovascular RST LOS, Abdominal ARZ LOS, Thoracic ARZ LOS, Vascular Interventional ARZ LOS, Thoracic FLA LOS, Procedural, Vascular Interventional NWWI LOS Computed Tomography 04/16/2024 6:13 AM V BELT BUILDER Impressions 04/16/2024 6:58 AM V BELT BUILDER No acute abnormality in the chest, abdomen, or pelvis. Narrative 04/16/2024 6:58 AM V BELT BUILDER EXAM: CT CHEST ABDOMEN PELVIS ANGIOGRAM WITH [...] chest, abdomen, or pelvis. Ronel Hendricks M.D. IMG CT PROCEDURES Final Result * HPV with Genotyping, PCR, ThinPrep (05/31/2023 4:11 PM V BELT BUILDER) HPV with Genotyping, ThinPrep, PCR Negative Negative 06/01/2023 3:42 PM V BELT BUILDER [facility] Comment: Negative for high risk HPV [...] correlated with patient's history, clinical presentation, and DANCING INSTRUCTOR cytology report. 05/31/2023 4:11 PM V BELT BUILDER 06/01/2023 7:37 AM V BELT BUILDER Shanna Gallagher CNM, D.N.P. LAB MICROBIOLOGY - NERAL ORDERABLES Final Result [facility] [address] [place] [address], [facility] MK[facility] [address] [address] from Last 3 Months or Most Recently Relevant to Health Maintenance [place] [address] [facility] [place] [id number] [address] [id number] Care Teams E Commerce Developer Relationship Specialty Start Date End Date Montse Ruiz D.O. [address] [phone] PCP - General Family Medicine 11/27/23
--- OUTSIDE RECORDS SUMMARY | 2024-06-01 08:23 | XMS_ITS | Encounter Summary ---
Author Organization [facility] Address [address] [place] [address] Care Team Providers Care Seafood Fisherman Name Role Phone Montse Ruiz D.O. Primary Care Provider [phone] Reason for Visit * Reason Comments Post-op Problem Pt presents with abd pain that started to become severe today. Post op day 2 gallbladder removal. Pt states she feels constipated. Encounter Details Date Type Department Care Team (Late st Contact Info) Description 05/26/2024 5:33 PM RESEARCH ENGINEER - 05/26/2024 7:49 PM RESEARCH ENGINEER Emergency [facility] Emergency Department [address] [place] [phone] Kristin Meza APRN, C.N.P., D.N.P. [address] [place] [address] Abdominal Pain (Primary Dx) Discharge Disposition: Left [...] on file Legal Sex Female 8:30 AM RESEARCH ENGINEER Gender Identity Not on file Sexual Orientation Not on file documented as of this encounter Last Filed Vital Signs Vital Sign Reading Time Taken Comments Blood Pressure 114/72 05/26/2024 5:33 PM RESEARCH ENGINEER Pulse 80 05/26/2024 5:33 PM RESEARCH ENGINEER Temperature 37 C (98.6 F) 05/26/2024 5:33 PM RESEARCH ENGINEER Respiratory Rate 20 05/26/2024 5:33 PM RESEARCH ENGINEER Oxygen Saturation 97% 05/26/2024 5:33 PM RESEARCH ENGINEER Inhaled Oxygen Concentration - - Weight 95.3 kg (210 lb) 05/26/2024 5:34 PM RESEARCH ENGINEER Height - - Body Mass Index 32.96 [...] 12/06/2023 05/31/2024 documented as of this encounter Progress Notes * Kristin Meza APRN, C.N.P., D.N.P. - 05/26/2024 5:42 PM CST HISTORY [...] movement was yesterday. She has tried taking [place] as well as a laxative, but has [...] they are on their way to the [facility] where the surgery was done because they did not want to wait in the lobby. Kristin Meza APRN, C.N.P., D.N.P. 05/26/24 1744 Kristin Meza APRN, C.N.PRosa, D.N.P. 05/26/24 1927 ARCH ENGINEER ARCH ENGINEER documented in this encounter Plan of Treatment Not on file documented as of this encounter Procedures Procedure Name Priority Date/Time Associated Diagnosis Comments CT ABDOMEN PELVIS WITH IV CONTRAST RAD - Semiurgent (Fast; most ED patients; some inpatients) 05/26/2024 6:49 PM RESEARCH ENGINEER CBC WITH DIFFERENTIAL, B STAT 05/26/2024 5:51 PM RESEARCH ENGINEER COMPREHENSIVE METABOLIC PANEL, S/P STAT 05/26/2024 5:51 PM RESEARCH ENGINEER documented in this encounter Results * CT Abdomen Pelvis with IV Contrast (05/26/2024 6:49 PM RESEARCH ENGINEER) Anatomical Region Laterality Modality Abdomen, Pelvis, Abdominal R ST LOS, Abdominal ARZ LOS, Abdominal FLA LOS N/A Computed Tomography 05/26/2024 6:52 PM RESEARCH ENGINEER Impressions 05/26/2024 6:54 PM RESEARCH ENGINEER 1. Fluid and mild emphysema within the gallbladder fossa, suspicious for a biliary leak. 2. Mild bibasilar atelectasis. Narrative 05/26/2024 6:54 PM RESEARCH ENGINEER EXAM: CT ABDOMEN PELVIS WITH IV CONTRAST [...] (ABNORMAL) Comprehensive Metabolic Panel (05/26/2024 5:51 PM RESEARCH ENGINEER) Potassium, P 3.9 3.6 - 5.2 mmol/L 05/26/2024 6:24 PM RESEARCH ENGINEER MKTO Sodium, P 140 135 - 145 mmol/L 05/26/2024 6:24 PM RESEARCH ENGINEER [facility]TO Chloride, P 105 98 - 107 mmol/L 05/26/2024 6:24 PM RESEARCH ENGINEER [facility] Bicarbonate, P 22 22 - 29 mmol/L 05/26/2024 6:24 PM RESEARCH ENGINEER [facility] Anion Gap, P 13 7 - 15 05/26/2024 6:24 PM RESEARCH ENGINEER [facility] BUN (Blood Urea Nitrogen), P 9 6 - 21 mg/dL 05/26/2024 6:24 PM RESEARCH ENGINEER MKTO Creatinine 0.54(L) 0.59 - 1.04 mg/dL 05/26/2024 6:24 PM RESEARCH ENGINEER MKTO Estimated GFR (eGFR) >90 >=60 mL/min/BS A 05/26/2024 6:24 PM RESEARCH ENGINEER MKTO Comment: Estimated GFR calculated using the 2020 CKD_EPI creatinine equation. Calcium, Total, P 8.4(L) 8.6 - 10.0 mg/dL 05/26/2024 6:24 PM RESEARCH ENGINEER MKTO Glucose, P 100 70 - 140 mg/dL 05/26/2024 6:24 PM RESEARCH ENGINEER MKTO Protein, Total, P 7.1 6.3 - 7.9 g/dL 05/26/2024 6:24 PM RESEARCH ENGINEER MKTO Albumin, P 3.9 3.5 - 5.0 g/dL 05/26/2024 6:24 PM RESEARCH ENGINEER [facility] Aspartate Aminotransferase (AST), P 42 8 - 43 U/L 05/26/2024 6:24 PM RESEARCH ENGINEER MKTO Alkaline Phosphatase, P 67 35 - 104 U/L 05/26/2024 6:24 PM RESEARCH ENGINEER [facility]TO Alanine Aminotransferase (ALT), P 49(H) 7 - 45 U/L 05/26/2024 6:24 PM RESEARCH ENGINEER MKTO Bilirubin, Total, P 0.2 0.0 - 1.2 mg/dL 05/26/2024 6:24 PM RESEARCH ENGINEER MKTO Blood (Blood, Venous) 05/26/2024 5:51 PM RESEARCH ENGINEER 05/26/2024 5:59 PM RESEARCH ENGINEER us Kristin Meza APRN, C.N.P., D.N.P. LAB BLOOD ADD -ON Final Result [facility] [address] [place] [address], [facility] MKTO [facility] in [place] [address] [place] [address] * CBC with Differential, Blood (05/26/2024 5:51 PM RESEARCH ENGINEER) Hemoglobin 12.0 11.6 - 15.0 g/dL 05/26/2024 6:02 PM RESEARCH ENGINEER MKTO Hematocrit 36.0 35.5 - 44.9 % 05/26/2024 6:02 PM RESEARCH ENGINEER [facility] Erythrocytes 4.02 3.92 - 5.13 x10(12)/L 05/26/2024 6:02 PM RESEARCH ENGINEER [facility] MCV 89.6 78.2 - 97.9 fL 05/26/2024 6:02 PM RESEARCH ENGINEER MK[facility] RBC Distrib Width 12.4 12.2 - 16.1 % 05/26/2024 6:02 PM RESEARCH ENGINEER [facility] Platelet Count 261 157 - 371 x10(9)/L 05/26/2024 6:02 PM RESEARCH ENGINEER [facility] Leukocytes 8.9 3.4 - 9.6 x10(9)/L 05/26/2024 6:02 PM RESEARCH ENGINEER [facility] Neutrophils 5.82 1.56 - 6.45 x10(9)/L 05/26/2024 6:02 PM RESEARCH ENGINEER [facility] Lymphocytes 2.25 0.95 - 3.07 x10(9)/L 05/26/2024 6:02 PM RESEARCH ENGINEER [facility] Monocytes 0.71 0.26 - 0.81 x10(9)/L 05/26/2024 6:02 PM RESEARCH ENGINEER MKTO Eosinophils 0.11 0.03 - 0.48 x10(9)/L 05/26/2024 6:02 PM RESEARCH ENGINEER MKTO Basophils <0.03 0.01 - 0.08 x10(9)/L 05/26/2024 6:02 PM RESEARCH ENGINEER MKTO Blood (Blood, Venous) 05/26/2024 5:51 PM RESEARCH ENGINEER 05/26/2024 5:59 PM RESEARCH ENGINEER us Kristin Meza APRN, C.N.P., D.N.P. LAB BLOOD ADD -ON Final Result [facility] [address] [place] [address], [facility] MKTO [facility] in [place] [address] [place] [address] documented in this encounter Visit Diagnoses Diagnosis Abdominal Pain- Primary documented in this encounter Administered Medications Inactive Administered Medications - up to 3 most recent administrations Medication Order MAR Action Action Date Dose Rate Site iohexoL 300 mg iodine/mL solution 1-200 mL (Omnipaque) 1-200 mL, intravenous, Once in imaging, contrast, Starting on 05/26/24 at 1847, For 1 dose Given 05/26/2024 6:50 PM RESEARCH ENGINEER 100 mL ketorolac injection 15 mg (ToradoL) 15 mg, intravenous, Once, On Sun05/26/24 at 1742, For 1 dose, Adult IV push rate: Over 15 seconds. Peds IV push rate: Over 1 minute. Doses > 15 mg IV/IM are discouraged due to lack of additional analgesic benefit. Given 05/26/2024 5:53 PM RESEARCH ENGINEER 15 mg sodium chloride 0.9 % flush 100 mL 100 mL, intravenous, Once in imaging, line care, for CT Exam, Starting on Sun05/26/24 at 1847, For 1 dose Given 05/26/2024 6:50 PM RESEARCH ENGINEER 100 mL documented in this encounter Active and Recently Administered Medications Times are shown in RESEARCH ENGINEER. Scheduled Medication Order 05/24/2024 05/25/2024 05/26/2024 ketorolac [...] documented as of this encounter Care Teams Seafood Fisherman Relationship Specialty Start Date End Date Montse Ruiz D.O. [address] [place] [phone] PCP - General Family Medicine 11/27/23 documented as of this encounter
[2024-06-01 08:29] LABS: Appearance Urine Clear (Clear); Bilirubin Urine Negative (Negative); Blood Urine Trace-intact (Negative); Color Urine Yellow (Yellow); Glucose Urine Negative (Negative); Ketones Urine Negative (Negative); Leukocyte Esterase Urine 2+ (Negative); Nitrite Urine Negative (Negative); Protein Urine Negative (Negative); Urobilinogen Urine 0.2 (0.2-1.0)
[2024-06-01 08:36] LABS: Basophils Absolute Auto 0.03 K/uL (0.00-0.30); Basophils Percent Auto 0.5 % (0.0-3.0); Eosinophils Absolute Auto 0.07 K/uL (0.00-0.50); Eosinophils Percent Auto 1.2 % (0.0-7.0); Hematocrit 37.9 % (33.0-51.0); Hemoglobin* 12.8 gm/dL (12.0-16.0); Immature Granulocytes Abs Auto 0.01 K/uL (0.00-0.30); Immature Granulocytes Pct Auto 0.2 %; Lymphocytes Percent Auto 14.5 % (20-44); Mean Corpuscular HGB Conc 34 gm/dL (32-36); Mean Corpuscular Hemoglobin 30 pg (26-34); Mean Corpuscular Volume 89 fL (80-100); Monocytes Percent Auto 12.5 % (0.0-11.0); Neutrophils Absolute Auto 4.33 K/uL (1.7-7.0); Neutrophils Percent Auto 71.1 % (42.0-72.0); Platelet Count* 267 K/uL (140-440); RDW Coefficient of Variation % 12.1 % (11.5-15.5); Red Blood Count 4.24 m/uL (4.00-5.20); White Blood Count* 6.08 K/uL (4.50-11.00)
[2024-06-01 08:40] LABS: Slide Review Reflex No
[2024-06-01 08:41] LABS: Bacteria Urine Few; RBC Urine 0-2 (0-2); Squamous Epithelial Cell Urine Moderate (None-Few)
[2024-06-01] MEDS: 0.9 % SODIUM CHLORIDE 1000 ml 1,000 ML IV (08:45)
[2024-06-01 08:49] LABS: Albumin* 4.3 g/dL (3.3-5.0); Chloride* 105 mmol/L (96-114); Potassium* 4.4 mmol/L (3.6-5.1); Sodium* 138 mmol/L (135-149)
[2024-06-01 08:51] LABS: Blood Urea Nitrogen* 14 mg/dL (5-24); Creatinine* 0.7 mg/dL (0.5-1.5); Estimated Glomerular Filt Rate 119 ml/min
[2024-06-01 08:52] LABS: Alkaline Phosphatase* 278 U/L (40-150); Anion Gap 9 mEq/L (7-15); Calcium* 9.1 mg/dL (8.4-10.6); Carbon Dioxide* 24 mmol/L (20-32); Glucose* 96 mg/dL (60-115); Lipase* 128 U/L (23-300); Total Protein* 7.9 g/dL (6.0-8.3)
[2024-06-01 09:03] LABS: Alanine Aminotransferase* 1058 U/L (4-35); Aspartate Amino Transferase* 1218 U/L (12-35)
[2024-06-01 10:41] VITALS: BP 129/68; PULSE 89; RESP 18; O2SAT 98
[2024-06-01] MEDS: LORazepam 2 MG/ML inj 1 MG IVP (11:19)
[2024-06-01] MEDS: 0.9 % SODIUM CHLORIDE 1000 ml 1,000 ML 125 ML IV (11:21)
[2024-06-01 12:10] LABS: Acetaminophen* < 10.0 ug/mL (10.0-30.0)
[2024-06-01 14:17] VITALS: BP 121/71; PULSE 111; RESP 16; O2SAT 97
== END 2024-06-01 15:29 | disposition other institution (70) ==
PROVIDERS: Emergency Provider Internal Medicine
DX: K75.9 Inflammatory liver disease, unspecified (principal)
CPT/HCPCS: 36415; 74177; 80053; 80143; 81001; 81003; 83690; 85025; 87086; 96374; 99284; 99285; J2060; J7030; Q9967

== ENCOUNTER 2024-06-01 15:21 | Outpatient (CLI) | payer OTHER, SELFPAY | END 2024-06-01 15:22 | disposition home or self-care (01) | LOC: AMB 06-02 16:20 | PROVIDERS: Visit Provider Internal Medicine | DX: K75.9 Inflammatory liver disease, unspecified (principal) | CPT/HCPCS: A0425; A0427 ==

== ENCOUNTER 2024-08-29 23:09 | Emergency (ER) | payer OTHER, SELFPAY ==
--- OUTSIDE RECORDS SUMMARY | 2024-06-03 23:30 | XMS_ITS | Continuity of Care Document ---
Author Organization [facility] Address [address] [address] [place] [address] Phone Care Team Providers Care Cabinet Installer Name Role Phone No Information Unavailable Unavailable Advance Directives Directive Yes / No Effective Date File Name No Information Encounters Encounter Description Practice Location Reason(s) For Visit Diagnoses Date Provider Providers Copied on Encounter [facility], [address] [address], [place], [place], [id number], [place] tel:[phone] No Information No Information Family History Family Member Type Diagnosis Age At Onset No Information Payers Payer name Insurance type Covered constitution party ID Authoriza tion(s) No Information Social History Type Description Quantity Date Captured Comments Sex Female Smoking Status No Information Chief Complaint And Reason For Visit No Information Reason For Referral Reason For Referral No Information History Of Present Illness Encounter Date Complaint History Of Prese nt Illness No Information Functional Status Date Functional Assessmen t No Information Instructions Date Instruction Additional Infor mation No Information Assessments Type Assessment Date No Information Patient Care Teams Name Effective Dates (start - stop) Status Members No Information
--- OUTSIDE RECORDS SUMMARY | 2024-06-03 23:30 | XMS_ITS | Continuity of Care Document ---
Author Organization [facility] Address [address] [address] [place] [address] Phone Care Team Providers Care Rock Mason Apprentice Name Role Phone No Information Unavailable Unavailable Advance Directives Directive Yes / No Effective Date File Name No Information Encounters Encounter Description Practice Location Reason(s) For Visit Diagnoses Date Provider Providers Copied on Encounter [facility], [address] [address], [place], [place], [id number], [place] tel:[phone] No Information No Information Family History Family Member Type Diagnosis Age At Onset No Information Payers Payer name Insurance type Covered alliance party ID Authoriza tion(s) No Information Social [...]
--- OUTSIDE RECORDS SUMMARY | 2024-08-04 06:55 | XMS_ITS | Encounter Summary ---
Author Organization 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] Procedures ERCP DX COLLECTION SPECIMEN BRUSHING/WASHING ENDOSCOPIC RETROGRADE CHOLANGIOPANCREATOGRAPHY DIAGNOSTIC Referral ID Status Reason Start Date Expiration Date Visits Re quested Visits Authorized [id number] 1 1 Encounter Details Date Type Department Care Team (Late st Contact Info) Description 08/04/2024 6:55 AM CDT - 08/04/2024 12:04 PM CDT Hospital Encounter [facility] [address] [place] [id number] Travis Car MD [address] [id number] Mirizzi syndrome Discharge Disposition: Returning Home/Self Care Social History Tobacco Use Types Packs/Day Years Used Date Smoking Tobacco: Former Cigarettes Smokeless Tobacco: Never Tobacco Cessation:Counseling Given: Not Answered Alcohol Use Standard Drinks/Week Comments Not Currently 0 (1 standard drink = 0.6 oz pur e alcohol) Feb [address] [facility] Utilities Answer Date Recorded In the past 12 months has e electric, gas, oil, or water company threatened to shut off services in your home? No 08/04/2024 Humiliation, Afraid, Rape, and Kick questionnair e Answer Date Recorded Within the last year, have y ou been afraid of your partner or ex-partner? No 08/04/2024 Within the last year, have y ou been humiliated or emotionally abused in other ways by your partner or ex-partner? No Within the last year, have y ou been kicked, hit, slapped, or otherwise physically hurt by your partner or ex-partner? No 08/04/2024 Within the last year, have y ou been raped or forced to have any kind of sexual activity by your partner or ex-partner? No 08/04/2024 Hunger Vital Sign Answer Date Recorded Within the past 12 months, y ou worried that your food would run out before you got the money to buy more. Never true 08/05/19 25 Within the past 12 months, t he food you bought just didn't last and you didn't have money to get more. Never true 08/04/2024 PRAPARE - Transportation Answer Date Re corded In the past 12 months, has l ack of transportation kept you from medical appointments or from getting medications? No 07/24 In the past 12 months, has l ack of transportation kept you from meetings, work, or from getting things needed for daily living? No 08/04/2024 Housing Stability Vital Sign Answer Logan e Recorded In the last 12 months, was t here a time when you were not able to pay the mortgage or rent on time? No 08/04/2024 In the past 12 months, how m any times have you moved where you were living? 0 08/04/2024 At any time in the past 12 m [facility], were you homeless or living in a fpc (including now)? No 08/04/2024 Comments No Sex and Gender Information Value Date Recorded Sex Assigned at Not on file Legal Sex Female 10:22 AM CDT Gender Identity Not on file Sexual Orientation Not on file documented as of this encounter Last Filed Vital Signs Vital Sign Reading Time Taken Comments Blood Pressure 111/74 08/04/2024 11:45 AM CDT Pulse 83 08/04/2024 11:45 AM CDT Temperature 36.7 C (98 F) 08/04/2024 10:45 AM CDT Respiratory Rate 16 08/04/2024 11:45 AM CDT Oxygen Saturation 99% 08/04/2024 11:45 AM CDT Inhaled Oxygen Concentration - - Weight 102.1 kg (225 lb) 08/01/2024 1:48 PM CDT Height 170 cm (5' 6.93) 08/01/2024 1:48 PM CDT Body Mass Index 35.31 08/01/2024 1:48 PM CDT documented in this encounter Medications at Time of Discharge acetaminophen (TYLENOL) 500 mg oral tablet Take 1 tablet (500 mg) by mouth every 6 (six) hours as needed for fever or pain. cholecalciferol (VITAMIN D3) 400 unit (10 mcg) oral Tab tablet Take 12.5 tablets (125 mcg) by mouth once daily. ferrous sulfate (FERATAB) 325 mg (65 mg iron) oral tablet Take 1 tablet (325 mg) by mouth every other day. polyethylene glycol (MIRALAX) 17 gram oral powder Take 17 g by mouth twice a day as needed for constipation. Mix each dose in 4-8 ounces of liquid as directed. 238 g 06/04/2024 7:34 AM CDT 06/03/2024 bismuth subsalicylate (PEPTO-BISMOL) 262 mg oral chewable tablet Chew 2 tablets (524 mg) four times a day for 14 days. 112 tablet 08/06/2024 metroNIDAZOLE (FLAGYL) 500 mg oral tabletIndications:H pylori & intra-abdominal infection Take 1 tablet (500 mg) by mouth four times a day for 14 days Indications: H pylori & intra-abdomin al infection. 56 tablet 08/06/2024 1:56 PM CDT 08/06/2024 5 pantoprazole (PROTONIX) 40 mg oral delayed release tabletIndications:h pylori treatment Take 1 tablet (40 mg) by mouth twice a day for 14 days Indications: h pylori treatment. 28 tablet 08/06/2024 1:56 PM CDT 08/06/2024 5 tetracycline (SUMYCIN) 500 mg oral CapIndications:H pylori Take 1 capsule (500 mg) by mouth three times a day before meals and at bedtime for 14 days Indications: H pylori. 56 capsule 08/06/2024 1:56 PM CDT 08/06/2024 documented as of this encounter Progress Notes * Chandu Obrien - 08/04/2024 8:50 AM CDT Summary: Community Health Consultant visit at this patient's request to provide pre-surgery support and prayer. Rev. Chaplain Cabrera M.Div. 08/04/2024 0850 am documented in this encounter Nursing Notes * Carmen Cervantes, DONNA - 08/04/2024 12:03 PM CDT Juan Mbrianna Yamila Taylor 1995 [phone] P: Discharge A: Discharged ambulatory to home at 1159 escorted by self and significant Other I: Discharge information and arrangements included: review of written discharge instructions, belongings list completed. No post op calls. R:Patient, significant Other expressed understanding of information.. documented in this encounter Plan of Treatment Not on file documented as of this encounter Procedures Procedure Name Priority Date/Time Associated Diagnosis Comments XR C ARM/FLUORO LESS THAN 1HR STAT 08/04/2024 10:44 AM CDT SURGICAL PATHOLOGY Routine 08/04/2024 10 :33 AM CDT Mirizzi syndrome CARBAPENEMASE PCR STAT 08/04/2024 10: 07 AM CDT EGD TRANSORAL BIOPSY SINGLE/MULTIPLE 08/04/2024 9:51 AM CDT Mirizzi syndrome ERCP DX COLLECTION SPECIMEN BRUSHING/WASHING 08/04/2024 9:51 AM CDT Mirizzi syndrome ERCP REMOVE FOREIGN BODY/STENT BILIARY/PANC DUCT 08/04/2024 9:51 AM CDT Mirizzi syndrome ENDOSCOPY Routine 08/04/2024 9:31 AM CDT LIVER PROFILE STAT 08/04/2024 9:29 AM CDT PROTIME/INR STAT 08/04/2024 9:29 AM CDT HCG URINE STAT 08/04/2024 7:08 AM CDT documented in this encounter Results * XR FLUOROSCOPY LESS THAN 1 HR (08/04/2024 10:44 AM CDT) Anatomical Region Laterality Modality Computed Radiogr aphy 08/04/2024 3:18 PM CDT Impressions 08/04/2024 3:20 PM CDT IMPRESSION: 1. As above. REPORT SIGNED BY Con Enriquez M.D. Narrative 08/04/2024 3:20 PM CDT EXAM: XR C ARM/FLUORO LESS THAN 1HR DATE: 08/04/2024 10:44 CLINICAL DATA: Cholelithiasis. ICD 10: K83.1 Obstruction of bile duct COMPARISON: None. FINDINGS: Fluoroscopic guidance provided to Dr. TRAVIS CAR with total fluoroscopy time of 138 seconds. Multiple fluoroscopic images were submitted, demonstrating pre-existing right common bile duct stent. Subsequently, cannulation of the right ampulla with balloon sweep of the right common bile duct is performed. There is prompt emptying of intrahepatic biliary contrast at the completion of the procedure. Procedure Note Con Enriuqez MD - 08/04/2024 EXAM: XR C ARM/FLUORO LESS THAN 1HR DATE: 08/04/2024 10:44 CLINICAL DATA: Cholelithiasis. ICD 10: K83.1 Obstruction of bile duct COMPARISON: None. FINDINGS: Fluoroscopic guidance provided to Dr. TRAVIS CAR withtotal fluoroscopy time of 138 seconds. Multiple fluoroscopic images weresubmitted, demonstrating pre-existing right common bile duct stent.Subsequently, cannulation of the right ampulla with balloon sweep of theright common bile duct is performed. There is prompt emptying ofintrahepatic biliary contrast at the completion of the procedure. IMPRESSION IMPRESSION: 1. As above. REPORT SIGNED BY Con Enriquez M.D. Travis Car MD XRAY ORDERABLE Final Re sult * Surgical Pathology (08/04/2024 10:33 AM CDT) Case Report Surgical Pathology Case: [id number] Authorizing Provider: Travis Car MD Collected: 08/04/2024 10:33 AM Ordering Location: [facility] Received: 08/04/2024 02:04 PM Hospital Advanced Procedure Unit Pathologist: Chai Newton Jr., MD Specimen: Stomach, Random Biopsy 08/05/2024 2:30 PM CDT [facility] Final Diagnosis Random stomach, biopsy: Chronic gastritis. Immunostain for Helicobacter is POSITIVE. 08/05/2024 2:30 PM CDT [facility] at 1430 CDT Gross Description Stomach biopsy, random: Four up to 0.3 cm. IT-1. 08/05/2024 2:30 PM CDT [facility] Microscopic Description Performed. Immunostain for Helicobacter with adequate positive and negative tissue controls shows scattered reactivity consistent with low-level positivity. 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] Travis Car MD PATHOLOGY/CYTOLOGY ORDER ABLE Final Result Performing Organization Address City/State/[facility] Co de Phone Number [facility] [address] [place] [address] * Carbapenemase PCR (08/04/2024 10:07 AM CDT) Source RECTAL 08/06/2024 9:03 AM CDT [facility] KPC PCR Negative Negative 08/06/2024 9:03 AM CDT [facility] NDM PCR Negative Negative 08/06/2024 9:03 AM CDT [facility] VIM PCR Negative Negative 08/06/2024 9:03 AM CDT [facility] OXA-48 PCR Negative Negative 08/06/2024 9:03 AM CDT [facility] IMP PCR Negative Negative 08/06/2024 9:03 AM CDT [facility] Rectal swab RECTAL SWAB / Unknown 08/04/2024 10:07 AM CDT 08/04/2024 10:11 AM CDT Narrative [facility] - 08/06/2024 9:03 AM CDT This assay tests for the presence of the following carbapenemase gene sequences: blaKPC, blaNDM, blaVIM, blaOXA-48, and blaIMP. If a gene sequence is not detected the gene is absent, altered, or below the assay detection level. 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 ERCP performed with 10 Nigerian by 7 cm stent placed, LFTs normalized other than mild elevation in AST today (normal alk phos). For ERCP for further evaluation and either stent removal versus stent exchange. Providers: Travis Car MD, Sonia Hagen RN, Travis Car MD Requesting Provider: Medicines: General Anesthesia, Indomethacin 100 mg MO Complications: No immediate complications. Procedure: Pre-Anesthesia Assessment: - Prior to the procedure, a History and Physical was performed, and patient medications and allergies were reviewed. The patient is competent. The risks and benefits of the procedure and the sedation options and risks were discussed with the patient. All questions were answered and informed consent was obtained. Patient identification and proposed procedure were verified by the physician, the nurse and the buggy loader in the pre-procedure area in the procedure room. Mental Status Examination: alert and oriented. Airway Examination: normal oropharyngeal airway and neck mobility. Respiratory Examination: clear to auscultation. CV Examination: normal. Prophylactic Antibiotics: The patient does not require prophylactic antibiotics. Prior Anticoagulants: The patient has taken no anticoagulant or antiplatelet agents. ASA Grade Assessment: II - A patient with mild systemic disease. After reviewing the risks and benefits, the patient was deemed in satisfactory condition to undergo the procedure. The anesthesia plan was to use general anesthesia. Immediately prior to administration of medications, the patient was re-assessed for adequacy to receive sedatives. The heart rate, respiratory rate, oxygen saturations, blood pressure, adequacy of pulmonary ventilation, and response to care were monitored throughout the procedure. The physical status of the patient was re-assessed after the procedure. After obtaining informed consent, the scope was passed under direct vision. Throughout the procedure, the patient's blood pressure, pulse, and oxygen saturations were monitored continuously. The Duodenoscope was introduced through the mouth, and advanced to the duodenum and used to inject contrast into the bile duct. The ERCP was accomplished without difficulty. The patient tolerated the procedure well. Findings: A electrician journeyman wireman film of the abdomen was obtained. Surgical clips, consistent with a previous cholecystectomy, were seen in the area of the right upper quadrant of the abdomen along with the previously placed 10Fr by 7cm biliary stent. The stomach was large and J-shaped, with nodular, erythematous mucosa. One stent was removed from the biliary tree using a snare. The bile duct was deeply cannulated with the Olmypus balloon. Contrast was injected. I personally interpreted the bile duct images. Ductal flow of contrast was adequate. Image quality was adequate. Contrast extended to the entire biliary tree. A cholecystectomy had been performed. The cystic duct contained one stone but did not appear to obstruct the bile duct. The CBD was normal in calliber througout. The biliary tree was swept with an 8.5 mm balloon starting at the bifurcation. Nothing was found. The stomach mucosa were biopsied with a cold forceps for histology. Impression: - The patient has had a cholecystectomy. - Cystic duct stones were found, no longer compressing the bile duct. Normal caliber CBD. - One stent was removed from the biliary tree. - The biliary tree was swept and nothing was found. Recommendation: - Discharge patient to home (with escort). - Resume previous diet. - Await path results from stomach biopsies. - Will attempt a stent free trial. If the symptoms return or LFTs increase again, we will repeat ERCP with cholangioscopy for attempt at lithotripsy of the cystic duct stone, if amenable. - The findings and recommendations were discussed with the patient. Procedure Code(s): --- Professional --- 78497, Endoscopic retrograde cholangiopancreatography (ERCP); with removal of foreign body(s) or stent(s) from biliary/pancreatic duct(s) 29626, Endoscopic catheterization of the biliary ductal system, radiological supervision and interpretation Diagnosis Code(s): --- Professional --- Z90.49, Acquired absence of other specified parts of digestive tract K80.20, Calculus of gallbladder without cholecystitis without obstruction Z46.59, Encounter for fitting and adjustment of other gastrointestinal appliance and device CPT copyright 2021 [employer]. All rights reserved. The codes documented in this report are preliminary and upon printer technician review may be revised to meet current compliance requirements. Travis Car MD 08/04/2024 11:11:57 AM This report has been signed electronically.Travis Car MD Number of Addenda: 0 Note Initiated On: 08/04/2024 9:31 AM [address] [id number] Procedure Note Travis Car MD - 08/04/2024 [facility] Patient Name: Esvin Taylor Procedure Date: 08/04/2024 9:31 AM Date of : 1995 Note Status: Finalized Attending MD: Travis Car MD, Procedure: ERCP Indications: Cystic duct stone(s); 29F s/p cholecystectomy on 05/24/2024 diagnosedwith Mirizzi syndrome on EUS 06/02/2024. ERCP performed with 10 Nigerian by 7cm stent placed, LFTs normalized other than mild elevation in AST today (normal alk phos). For ERCP for further evaluation and either stent removal versus stent exchange. Providers: Travis Car MD, Sonia Hagen RN, Travis Car MD Requesting Provider: Medicines: General Anesthesia, Indomethacin 100 mg MO Complications: No immediate complications. Procedure: Pre-Anesthesia Assessment: - Prior to the procedure, a History and Physical was performed, and patient medications and allergies were reviewed. The patient is competent. The risks and benefits of the procedure and the sedation options and risks were discussed with the patient. All questions were answered and informed consent was obtained. Patient identificationand proposed procedure were verified by the physician, the nurse and the buggy loader in the pre-procedure area in the procedure room. Mental Status Examination: alert and oriented. Airway Examination: normal oropharyngeal airway and neck mobility. Respiratory Examination:clear to auscultation. CV Examination: normal. Prophylactic Antibiotics:The patient does not require prophylactic antibiotics. PriorAnticoagulants: The patient has taken no anticoagulant or antiplatelet agents. ASAGrade Assessment: II - A patient with mild systemic disease. Afterreviewing the risks and benefits, the patient was deemed in satisfactorycondition to undergo the procedure. The anesthesia plan was to use general anesthesia. Immediately prior to administration of medications, the patient was re-assessed for adequacy to receive sedatives. The heart rate, respiratory rate, oxygen saturations, blood pressure, adequacyof pulmonary ventilation, and response to care were monitored throughout the procedure. The physical status of the patient was re-assessedafter the procedure. After obtaining informed consent, the scope was passed under direct vision. Throughout the procedure, the patient's blood pressure,pulse, and oxygen saturations were monitored continuously. The Duodenoscopewas introduced through the mouth, and advanced to the duodenum and usedto inject contrast into the bile duct. The ERCP was accomplished without difficulty. The patient tolerated the procedure well. Findings: A electrician journeyman wireman film of the abdomen was obtained. Surgical clips, consistent with a previous cholecystectomy, were seen in the area of the right upper quadrant of the abdomen along with the previously placed 10Frby 7cm biliary stent. The stomach was large and J-shaped, with nodular, erythematous mucosa. One stent was removed from the biliary treeusing a snare. The bile duct was deeply cannulated with the Olmypus balloon. Contrast was injected. I personally interpreted the bile duct images. Ductal flow of contrast was adequate. Image quality was adequate. Contrast extended to the entire biliary tree. A cholecystectomy hadbeen performed. The cystic duct contained one stone but did not appear to obstruct the bile duct. The CBD was normal in calliber througout. The biliary tree was swept with an 8.5 mm balloon starting at the bifurcation. Nothing was found. The stomach mucosa were biopsied witha cold forceps for histology. Impression: - The patient has had a cholecystectomy. - Cystic duct stones were found, no longer compressing the bile duct. Normal caliber CBD. - One stent was removed from the biliary tree. - The biliary tree was swept and nothing was found. Recommendation: - Discharge patient to home (with escort). - Resume previous diet. - Await path results from stomach biopsies. - Will attempt a stent free trial. If the symptoms return or LFTs increase again, we will repeat ERCP with cholangioscopy for attemptat lithotripsy of the cystic duct stone, if amenable. - The findings and recommendations were discussed with the patient. Procedure Code(s): --- Professional --- 60797, Endoscopic retrograde cholangiopancreatography (ERCP); with removal of foreign body(s) or stent(s) from biliary/pancreaticduct(s) 00826, Endoscopic catheterization of the biliary ductal system, radiological supervision and interpretation Diagnosis Code(s): --- Professional --- Z90.49, Acquired absence of other specified parts of digestivetract K80.20, Calculus of gallbladder without cholecystitis withoutobstruction Z46.59, Encounter for fitting and adjustment of othergastrointestinal appliance and device CPT copyright 2021 [employer]. All rights reserved. The codes documented in this report are preliminary and upon printer technician reviewmay be revised to meet current compliance requirements. Travis Car MD 08/04/2024 11:11:57 AM This report has been signed electronically.Travis Car MD Number of Addenda: 0 Note Initiated On: 08/04/2024 9:31 AM [address] [place] [address] Travis Car MD PROCEDURE ORDERABLE Danica l Result Performing Organization Address City/[facility] Co de Phone Number TEST * (ABNORMAL) Liver Profile (08/04/2024 9:29 AM CDT) ALT 52(H) 7 - 40 U/L 08/04/2024 10:05 AM T [facility] Alkaline Phosphatase 62 46 - 116 U/L 08/04/2024 10:05 AM T [facility] AST (SGOT) 36 13 - 40 U/L 08/04/2024 10:05 AM T [facility] Protein Total 7.1 5.7 - 8.2 g/dL 08/04/2024 10:05 AM [facility] Albumin 3.6 3.4 - 5.0 g/dL 08/04/2024 10:05 AM T [facility] Bilirubin-Direct 0.17 <0.40 mg/dL 08/04/2024 10:05 AM T [facility] Bilirubin-Total 0.60 0.30 - 1.20 mg/dL 08/04/2024 10:05 AM T [facility] Blood VENOUS BLOOD SPECIMEN / Unknown 08/04/2024 9:29 AM CDT 08/04/2024 9:33 AM CDT Travis Car MD CHEMISTRY ORDERABLE Danica l Result Performing Organization Address City/[facility]/ZIP Co de Phone Number [facility] [address] [place] [address] * Protime/INR (08/04/2024 9:29 AM CDT) INR 1.1 0.9 - 1.2 08/04/2024 9:45 AM CDT [facility] Blood VENOUS BLOOD SPECIMEN / Unknown 08/04/2024 9:29 AM CDT 08/04/2024 9:30 AM CDT us Travis Car MD COAGULATION ORDERABLE Fi nal Result Performing Organization Address City/[facility]/ZIP Co de Phone Number [facility] [address] [place] [address] * hCG Urine (08/04/2024 7:08 AM CDT) hCG Urine Negative Negative 08/04/2024 7:20 AM CDT [facility] Urine 08/04/2024 7:08 AM CDT 08/04/2024 7:13 AM CDT us Wilmer Romo MD URINE ORDERABLE Final Res ult Performing Organization Address [facility] Co de Phone Number [facility] [address] [place] [address] documented in this encounter Visit Diagnoses Diagnosis Mirizzi syndrome documented in this encounter Administered Medications Inactive Administered Medications - up to 3 most recent administrations Medication Order MAR Action Action Date Dose Rate Site saline FLUSH syringe 10 mL 10 mL, Intravenous, NEEDED, Starting on Sun08/04/24 at 0701, Until Sun08/04/24 at 0951, Pre-Op, Line Care Given 08/04/2024 7:49 AM CDT 10 mL saline FLUSH syringe 10 mL 10 mL, Intravenous, EVERY 8 HOURS, First dose on Sun08/04/24 at 1400, Until Discontinued saline FLUSH syringe 10 mL 10 mL, Intravenous, NEEDED, Starting on Sun08/04/24 at 0809, Until Sun08/04/24 at 1246, Line Care atropine syringe 0.5 mg 0.5 mg, Intravenous, NEEDED, Starting on Sun08/04/24 at 1048, Until Sun08/04/24 at 1246, Phase 1/2, bradycardia, for sudden bradycardia; for heart rate less than 50 bpm WITH HYPOTENSION - NOTIFY ANESTHESIOLOGIST haloperidoL (HaldoL) injection 1 mg 1 mg, Intravenous, ONCE NEEDED, MAY REPEAT X 1, 2 doses, Starting on Sun08/04/24 at 1048, Until Sun08/04/24 at 1246, Phase 1/2, for nausea unrelieved by ondansetron while in recovery area. HYDROcodone-acetaminophen (NORCO) 5-325 mg tablet 1 tablet 1 tablet, oral, NEEDED, MAY REPEAT X1, 2 doses, Starting on Sun08/04/24 at 1049, Until Sun08/04/24 at 1246, Phase 1/2, Pain, when taking PO, pain while in recovery area hydrOXYzine HCl (VISTARIL) injection 25 mg 25 mg, IntraMUSCULAR, ONCE NEEDED, MAY REPEAT X 1, 2 doses, Starting on Sun08/04/24 at 1049, Until Sun08/04/24 at 1246, Phase 1/2, for augmentation of narcotic based analgesia while in recovery area and unable to take PO. Not to be given within the past 6 hours. hydrOXYzine pamoate (Vistaril) capsule 25 mg 25 mg, oral, ONCE NEEDED, MAY REPEAT X 1, 2 doses, Starting on Sun08/04/24 at 1049, Until Sun08/04/24 at 1246, Phase 1/2, for augmentation of narcotic based analgesia while in recovery area. Not to be used if given within the past 6 hours. indomethacin (Indocin) rectal suppository 100 mg 100 mg, Rectal, INTRA-PROCEDURE ONE TIME DOSE NEEDED, 1 dose, Starting on Sun08/04/24 at 0809, Until Sun08/04/24 at 1040, for pancreatitis prophylaxis as directed by physician. Given 08/04/2024 10:40 AM CDT 100 mg lidocaine 1% injection (conc: 10 mg/mL) 0.1-0.3 mL 0.1-0.3 mL, Intradermal, NEEDED, Starting on Sun08/04/24 at 0701, Until Sun08/04/24 at 0951, Pre-Op, Local Anesthesia, IV start or restart Given 08/04/2024 7:50 AM CDT 0.1 mL Right Hand meperidine (preservative free) (DEMEROL) syringe 12.5 mg 12.5 mg, Intravenous, EVERY 5 MINUTES NEEDED, 2 doses, Starting on Sun08/04/24 at 1048, Until Sun08/04/24 at 1246, Phase 1/2, for shivering, Do not user meperidine for pain control per recommendation of the [place] [employer], [place] for Safe Medication Practices (ISMP) and the [facility]. methocarbamoL (ROBAXIN) injection 500 mg 500 mg, Intravenous, ONCE NEEDED, Starting on Sun08/04/24 at 1049, Until Sun08/04/24 at 1246, Phase 1/2, IV methocarbamol can be given for no more than 3 consecutive days. If additional IV methocarbamol is needed there should be a drug-free interval of 48 hours. ondansetron (Zofran) injection 4 mg 4 mg, Intravenous, EVERY 8 HOURS NEEDED, Starting on Sun08/04/24 at 0809, Until Sun08/04/24 at 1246, nausea & vomiting ondansetron (Zofran) injection 4 mg 4 mg, Intravenous, ONCE NEEDED, 1 dose, Starting on Sun08/04/24 at 1048, Until Sun08/04/24 at 1246, Phase 1/2, nausea & vomiting, for nausea while in recovery area if not given within the past 6 hours. oxyCODONE (immediate release) (ROXICODONE) tablet 5 mg 5 mg, oral, NEEDED, MAY REPEAT X1, 2 doses, Starting on Sun08/04/24 at 1049, Until Sun08/04/24 at 1246, Phase 1/2, Pain, when taking PO, pain while in recovery area oxyCODONE-acetaminophen (PERCOCET) 5-325 mg tablet 1 tablet 1 tablet, oral, NEEDED, MAY REPEAT X1, 2 doses, Starting on Sun08/04/24 at 1049, Until Sun08/04/24 at 1246, Phase 1/2, Pain, when taking PO, pain while in recovery area documented in this encounter Active and Recently Administered Medications Times are shown in CDT. Scheduled Medication Order 08/02/2024 08/03/2024 08/04/2024 saline FLUSH syringe 10 mL 10 mL, Intravenous, EVERY 8 HOURS, First dose on Sun08/04/24 at 1400, Until Discontinued acetaminophen (TYLENOL) tablet 500-1,000 mg 500-1,000 mg, oral, ONCE, 1 dose, On Sun08/04/24 at 1100, Phase 1/2 1100 (Due) PRN Medication Order 08/02/2024 08/03/2024 08/04/2024 saline FLUSH syringe 10 mL (CANCELED) 10 mL, Intravenous, NEEDED, Starting on Sun08/04/24 at 0701, Until Sun08/04/24 at 0951, Pre-Op, Line Care 0749 (Given - Provid er: Stephenie Pacheco RN) saline FLUSH syringe 10 mL 10 mL, Intravenous, NEEDED, Starting on Sun08/04/24 at 0809, Until Sun08/04/24 at 1246, Line Care atropine syringe 0.5 mg 0.5 mg, Intravenous, NEEDED, Starting on Sun08/04/24 at 1048, Until Sun08/04/24 at 1246, Phase 1/2, bradycardia, for sudden bradycardia; for heart rate less than 50 bpm WITH HYPOTENSION - NOTIFY ANESTHESIOLOGIST haloperidoL (HaldoL) injection 1 mg 1 mg, Intravenous, ONCE NEEDED, MAY REPEAT X 1, 2 doses, Starting on Sun08/04/24 at 1048, Until Sun08/04/24 at 1246, Phase 1/2, for nausea unrelieved by ondansetron while in recovery area. HYDROcodone-acetaminophen (NORCO) 5-325 mg tablet 1 tablet(Linked Group 1) 1 tablet, oral, NEEDED, MAY REPEAT X1, 2 doses, Starting on Sun08/04/24 at 1049, Until Sun08/04/24 at 1246, Phase 1/2, Pain, when taking PO, pain while in recovery area hydrOXYzine HCl (VISTARIL) injection 25 mg(Linked Group 2) 25 mg, IntraMUSCULAR, ONCE NEEDED, MAY REPEAT X 1, 2 doses, Starting on Sun08/04/24 at 1049, Until Sun08/04/24 at 1246, Phase 1/2, for augmentation of narcotic based analgesia while in recovery area and unable to take PO. Not to be given within the past 6 hours. hydrOXYzine pamoate (Vistaril) capsule 25 mg(Linked Group 2) 25 mg, oral, ONCE NEEDED, MAY REPEAT X 1, 2 doses, Starting on Sun08/04/24 at 1049, Until Sun08/04/24 at 1246, Phase 1/2, for augmentation of narcotic based analgesia while in recovery area. Not to be used if given within the past 6 hours. indomethacin (Indocin) rectal suppository 100 mg (COMPLETED) 100 mg, Rectal, INTRA-PROCEDURE ONE TIME DOSE NEEDED, 1 dose, Starting on Sun08/04/24 at 0809, Until Sun08/04/24 at 1040, for pancreatitis prophylaxis as directed by physician. 1040 (Given - Provid er: Kimberly Coy RN) lidocaine 1% injection (conc: 10 mg/mL) 0.1-0.3 mL (CANCELED) 0.1-0.3 mL, Intradermal, NEEDED, Starting on Sun08/04/24 at 0701, Until Sun08/04/24 at 0951, Pre-Op, Local Anesthesia, IV start or restart 0750 (Given - Provid er: Stephenie Pacheco RN) meperidine (preservative free) (DEMEROL) syringe 12.5 mg 12.5 mg, Intravenous, EVERY 5 MINUTES NEEDED, 2 doses, Starting on Sun08/04/24 at 1048, Until Sun08/04/24 at 1246, Phase 1/2, for shivering, Do not user meperidine for pain control per recommendation of the [place] [employer], [place] for Safe Medication Practices (ISMP) and the [facility]. methocarbamoL (ROBAXIN) injection 500 mg 500 mg, Intravenous, ONCE NEEDED, Starting on Sun08/04/24 at 1049, Until Sun08/04/24 at 1246, Phase 1/2, IV methocarbamol can be given for no more than 3 consecutive days. If additional IV methocarbamol is needed there should be a drug-free interval of 48 hours. ondansetron (Zofran) injection 4 mg 4 mg, Intravenous, EVERY 8 HOURS NEEDED, Starting on Sun08/04/24 at 0809, Until Sun08/04/24 at 1246, nausea & vomiting ondansetron (Zofran) injection 4 mg 4 mg, Intravenous, ONCE NEEDED, 1 dose, Starting on Sun08/04/24 at 1048, Until Sun08/04/24 at 1246, Phase 1/2, nausea & vomiting, for nausea while in recovery area if not given within the past 6 hours. oxyCODONE (immediate release) (ROXICODONE) tablet 5 mg(Linked Group 1) 5 mg, oral, NEEDED, MAY REPEAT X1, 2 doses, Starting on 08/04/24 at 1049, Until 08/04/24 at 1246, Phase 1/2, Pain, when taking PO, pain while in recovery area oxyCODONE-acetaminophen (PERCOCET) 5-325 mg tablet 1 tablet(Linked Group 1) 1 tablet, oral, NEEDED, MAY REPEAT X1, 2 doses, Starting on 08/04/24 at 1049, Until 08/04/24 at 1246, Phase 1/2, Pain, when taking PO, pain while in recovery area Linked Groups Order Group 1: oxyCODONE (immediate release) (ROXICODONE) tablet 5 mgJump to med 5 mg, oral, NEEDED, MAY REPEAT X1, 2 doses, Starting on 08/04/24 at 1049, Until 08/04/24 at 1246, Phase 1/2, Pain, when taking PO, pain while in recovery area Or oxyCODONE-acetaminophen (PERCOCET) 5-325 mg tablet 1 tabletJump to med 1 tablet, oral, NEEDED, MAY REPEAT X1, 2 doses, Starting on 08/04/24 at 1049, Until 08/04/24 at 1246, Phase 1/2, Pain, when taking PO, pain while in recovery area Or HYDROcodone-acetaminophen (NORCO) 5-325 mg tablet 1 tabletJump to med 1 tablet, oral, NEEDED, MAY REPEAT X1, 2 doses, Starting on 08/04/24 at 1049, Until 08/04/24 at 1246, Phase 1/2, Pain, when taking PO, pain while in recovery area Group 2: hydrOXYzine pamoate (Vistaril) capsule 25 mgJump to med 25 mg, oral, ONCE NEEDED, MAY REPEAT X 1, 2 doses, Starting on 08/04/24 at 1049, Until 08/04/24 at 1246, Phase 1/2, for augmentation of narcotic based analgesia while in recovery area. Not to be used if given within the past 6 hours. Or hydrOXYzine HCl (VISTARIL) injection 25 mgJump to med 25 mg, IntraMUSCULAR, ONCE NEEDED, MAY REPEAT X 1, 2 doses, Starting on Sun08/04/24 at 1049, Until 5/12/25 at 1246, Phase 1/2, for augmentation of narcotic based analgesia while in recovery area and unable to take PO. Not to be given within the past 6 hours. 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 Isolation precautions to remain in place until r/o per Infection Prevention. 06/13/2024 08/04/2024 08/06/2024 9:03 AM Fay Solorzano Rule-Out 08/04/2024 08/04/2024 documented as of this encounter Care Teams Resource Teacher Relationship Specialty Start Date End Date None, PCP - General Internal Medicine 06/03/24 documented as of this encounter
--- OUTSIDE RECORDS SUMMARY | 2024-08-04 08:55 | XMS_ITS | Encounter Summary ---
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] Procedures ERCP DX COLLECTION SPECIMEN BRUSHING/WASHING ENDOSCOPIC RETROGRADE CHOLANGIOPANCREATOGRAPHY DIAGNOSTIC Referral ID Status Reason Start Date Expiration Date Visits Re quested Visits Authorized [id number] 1 1 Encounter Details Date Type Department Care Team (Late st Contact Info) Description 08/04/2024 8:55 AM CDT - 08/04/2024 10:30 AM CDT Surgery [facility] Advanced Procedure Unit [address] [place] [id number] Travis Car MD [address] [id number] ENDOSCOPIC RETROGRADE CHOLANGIOPANCREATOGRAPHY REMOVAL STENT Surgery Details Date/Time Status Location OR Service Patient Class Case Class Case Type Trauma Case? 08/04/2024 8:55 AM Posted [facility] 20 Gastroenterology Outpatient Panel 1 Procedure LRB Anes Op Region Wound Class Comments ENDOSCOPIC RETROGRADE CHOLANGIOPANCREATOGRAPHY REMOVAL STENT N/A General Gastrointestinal Not Applicable (0) ENDOSCOPIC RETROGRADE CHOLANGIOPANCREATOGRAPHY DIAGNOSTIC N/A General Gastrointestinal Not Applicable (0) duct sweep ESOPHAGOGASTRODUODENOSCOPY WITH BIOPSY N/A General Gastrointestinal Not Applicable (0) Surgeon Surgeon Role Service Panel Travis Car MD Primary Gastroenterolog y 1 documented in this encounter Social History Tobacco Use Types Packs/Day Years Used Date Smoking Tobacco: Former Cigarettes Smokeless Tobacco: Never Tobacco Cessation:Counseling Given: Not Answered Alcohol Use Standard Drinks/Week Comments Not Currently 0 (1 standard drink = 0.6 oz pur e alcohol) Feb 2024 [facility] Utilities Answer Date Recorded In the past 12 months has th e BPT, gas, oil, or water company threatened to [...] any time in the past 12 m [facility], were you homeless or living in a snf (including now)? No 08/04/2024 Comments No Sex and Gender Information Value Date Recorded Sex Assigned at Not on file Legal Sex Female 10:22 AM CDT Gender Identity Not on file Sexual Orientation Not on file documented as of this encounter Last Filed Vital Signs Vital Sign Reading Time Taken Comments Blood Pressure 109/74 08/04/2024 7:45 AM CDT Pulse 82 08/04/2024 7:45 AM CDT Temperature 36.4 C (97.5 F) 08/04/2024 7:45 AM CDT Respiratory Rate 16 08/04/2024 7:45 AM CDT Oxygen Saturation 97% 08/04/2024 7:45 AM CDT Inhaled Oxygen Concentration - - [...] 56 tablet 08/06/2024 1:56 PM CDT 08/06/2024 pantoprazole (PROTONIX) 40 mg oral delayed release tabletIndications:h pylori treatment Take 1 tablet (40 mg) by mouth twice a day for 14 days Indications: h pylori treatment. 28 tablet 08/06/2024 1:56 PM CDT 08/06/2024 tetracycline (SUMYCIN) 500 mg oral CapIndications:H pylori Take 1 capsule (500 mg) by mouth three times a day before meals and at bedtime for 14 days Indications: H pylori. 56 capsule 08/06/2024 1:56 PM CDT 08/06/2024 documented as of this encounter Progress Notes * Chandu Obrien - 08/04/2024 8:50 AM CDT Summary: Bottom Bleacher visit at this patient's request to provide pre-surgery support and prayer. Rev. Chaplain Rick, Francine 08/04/2024 0850 am documented in this encounter Nursing Notes * Carmen Cervantes RN - 08/04/2024 12:03 PM CDT Esvin Driscoll Jaime Taylor 1995 [phone] P: Discharge A: Discharged ambulatory to home [...] completion of the procedure. Procedure Note Con Enriquez MD - 08/04/2024 EXAM: XR C ARM/FLUORO [...] AM CDT) Case Report Surgical Pathology Case: [id number] Authorizing Provider: Travis Car MD Collected: 08/04/2024 10:33 AM Ordering Location: [facility] Received: 08/04/2024 02:04 PM Hospital Advanced Procedure Unit Pathologist: Chai Newton Jr., MD Specimen: Stomach, Random Biopsy 08/05/2024 2:30 PM CDT [facility] Final Diagnosis Random stomach, biopsy: Chronic gastritis. Immunostain for Helicobacter is POSITIVE. 08/05/2024 2:30 PM CDT [facility] at 1430 CDT Gross Description Stomach biopsy, random: Four up to 0.3 cm. IT-1. 08/05/2024 2:30 PM CDT [facility] Microscopic Description Performed. Immunostain for Helicobacter with adequate positive and negative tissue controls shows scattered reactivity consistent with low-level positivity. 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] Travis Car MD PATHOLOGY/CYTOLOGY ORDER ABLE Final Result [facility] [address] [address] * Carbapenemase PCR (08/04/2024 10:07 AM CDT) Source RECTAL 08/06/2024 9:03 AM CDT [facility] KPC PCR Negative Negative 08/06/2024 9:03 AM CDT [facility] NDM PCR Negative Negative 08/06/2024 9:03 AM CDT [facility] VIM PCR Negative Negative 08/06/2024 9:03 AM CDT [facility] OXA-48 PCR Negative Negative 08/06/2024 9:03 AM CDT [facility] IMP PCR Negative Negative 08/06/2024 9:03 AM CDT [facility] Rectal swab RECTAL SWAB / Unknown 08/04/2024 10:07 AM CDT 08/04/2024 10:11 AM CDT Narrative [facility] - 08/06/2024 9:03 AM CDT This assay tests for the presence of the following carbapenemase gene sequences: blaKPC, blaNDM, blaVIM, blaOXA-48, and blaIMP. If a gene sequence is not detected the gene is absent, altered, or below the assay detection level. 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 ERCP performed with 10 [place] by 7 cm stent placed, LFTs normalized other than mild elevation in AST today (normal alk phos). For ERCP for further evaluation and either stent removal versus stent exchange. Providers: Travis Car MD, Papo Chowdary, Sonia Ge RN, Travis Car MD Requesting Provider: Medicines: General Anesthesia, Indomethacin 100 mg MS Complications: No immediate complications. Procedure: Pre-Anesthesia Assessment: [...] by the physician, the nurse and the clothing supervisor in the pre-procedure area in the procedure [...] patient tolerated the procedure well. Findings: A database analyst film of the abdomen was obtained. Surgical [...] the patient. Procedure Code(s): --- Professional --- 71210, Endoscopic retrograde cholangiopancreatography (ERCP); with removal of foreign body(s) or stent(s) from biliary/pancreatic duct(s) 57521, Endoscopic catheterization of the biliary ductal system, radiological supervision and interpretation Diagnosis Code(s): --- Professional --- Z90.49, Acquired absence of other specified parts of digestive tract K80.20, Calculus of gallbladder without cholecystitis without obstruction Z46.59, Encounter for fitting and adjustment of other gastrointestinal appliance and device CPT copyright 2021 [employer]. All rights reserved. The codes documented in this report are preliminary and upon tallier review may be revised to meet current compliance requirements. Travis Car MD 08/04/2024 11:11:57 AM This report has been signed electronically.Travis Car MD Number of Addenda: 0 Note Initiated On: 08/04/2024 9:31 AM [address] [id number] Procedure Note Travis Car MD - 08/04/2024 [facility] Patient Name: Esvin Taylor Procedure Date: 08/04/2024 9:31 AM Date of : 1995 Note Status: Finalized Attending MD: Travis Car MD, Procedure: ERCP Indications: Cystic duct stone(s); 29F s/p cholecystectomy on 05/24/2024 diagnosedwith Mirizzi syndrome on EUS 06/02/2024. ERCP performed with 10 [place] by 7cm stent placed, LFTs normalized other than mild elevation in AST today (normal alk phos). For ERCP for further evaluation and either stent removal versus stent exchange. Providers: Travis Car MD, Sonia Hagen RN, Travis Car MD Requesting Provider: Medicines: General Anesthesia, Indomethacin 100 mg MS Complications: No immediate complications. Procedure: Pre-Anesthesia Assessment: [...] by the physician, the nurse and the clothing supervisor in the pre-procedure area in the procedure [...] patient tolerated the procedure well. Findings: A database analyst film of the abdomen was obtained. Surgical [...] the patient. Procedure Code(s): --- Professional --- 53328, Endoscopic retrograde cholangiopancreatography (ERCP); with removal of foreign body(s) or stent(s) from biliary/pancreaticduct(s) 44553, Endoscopic catheterization of the biliary ductal system, radiological supervision and interpretation Diagnosis Code(s): --- Professional --- Z90.49, Acquired absence of other specified parts of digestivetract K80.20, Calculus of gallbladder without cholecystitis withoutobstruction Z46.59, Encounter for fitting and adjustment of othergastrointestinal appliance and device CPT copyright 2021 [employer]. All rights reserved. The codes documented in this report are preliminary and upon tallier reviewmay be revised to meet current compliance requirements. Travis Car MD 08/04/2024 11:11:57 AM This report has been signed electronically.Travis Car MD Number of Addenda: 0 Note Initiated On: 08/04/2024 9:31 AM [address] [address] us Travis Car MD PROCEDURE ORDERABLE Danica l Result TEST * (ABNORMAL) Liver Profile (08/04/2024 9:29 AM CDT) ALT 52(H) 7 - 40 U/L 08/04/2024 10:05 AM [facility] Alkaline Phosphatase 62 46 - 116 U/L 08/04/2024 10:05 AM [facility] AST (SGOT) 36 13 - 40 U/L 08/04/2024 10:05 AM [facility] Protein Total 7.1 5.7 - 8.2 g/dL 08/04/2024 10:05 AM [facility] Albumin 3.6 3.4 - 5.0 g/dL 08/04/2024 10:05 AM [facility] Bilirubin-Direct 0.17 <0.40 mg/dL 08/04/2024 10:05 AM [facility] Bilirubin-Total 0.60 0.30 - 1.20 mg/dL 08/04/2024 10:05 AM [facility] Blood VENOUS BLOOD SPECIMEN / Unknown 08/04/2024 9:29 AM CDT 08/04/2024 9:33 AM CDT us Travis Car MD CHEMISTRY ORDERABLE Danica l Result [facility] [address] [place] [address] * Protime/INR (08/04/2024 9:29 AM CDT) INR 1.1 0.9 - 1.2 08/04/2024 9:45 AM CDT [facility] Blood VENOUS BLOOD SPECIMEN / Unknown 08/04/2024 9:29 AM CDT 08/04/2024 9:30 AM CDT us Travis Car MD COAGULATION ORDERABLE Fi nal Result [facility] [address] [place] [address] * hCG Urine (08/04/2024 7:08 AM CDT) Pathologist [facility] hCG Urine Negative Negative 08/04/2024 7:20 AM CDT [facility] Urine 08/04/2024 7:08 AM CDT 08/04/2024 7:13 AM CDT us Wilmer Romo MD URINE ORDERABLE Final Res ult [facility] [address] [place] [address] documented in this encounter Visit Diagnoses Diagnosis Mirizzi syndrome Mirizzi syndrome documented in this encounter Administered [...] for pain control per recommendation of the [employer], [place] [employer] Safe Medication Practices (ISMP) and the [facility]. methocarbamoL (ROBAXIN) injection 500 mg [...] for pain control per recommendation of the [employer], [place] [employer] Safe Medication Practices (ISMP) and the [facility]. 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 Isolation precautions to remain in place until r/o per Infection Prevention. 06/13/2024 08/04/2024 08/06/2024 9:03 AM Fay Solorzano Rule-Out 08/04/2024 08/04/2024 documented as of this encounter Care Teams Powder Blender Relationship Specialty Start Date End Date None, PCP - General Internal Medicine 06/03/24 documented as of this encounter
--- OUTSIDE RECORDS SUMMARY | 2024-08-04 13:02 | XMS_ITS | Encounter Summary ---
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 Name Role Phone None, Md Primary Care Provider Unavailabl e Reason for Referral * (Routine) - Pending Review Specialty Diagnoses / Procedures Referred By Contac t Referred To Contact Procedures Discharge Instructions Discharge Instructions Shahida Zhang PA-C [address] [place] [address] Phone: tel: fax: Referral ID Status Reason Start Date Expiration Date V isits Requested Visits Authorized [id number] Pending Review 08/06/2024 1 1 * (Routine) - Open Specialty Diagnoses / Procedures Referred By Contac t Referred To Contact Procedures Diet: Regular Shahida Zhang PA-C [address] [place] [address] Phone: tel: fax: Referral ID Status Reason Start Date Expiration Date Visits Re quested Visits Authorized [id number] Open 08/06/2024 1 1 * Care Management (Routine) - Open Specialty Diagnoses / Procedures Referred By Contac t Referred To Contact Family Medicine Diagnoses Upper abdominal pain History of biliary duct stent placement Choledocholithiasis Shahida Zhang PA-C [address] [place] [address] Phone: tel: fax: [place], [place] Referral ID Status Reason Start Date Expiration Date V isits Requested Visits Authorized [id number] Open Continuity of Care 08/06/2024 1 1 Question Answer Specify time frame for follow up? 1 Week Follow Up Instructions Hospital follow up visit. recheck CBC and CMP * (Routine) - Open Specialty Diagnoses / Procedures Referred By Contac t Referred To Contact Procedures Temperature >100.4 (38 degrees Celsius) Shahida Zhang PA-C [address] [place] [address] Phone: tel: fax: Referral ID Status Reason Start Date Expiration Date Visits Re quested Visits Authorized [id number] Open 08/06/2024 1 1 * (Routine) - Open Specialty Diagnoses / Procedures Referred By Contac t Referred To Contact Procedures Severe uncontrolled pain Shahida Zhang PA-C [address] [place] [address] Phone: tel: fax: Referral ID Status Reason Start Date Expiration Date Visits Re quested Visits Authorized [id number] Open 08/06/2024 1 1 * (Routine) - Open Specialty Diagnoses / Procedures Referred By Contac t Referred To Contact Procedures Persistent nausea or vomiting Shahida Zhang PA-C [address] [place] [address] Phone: tel: fax: Referral ID Status Reason Start Date Expiration Date Visits Re quested Visits Authorized [id number] Open 08/06/2024 1 1 * (Routine) - Open Specialty Diagnoses / Procedures Referred By Contac t Referred To Contact Procedures Pain not relieved by medication Shahida Zhang PA-C [address] [place] [address] Phone: tel: fax: Referral ID Status Reason Start Date Expiration Date Visits Re quested Visits Authorized [id number] Open 08/06/2024 1 1 * (Routine) - Open Specialty Diagnoses / Procedures Referred By Contac t Referred To Contact Procedures Increased confusion Shahida Zhang PA-C [address] [place] [address] Phone: tel: fax: Referral ID Status Reason Start Date Expiration Date Visits Re quested Visits Authorized [id number] Open 08/06/2024 1 1 * (Routine) - Open Specialty Diagnoses / Procedures Referred By Contac t Referred To Contact Procedures Inability to eat, drink, or take medication Shahida Zhang PA-C [address] [place] [address] Phone: tel: fax: Referral ID Status Reason Start Date Expiration Date Visits Re quested Visits Authorized [id number] Open 08/06/2024 1 1 * (Routine) - Open Specialty Diagnoses / Procedures Referred By Contac t Referred To Contact Procedures Extreme fatigue Shahida Zhang PA-C [address] [place] [address] Phone: tel: fax: Referral ID Status Reason Start Date Expiration Date Visits Re quested Visits Authorized [id number] Open 08/06/2024 1 1 * (Routine) - Open Specialty Diagnoses / Procedures Referred By Contac t Referred To Contact Procedures Difficulty breathing, headache, or visual disturbance Shahida Zhang PA-C [address] [place] [address] Phone: tel: fax: Referral ID Status Reason Start Date Expiration Date Visits Re quested Visits Authorized [id number] Open 08/06/2024 1 1 * (Routine) - Open Specialty Diagnoses / Procedures Referred By Contac t Referred To Contact Procedures Dehydration Shahida Zhang PA-C [address] [place] [address] Phone: tel: fax: Referral ID Status Reason Start Date Expiration Date Visits Re quested Visits Authorized [id number] Open 08/06/2024 1 1 * (Routine) - Open Specialty Diagnoses / Procedures Referred By Contac t Referred To Contact Procedures Constipation >48 hours Shahida Zhang PA-C [address] [place] [address] Phone: tel: fax: Referral ID Status Reason Start Date Expiration Date Visits Re quested Visits Authorized [id number] Open 08/06/2024 1 1 * (Routine) - Open Specialty Diagnoses / Procedures Referred By Contac t Referred To Contact Procedures Shahida Gibbs PA-C [address] [facility] [place] [address] Phone: tel: fax: Referral ID Status Reason Start Date Expiration Date Visits Re quested Visits Authorized [id number] Open 08/06/2024 1 1 * (Routine) - Open Specialty Diagnoses / Procedures Referred By Contac t Referred To Contact Procedures Any questions or concerns Shahida Zhang PA-C [address] [facility] [place] [address] Phone: tel: fax: Referral ID Status Reason Start Date Expiration Date Visits Re quested Visits Authorized [id number] Open 08/06/2024 1 1 Reason for Visit * Reason Comments Abdominal pain * Inpatient Admission (Routine) Specialty Diagnoses / Procedures Referred By Contac t Referred To Contact Diagnoses Abdominal pain Referral ID Status Reason Start Date Expiration Date Visits Re quested Visits Authorized [id number] 1 1 Encounter Details Date Type Department Care Team (Late st Contact Info) Description 08/04/2024 1:02 PM CDT - 08/06/2024 2:35 PM CDT Hospital Encounter W2 [address] [facility] [address] [place], [place] [id number] Steve Branch MD [address] [facility] [address] [place], [place] [id number] Calvin Mon MD [address] [facility] [place], [place] [id number] Deandra Garcia MD [address] [address] Abdominal pain Discharge Disposition: Returning Home/Self Care Social History Tobacco Use Types Packs/Day Years Used Date Smoking Tobacco: Former Cigarettes Smokeless Tobacco: Never Alcohol Use Standard Drinks/Week Comments Not Currently 0 (1 standard drink = 0.6 oz pur e alcohol) Feb 2024 [facility] Utilities Answer Date Recorded In the past [...] any time in the past 12 [address] [facility], were you homeless or living in a [facility] (including now)? No 08/04/2024 Comments No Sex and Gender Information Value Date Recorded Sex Assigned at Not on file Legal Sex Female 10:22 AM CDT Gender Identity Not on file Sexual Orientation Not on file documented as of this encounter Last Filed Vital Signs Vital Sign Reading Time Taken Comments Blood Pressure 120/76 08/06/2024 7:43 AM CDT Pulse 68 08/06/2024 7:43 AM CDT Temperature 36.6 C (97.9 F) 08/06/2024 7:43 AM CDT Respiratory Rate 16 08/06/2024 7:43 AM CDT Oxygen Saturation 95% 08/06/2024 7:43 AM CDT Inhaled Oxygen Concentration - - Weight 100.9 kg (222 lb 8 oz) 08/06/2024 6:00 AM CDT Height 167.6 cm (5' 6) 08/05/2024 4:13 AM CDT Body Mass Index 35.91 08/05/2024 4:13 AM CDT documented in this encounter Discharge Summaries * Shahida Zhang PA-C - 08/06/2024 12:55 PM CDT Images from the original note were not included. [facility] SUMMARY Patient Name: Esvin Taylor Date of : 1995 Attending Provider: Deandra Garica MD Admission Date: 08/04/2024 Discharge Date: 08/06/2024 She will be discharged on 08/06/2024 to home. DISCHARGE DIAGNOSES: Abdominal pain History of prior cholecystectomy History of choledocholithiasis status post biliary stent placement and subsequent removal Leukocytosis Elevated LFT H pylori Cholangitis, a complication due to bile duct stent removal HOSPITAL COURSE: This is a 29-year-old female with a past medical history of choledocholithiasis status post cholecystectomy biliary stent placement who underwent elective ERCP with biliary stent removal with GI on 08/04, who subsequently presented to the ED shortly thereafter postprocedurally with intractable abdominal pain. Patient has a history of prior cholecystectomy. She developed choledocholithiasis in May 2024 and underwent ERCP with biliary stent placement. Earlier the day of admission (08/04), patientunderwent repeat ERCP which revealed known cystic duct stones without evidence of obstruction, therefore her biliary stent was removed. Post procedurally, patient developed significant abdominal painand returned to ED. She was afebrile and HDS, without leukocytosis, obstructive transaminitis, or elevated lipase. Abdominal imaging revealed evidence of pneumobilia which is likely a common finding post ERCP, otherwisewas without acute findings. GI consulted and thought this may be postprocedural pain, though recurrent biliary obstruction or migration of the stone leading to obstruction, bile duct injury leading to bile leak are all possible. Patient was admitted for observation of pain and liver enzyme trend with possible plan for repeat ERCP. the next day, 08/05, WBC speedy 8 --> 16, LFT increase AST 65-->691, ALT 71 --> 783, ALP80-->144, Tbili 0.8-->1.5. She was started on antibiotics given rise in wbc / concern for cholangitis. She underwent ERCP on 08/05 which did not reveal any retained stone. It is possible that stone may have already passed spontaneously. The next day, LFT and wbc both trending down. Patient is a febrile, HDS, denies abdominal pain, nausea, vomiting and she is tolerating regular diet. Discussedwith GI who is in agreement with discharge and will arrange for outpatient follow up. Stomach biopsy from ERCP on 08/04 also returned positive for H pylori and she was started on the appropriate treatment regimen. PLAN: - follow up with PCP within one week for lab recheck (CBC and CMP) - [facility] will arrange follow up for H pylori breath test in 8 weeks and follow up in clinic before that as well - Quadruple therapy for H pylori x 14 days: Protonix 40 mg BID, Bismuth subsalicylate 534 mg QID, Tetracycline 500 mg QID, and Flagyl 500 mg QID DISCHARGE EXAM: GENERAL APPEARANCE: She is awake, alert and in no acute distress. HEENT: Head - Normocephalic, atraumatic. Eyes - Normal lids and conjuntivae, PERRLA, EOMs intact. Nose - No deformity. Moist mucous membranes. NECK: Supple RESPIRATORY: Good air entry, no wheezes, no rhonchi, no rales, no work of breathing CARDIOVASCULAR: Normal S1, normal S2, regular rate no murmur. GASTROINTESTINAL: Soft, non-tender, normal bowel sounds, non-distended, no rebound SKIN: Intact, warm, dry. no rashes NEUROLOGIC: Alert and oriented X 4, moves all extremities equally. Non-focal exam, power 5/5 in UE,sensation grossly intact EXTREMITIES: Distal Pulses are palpable, no edema. LABS Recent Labs 08/04/24 1313 08/05/24 0519 08/06/24 0423 WBC 8.7 18.6* 11.7* RBC 4.53 4.31 4.13* HEMOGLOBIN 13.6 12.9 12.4 HEMATOCRIT 40.8 39.2 37.7 MCV 90 91 91 MCH 30 30 30 RDW 13.1 13.1 13.5 PLATELETCT 285 261 241 Recent Labs 08/04/24 0929 INR 1.1 Recent Labs 08/04/24 1313 08/05/24 0519 08/06/24 0423 SODIUM 139 137 140 POTASSIUM 3.7 4.9 4.4 CHLORIDE 109* 107 110* CARBONDIOXI 23 21 24 ANIONGAP 7.0 9.0 6.0 GLUCOSE 140* 132* 137* BUNUREANRO 15 17 13 CREATININE 0.50* 0.48* 0.49* CALCIUMSERUM 8.9 8.7 8.5* ESTGFRMDRD >60.00 >60.00 >60.00 ABG: No Lab Results Found (last 72 hours) VBG: No Lab Results Found (last 72 hours) Invalid input(s): O2SV Micro: No results found for this visit on 08/04/24. Wound: Skin Condition/Wound Non-Pressure Reddened (Non-Pressure Related) Left;Medial Inguinal (Active) First Observed/Origin Date/First Observed/Origin Time: 05/12/25 2045 Primary Wound Type: Skin Condition/Wound Non-Pressure Present on Original Admission: Yes Skin Condition Type: Reddened (Non-Pressure Related) Orientation: Left;Medial Location:... PROCEDURES: GI: ERCP IMAGING XR ERCP BILIARY ONLY Result Date: 08/05/2024 EXAM: XR ERCP BILIARY ONLY DATE: 08/05/2024 18:58 CLINICAL DATA: Upper abdominal pain, unspecified. COMPARISON: 06/02/2024 IMPRESSION: Procedural fluoroscopy for Dr. Oscar. Eight images saved. Unknown fluoroscopy time. Images show cannulation of the major papilla with retrograde opacification of the biliary system. Intra and extrahepatic bile ducts are nondilated. No visible filling defect to suggest choledocholithiasis. There has been cholecystectomy. Ducts were swept with a balloon. Final image shows near completedrainage of infused contrast. REPORT SIGNED BY DR. Chaparro Scott XR FLUOROSCOPY LESS THAN 1 HR Result Date: 08/04/2024 EXAM: XR C ARM/FLUORO LESS THAN 1HR DATE: 08/04/2024 10:44 CLINICAL DATA: Cholelithiasis. ICD 10: K83.1 Obstruction of bile duct COMPARISON: None. FINDINGS: Fluoroscopic guidance provided to Dr. KAREN CAR with total fluoroscopy time of 138 seconds. Multiple fluoroscopic images were submitted, demonstrating pre-existing right common bile duct stent. Subsequently, cannulation of the rightampulla with balloon sweep of the right common bile duct is performed. There is prompt emptying of intrahepatic biliary contrast at the completion of the procedure. IMPRESSION: 1. As above. REPORT SIGNED BY Con Enriquez M.D. CT ABDOMEN & PELVIS W/O ORAL W IV CON Result Date: 08/04/2024 EXAM: CT ABDOMEN AND PELVIS (with intravenous contrast) DATE: 08/04/2024 14:22 COMPARISON: None CLINICAL DATA: RUQ Pain. Biliary stent removed today. TECHNIQUE: Thin-section contiguous transaxial images were obtained through the abdomen and pelvis with intravenous contrast. No oral contrast was given. Coronal reformations were also obtained through the abdomen and pelvis. A total of 100 cc of Omnipaque 350 were administered intravenously for this study. FINDINGS: Lung bases: No suspicious noduleor mass identified in the visualized portions of the lung bases. Osseous structures: The osseous structures are unremarkable. Liver: There is a small amount of pneumobilia which is probably related to prior cholecystectomy. Gallbladder: Surgically absent. Spleen: Normal. Pancreas: Normal. Adrenal Glands: Normal. Kidneys: Normal. Urinary Bladder: Normal. Nodes: No enlarged lymph nodes. Fluid: No free fluid. Aorta: No abdominal aortic aneurysm. Bowel: The stomach and duodenum are unremarkable. Lig ament of Treitz is normal in position. The jejunum and ileum are unremarkable. There is no colonic wall thickening or pericolonic inflammation. IMPRESSION: No acute inflammatory process. Gallbladder surgically absent. There is some pneumobiliapresent. No significant biliary ductal dilatation is identified. REPORT SIGNED BY DR. Cleve Aquino DISCHARGE MEDICATIONS: Current Discharge Medication List NEW MEDICATIONS Details bismuth subsalicylate (PEPTO-BISMOL) 262 mg oral chewable tablet Chew 2 tablets (524 mg) four timesa day for 14 days. Qty: 112 tablet, Refills: 0 metroNIDAZOLE (FLAGYL) 500 mg oral tablet Take 1 tablet (500 mg) by mouth four times a day for 14 days Indications: H pylori & intra-abdominal infection. Qty: 56 tablet, Refills: 0 pantoprazole (PROTONIX) 40 mg oral delayed release tablet Take 1 tablet (40 mg) by mouth twice a day for 14 days Indications: h pylori treatment. Qty: 28 tablet, Refills: 0 tetracycline (SUMYCIN) 500 mg oral Cap Take 1 capsule (500 mg) by mouth three times a day before meals and at bedtime for 14 days Indications: H pylori. Qty: 56 capsule, Refills: 0 MEDICATIONS CONTINUED UNCHANGED Details acetaminophen (TYLENOL) 500 mg oral tablet Take 1 tablet (500 mg) by mouth every 6 (six) hours as needed for fever or pain. ascorbic acid, vitamin C, 250 mg oral tablet Take 1 tablet (250 mg) by mouth once daily. Bacillus coagulans 250 million cell oral chew tab Chew 1 tablet once daily. cholecalciferol (VITAMIN D3) 400 unit (10 mcg) oral Tab tablet Take 12.5 tablets (125 mcg) by mouthonce daily. cranberry extract-vitamin C (AZO CRANBERRY PLUS VIT C) 250-60 mg oral Cap Take 1 capsule by mouth once daily. ferrous sulfate (FERATAB) 325 mg (65 mg iron) oral tablet Take 1 tablet (325 mg) by mouth every other day. melatonin 3 mg oral tablet Take 1 tablet (3 mg) by mouth at bedtime. polyethylene glycol (MIRALAX) 17 gram oral powder Take 17 g by mouth twice a day as needed for constipation. Mix each dose in 4-8 ounces of liquid as directed. Qty: 238 g, Refills: 0 DISCONTINUED MEDICATIONS esomeprazole magnesium (NEXIUM) 40 mg oral delayed release capsule PENDING TEST RESULTS: NA FOLLOWUP: Contact information for follow-up [place], [place] Specify time frame for follow up?: 1 Week Follow Up Instructions: Hospital follow up visit. recheck CBC and CMP Discharge Procedure Orders Any questions or concerns Chills Constipation >48 hours Dehydration Difficulty breathing, headache, or visual disturbance Extreme fatigue Inability to eat, drink, or take medication Increased confusion Pain not relieved by medication Persistent nausea or vomiting Severe uncontrolled pain Temperature >100.4 (38 degrees Celsius) Diet: Regular Discharge Instructions You presented to the hospital for significant abdominal pain after you had an ERCP on 08/04. The GI team was consulted and recommended undergoing repeat ERCP on 08/05 after your liver enzymes had a significant elevation. Fortunately, there was no stone seen during this procedure. It is possible that the stone may have already passed on its own. Your liver enzymes are improving the day of discharge.Please arrange follow-up with your primary care provider within 1 week for repeat lab testing. You should have both a CBC and CMP checked to evaluate your blood counts, electrolytes and liver enzymes. Additionally, you have been started on medications to treat H pylori which you have had in the past. Please see the attached handout for more information on this. You will have follow-up in the GI clinic to test for resolution of this infection in about 8 weeks. They will also arrange for follow-upin their clinic before this for you to meet with a provider. Please take your medications as prescribed. Continue to take Tylenol as needed for pain. Continue taking MiraLAX as needed for constipation. You should return to the emergency department if you have fevers, chills, increased abdominal pain,persistent nausea and vomiting and inability to tolerate food or water intake. Follow Up with Primary Care Clinic Referral Priority: Routine Referral Type: Care Management Referral Reason: Continuity of Care Referred to Provider: [place], [place] Requested Specialty: Family Medicine Number of Visits Requested: 1 Total time spent on the day of discharge was Time: over 30 minutes including discharge planning, discussion with the patient, family, case management, RN, chart reviewing, and completing the discharge summary. Liana Zhang PA-C [facility] Medicine Cosigned by Deandra Garcia MD at 08/21/2024 5:53 PM CDT Associated attestation - Deandra Garcia MD - 08/21/2024 5:53 PM CDT I have personally shared in the visit of this patient along with the SHANNON providing [id number] participation in the evaluation and management. I agree with the SHANNON assessment and plan. Patient said she was feeling much better the day of discharge. Benign abdominal exam when I saw her. Eager to go home. Dr. Deandra Garcia MD Internal Medicine This note created using voice dictation software, may contain minor errors. documented in this encounter Discharge Instructions * Attachments The following attachments cannot be sent through Care Everywhere. * Helicobacter Pylori (AfterCare(R) Instructions(ER/ED)) (Portuguese) documented in this encounter Medications at Time of Discharge acetaminophen (TYLENOL) 500 mg oral tablet Take 1 tablet (500 mg) by mouth every 6 (six) hours as needed for fever or pain. ascorbic acid, vitamin C, 250 mg oral tablet Take 1 tablet (250 mg) by mouth once daily. Bacillus coagulans 250 million cell oral chew tab Chew 1 tablet once daily. cholecalciferol (VITAMIN D3) 400 unit (10 mcg) oral Tab tablet Take 12.5 tablets (125 mcg) by mouth once daily. cranberry extract-vitamin C (AZO CRANBERRY PLUS VIT C) 250-60 mg oral Cap Take 1 capsule by mouth once daily. ferrous sulfate (FERATAB) 325 mg (65 mg iron) oral tablet Take 1 tablet (325 mg) by mouth every other day. melatonin 3 mg oral tablet Take 1 tablet (3 mg) by mouth at bedtime. polyethylene glycol (MIRALAX) 17 gram oral powder Take 17 g by mouth twice a day as needed for constipation. Mix each dose in 4-8 ounces of liquid as directed. 238 g 06/04/2024 7:34 AM CDT 06/03/2024 bismuth subsalicylate (PEPTO-BISMOL) 262 mg oral chewable tablet Chew 2 tablets (524 mg) four times a day for 14 days. 112 tablet 08/06/2024 5 metroNIDAZOLE (FLAGYL) 500 mg oral tabletIndications:H pylori [...] 56 capsule 08/06/2024 1:56 PM CDT 08/06/2024 5 documented as of this encounter Progress Notes * Nilesh Haynes RN - 08/06/2024 2:31 PM CDT Esvin Yamila Taylor 1995 [id number] P: Discharge A: Discharged via wheelchair to home at 1434 escorted by volunteer I: Discharge information and arrangements included: review of written discharge instructions, review of purpose and side effects of new medication, prescriptions sent with patient, belongings list completed. R:Patient expressed understanding of information.. * Lilliam Ruiz PA-C - 08/06/2024 8:41 AM CDT GI - chart reviewed. S/p ERCP yesterday. No evidence of a retained stone either in the bile duct orthe cystic duct. The stone may have passed spontaneously. Tolerating a regular diet and LFTs overall improving. Recommend following LFTs to normal. No further GI intervention planned; we will sign off, please call if needed. Thanks. D/w Dr. Jorge Luis Ruiz PA-C * Mary Mendoza RN - 08/06/2024 1:16 AM CDT Med-Surg Care Progression Note Type: Shift to shift summary Length of stay: 1 days Code Status: Full Code Primary Problem: Abdominal pain Summary: Pt returned from ERCP at 2029. Pt alert and oriented and able to make needs known. Spanishspeaking. Ind with ambulation. Roboxin PRN given x1 for abd pain, effective. Pt requested somethingfor sleep, provider notified melatonin ordered and given, effective. Pt with questions about discharged, answered as able via proprio. Pt instructed multiple times including via propio on keeping Vitals monitoring equipment on for post surgical vitals monitoring but would take off each time nurse left room and eventually declined further vitals monitoring. Vitals currently stable. F- Feeding & Fluids: Tolerating regular diet with thin liquids A- Analgesic & Anticoagulation: Comfort Goal: Numeric, Verbal, Faces: 2 Analgesic Roboxin PRN given x1 for abd pain, effective. Anticoagulation/DVT prevention & plan NA S- Skin: Johnathon Subcategory Concern(s): Sensory Perception: No Impairment Moisture: Rarely Moist Activity: Walks frequently Nutrition: Excellent Mobility: No Limitations Friction and Shear: No Apparent Problem Total Johnathon Score: 23: T- Telemetry: Rhythm: Sinus Rhythm Ectopy: None No tele E- Emotional & Neuro: Participating in cares Neuro Alert and Oriented R- Respiratory: On room air H- Head OUT of Bed & Activity: Activate Fall Alert? (Enter 1 or 0): 0 Ambulating ind Early mobility Phases 1-4: Phase 4: Ambulation U- Urologic/bowel: Size: Medium (06/03/2024 6:40 PM) Voiding in bathroom without difficulty G- Glycemic Control: na T- Treatment: Labs ; pain control daily wt; accurate I&o I- Invasive Devices: PIV D- Discharge: Anticipated date 08/06 * Jaylen Parada RN - 08/05/2024 8:30 PM CDT PACU cares complete. See flowsheets for vitals and assessments. Report called to DONNA Hernandez on 2NW. Pt transported to 222 @ 2014 accompanied by transport staff. Care relinquished. JAYLEN PARADA RN Pt's Simón MARLEY notified of return to room. * Chelsie Cartwright RN - 08/05/2024 6:44 PM CDT Med-Surg Care Progression Note Type: Shift to shift summary [id number] Length of stay: 0 days Code Status: Full Code Primary Problem: Abdominal pain Summary: Pt is a 29 y.o. panamanian speaking female with PMH significant for choledocholithiasis s/p cholecystectomy biliary stent placement who underwent elective ERCP with biliary stent removal with GI on 08/04 who subsequently presented to ED shortly thereafter post-procedurally with intractable abdominal pain. This shift pt went down for ERCP at 1640. Off the floor since then. GI following. On IV cefepime and PO flagyl for concern of cholangitis. Also with positive H.pylori from 08/04 biopsy - started protonix, bismuth subsalicylate, tetracycline, and flagyl. No other acute events this shift. F- Feeding & Fluids: NPO for procedure, LR at 100 mL/hr. A- Analgesic & Anticoagulation: Analgesic Abd pain, scheduled tylenol, PRN maalox, dilaudid, robaxin, and oxycodone available. Anticoagulation/DVT prevention & plan SCDs S- Skin: Johnathon Subcategory Concern(s): Sensory Perception: No Impairment Moisture: Occasionally Moist Moisture Interventions: Minimize briefs - no briefs with abernathy, Minimize chux/linen layers, Keep folds dry/interdry/nystatin, and Change gown/bath/hygiene Activity: Walks Occasionally Activity Interventions: Safer bundle Nutrition: Excellent (NPO for OR) Mobility: No Limitations Friction and Shear: No Apparent Problem Total Johnathon Score: 21 T- Telemetry: Rhythm: Sinus Tachycardia No tele E- Emotional & Neuro: Participating in cares Neuro Alert and Oriented R- Respiratory: On room air H- Head OUT of Bed & Activity: Activate Fall Alert? (Enter 1 or 0): 0 Ambulating independently. Progressive mobility Phases 5-7: (not recorded) U- Urologic/bowel: Size: Medium (06/03/2024 6:40 PM) Voiding adequately. G- Glycemic Control: Not applicable T- Treatment: post-op cares, pain control, IV/PO abx, h.pylori treatment, IVF, monitor labs and vitals I- Invasive Devices: PIV infusing D- Discharge: TBD * Myriam Forrest RN - 08/05/2024 2:09 PM CDT Med-Surg Care Progression Note Type: Shift to shift summary Length of stay: 0 days Code Status: Full Code Primary Problem: Abd pain, ERCP today Summary: Pt is a 29 y.o female, alert and oriented and able to make needs known; panamanian speaking. Ind with ambulation. C/o Abd pain and epigastric pain, medicated with PRN IV dilaudid x1 and MAALOX plus x1-effectives. Scheduled tylenol on board-effective. Remains on NPO for OR today for ERCP. Was anxious to eat the beginning of this shift after multiple redirection about going to OR to a procedure and was able to come down and currently in bed resting without any s/sx of distress. IVF- LR infusing at 100ml/hr. On IV abx, no adverse effects this shift. Remains pleasant and calm. No acute events this shift. F- Feeding & Fluids: NPO 0000 and IVF @ 100ml/hr A- Analgesic & Anticoagulation: Analgesic Scheduled and PRNs offered Anticoagulation/DVT prevention & plan SCDs S- Skin: Johnathon Subcategory Concern(s): Sensory Perception: No Impairment Moisture: Occasionally Moist Moisture Interventions: Minimize briefs - no briefs with abernathy Activity: Walks Occasionally Activity Interventions: Low air loss mattress Nutrition: Excellent (NPO for OR) Mobility: No Limitations Friction and Shear: No Apparent Problem Total Johnathon Score: 21: independent with bed mobility T- Telemetry: Rhythm: Sinus Tachycardia No tele E- Emotional & Neuro: Participating in cares Neuro Alert and Oriented R- Respiratory: On room air H- Head OUT of Bed & Activity: Activate Fall Alert? (Enter 1 or 0): 0 Ambulating independent inroom Early mobility Phase 0: PROM: (not recorded) U- Urologic/bowel: Size: Medium (06/03/2024 6:40 PM) Voiding WNL G- Glycemic Control: Not applicable T- Treatment: IVF, IV abx, pain control I- Invasive Devices: PIV, infusing D- Discharge: Anticipated date TBD * Shahida Zhang PA-C - 08/05/2024 1:14 PM CDT Images from the original note were not included. HOSPITALIST DIVISION PROGRESS NOTE CHIEF COMPLAINT: abdominal pain SUBJECTIVE NAEON. LFT and WBC rising. Patient is seen and examined at the bedside. She reports feeling good . Reports her abdominal pain is a little bit better than yesterday. Still endorsing epigastric abdominal pain that is a 3-4 out of 10 in severity. It is more of a discomfort than a pain. She denies any nausea or vomiting. Last bowel movement was Sunday but feels like she has to have a bowel movement. Denies any fevers or chills. Understands plan for ERCP today. She is anxious to be able to eat again because she feels hangry. OBJECTIVE BP (!) 98/47 Pulse 82 Temp 98.2 ??F (36.8 ??C) Resp 18 Ht 5' 6 (1.676 m) Wt 102.1 kg (225 lb) LMP 07/28/2024 (Approximate) SpO2 96% BMI 36.32 kg/m?? Intake/Output Summary (Last 24 hours) at 08/05/2024 1314 Last data filed at 08/04/2024 2350 Gross per 24 hour Intake 300 ml Output -- Net 300 ml GENERAL APPEARANCE: She is awake, alert and in no acute distress. HEENT: Head - Normocephalic, atraumatic. Eyes - Normal lids and conjuntivae, PERRLA, EOMs intact. Nose - No deformity. Moist mucous membranes. NECK: Supple RESPIRATORY: Good air entry, no wheezes, no rhonchi, no rales, no increased work of breathing CARDIOVASCULAR: Normal S1, normal S2, regular rate no murmur. GASTROINTESTINAL: Soft, mild diffuse tenderness to palpation, no rebound or guarding, normal bowel sounds, non-distended SKIN: Intact, warm, dry. no rashes NEUROLOGIC: Alert and oriented X 4, moves all extremities equally. Non-focal exam, power 5/5 in UE,sensation grossly intact EXTREMITIES: Distal Pulses are palpable, no edema. Current Facility-Administered Medications: saline FLUSH syringe 10 mL, 10 mL, Intravenous, Q8H, Calvin Mon MD, 10 mL at 08/04/24 2142 saline FLUSH syringe 10 mL, 10 mL, Intravenous, PRN, Calvin Mon MD, 10 mL at 08/04/24 2140 acetaminophen (TYLENOL) tablet 500 mg, 500 mg, oral, Q6H, Shahida Zhang PA-C alum-mag hydroxide-simethicone (MAALOX PLUS) suspension 30 mL, 30 mL, oral, Q6H PRN, Calvin Mon MD, 30 mL at 08/05/24 0821 bisacodyl (DULCOLAX) delayed released tablet 5-15 mg, 5-15 mg, oral, DAILY PRN, Shahida Zhang PA-C cefepime (MAXIPIME) IV syringe 2 g, 2 g, Intravenous, Q8H (NS), Shahida Zhang PA-C, 2 gat 08/05/24 1151 Cholecalciferol (Vitamin D3) tablet 125 mcg, 125 mcg, oral, DAILY, Calvin Mon MD, 125 mcg at 08/05/24 0822 D50W IV syringe 25-50 mL, 25-50 mL, Intravenous, PRN, Mary Mendoza RN famotidine (PEPCID) tablet 20 mg, 20 mg, oral, DAILY, Calvin Mon MD, 20 mg at 08/05/24 0004 ferrous sulfate (FERATAB) tablet 325 mg, 325 mg, oral, Q48H (NS), Calvin Mon MD, 325 mg at 08/05/24 0822 HYDROmorphone (Dilaudid) syringe 0.5-1 mg, 0.5-1 mg, Intravenous, Q4H PRN, Calvin Mon MD, 0.5 mg at 08/05/24 0822 lidocaine (LMX-4) topical cream 1 Application, 1 Application, topical, PRN, Calvin Mon MD lidocaine 1% injection (conc: 10 mg/mL) 0.1-0.3 mL, 0.1-0.3 mL, Intradermal, PRN, Calvin Mon MD methocarbamoL (ROBAXIN) tablet 500 mg, 500 mg, oral, Q6H PRN, Calvin Mon MD metroNIDAZOLE (FLAGYL) IV piggyback 500 mg, 500 mg, Intravenous, Q12H (NS), Shahida Zhang PA-C, Last Rate: 100 mL/hr at 08/05/24 1101, 500 mg at 08/05/24 1101 naloxone (NARCAN) injection 0.1 mg, 0.1 mg, Intravenous, Q1 MINUTE PRN, Calvin Mon MD ondansetron (Zofran) injection 4-8 mg, 4-8 mg, Intravenous, Q8H PRN OR ondansetron (Zofran) disintegrating tablet 4-8 mg, 4-8 mg, oral, Q8H PRN, Calvin Mon MD, 4 mg at 08/04/242039 oxyCODONE (immediate release) (ROXICODONE) tablet 2.5-5 mg, 2.5-5 mg, oral, Q4H PRN, Calvin Mon MD [START ON 08/06/2024] polyethylene glycol (MIRALAX) packet 17 g, 17 g, oral, DAILY, Shahida Zhang PA-C saline with benzyl alcohol injection 0.1-0.3 mL, 0.1-0.3 mL, Intradermal, PRN, Calvin Mon MD senna (SENOKOT) tablet 17.2 mg, 2 tablet, oral, BID PRN, Shahida Zhang PA-C LABS Recent Labs 08/04/24 1313 08/05/24 0519 WBC 8.7 18.6* RBC 4.53 4.31 HEMOGLOBIN 13.6 12.9 HEMATOCRIT 40.8 39.2 MCV 90 91 MCH 30 30 RDW 13.1 13.1 PLATELETCT 285 261 Recent Labs 08/04/24 0929 INR 1.1 Recent Labs 08/04/24 1313 08/05/24 0519 SODIUM 139 137 POTASSIUM 3.7 4.9 CHLORIDE 109* 107 CARBONDIOXI 23 21 ANIONGAP 7.0 9.0 GLUCOSE 140* 132* BUNUREANRO 15 17 CREATININE 0.50* 0.48* CALCIUMSERUM 8.9 8.7 ESTGFRMDRD >60.00 >60.00 ABG: No Lab Results Found (last 72 hours) VBG: No Lab Results Found (last 72 hours) Invalid input(s): O2SV Micro: No results found for this visit on 08/04/24. Wound: Skin Condition/Wound Non-Pressure Reddened (Non-Pressure Related) Left;Medial Inguinal (Active) First Observed/Origin Date/First Observed/Origin Time: 08/04/242044 Primary Wound Type: Skin Condition/Wound Non-Pressure Present on Original Admission: Yes Skin Condition Type: Reddened (Non-Pressure Related) Orientation: Left;Medial Location:... Additional comments: I reviewed the patient's new clinical lab test results. I reviewed the patient's new imaging test results. I discussed the patient's care with RN, CM, GI. Imaging CT A/P: No acute inflammatory process. Gallbladder surgically absent. There is some pneumobilia present. No significant biliary ductal dilatation is identified. ASSESSMENT & PLAN Principal Problem: Abdominal pain This is a 29-year-old female with a past medical history of choledocholithiasis status post cholecystectomy biliary stent placement who underwent elective ERCP with biliary stent removal with GI on 08/04, who subsequently presented to the ED shortly thereafter postprocedurally with intractable abdominal pain. Abdominal pain History of prior cholecystectomy History of choledocholithiasis status post biliary stent placement and subsequent removal Leukocytosis Elevated LFT Patient has a history of prior cholecystectomy. She developed choledocholithiasis in May 2024 andunderwent ERCP with biliary stent placement. Earlier the day of admission (08/04), patient underwentrepeat ERCP which revealed known cystic duct stones without evidence of obstruction, therefore her biliary stent was removed. Post procedurally, patient developed significant abdominal pain and returned to ED. She was afebrile and HDS, without leukocytosis, obstructive transaminitis, or elevated lipase. Abdominal imaging revealed evidence of pneumobilia which is likely a common finding post ERCP, otherwisewas without acute findings. GI consulted and thought this may be postprocedural pain, though recurrent biliary obstruction or migration of the stone leading to obstruction, bile duct injury leading to bile leak are all possible. Patient was admitted for observation of pain and liver enzyme trend with possible plan for repeat ERCP. 08/05: WBC rise 8 --> 16. LFT rise: AST 65-->691, ALT 71 --> 783, ALP 80-->144, Tbili 0.8-->1.5. D/w GI who plans for ERCP today and recommends starting antibiotics given rise in wbc / concern for cholangitis. Remains afebrile, HDS, pain controlled. - GI following, appreciate recs - ERCP today - NPO for above procedure - start IV Cefepime + Flagyl - Pain control with scheduled Tylenol (reduced dose 500 mg WID given LFT elevation), as needed Robaxin, oxycodone, and Dilaudid if necessary. - bowel regimen - repeat CBC, CMP in AM ADDENDUM: H pylori Random stomach biopsy from 08/04 is positive for H. Pylori. Discussed with GI and pharmacy. Will start quadruple therapy with Protonix 40 mg BID, Bismuth subsalicylate 534 mg QID, Tetracycline 500 mg QID, and Flagyl 500 mg QID (changed from IV flagyl above to PO). Ok to start after procedure today per GI. Pharmacy will order tetracycline. Treatment duration 14 days. Will need follow up outpatient to confirm eradication. Plan discussed with HM attending Dr. Garcia # Acute Pain Management:multimodal as above # Lines: PIV # Fluids: mIVF 100 cc/hr while npo today # Nutrition: NPO for procedure # Abernathy: NA # DVT Prophylaxis: scd # Wounds/Skin Care: NA # Family Communication: per patient # Code status: FULL # Discharge criteria: Anticipate discharge in 1-2 day(s) pending GI recs, ERCP today # Post Hospital Plan: home Liana Zhang PA-C [facility] Medicine * Mary Mendoza RN - 08/05/2024 5:02 AM CDT Med-Surg Care Progression Note Type: Shift to shift summary Length of stay: 0 days Code Status: Full Code Primary Problem: Abd pain Summary: Pt alert and oriented and able to make needs known; panamanian speaking. Ind with ambulation.No pain reported. Did report acid reflux and feeling of fullness; pt reports she usually takes pepcid for this. Provider aware and pepcid ordered and given. NPO 000. No nausea or vomiting this shift. F- Feeding & Fluids: NPO 0000 A- Analgesic & Anticoagulation: Analgesic No pain Anticoagulation/DVT prevention & plan NA S- Skin: Johnathon Subcategory Concern(s): Sensory Perception: No Impairment Moisture: Rarely Moist Activity: Walks Occasionally Activity Interventions: ind Nutrition: Adequate Nutrition Interventions: Calorie intake Mobility: No Limitations Friction and Shear: No Apparent Problem Total Johnathon Score: 21: T- Telemetry: Rhythm: Sinus Tachycardia No tele E- Emotional & Neuro: Participating in cares Neuro Alert and Oriented R- Respiratory: On room air H- Head OUT of Bed & Activity: Activate Fall Alert? (Enter 1 or 0): 0 Ambulating ind Early mobility Phases 1-4: Phase 4: Ambulation U- Urologic/bowel: Size: Medium (06/03/2024 6:40 PM) Voiding without difficulty in toilet G- Glycemic Control: NA T- Treatment: Labs ; pain control; daily weight; accurate intake and output I- Invasive Devices: PIV D- Discharge: TBD * Mary Mendoza RN - 08/05/2024 1:26 AM CDT 08/05/24 0126 RN to Assess Every Four Hours Observation Order Set(s) in Use Abdominal Pain Abdominal Pain Resolution Or Significant Improvement Of Pain Completed Stable Vital Signs Completed Able To Tolerate Oral Fluids Completed BP 117/82 Pulse 87 Temp 98.2 ??F (36.8 ??C) Resp 20 Ht 1.7 m (5' 6.93) Wt 102.1 kg (225 lb) LMP 07/28/2024 (Approximate) SpO2 95% BMI 35.31 kg/m?? * Manuel [place] RN - 08/04/2024 10:10 PM CDT 4 Hr shift to shift summary: Pt alert and oriented, panamanian speaking, barely communicates with Chadian, needs proprio to communicate regarding admission. Pt currently denies pain and knows to call if pain occurs again during thenight. Likely having ERCP again tomorrow morning if pain occurs. NPO @ midnight. Pt independent in the room, on contact rule out. * Manuel [place] RN - 08/04/2024 8:55 PM CDT P. Admission A. Condition on Admit: alert, vital signs stable.. Patient/Family Concerns: Patient expressed concern about pain relief, diagnosis, and getting help when needed . I. Initial Interventions included: administered medication for nausea . Orientation to Unit: Patient oriented to how to call for help, name of assigned certified social workers in health care, PatientInformation booklet, hourly rounding procedures, belongings checklist, unit and plan of care. R. Patient expressed understanding of information.. documented in this encounter H&P Notes * Calvin Mon MD - 08/04/2024 3:54 PM CDT Images from the original note were not included. HOSPITALIST DIVISION ADMISSION HISTORY AND PHYSICAL Patient Name: Esvin Taylor Address: [address] [place] [address] Age: 29 y.o. Sex: female Admission Date/Time: 08/04/2024 1:02 PM Primary Care Provider: Md Marisol Informant: patient and outpatient record CHIEF COMPLAINT: Abdominal pain HPI: This is a 29-year-old female with a past medical history of choledocholithiasis status post cholecystectomy biliary stent placement who underwent elective ERCP with biliary stent removal with [facility] 08/04, who subsequently presented to the ED shortly thereafter postprocedurally with intractable abdominal pain. Per chart review, patient was hospitalized from 06/01 - 06/03 where she presented with abdominal pain was found to have choledocholithiasis in the setting of prior cholecystectomy. She underwent ERCP which revealed cystic obstruction with evidence of mild cholangitis. A stent was placed and she was discharged with a short course of oral antibiotics. Repeat ERCP was performed today which revealed evidence of a stone in the cystic duct without obstruction. Biliary stent was removed. Patient was then discharged home, however shortly thereafter developed intractable abdominal pain. She reports the pain is sharp in nature, located in the right upper quadrant/epigastric region. She denied any associated nausea, vomiting, diarrhea, or constipation. She reports she has chronic dysuria. She is told that if her pain reoccurred, she may need her stent replaced. Currently in the ER, patient reports her pain is improved after multiple rounds of Dilaudid. She reports she feels hungry and thirsty. She had many questions regarding the plan forward. PAST MEDICAL HISTORY: Past Medical History: Diagnosis Date Heartburn PONV (postoperative nausea and vomiting) PAST SURGICAL HISTORY: Past Surgical History: Procedure Laterality Date HX CHOLECYSTECTOMY PRIOR TO ADMISSION MEDICATIONS: Prior to Admission Medications Prescriptions Last Dose Informant Patient Reported? Taking? acetaminophen (TYLENOL) 500 mg oral tablet Patient Yes No Sig: Take 1 tablet (500 mg) by mouth every 6 (six) hours as needed for fever or pain. cholecalciferol (VITAMIN D3) 400 unit (10 mcg) oral Tab tablet Yes No Sig: Take 12.5 tablets (125 mcg) by mouth once daily. ferrous sulfate (FERATAB) 325 mg (65 mg iron) oral tablet 08/03/2024 Yes No Sig: Take 1 tablet (325 mg) by mouth once daily. polyethylene glycol (MIRALAX) 17 gram oral powder Patient No No Sig: Take 17 g by mouth twice a day as needed for constipation. Mix each dose in 4-8 ounces of liquid as directed. Facility-Administered Medications: None ALLERGIES: Patient has no known allergies. FAMILY HISTORY: No family history on file. SOCIAL HISTORY: Social History Socioeconomic History Marital status: Single Spouse name: Not on file Number of children: Not on file Years of education: Not on file Highest education level: Not on file Occupational History Not on file Tobacco Use Smoking status: Former Current packs/day: 0.25 Types: Cigarettes Smokeless tobacco: Never Vaping Use Vaping status: Never Used Substance and Sexual Activity Alcohol use: Not Currently Comment: Feb 2024 Drug use: Not Currently Types: Marijuana, Cocaine-crack Comment: 2-3 yrs ago Sexual activity: Not on file Other Topics Concern Not on file Social History Narrative Not on file Social Drivers of Health Food Insecurity: No Food Insecurity (06/01/2024) Hunger Vital Sign Worried About Running Out of Food in the Last Year: Never true Ran Out of Food in the Last Year: Never true Transportation Needs: No Transportation Needs (06/01/2024) PRAPARE - Transportation Lack of Transportation (Medical): No Lack of Transportation (Non-Medical): No Intimate Partner Violence: Not At Risk (08/04/2024) Humiliation, Afraid, Rape, and Kick questionnaire Fear of Current or Ex-Partner: No Emotionally Abused: No Physically Abused: No Sexually Abused: No Housing Stability: High Risk (06/01/2024) Housing Stability Vital Sign Unable to Pay for Housing in the Last Year: Yes Number of Times Moved in the Last Year: Not on file Homeless in the Last Year: Yes REVIEW OF SYSTEMS: A comprehensive review of systems was negative except for items noted in the HPI/Subjective: PHYSICAL EXAM: Vitals: 08/04/24 1500 08/04/24 1504 08/04/24 1515 08/04/24 1530 BP: 115/69 108/66 108/63 Pulse: 99 93 89 89 Resp: 15 16 18 22 Temp: SpO2: (!) 87% 92% 92% 92% Height: O2 Delivery Source: Nasal Cannula Temp (24hrs), Av.6 ??F (36.4 ??C), Min:97.4 ??F (36.3 ??C), Max:98 ??F (36.7 ??C) Wt Readings from Last 2 Encounters: 08/01/24 102.1 kg (225 lb) 06/03/24 93.4 kg (206 lb) Body mass index is 172.14 kg/m??. General Appearance: patient is pleasant, alert and appropriate, no apparent distress. Young female lying in bed in no acute distress. Appears stated age. HEENT: Normocephalic, atraumatic. Pupils without icterus or conjunctivitis. Mucus membranes are moist. NECK: without JVD lymphadenopathy or thyromegaly. CHEST: Lung sounds are clear to auscultation bilaterally without crackles, wheezes or rubs. Breathing comfortably on room air. CARDIO: RRR, no murmurs. S1S2. Distal extremities are warm and well-perfused. ABD: Soft, mild epigastric tenderness to palpation, non-distended, no hepatosplenomegaly. Bowel sounds are present. BACK: No obvious abnormalities, no costovertebral angle tenderness noted EXT: Distal pulses are palpable. No pedal edema present. No mottling of skin is noted. NEURO: CN appear grossly intact symmetric. Patient moves all extremities, Normal muscle tone, bulk and strength. DTR deferred. PSYCH: Pleasant, mentation at baseline PROCEDURES: None IMAGING: Personally reviewed LABS: Results for orders placed or performed during the hospital encounter of 08/04/24 (from the past 24 hours) CBC Result Value Ref Range WBC 8.7 4.3 - 10.8 K/uL RBC 4.53 4.20 - 5.40 M/uL Hemoglobin 13.6 12.0 - 16.0 gm/dL Hematocrit 40.8 36.0 - 48.0 % MCV 90 80 - 100 fL MCH 30 27 - 33 pg MCHC 33 33 - 36 gm/dL RDW 13.1 11.5 - 14.5 % Platelet Count 285 150 - 400 K/UL MPV 10.5 6.5 - 12 fL Basic Metab Profile Result Value Ref Range Sodium 139 136 - 145 mmol/L Potassium 3.7 3.4 - 5.1 mmol/L Chloride 109 (H) 98 - 108 mmol/L Carbon Dioxide 23 20 - 31 mmol/L BUN (Urea Nitro) 15 9 - 23 mg/dL Creatinine 0.50 (L) 0.55 - 1.02 mg/dL Est GFR (CKD-EPI) >60.00 >60.00 mL/min/1.73m2 Glucose 140 (H) 74 - 106 mg/dL Calcium, Serum 8.9 8.7 - 10.4 mg/dL Anion Gap 7.0 0.0 - 15.0 mmol/L Liver Profile Result Value Ref Range ALT 71 (H) 7 - 40 U/L Alkaline Phosphatase 80 46 - 116 U/L AST (SGOT) 65 (H) 13 - 40 U/L Protein Total 7.8 5.7 - 8.2 g/dL Albumin 3.9 3.4 - 5.0 g/dL Bilirubin-Direct 0.35 <0.40 mg/dL Bilirubin-Total 0.80 0.30 - 1.20 mg/dL Lipase Result Value Ref Range Lipase 39 12 - 53 U/L EKG: None ADDITIONAL COMMENTS: I reviewed the patient's new clinical lab test results. I reviewed the patient's medications. I reviewed the patient's new imaging test results. I discussed the patient's care with patient, staff, ED MD. Old records requested/reviewed. ASSESSMENT: This is a 29-year-old female with a past medical history of choledocholithiasis status post cholecystectomy biliary stent placement who underwent elective ERCP with biliary stent removal with GI on 08/04, who subsequently presented to the ED shortly thereafter postprocedurally with intrac table abdominal pain. Active Problems: * No active hospital problems. * #Abdominal pain #History of prior cholecystectomy #History of choledocholithiasis status post biliary stent placement and subsequent removal - Patient has a history of prior cholecystectomy. She developed choledocholithiasis in May 2024 and underwent ERCP with biliary stent placement. Earlier today, patient underwent repeat ERCP which revealed known cystic duct stones without evidence of obstruction, therefore her biliary stent was removed. Post procedurally, patient has developed significant abdominal pain. - Currently, patient is vitally stable. Her blood work does not reveal any evidence of a leukocytosis, obstructive transaminitis, or elevated lipase. Abdominal imaging revealed evidence of pneumobilia which is likely a common finding post ERCP, otherwise was without acute findings. - Most likely etiology of patient's abdominal pain is transient biliary inflammation secondary to recent procedure. It is possible she is having microscopic, intermittent obstruction due to these known stones given her history. She has no findings consistent with cholangitis or post ERCP induced pancreatitis. - Diet: Regular diet as tolerated. - Pain control with scheduled Tylenol, as needed Robaxin, oxycodone, and Dilaudid if necessary. - Will treat conservatively at the moment, if pain does not resolve, may need repeat ERCP with cholangioscopy per GI recommendations earlier today. - GI has been consulted, awaiting recommendations. CODE STATUS: Full Code DVT prophylaxis: Not indicated, low risk GI prophylaxis: Not indicated ACCESS: PIV RESTRAINTS: Not indicated DISPOSITION: Anticipated date of discharge 1 day, Criteria for discharge is improved pain control, diet tolerability LENGTH OF STAY: OBS - Anticipated LOS <2 Midnights due to need for diagnostic workup of acute condition MEDICAL NECESSITY FOR HOSPITALIZATION: Reason for hospitalization: Intractable abdominal pain requiring IV narcotics Potential Risk of Morbidity and Mortality: Mildly elevated if pain progresses to the point of diet intolerability related to hypovolemia and organ dysfunction Past medical history and psychosocial factors associated with complexity of management: History of cholecystectomy, ERCP, known biliary stones Needed hospital services and assessment: IV narcotics Because of the factors described above, this patient cannot be managed at a lower level of care. Time: 45 minutes. Calvin Mon MD documented in this encounter Consult Notes * Steve Kang MD - 08/04/2024 4:44 PM CDTAssociated Order(s): CONSULT GASTROENTEROLOGY Images from the original note were not included. GI CONSULTATION NOTE Patient Name: Esvin Taylor Admission Date/Time: 08/04/2024 1:02 PM Primary Care Provider: [facility] Attending Physician: Steve Branch MD REASON FOR CONSULTATION: I was asked to see this patient at the request of Dr. Mon for evaluation of abdominal pain. HISTORY OF PRESENT ILLNESS: 29 y.o. female with a history of cholecystectomy, Mirizzi syndrome s/p ERCP and stent, repeat ERCP today with stent removal and gastric biopsies, who GI was consulted for postprocedure abdominal pain. Reports she was feeling well at the time of discharge. However, on thecar ride home developed acute onset central severe abdominal pain radiating diffusely, no fevers, no vomiting. Pain resolved with pain medications, and she feels back to normal without any pain. She is hungry and would like to eat. Workup in the emergency room with stable vital signs other than tachycardia, unremarkable labs other than mildly elevated transaminases, normal lipase, CT scan unremarkable aside from pneumobilia. Admitted for observation and pain control. PAST MEDICAL/SURGICAL HISTORY: Past Medical History: Diagnosis Date Heartburn PONV (postoperative nausea and vomiting) Past Surgical History: Procedure Laterality Date HX CHOLECYSTECTOMY MEDICATIONS PRIOR TO ADMISSION Current Facility-Administered Medications Medication Dose Route Frequency Provider Last Rate Last Admin acetaminophen (TYLENOL) tablet 1,000 mg 1,000 mg oral Q6H Calvin Mon MD HYDROmorphone (Dilaudid) syringe 0.5-1 mg 0.5-1 mg Intravenous Q4H PRN Calvin Mon MD iohexol 350 mgI/mL (OMNIPAQUE) 1-150 mL 1-150 mL Intravenous ONCE PRN Steve Branch MD methocarbamoL (ROBAXIN) tablet 500 mg 500 mg oral Q6H PRN Calvin Mon MD naloxone (NARCAN) injection 0.1 mg 0.1 mg Intravenous Q1 MINUTE PRN Calvin Mon MD ondansetron (Zofran) injection 4-8 mg 4-8 mg Intravenous Q8H PRN Calvin Mon MD Or ondansetron (Zofran) disintegrating tablet 4-8 mg 4-8 mg oral Q8H PRN Calvin Mon MD oxyCODONE (immediate release) (ROXICODONE) tablet 2.5-5 mg 2.5-5 mg oral Q4H PRN Calvin Mon MD Current Outpatient Medications Medication Sig Dispense Refill acetaminophen (TYLENOL) 500 mg oral tablet Take 1 tablet (500 mg) by mouth every 6 (six) hours as needed for fever or pain. cholecalciferol (VITAMIN D3) 400 unit (10 mcg) oral Tab tablet Take 12.5 tablets (125 mcg) by mouthonce daily. ferrous sulfate (FERATAB) 325 mg (65 mg iron) oral tablet Take 1 tablet (325 mg) by mouth once daily. polyethylene glycol (MIRALAX) 17 gram oral powder Take 17 g by mouth twice a day as needed for constipation. Mix each dose in 4-8 ounces of liquid as directed. 238 g 0 ALLERGIES/SENSITIVITIES No Known Allergies FAMILY HISTORY Grandmother, aunt and uncle with gallbladder disease. SOCIAL HISTORY Social History Tobacco Use Smoking status: Former Current packs/day: 0.25 Types: Cigarettes Smokeless tobacco: Never Vaping Use Vaping status: Never Used Substance Use Topics Alcohol use: Not Currently Comment: Feb 2024 Drug use: Not Currently Types: Marijuana, Cocaine-crack Comment: 2-3 yrs ago REVIEW OF SYSTEMS A comprehensive review of systems was negative except for items noted in the HPI/Subjective. PHYSICAL EXAM BP 107/67 Pulse 93 Temp 97.4 ??F (36.3 ??C) Resp 13 Ht 2' 6.32 (0.77 m) LMP 07/28/2024 (Approximate) SpO2 93% BMI 172.14 kg/m?? GENERAL: Conversant, no acute distress SKIN: No visible rashes or lesions HEENT: Anicteric CHEST: No resp distress, good insp/exp effort, no audible wheezes HEART: Regular rate and rhythm, no murmurs ABDOMEN: The abdomen is nondistended and soft. No tenderness to palpation. Bowel sounds are present. EXTREMITIES: No lower extremity edema. NEUROLOGIC: Moves all extremities, alert and oriented PSYCH: Mood and affect normal. LABORATORY AND RADIOLOGIC DATA: Results for orders placed or performed during the hospital encounter of 08/04/24 (from the past 24 hours) CBC Result Value Ref Range WBC 8.7 4.3 - 10.8 K/uL RBC 4.53 4.20 - 5.40 M/uL Hemoglobin 13.6 12.0 - 16.0 gm/dL Hematocrit 40.8 36.0 - 48.0 % MCV 90 80 - 100 fL MCH 30 27 - 33 pg MCHC 33 33 - 36 gm/dL RDW 13.1 11.5 - 14.5 % Platelet Count 285 150 - 400 K/UL MPV 10.5 6.5 - 12 fL Basic Metab Profile Result Value Ref Range Sodium 139 136 - 145 mmol/L Potassium 3.7 3.4 - 5.1 mmol/L Chloride 109 (H) 98 - 108 mmol/L Carbon Dioxide 23 20 - 31 mmol/L BUN (Urea Nitro) 15 9 - 23 mg/dL Creatinine 0.50 (L) 0.55 - 1.02 mg/dL Est GFR (CKD-EPI) >60.00 >60.00 mL/min/1.73m2 Glucose 140 (H) 74 - 106 mg/dL Calcium, Serum 8.9 8.7 - 10.4 mg/dL Anion Gap 7.0 0.0 - 15.0 mmol/L Liver Profile Result Value Ref Range ALT 71 (H) 7 - 40 U/L Alkaline Phosphatase 80 46 - 116 U/L AST (SGOT) 65 (H) 13 - 40 U/L Protein Total 7.8 5.7 - 8.2 g/dL Albumin 3.9 3.4 - 5.0 g/dL Bilirubin-Direct 0.35 <0.40 mg/dL Bilirubin-Total 0.80 0.30 - 1.20 mg/dL Lipase Result Value Ref Range Lipase 39 12 - 53 U/L Recent Labs 08/04/24 0929 08/04/24 1313 WBC -- 8.7 HEMOGLOBIN -- 13.6 PLATELETCT -- 285 SODIUM -- 139 POTASSIUM -- 3.7 CREATININE -- 0.50* LIPASE -- 39 INR 1.1 -- ASTSGOT 36 65* ALBUMIN 3.6 3.9 ALKLNPTASE 62 80 ALTSGPT 52* 71* BILIRUBDIR 0.17 0.35 BILIRUBTOT 0.60 0.80 PROTEINTOT 7.1 7.8 IMAGING: Radiology reports/imaging results reviewed in EMR Assessment and Plan 29 y.o. female with a history of cholecystectomy, Mirizzi syndrome s/p ERCP and stent, repeat ERCP today with stent removal and gastric biopsies, who GI was consulted for postprocedure abdominal pain. Workup reassuring and pain now resolved. Pain may be postprocedural, no evidence of complication such as pancreatitis or perforation. Less likely, consider recurrent biliary obstruction, or Mirizzi's syndrome, or migration of stone leading to obstruction, or bile duct injury leading to bile leak. Liver tests are mildly elevated. Would recommend trending liver tests and WBCs tomorrow, monitoring p ain and fever curve. Tentatively keep n.p.o. at midnight in event there is recurrent pain or liver test elevation in the morning requiring repeat ERCP with stent placement or cholangioscopy with attempt at lithotripsy. GI will continue to follow Thank you for involving me in this patients care, please do not hesitate to call with questions or concerns. Dictation software was used to create this note, and while reviewed for accuracy, typos may remain. Steve Kang MD [facility] [email or web address] documented in this encounter Nursing Notes * Nilesh Haynes RN - 08/06/2024 9:00 AM CDT Problem: Communication Goal: Demonstrates/exhibits ability to communicate needs effectively Outcome: Ongoing Goal: Demonstrates utilization of alternative communication techniques effectively Outcome: Ongoing * Mray Mendoza RN - 08/06/2024 12:43 AM CDT Problem: Falls/Injury-Risk of Goal: Absence of Falls/Injury Outcome: Met this shift Flowsheets (Taken 08/05/2024 4302) Environmental Safety Interventions: Standard Interventions in Place Mobility Safety Interventions: Standard Interventions in Place Elimination Safety Interventions: Standard Interventions in Place Problem: Communication Goal: Demonstrates/exhibits ability to communicate needs effectively Outcome: Met this shift Goal: Demonstrates utilization of alternative communication techniques effectively Outcome: Met this shift Problem: SAFETY Goal: *Communicates safety needs Outcome: Met this shift Problem: Pain Goal: Exhibits reduction in pain to a level of acceptable comfort Outcome: Met this shift Problem: Mobility - Impaired Goal: Demonstrates ability to perform physical activity independently or with assistive devices as needed Outcome: Met this shift Goal: Verbalizes an understanding of immobility risks and complications Outcome: Met this shift BP 123/69 Pulse 84 Temp 98.2 ??F (36.8 ??C) Resp 16 Ht 1.676 m (5' 6) Wt 102.1 kg (225 lb) LMP 07/28/2024 (Approximate) SpO2 95% BMI 36.32 kg/m?? * Stephenie Rojas RN - 08/05/2024 7:03 PM CDT Pt transferred to PACU with EXTRUSION UTILITY WORKER present * Stephenie Rojas RN - 08/05/2024 6:58 PM CDT 18cc Omnipaque dye used for ERCP * Stephenie Rojas RN - 08/05/2024 6:31 PM CDT EyeMax 11frx4.2mm used for farther visualization into the biiary duct * Chelsie Cartwright RN - 08/05/2024 5:52 PM CDT Problem: Falls/Injury-Risk of Goal: Absence of Falls/Injury Outcome: Ongoing Flowsheets Taken 08/05/2024 1600 by Chelsie Cartwright RN Environmental Safety Interventions: Standard Interventions in Place Mobility Safety Interventions: Standard Interventions in Place Elimination Safety Interventions: Standard Interventions in Place Medication: Standard Interventions in Place Taken 08/05/2024 0900 by Myriam Forrest RN Consults: Other (Comment) Problem: Communication Goal: Demonstrates/exhibits ability to communicate needs effectively Outcome: Ongoing Goal: Demonstrates utilization of alternative communication techniques effectively Outcome: Ongoing Problem: SAFETY Goal: *Communicates safety needs Outcome: Ongoing Goal: Absence of infection Outcome: Ongoing Problem: Pain Goal: Exhibits reduction in pain to a level of acceptable comfort Outcome: Ongoing * Manuel Ambrose RN - 08/04/2024 9:56 PM CDT Problem: Communication Goal: Demonstrates/exhibits ability to communicate needs effectively Outcome: Met this shift Problem: SAFETY Goal: *Communicates safety needs Outcome: Met this shift documented in this encounter ED Notes * Norma Burnett - 08/04/2024 6:28 PM CDT Dinner tray ordered by pt and delivered, pt is eating now. * Norma Burnett - 08/04/2024 6:13 PM CDT Pt up to the BR with a steady gait. * Norma Burnett - 08/04/2024 5:57 PM CDT Pt given a menu to order dinner. * Demetra Rider - 08/04/2024 1:47 PM CDT Pt much more comfortable after pain meds. Awaiting lab results and CT. Will continue to monitor. * Vivian Ogden RN - 08/04/2024 1:11 PM CDT Pt arrived to ED with SO after having a bile duct stent removed approx 1200 today. Pt had a stent placed 2 months ago before it was removed today. SO states that doctor said pt should return to hospital if the pain returned. Pt is screaming in pain. Doubled over. Dilaudid IM administered while attempting IV. SO at bedside. * Steve Branch MD - 08/04/2024 1:09 PM CDT Emergency Department Note History of Present Illness Chief Complaint Abdominal pain HPI Due to language barrier, an spinner concrete pipe was present during the history-taking and subsequent discussion (and for part of the physical exam) with this patient. Esvin Taylor is a 29 y.o. female with a history of choledocholithiasis who presents to the emergency department for the evaluation of abdominal pain. Patient comes from an endoscopy that occurred about an hour prior to arrival at 1200. Patient had a bile duct stent removed and started having abdominal pain after. Patient was told to come back if she developed pain. Patient was found screaming in pulliam and doubled over. The stent was reportedly placed 2 months prior. Independent Historian nurse as detailed above. Review of External Notes Reviewed endoscopy note by Dr. Car from earlier today when biliary stent was removed. Past Medical History Medical History and Problem List Heartburn PONV (postoperative nausea and vomiting) Choledocholithiasis Medications acetaminophen (TYLENOL) 500 mg oral tablet cholecalciferol (VITAMIN D3) 400 unit (10 mcg) oral Tab tablet ferrous sulfate (FERATAB) 325 mg (65 mg iron) oral tablet polyethylene glycol (MIRALAX) 17 gram oral powder Surgical History CHOLECYSTECTOMY Physical Exam Temperature: 97.4 ??F (36.3 ??C) Pulse: (!) 117 Respirations: (!) 28 BP: 138/71 SpO2: 94 % Physical Exam Vital signs and nursing notes reviewed Constitutional: Awake, screaming and writhing in pain HEENT- No signs of trauma, face symmetric Heart-tachycardia, no murmur Chest- normal respiratory effort, breath sounds clear, speaking in full sentences Abd- Soft, no masses, exquisite right upper quadrant tenderness. No rebound or guarding. Neuro: GRANGER, equal strength Extremities: No long bone deformities noted Vitals Trending Patient Vitals for the past 24 hrs: BP Temp Pulse Resp SpO2 Height 08/04/24 1530 108/63 -- 89 22 92 % -- 08/04/24 1515 108/66 -- 89 18 92 % -- 08/04/24 1504 -- -- 93 16 92 % -- 08/04/24 1500 115/69 -- 99 15 (!) 87 % -- 08/04/24 1445 (!) 134/121 -- 99 20 93 % -- 08/04/24 1430 113/66 -- 100 16 90 % -- 08/04/24 1415 (!) 109/94 -- 93 (!) 10 95 % -- 08/04/24 1400 113/67 -- 92 16 92 % -- 08/04/24 1345 112/73 -- 97 15 94 % -- 08/04/24 1330 117/80 -- 97 16 (!) 89 % -- 08/04/24 1315 138/71 -- (!) 113 (!) 28 94 % -- 08/04/24 1250 -- 97.4 ??F (36.3 ??C) (!) 117 -- 94 % 2' 6.32 (0.77 m) Diagnostics Lab Results Labs Reviewed BASIC METAB PROFILE - Abnormal; Notable for the following components: Result Value Chloride 109 (*) Creatinine 0.50 (*) Glucose 140 (*) All other components within normal limits LIVER PROFILE - Abnormal; Notable for the following components: ALT 71 (*) AST (SGOT) 65 (*) All other components within normal limits CBC (HGB,HCT,WBC,RBC,PLATELET) - Normal LIPASE - Normal EXTRA TUBE-SST (LAB USE ONLY) EXTRA TUBE PST (LAB USE ONLY) EXTRA TUBE-BLOOD BANK (LAB USE ONLY) EXTRA TUBE-EDTA (LAB USE ONLY) EXTRA TUBE-COAG (LAB USE ONLY) Imaging CT ABDOMEN & PELVIS W/O ORAL W IV CON Final Result IMPRESSION: No acute inflammatory process. Gallbladder surgically absent. There is some pneumobilia present. No significant biliary ductal dilatation is identified. REPORT SIGNED BY DR. Cleve Aquino EKG No results found for: EKG Independent Interpretation Se ed course ED Course Medications Administered Medications HYDROmorphone (DILAUDID) syringe 1 mg (1 mg IntraMUSCULAR Given 08/04/24 1305) HYDROmorphone (DILAUDID) syringe 1 mg (1 mg Intravenous Given 08/04/24 1317) iohexol 350 mgI/mL (OMNIPAQUE) 1-150 mL (has no administration in time range) iohexol 350 mgI/mL (OMNIPAQUE) 1-150 mL (100 mL Intravenous Given 08/04/24 1433) Procedures none Discussion of Management See ED course below ED Course ED Course as of 08/04/24 1559 SunAugust 04, 2024 1351 WBC: 8.7 [MF] 1352 Hemoglobin: 13.6 [MF] 1352 Platelet Count: 285 [MF] 1354 ALT(!): 71 [MF] 1354 Alkaline Phosphatase: 80 [MF] 1354 AST (SGOT)(!): 65 [MF] 1354 BILIRUBIN TOTAL: 0.80 [MF] 1354 Lipase: 39 [MF] 1354 Sodium: 139 [MF] 1354 Potassium: 3.7 [MF] 1354 Creatinine(!): 0.50 [MF] 1552 Reevaluated patient. She is much more comfortable after 2 doses of Dilaudid however still veryconcerned about her pain. On repeat abdominal exam has mild right upper quadrant tenderness, no rebound or guarding. I discussed the case with Dr. Kang from GI who will reach out to Dr. Carfor further recommendations. But at this time I will plan on admitting to medicine for intractable abdominal pain, GI consultation. [MF] [address] Mon who will admit the patient [MF] ED Course User Index [MF] Steve Branch MD Additional Documentation None Medical Decision Making / Diagnosis MIPS None [facility] Esvin Taylor is a 29 y.o. female with past medical history of choledocholithiasis, Mirizzi syndrome who had biliary stent removed earlier today with gastroenterology and was doing well after the procedure for about 30 minutes but then over the last 30 minutes has had severe right upper quadrant abdominal pain. Will get CT scan for evaluation of perforation or other acute complications. Paging gastroenterology given procedure earlier today. LFTs, lipase, basic labs overall reassuring. CT shows pneumobilia but no other acute pathology. Discussed case with Dr. Kang from GI we will try to get a hold of Dr. Car. After 2 doses of Dilaudid her pain is relatively well-controlled now. Repeat abdominal exam still has some right upper quadrant tenderness but overall relatively reassuring. Patient does not feel comfortable going home with her level of pain and ongoingconcerns about needing a biliary stent and feels that she needs to stay for ongoing pain control. Will admit for intractable abdominal pain and GI consultation. Disposition The patient was admitted to the hospital. New Prescriptions No medications on file Diagnosis ICD-10-CM 1. Upper abdominal pain R10.10 2. History of biliary duct stent placement Z98.890 Removed earlier today ATTESTATION: Scribe Attestation: I, Jeannine Shah, am serving as a scribe to document services personally performed by Steve Branch MD, based on my observations and the provider's statements to me. Provider Attestation: Portions of this medical record were completed by a scribe. UPON MY REVIEW AND AUTHENTICATION BY ELECTRONIC SIGNATURE, this confirms (a) I performed the applicable clinical services, and (b) the record is accurate. Steve Branch MD 08/04/24 08/04/2024 [facility] EMERGENCY DEPARTMENT documented in this encounter Miscellaneous Notes * Med Reconciliation - Kiana Pappas - 08/04/2024 5:27 PM CDT PHARMACY MEDICATION RECONCILIATION NOTE MEDICATION RECONCILIATION on admission by pharmacy has been completed. Prior to admission medications were reviewed with patient via a instructional support services director and outside fill records. The [facility] [employer] medication list has been updated and reflected in the chart below. Please use the [employer]DRAISING CONSULT[employer] medication section for ordering home doses during admission. Medication related issues: Added: esomeprazole, probiotic, melatonin, vitamin C, cranberry supplement (AZO) Updated: Ferrous sulfate from daily to every other day Of note: Esomeprazole prescribed 07/12/24. Patient reports taking it only as needed. Added to [facility]DRAISING CONSULTANT list as daily with a note about how patient is taking it. Patient reports taking hydroxyzine 1 tablet daily. Last filled on 11/06/23 for a 30 day supply. Did not add to FUNDRAISING CONSULTANT list due to fill records indicating a lack of supply for over six months. Last doses not reported. Did not add to FUNDRAISING CONSULTANT list. Medications requiring detailed history: Not applicable PRIOR TO ADMISSION MEDICATION LIST: Prior to Admission Medications Prescriptions Last Dose Informant Patient Reported? Taking? Bacillus coagulans 250 million cell oral chew tab Patient Yes Yes Sig: Chew 1 tablet once daily. acetaminophen (TYLENOL) 500 mg oral tablet PRN Patient Yes Yes Sig: Take 1 tablet (500 mg) by mouth every 6 (six) hours as needed for fever or pain. ascorbic acid, vitamin C, 250 mg oral tablet Patient Yes Yes Sig: Take 1 tablet (250 mg) by mouth once daily. cholecalciferol (VITAMIN D3) 400 unit (10 mcg) oral Tab tablet Patient Yes Yes Sig: Take 12.5 tablets (125 mcg) by mouth once daily. cranberry extract-vitamin C (AZO CRANBERRY PLUS VIT C) 250-60 mg oral Cap Patient Yes Yes Sig: Take 1 capsule by mouth once daily. esomeprazole magnesium (NEXIUM) 40 mg oral delayed release capsule PRN Patient Yes Yes Sig: Take 1 capsule (40 mg) by mouth once daily. ferrous sulfate (FERATAB) 325 mg (65 mg iron) oral tablet Patient Yes Yes Sig: Take 1 tablet (325 mg) by mouth every other day. melatonin 3 mg oral tablet Patient Yes Yes Sig: Take 1 tablet (3 mg) by mouth at bedtime. polyethylene glycol (MIRALAX) 17 gram oral powder PRN Patient No Yes Sig: Take 17 g by mouth twice a day as needed for constipation. Mix each dose in 4-8 ounces of liquid as directed. Facility-Administered Medications: None This patient obtains medications from [facility]. Thank you for the opportunity to participate in the care of this patient. Kiana Deal, Liability Claims Adjuster Phone #:[phone] or [phone] Time spent reconciling meds:15 min Location: face to face encounter Cosigned by Sarita Harmon, Pharm D at 08/04/2024 5:51 PM CDT documented in this encounter Plan of Treatment Scheduled Referrals Name Type Priority Associated Diagnoses Orde r Schedule Follow Up with Primary Care Clinic Follow Up Routine Upper abdominal pain History of biliary duct stent placement Choledocholithiasis Ordered: 08/06/2024 documented as of this encounter Procedures Procedure Name Priority Date/Time Associated Diagnosis Comments COMPREHENSIVE METABOLIC PANEL Routine 4:23 AM CDT CBC (HGB,HCT,WBC,RBC,PLATELET) Routine 0 08/06/2024 4:23 AM CDT XR ERCP BILIARY ONLY STAT 08/05/2024 6:58 PM CDT ENDOSCOPY Routine 08/05/2024 6:22 PM CDT ENDOSCOPIC RETROGRADE CHOLANGIOPANCREATOGRAPHY SPHINCTEROTOMY 08/05/2024 5:54 PM CDT EXTRA TUBE-EDTA Routine 08/05/2024 5:19 AM CDT LIVER PROFILE Routine 08/05/2024 5:19 AM CDT BASIC METAB PROFILE Routine 08/05/2024 5 :19 AM CDT CBC (HGB,HCT,WBC,RBC,PLATELET) Add On 0 08/05/2024 5:[address] ABDOMEN & PELVIS W/O ORAL W IV CON STAT 08/04/2024 2:33 PM CDT EXTRA TUBE-EDTA STAT 08/04/2024 1:13 PM CDT EXTRA TUBE-COAG STAT 08/04/2024 1:13 PM CDT EXTRA TUBE-BLOOD BANK STAT 08/04/2024 1:13 PM CDT EXTRA TUBE-SST (LAB USE ONLY) STAT 1:13 PM CDT LIPASE STAT 08/04/2024 1:13 PM CDT LIVER PROFILE STAT 08/04/2024 1:13 PM CDT BASIC METAB PROFILE STAT 08/04/2024 1 :13 PM CDT CBC (HGB,HCT,WBC,RBC,PLATELET) STAT 0 08/04/2024 1:13 PM CDT EXTRA TUBE PST STAT 08/04/2024 1:13 PM CDT documented in this encounter Results * (ABNORMAL) Comprehensive Metabolic Panel (08/06/2024 4:23 AM CDT) Sodium 140 136 - 145 mmol/L 08/06/2024 5:16 AM [facility] Potassium 4.4 3.4 - 5.1 mmol/L 08/06/2024 5:16 AM [facility] Chloride 110(H) 98 - 108 mmol/L 08/06/2024 5:16 AM [facility] Carbon Dioxide 24 20 - 31 mmol/L 08/06/2024 5:16 AM [facility] BUN (Urea Nitro) 13 9 - 23 mg/dL 08/06/2024 5:16 AM [facility] Creatinine 0.49(L) 0.55 - 1.02 mg/dL 08/06/2024 5:16 AM [facility] Est GFR (CKD-EPI) >60.00 >60.00 mL/min/1. 73m2 08/06/2024 5:16 AM [facility] Comment:Calculation based on the Chronic Kidney Disease Epidemiology Collaboration (CKD-EPI) equation refit without adjustment for race. Glucose 137(H) 74 - 106 mg/dL 08/06/2024 5:16 AM [facility] Calcium, Serum 8.5(L) 8.7 - 10.4 mg/dL 08/06/2024 5:16 AM [facility] Anion Gap 6.0 0.0 - 15.0 mmol/L 08/06/2024 5:16 AM [facility] Albumin 3.6 3.4 - 5.0 g/dL 08/06/2024 5:16 AM [facility] Bilirubin-Total 0.50 0.30 - 1.20 mg/dL 08/06/2024 5:16 AM [facility] Alkaline Phosphatase 155(H) 46 - 116 U/L 08/06/2024 5:16 AM [facility] Protein Total 7.3 5.7 - 8.2 g/dL 08/06/2024 5:16 AM [facility] AST (SGOT) 252(H) 13 - 40 U/L 08/06/2024 5:16 AM [facility] ALT 578(H) 7 - 40 U/L 08/06/2024 5:16 AM [facility] Blood 08/06/2024 4:23 AM CDT 08/06/2024 4:43 AM CDT us Shahida Zhang PA-C CHEMISTRY ORDERABLE Final Result [facility] [address] [place] [address] * (ABNORMAL) CBC (Hgb,Hct,WBC,RBC,Platelet) (08/06/2024 4:23 AM CDT) Only the most recent of3 resultswithin the time period is included. WBC 11.7(H) 4.3 - 10.8 K/uL 08/06/2024 5:14 AM [facility] RBC 4.13(L) 4.20 - 5.40 M/uL 08/06/2024 5:14 AM [facility] Hemoglobin 12.4 12.0 - 16.0 gm/dL 08/06/2024 5:14 AM [facility] Hematocrit 37.7 36.0 - 48.0 % 08/06/2024 5:14 AM [facility] MCV 91 80 - 100 fL 08/06/2024 5:14 AM [facility] MCH 30 27 - 33 pg 08/06/2024 5:14 AM [facility] MCHC 33 33 - 36 gm/dL 08/06/2024 5:14 AM [facility] RDW 13.5 11.5 - 14.5 % 08/06/2024 5:14 AM CDT [facility] Platelet Count 241 150 - 400 K/UL 08/06/2024 5:14 AM CDT [facility] MPV 10.2 6.5 - 12 fL 08/06/2024 5:14 AM CDT [facility] Blood 08/06/2024 4:23 AM CDT 08/06/2024 5:12 AM CDT us Shahida Zhang PA-C HEMATOLOGY ORDERABL E Final Result [facility] [address] [place] [address] * XR ERCP BILIARY ONLY (08/05/2024 6:58 PM CDT) Anatomical Region Laterality Modality ABD/Pelvis Computed Radiogr aphy 08/05/2024 10:4 4 PM CDT Impressions 08/05/2024 10:46 PM CDT IMPRESSION: Procedural fluoroscopy for Dr. Oscar. Eight images saved. Unknown fluoroscopy time. Images show cannulation of the major papilla with retrograde opacification of the biliary system. Intra and extrahepatic bile ducts are nondilated. No visible filling defect to suggest choledocholithiasis. There has been cholecystectomy. Ducts were swept with a balloon. Final image shows near complete drainage of infused contrast. REPORT SIGNED BY DR. Chaparro Scott Narrative 08/05/2024 10:46 PM CDT EXAM: XR ERCP BILIARY ONLY DATE: 08/05/2024 18:58 CLINICAL DATA: Upper abdominal pain, unspecified. COMPARISON: 06/02/2024 Procedure Note Chaparro Scott MD - 08/05/2024 EXAM: XR ERCP BILIARY ONLY DATE: 08/05/2024 18:58 CLINICAL DATA: Upper abdominal pain, unspecified. COMPARISON: 06/02/2024 IMPRESSION IMPRESSION: Procedural fluoroscopy for Dr. Oscar. Eight images saved.Unknown fluoroscopy time. Images show cannulation of the major papilla with retrograde opacificationof the biliary system. Intra and extrahepatic bile ducts are nondilated.No visible filling defect to suggest choledocholithiasis. There has beencholecystectomy. Ducts were swept with a balloon. Final image shows near complete drainage of infused contrast. REPORT SIGNED BY DR. Chaparro Scott us Jonathon Oscar MD XRAY ORDERABLE Final Result * Endoscopy (08/05/2024 6:22 PM CDT) 08/05/2024 6:22 PM CDT Narrative TEST - 08/05/2024 7:29 PM CDT [facility] Patient Name: Esvin Taylor Procedure Date: 08/05/2024 6:22 PM Date of : 1995 Note Status: Finalized Attending MD: Jonathon Oscar MD, Procedure: ERCP Indications: 29 y.o. 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 Initial ERCP with stent placement, subsequently removed yesterday, patient presented with significant abdominal pain shortly after the procedure and elevated LFTs suspicious for a retained stone. No evidence of pancreatitis or other findings on imaging. ERCP to evaluate for a retained stone. Providers: Jonathon Oscar MD, Aura Mujica, DONNA, Pat Garg, DONNA, Olga Lidia Rojas, DONNA, Jonathon Oscar MD Requesting Provider: Medicines: General Anesthesia, Indomethacin 100 mg PA Complications: No immediate complications. Estimated blood loss: Minimal. Procedure: Pre-Anesthesia Assessment: - Prior to the [...] by the physician, the nurse and the psychologist counseling in the pre-procedure area in the procedure room. Mental Status Examination: alert and oriented. Prophylactic Antibiotics: The patient does not require [...] patient tolerated the procedure well. Findings: A mortgage branch manager film of the abdomen was obtained. Surgical clips, consistent with a previous cholecystectomy, were seen in the area of the right upper quadrant of the abdomen. The esophagus was successfully intubated under direct vision without detailed examination of the pharynx, larynx, and associated structures, and upper GI tract. The upper GI tract was grossly normal. A biliary sphincterotomy had been performed. The sphincterotomy appeared open. The bile duct was deeply cannulated with the 11.5 mm balloon. Contrast was injected. The intra-hepatic and extra-hepatic biliary duct system was normal. No filling defects were seen. A 0.035 inch Acrobat wire was passed into the biliary tree. The biliary tree was swept with an 11.5 mm balloon starting at the bifurcation. Nothing was found. The bile duct was explored endoscopically using the cholangioscope which was advanced both to the cystic duct stump and the peripheral intrahepatic ducts. No stones were seen. Impression: - No evidence of a retained stone either in the bile duct or the cystic duct. The stone may have passed spontaneously. Recommendation: - [facility]. - Regular diet - Monitor symptoms and labs, further recommendations depending on clinical course. 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 All rights reserved. The codes documented in this report are preliminary and upon helminthologist review may be revised to meet current compliance requirements. Jonathon Oscar MD 08/05/2024 7:28:53 PM Number of Addenda: 0 Note Initiated On: 08/05/2024 6:22 PM [address] [place] [address] Procedure Note Jonathon Oscar MD - 08/05/2024 [facility] Patient Name: Esvin Taylor Procedure Date: 08/05/2024 6:22 PM Date of : 1995 Note Status: Finalized Attending MD: Jonathon Oscar MD, Procedure: ERCP Indications: 29 y.o. 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 No evidence of pancreatitis or other findings on imaging. ERCP to evaluate for a retained stone. Providers: Jonathon Oscar MD, Aura Mujica, DONNA, Pat Garg, DONNA, Olga Lidia Rojas RN, Jonathon Oscar MD Requesting Provider: Medicines: General Anesthesia, Indomethacin 100 mg PA Complications: No immediate complications. Estimated blood loss: Minimal. Procedure: Pre-Anesthesia Assessment: - Prior to the [...] by the physician, the nurse and the psychologist counseling in the pre-procedure area in the procedure room. Mental Status Examination: alert and oriented. Prophylactic Antibiotics: The patient does not require prophylactic antibiotics. PriorAnticoagulants: [...] patient tolerated the procedure well. Findings: A mortgage branch manager film of the abdomen was obtained. Surgical clips, consistent with a previous cholecystectomy, were seen in the area of the right upper quadrant of the abdomen. The esophagus was successfullyintubated under direct vision without detailed examination of the pharynx,larynx, and associated structures, and upper GI tract. The upper GI tract was grossly normal. A biliary sphincterotomy had been performed. The sphincterotomy appeared open. The bile duct was deeply cannulatedwith the 11.5 mm balloon. Contrast was injected. The intra-hepatic and extra-hepatic biliary duct system was normal. No filling defects were seen. A 0.035 inch Acrobat wire was passed into the biliary tree. The biliary tree was swept with an 11.5 mm balloon starting at the bifurcation. Nothing was found. The bile duct was explored endoscopically using the cholangioscope which was advanced both tothe cystic duct stump and the peripheral intrahepatic ducts. No stoneswere seen. Impression: - No evidence of a retained stone either in the bile duct or thecystic duct. The stone may have passed spontaneously. Recommendation: - [facility]. - Regular diet - Monitor symptoms and labs, further recommendations depending on clinical course. Procedure Code(s): --- Professional --- 08501, Endoscopic retrograde cholangiopancreatography (ERCP); diagnostic, including collection of specimen(s) by brushing orwashing, when performed (separate procedure) 01205, Endoscopic cannulation of papilla with direct visualization of pancreatic/common bile duct(s) (List separately in addition tocode(s) for primary procedure) Diagnosis Code(s): --- Professional --- Z90.49, Acquired absence of other specified parts of digestivetract CPT copyright 2021 [employer]. All rights reserved. The codes documented in this report are preliminary and upon helminthologist reviewmay be revised to meet current compliance requirements. Jonathon Oscar MD 08/05/2024 7:28:53 PM Number of Addenda: 0 Note Initiated On: 08/05/2024 6:22 PM [address] [place] [address] [place] Jonathon Oscar MD PROCEDURE ORDERABLE Final Result Performing Organization Address [facility] de Phone Number TEST * Extra Tube-EDTA (Lab Use Only) (08/05/2024 5:19 AM CDT) Only the most recent of2 resultswithin the time period is included. Blood 08/05/2024 5:19 AM CDT 08/05/2024 5:42 AM CDT us Calvin Mon MD HEMATOLOGY ORDERABLE Final R esult Performing Organization Address [facility] de Phone Number [facility] [address] [place] [address] * (ABNORMAL) Liver Profile (08/05/2024 5:19 AM CDT) Only the most recent of2 resultswithin the time period is included. ALT 783(H) 7 - 40 U/L 08/05/2024 6:08 AM [facility] Comment:Interpret with cauti on, specimen slightly hemolyzed. Results may be affected. Alkaline Phosphatase 144(H) 46 - 116 U/L 08/05/2024 6:08 AM T [facility] AST (SGOT) 691(H) 13 - 40 U/L 08/05/2024 6:08 AM [facility] Protein Total 7.6 5.7 - 8.2 g/dL 08/05/2024 6:08 AM T [facility] Albumin 3.7 3.4 - 5.0 g/dL 08/05/2024 6:08 AM [facility] Bilirubin-Direct 0.80(H) <0.40 mg/dL 08/05/2024 6:08 AM [facility] Bilirubin-Total 1.50(H) 0.30 - 1.20 mg/dL 08/05/2024 6:08 AM [facility] Blood 08/05/2024 5:19 AM CDT 08/05/2024 5:35 AM CDT us Calvin Mon MD CHEMISTRY ORDERABLE Final Re sult [facility] [address] [place] [address] * (ABNORMAL) Basic Metabolic Profile (08/05/2024 5:19 AM CDT) Only the most recent of2 resultswithin the time period is included. Sodium 137 136 - 145 mmol/L 08/05/2024 6:12 AM [facility] Potassium 4.9 3.4 - 5.1 mmol/L 08/05/2024 6:12 AM [facility] Comment:Interpret with cauti on, specimen slightly hemolyzed. Results may be affected. Chloride 107 98 - 108 mmol/L 08/05/2024 6:12 AM [facility] Carbon Dioxide 21 20 - 31 mmol/L 08/05/2024 6:12 AM [facility] BUN (Urea Nitro) 17 9 - 23 mg/dL 08/05/2024 6:12 AM [facility] Comment:Interpret with cauti on, specimen slightly hemolyzed. Results may be affected. Creatinine 0.48(L) 0.55 - 1.02 mg/dL 08/05/2024 6:12 AM [facility] Est GFR (CKD-EPI) >60.00 >60.00 mL/min/1. 73m2 08/05/2024 6:12 AM [facility] Comment:Calculation based on the Chronic Kidney Disease Epidemiology Collaboration (CKD-EPI) equation refit without adjustment for race. Glucose 132(H) 74 - 106 mg/dL 08/05/2024 6:12 AM CDT [facility] Calcium, Serum 8.7 8.7 - 10.4 mg/dL 08/05/2024 6:12 AM CDT [facility] Anion Gap 9.0 0.0 - 15.0 mmol/L 08/05/2024 6:12 AM CDT [facility] Blood 08/05/2024 5:19 AM CDT 08/05/2024 5:35 AM CDT us Calvin Mon MD CHEMISTRY ORDERABLE Final Re sult [facility] [address] [place] [address] * CT ABDOMEN & PELVIS W/O ORAL W IV CON (08/04/2024 2:33 PM CDT) Anatomical Region Laterality Modality ABD/Pelvis Computed Tomogra phy 08/04/2024 2:49 PM CDT Impressions 08/04/2024 3:01 PM CDT IMPRESSION: No acute inflammatory process. Gallbladder surgically absent. There is some pneumobilia present. No significant biliary ductal dilatation is identified. REPORT SIGNED BY DR. Cleve Davis 08/04/2024 3:01 PM CDT EXAM: CT ABDOMEN AND PELVIS (with intravenous contrast) DATE: 08/04/2024 14:22 COMPARISON: None CLINICAL DATA: RUQ Pain. Biliary stent removed today. TECHNIQUE: Thin-section contiguous transaxial images were obtained through the abdomen and pelvis with intravenous contrast. No oral contrast was given. Coronal reformations were also obtained through the abdomen and pelvis. A total of 100 cc of Omnipaque 350 were administered intravenously for this study. FINDINGS: Lung bases: No suspicious nodule or mass identified in the visualized portions of the lung bases. Osseous structures: The osseous structures are unremarkable. Liver: There is a small amount of pneumobilia which is probably related to prior cholecystectomy. Gallbladder: Surgically absent. Spleen: Normal. Pancreas: Normal. Adrenal Glands: Normal. Kidneys: Normal. Urinary Bladder: Normal. Nodes: No enlarged lymph nodes. Fluid: No free fluid. Aorta: No abdominal aortic aneurysm. Bowel: The stomach and duodenum are unremarkable. Ligament of Treitz is normal in position. The jejunum and ileum are unremarkable. There is no colonic wall thickening or pericolonic inflammation. Procedure Note Cleve Aquino MD - 08/04/2024 EXAM: CT ABDOMEN AND PELVIS (with intravenous contrast) DATE: 08/04/2024 14:22 COMPARISON: None CLINICAL DATA: RUQ Pain. Biliary stent removed today. TECHNIQUE: Thin-section contiguous transaxial images were obtained throughthe abdomen and pelvis with intravenous contrast. No oral contrast wasgiven. Coronal reformations were also obtained through the abdomen andpelvis. A total of 100 cc of Omnipaque 350 were administeredintravenously for this study. FINDINGS: Lung bases: No suspicious nodule or mass identified in the visualizedportions of the lung bases. Osseous structures: The osseous structures are unremarkable. Liver: There is a small amount of pneumobilia which is probably related toprior cholecystectomy. Gallbladder: Surgically absent. Spleen: Normal. Pancreas: Normal. Adrenal Glands: Normal. Kidneys: Normal. Urinary Bladder: Normal. Nodes: No enlarged lymph nodes. Fluid: No free fluid. Aorta: No abdominal aortic aneurysm. Bowel: The stomach and duodenum are unremarkable. Ligament of Treitz isnormal in position. The jejunum and ileum are unremarkable. There is nocolonic wall thickening or pericolonic inflammation. IMPRESSION IMPRESSION: No acute inflammatory process. Gallbladder surgically absent. There is some pneumobilia present. Nosignificant biliary ductal dilatation is identified. REPORT SIGNED BY DR. Cleve Aquino Steve Branch MD CT ORDERABLE Final Resul t * Extra Tube-Coag (Lab Use Only) (08/04/2024 1:13 PM CDT) Blood 08/04/2024 1:13 PM CDT 08/04/2024 1:25 PM CDT us Steve Branch MD COAGULATION ORDERABLE Final Result [facility] [address] [facility] [place] [address] * Extra Tube PST (Lab Use Only) (08/04/2024 1:13 PM CDT) Blood 08/04/2024 1:13 PM CDT 08/04/2024 1:27 PM CDT us Steve Branch MD CHEMISTRY ORDERABLE Final R esult Performing Organization Address [facility] de Phone Number [facility] [address] [facility] [place] [address] * Extra Tube-SST (Lab Use Only) (08/04/2024 1:13 PM CDT) Blood 08/04/2024 1:13 PM CDT 08/04/2024 1:25 PM CDT us Steve Branch MD CHEMISTRY ORDERABLE Final R esult Performing Organization Address [facility] Phone Number [facility] [address] [place] [address] [place] [address] * Extra Tube-Blood Bank (Lab Use Only) (08/04/2024 1:13 PM CDT) Blood 08/04/2024 1:13 PM CDT 08/04/2024 1:26 PM CDT us Steve Branch MD BLOOD BANK ORDERABLE Final Result Performing Organization Address [facility] de Phone Number [facility] [address] [place] [address] * Lipase (08/04/2024 1:13 PM CDT) Lipase 39 12 - 53 U/L 08/04/2024 1:54 PM CDT [facility] Blood 08/04/2024 1:13 PM CDT 08/04/2024 1:27 PM CDT us Steve Branch MD CHEMISTRY ORDERABLE Final R esult Performing Organization Address [facility] de Phone Number [facility] [address] [id number] documented in this encounter Visit Diagnoses Diagnosis Abdominal pain- Primary Abdominal pain, unspecified site Upper abdominal pain Abdominal pain, other specified site History of biliary duct stent placement Choledocholithiasis Calculus of bile duct without mention of cholecystitis or obstruction documented in this encounter Admitting Diagnoses Diagnosis Abdominal pain Abdominal pain, unspecified site documented in this encounter Administered Medications Inactive Administered Medications - up to 3 most recent administrations Medication Order MAR Action Action Date Dose Rate Site saline FLUSH syringe 10 mL 10 mL, Intravenous, EVERY 8 HOURS, First dose on Sun08/04/24 at 2200, Until Discontinued Given 08/06/2024 2:01 PM CDT 10 mL Given 08/06/2024 6:00 AM CDT 10 mL Given 08/05/2024 10:00 PM CDT 10 mL saline FLUSH syringe 10 mL 10 mL, Intravenous, NEEDED, Starting on Sun08/04/24 at 2020, Until Sun08/06/24 at 2034, Line Care Given 08/04/2024 9:40 PM CDT 10 mL acetaminophen (TYLENOL) tablet 1,000 mg 1,000 mg, oral, EVERY 6 HOURS, First dose on Sun08/04/24 at 2000, Until Discontinued Given 08/05/2024 8:21 A M CDT 1,000 mg Given 08/04/2024 8:40 PM CDT 1,000 mg acetaminophen (TYLENOL) tablet 500 mg 500 mg, oral, EVERY 6 HOURS, First dose (after last modification) on Sun08/05/24 at 1400, Until Discontinued Given 08/06/2024 7:39 AM CDT 500 mg Given 08/05/2024 1:43 PM CDT 500 mg acetaminophen (TYLENOL) tablet 500-1,000 mg 500-1,000 mg, oral, ONCE, 1 dose, On Sun08/05/24 at 1900, Phase 1/2 Given 08/05/2024 7:24 PM CDT 500 mg alum-mag hydroxide-simethicone (MAALOX PLUS) suspension 30 mL 30 mL, oral, EVERY 6 HOURS NEEDED, Starting on Sun08/04/24 at 2343, Until Sun08/06/24 at 2034, dyspepsia Given 08/06/2024 2:14 PM CDT 30 mL Given 08/05/2024 8:21 AM CDT 30 mL bisacodyl (DULCOLAX) delayed released tablet 5-15 mg 5-15 mg, oral, DAILY NEEDED, Starting on Sun08/05/24 at 0829, Until Sun08/06/24 at 203, Constipation, 2nd choice bismuth subsalicylate (PEPTO-BISMOL) chewable tablet 524 mg 524 mg, oral, FOUR TIMES A DAY, First dose on Sun08/05/24 at 1800, Until Discontinued Given 08/06/2024 2:00 PM CDT 524 mg Given 08/06/2024 7:39 AM CDT 524 mg Given 08/05/2024 8:45 PM CDT 524 mg cefepime (MAXIPIME) IV syringe 2 g 2 g, Intravenous, EVERY 8 HOURS (NS), First dose on Sun08/05/24 at 1200, Until Discontinued, Administer over 3 Minutes, Cefepime should be dosed by indication: Bacteremia, meningitis, febrile neutropenia, intra-abdominal infections, endocarditis, pneumonia due to Pseudomonas: 2g q8h Infection of skin and/or subcutaneous tissue, urinary tract infections (dosing stratified by severity): 0.5-2g [id number]:INTRA-ABDOMINAL INFECTION Given 08/06/2024 12:08 PM CDT 2 g Given 08/06/2024 4:00 AM CDT 2 g Given 08/05/2024 8:44 PM CDT 2 g Cholecalciferol (Vitamin D3) tablet 125 mcg 125 mcg, oral, DAILY, First dose on Sun08/05/24 at 0800, Until Discontinued Given 08/06/2024 7:39 AM CDT 125 mcg Given 08/05/2024 8:22 AM CDT 125 mcg famotidine (PEPCID) tablet 20 mg 20 mg, oral, DAILY, First dose (after last modification) on Sun08/05/24 at 0000, Until DiscontinuedIndications:GERD Given 08/06/2024 7:39 AM CDT 20 mg Given 08/05/2024 12:04 AM CDT 20 mg ferrous sulfate (FERATAB) tablet 325 mg 325 mg, oral, EVERY 48 HOURS (NS), First dose on Sun08/05/24 at 0800, Until Discontinued Given 08/05/2024 8:22 AM CDT 325 mg HYDROmorphone (Dilaudid) syringe 0.5-1 mg 0.5-1 mg, Intravenous, EVERY 4 HOURS NEEDED, Starting on Sun08/04/24 at 1633, Until Sun08/06/24 at 2035, Pain, when NOT taking PO Given 08/05/2024 8:22 AM CDT 0.5 mg HYDROmorphone (DILAUDID) syringe 1 mg 1 mg, IntraMUSCULAR, EVERY 15 MINUTES NEEDED, 3 doses, Starting on Sun08/04/24 at 1259, Until Sun08/04/24 at 1633, Emergency Department, Pain, if oral opioid not effective or tolerated Given 08/04/2024 1:05 PM CDT 1 mg Right Deltoid HYDROmorphone (DILAUDID) syringe 1 mg 1 mg, Intravenous, EVERY 15 MINUTES NEEDED, 2 doses, Starting on Sun08/04/24 at 1310, Until Sun08/04/24 at 1618, Emergency Department, Pain, when NOT taking PO Given 08/04/2024 1:17 PM CDT 1 mg indomethacin (Indocin) rectal suppository 100 mg 100 mg, Rectal, INTRA-PROCEDURE ONE TIME DOSE NEEDED, 1 dose, Starting on Sun08/05/24 at 1750, Until Sun08/05/24 at 1855, for pancreatitis prophylaxis as directed by physician Given 08/05/2024 6:55 PM CDT 100 mg iohexol 350 mgI/mL (OMNIPAQUE) 1-150 mL 1-150 mL, Intravenous, INTRA-PROCEDURE ONE TIME DOSE NEEDED, 1 dose, Starting on Sun08/04/24 at 1433, Until Sun08/04/24 at 1433, per procedure Given 08/04/2024 2:33 PM CDT 100 mL lactated Ringers (LR) IV infusion at 100 mL/hr, Intravenous, CONTINUOUS, Starting on Sun08/05/24 at 1330, Until Sun08/05/24 at 2329 New Bag 08/05/2024 1:44 PM CDT 100 mL/hr melatonin tablet 3 mg 3 mg, oral, AT BEDTIME, First dose on Sun08/06/24 at 0030, Until Discontinued Given 08/06/2024 12:30 AM CDT 3 mg methocarbamoL (ROBAXIN) tablet 500 mg 500 mg, oral, EVERY 6 HOURS NEEDED, Starting on Sun08/04/24 at 1559, Until Sun08/06/24 at 2034, muscle spasm Given 08/06/2024 12:39 AM CDT 500 mg metroNIDAZOLE (FLAGYL) IV piggyback 500 mg 500 mg, Intravenous, EVERY 12 HOURS (NS), First dose on Sun08/05/24 at 1000, Until Discontinued, Administer over 60 Minutes, For C. difficile, anaerobic bacteremia, parasitic, or TOOL ROOM ATTENDANT infections utilize q8h frequency. For all other infections, utilize q12h frequency.Indications:INTRA- ABDOMINAL INFECTION New Bag 08/05/2024 11:01 AM CDT 500 mg 100 mL/hr metroNIDAZOLE (FLAGYL) tablet 500 mg 500 mg, oral, FOUR TIMES A DAY, First dose on Sun08/05/24 at 1800, Until Discontinued, For C. difficile, anaerobic bacteremia, parasitic, or TOOL ROOM ATTENDANT infections utilize q8h frequency. For all other infections, utilize q12h frequency.Indications:H pylori & intra-abdominal infection Given 08/06/2024 7:39 AM CDT 500 mg Given 08/05/2024 8:44 PM CDT 500 mg ondansetron (Zofran) disintegrating tablet 4-8 mg 4-8 mg, oral, EVERY 8 HOURS NEEDED, Starting on Sun08/04/24 at 1559, Until Sun08/06/24 at 2034, nausea & vomiting, 1st choice Given 08/04/2024 8: 40 PM CDT 4 mg ondansetron (Zofran) injection 4-8 mg 4-8 mg, Intravenous, EVERY 8 HOURS NEEDED, Starting on Sun08/04/24 at 1559, Until Sun08/06/24 at 2034, nausea & vomiting, 1st choice pantoprazole (Protonix) delayed release tablet 40 mg 40 mg, oral, TWICE A DAY, First dose on Sun08/05/24 at 2000, Until DiscontinuedIndications:h pylori treatment Given 08/06/2024 7:39 AM CDT 4 0 mg Given 08/05/2024 8:45 PM CDT 40 mg polyethylene glycol (MIRALAX) packet 17 g 17 g, oral, DAILY, First dose (after last modification) on Sun08/06/24 at 1400, Until Discontinued senna (SENOKOT) tablet 17.2 mg 17.2 mg (2 tablet), oral, TWICE A DAY NEEDED, Starting on Sun08/05/24 at 0828, Until Sun08/06/24 at 2034, Constipation, 1st choice simethicone IRRIGATION solution Irrigation, INTRA-PROCEDURE ONE TIME DOSE NEEDED, 1 dose, Starting on Sun08/05/24 at 1750, Until Sun08/06/24 at 2034, per procedure tetracycline (SUMYCIN) capsule 500 mg 500 mg, oral, THREE TIMES A DAY BEFORE MEALS AND AT BEDTIME, First dose (after last modification) on Sun08/05/24 at 2200, Until DiscontinuedIndications:H pylori Given 08/06/2024 7:30 AM CDT 500 mg Given 08/05/2024 10:37 PM CDT 500 mg documented in this encounter Active and Recently Administered Medications Times are shown in CDT. Scheduled Medication Order 08/04/2024 08/05/2024 08/06/2024 saline FLUSH syringe 10 mL 10 mL, Intravenous, EVERY 8 HOURS, First dose on Sun08/04/24 at 2200, Until Discontinued 2141 (Given - Provider: Manuel Ambrose RN) 0600 (Not Given - Provider: Mary Mendoza RN - Reason: Patient sleeping)1343 (Given - Provider: Myriam Forrest RN)1641 (MAR Hold - Provider: Interface, Incoming Adt - Reason: Procedure)2018 (MAR Unhold - Provider: Interface, Incoming Adt)2200 (Given - Provider: Mary Mendoza RN) 0600 (Given - Provider: Mary Mendoza, DONNA)1401 (Given - Provider: Nilesh Haynes RN) acetaminophen (TYLENOL) tablet 1,000 mg (CANCELED) 1,000 mg, oral, EVERY 6 HOURS, First dose on Sun08/04/24 at 2000, Until Discontinued 2039 (Given - Provider: Manuel Ambrose RN) 0200 (Declined - Provider: Mary Mendoza RN)0821 (Given - Provider: Myriam Forrest RN) acetaminophen (TYLENOL) tablet 500 mg 500 mg, oral, EVERY 6 HOURS, First dose (after last modification) on Sun08/05/24 at 1400, Until Discontinued 1343 (Given - Provider: Myriam Forrest RN)164 (MAY Hold - Provider: Interface, Incoming Adt - Reason: Procedure)1999 (Declined - Provider: Mary Mendoza RN)2017 (MAY Unhold - Provider: Interface, Incoming Adt) 0200 (Declined - Provider: Mary Mendoza RN)0739 (Given - Provider: Nilesh Haynes RN)1400 (Due) acetaminophen (TYLENOL) tablet 500-1,000 mg (COMPLETED) 500-1,000 mg, oral, ONCE, 1 dose, On Sun08/05/24 at 1900, Phase 1/2 1924 (Given - Provider: Jaylen Parada RN) bismuth subsalicylate (PEPTO-BISMOL) chewable tablet 524 mg 524 mg, oral, FOUR TIMES A DAY, First dose on Sun08/05/24 at 1800, Until Discontinued 164 (MAY Hold - Provider: Interface, Incoming Adt - Reason: Procedure)1800 (Restarted. - Provider: Mary Mendoza RN)2017 (MAY Unhold - Provider: Interface, Incoming Adt)2044 (Given - Provider: Mary Mendoza RN)2200 (Not Given - Provider: Mary Mendoza RN - Reason: Clinically appropriate (comment) - Comment: duplicate; already given) 0739 (Given - Provider: Nilesh Haynes RN)1400 (Given - Provider: Nilesh Haynes RN) cefepime (MAXIPIME) IV syringe 2 g 2 g, Intravenous, EVERY 8 HOURS (NS), First dose on Sun08/05/24 at 1200, Until Discontinued, Administer over 3 Minutes, Cefepime should be dosed by indication: Bacteremia, meningitis, febrile neutropenia, intra-abdominal infections, endocarditis, pneumonia due to Pseudomonas: 2g q8h Infection of skin and/or subcutaneous tissue, urinary tract infections (dosing stratified by severity): 0.5-2g q12h 1151 (Given - Provider: Myriam Forrest RN)2044 (Given - Provider: Mary Mendoza RN) 0400 (Given - Provider: Mary Mendoza RN)1208 (Given - Provider: Nilesh Haynes RN) Cholecalciferol (Vitamin D3) tablet 125 mcg 125 mcg, oral, DAILY, First dose on Sun08/05/24 at 0800, Until Discontinued 08 (Given - Provider: Myriam Forrest RN)164 ([facility] Hold - Provider: Interface, Incoming Adt - Reason: Procedure)2017 (MAR Unhold - Provider: Interface, Incoming Adt) 0739 (Given - Provider: Nilesh Haynes RN) famotidine (PEPCID) tablet 20 mg 20 mg, oral, DAILY, First dose (after last modification) on Sun08/05/24 at 0000, Until Discontinued 3 (Given - Provider: Mary Mendoza RN)1640 ([facility] Hold - Provider: Interface, Incoming Adt - Reason: Procedure)2017 ([facility] Unhold - Provider: Interface, Incoming Adt) 0739 (Given - Provider: Nilesh Haynes RN) ferrous sulfate (FERATAB) tablet 325 mg 325 mg, oral, EVERY 48 HOURS (NS), First dose on Sun08/05/24 at 0800, Until Discontinued 821 (Given - Provider: Myriam Forrest RN)1640 (MAR Hold - Provider: Interface, Incoming Adt - Reason: Procedure)2017 (MAR Unhold - Provider: Interface, Incoming Adt) melatonin tablet 3 mg 3 mg, oral, AT BEDTIME, First dose on Sun08/06/24 at 0030, Until Discontinued 0030 (Given - Provider: Mary Mendoza RN) metroNIDAZOLE (FLAGYL) IV piggyback 500 mg (CANCELED) 500 mg, Intravenous, EVERY 12 HOURS (NS), First dose on Sun08/05/24 at 1000, Until Discontinued, Administer over 60 Minutes, For C. difficile, anaerobic bacteremia, parasitic, or TOOL ROOM ATTENDANT infections utilize q8h frequency. For all other infections, utilize q12h frequency. 1101 (New Bag - Provider: Myriam Forrest RN)1151 (Stopped - Provider: Mary Mendoza RN) metroNIDAZOLE (FLAGYL) tablet 500 mg 500 mg, oral, FOUR TIMES A DAY, First dose on Sun08/05/24 at 1800, Until Discontinued, For C. difficile, anaerobic bacteremia, parasitic, or TOOL ROOM ATTENDANT infections utilize q8h frequency. For all other infections, utilize q12h frequency. 1640 ([facility] Hold - Provider: Interface, Incoming Adt - Reason: Procedure)1800 (Restarted. - Provider: Mary Mendoza RN)2017 ([facility] Unhold - Provider: Interface, Incoming Adt)2043 (Given - Provider: Mary Mendoza RN)2199 (Not Given - Provider: Mary Mendoza RN - Reason: Clinically appropriate (comment) - Comment: duplicate ; already given) 0739 (Given - Provider: Nilesh Haynes RN)1420 (Declined - Provider: Nilesh Haynes RN) pantoprazole (Protonix) delayed release tablet 40 mg 40 mg, oral, TWICE A DAY, First dose on Sun08/05/24 at 2000, Until Discontinued 1640 ([facility] Hold - Provider: Interface, Incoming Adt - Reason: Procedure)1999 (Declined - Provider: Mary Mendoza RN)2017 ([facility] Unhold - Provider: Interface, Incoming Adt)2044 (Given - Provider: Mary Mendoza RN) 0739 (Given - Provider: Nilesh Haynes RN) polyethylene glycol (MIRALAX) packet 17 g 17 g, oral, DAILY, First dose (after last modification) on Sun08/06/24 at 1400, Until Discontinued 1640 ([facility] Hold - Provider: Interface, Incoming Adt - Reason: Procedure)2017 ([facility] Unhold - Provider: Interface, Incoming Adt) 1400 (Due) tetracycline (SUMYCIN) capsule 500 mg 500 mg, oral, THREE TIMES A DAY BEFORE MEALS AND AT BEDTIME, First dose (after last modification) on Sun08/05/24 at 2200, Until Discontinued 1640 ([facility] Hold - Provider: Interface, Incoming Adt - Reason: Procedure)2017 ([facility] Unhold - Provider: Interface, Incoming Adt)2199 (Declined - Provider: Mary Mendoza RN)223 (Given - Provider: Mary Mendoza RN) 0730 (Given - Provider: Mary Mendoza RN)1420 (Declined - Provider: Nilesh Haynes RN) Continuous Medication Order 08/04/2024 08/05/2024 08/06/2024 lactated Ringers (LR) IV infusion () at 100 mL/hr, Intravenous, CONTINUOUS, Starting on Sun08/05/24 at 1330, Until Sun08/05/24 at 2329 1344 (New Bag - Provider: Myriam Forrest RN)1640 ([facility] Hold - Provider: Interface, Incoming Adt - Reason: Procedure)2017 ([facility] Unhold - Provider: Interface, Incoming Adt) PRN Medication Order 08/04/2024 08/05/2024 08/06/2024 saline FLUSH syringe 10 mL 10 mL, Intravenous, NEEDED, Starting on Sun08/04/24 at 202, Until Sun08/06/24 at 2034, Line Care 2140 (Given - Provider: Manuel Ambrose RN) 1640 ([facility] Hold - Provider: Interface, Incoming Adt - Reason: Procedure)2017 ([facility] Unhold - Provider: Interface, Incoming Adt) alum-mag hydroxide-simethicone (MAALOX PLUS) suspension 30 mL 30 mL, oral, EVERY 6 HOURS NEEDED, Starting on Sun08/04/24 at 2343, Until Sun08/06/24 at 2034, dyspepsia 0821 (Given - Provider: Myriam Forrest RN)1640 ([facility] Hold - Provider: Interface, Incoming Adt - Reason: Procedure)2017 ([facility] Unhold - Provider: Interface, Incoming Adt) 1414 (Given - Provider: Nilesh Haynes RN) bisacodyl (DULCOLAX) delayed released tablet 5-15 mg 5-15 mg, oral, DAILY NEEDED, Starting on Sun08/05/24 at 0829, Until Sun08/06/24 at 2034, Constipation, 2nd choice 164 ([facility] Hold - Provider: Interface, Incoming Adt - Reason: Procedure)2017 ([facility] Unhold - Provider: Interface, Incoming Adt) HYDROmorphone (Dilaudid) syringe 0.5-1 mg 0.5-1 mg, Intravenous, EVERY 4 HOURS NEEDED, Starting on Sun08/04/24 at 1633, Until Sun08/06/24 at 2034, Pain, when NOT taking PO 0822 (Given - Provider: Myriam Forrest RN)164 ([facility] Hold - Provider: Interface, Incoming Adt - Reason: Procedure)2017 ([facility] Unhold - Provider: Interface, Incoming Adt) HYDROmorphone (DILAUDID) syringe 1 mg (CANCELED) 1 mg, IntraMUSCULAR, EVERY 15 MINUTES NEEDED, 3 doses, Starting on Sun08/04/24 at 1259, Until Sun08/04/24 at 1633, Emergency Department, Pain, if oral opioid not effective or tolerated 1305 (Given - Provider: Vivian Ogden, DONNA) HYDROmorphone (DILAUDID) syringe 1 mg (CANCELED) 1 mg, Intravenous, EVERY 15 MINUTES NEEDED, 2 doses, Starting on Sun08/04/24 at 1310, Until Sun08/04/24 at 1618, Emergency Department, Pain, when NOT taking PO 1317 (Given - Provider: Demetra Rider) indomethacin (Indocin) rectal suppository 100 mg (COMPLETED) 100 mg, Rectal, INTRA-PROCEDURE ONE TIME DOSE NEEDED, 1 dose, Starting on Sun08/05/24 at 1750, Until Sun08/05/24 at 1855, for pancreatitis prophylaxis as directed by physician 1854 (Given - Provider: Stephenie Rojas RN) iohexol 350 mgI/mL (OMNIPAQUE) 1-150 mL (COMPLETED) 1-150 mL, Intravenous, INTRA-PROCEDURE ONE TIME DOSE NEEDED, 1 dose, Starting on Sun08/04/24 at 1433, Until Sun08/04/24 at 1433, per procedure 1433 (Given - Provider: Sydnie Bates) lidocaine (LMX-4) topical cream 1 Application topical, NEEDED, Starting on Sun08/04/24 at 2020, Until Sun08/06/24 at 2034, IV start or restart if patient prefers a needleless local anesthetic. 1640 (MAY Hold - Provider: Interface, Incoming Adt - Reason: Procedure)2017 (MAY Unhold - Provider: Interface, Incoming Adt) lidocaine 1% injection (conc: 10 mg/mL) 0.1-0.3 mL 0.1-0.3 mL, Intradermal, NEEDED, Starting on Sun08/04/24 at 2020, Until Sun08/06/24 at 2034, Local Anesthesia, IV start or restart 1640 ([facility] Hold - Provider: Interface, Incoming Adt - Reason: Procedure)2017 ([facility] Unhold - Provider: Interface, Incoming Adt) methocarbamoL (ROBAXIN) tablet 500 mg 500 mg, oral, EVERY 6 HOURS NEEDED, Starting on Sun08/04/24 at 1559, Until Sun08/06/24 at 2034, muscle spasm 164 ([facility] Hold - Provider: Interface, Incoming Adt - Reason: Procedure)2017 ([facility] Unhold - Provider: Interface, Incoming Adt) 0039 (Given - Provider: Mary Mendoza RN) naloxone (NARCAN) injection 0.1 mg 0.1 mg, Intravenous, EVERY 1 MINUTE PRN, Starting on Sun08/04/24 at 1559, Until Sun08/06/24 at 2034, Opiate Reversal 164 ([facility] Hold - Provider: Interface, Incoming Adt - Reason: Procedure)2017 ([facility] Unhold - Provider: Interface, Incoming Adt) ondansetron (Zofran) disintegrating tablet 4-8 mg(Linked Group 1) 4-8 mg, oral, EVERY 8 HOURS NEEDED, Starting on Sun08/04/24 at 1559, Until Sun08/06/24 at 2034, nausea & vomiting, 1st choice 2039 (Given - Provider: Manuel Ambrose RN) 164 ([facility] Hold - Provider: Interface, Incoming Adt - Reason: Procedure)2017 ([facility] Unhold - Provider: Interface, Incoming Adt) ondansetron (Zofran) injection 4-8 mg(Linked Group 1) 4-8 mg, Intravenous, EVERY 8 HOURS NEEDED, Starting on Sun08/04/24 at 1559, Until Sun08/06/24 at 2034, nausea & vomiting, 1st choice 2040 (See Alternative - Provider: Manuel Ambrose RN) 164 ([facility] Hold - Provider: Interface, Incoming Adt - Reason: Procedure)2017 ([facility] Unhold - Provider: Interface, Incoming Adt) oxyCODONE (immediate release) (ROXICODONE) tablet 2.5-5 mg 2.5-5 mg, oral, EVERY 4 HOURS NEEDED, Starting on Sun08/04/24 at 1559, Until Sun08/06/24 at 2034, Pain, when taking PO 164 ([facility] Hold - Provider: Interface, Incoming Adt - Reason: Procedure)2017 ([facility] Unhold - Provider: Interface, Incoming Adt) saline with benzyl alcohol injection 0.1-0.3 mL 0.1-0.3 mL, Intradermal, NEEDED, Starting on Sun08/04/24 at 202, Until Sun08/06/24 at 2034, IV start or restart 1641 ([facility] Hold - Provider: Interface, Incoming Adt - Reason: Procedure)2017 ([facility] Unhold - Provider: Interface, Incoming Adt) senna (SENOKOT) tablet 17.2 mg 17.2 mg (2 tablet), oral, TWICE A DAY NEEDED, Starting on Sun08/05/24 at 0828, Until Sun08/06/24 at 2034, Constipation, 1st choice 164 ([facility] Hold - Provider: Interface, Incoming Adt - Reason: Procedure)2017 ([facility] Unhold - Provider: Interface, Incoming Adt) simethicone IRRIGATION solution Irrigation, INTRA-PROCEDURE ONE TIME DOSE NEEDED, 1 dose, Starting on Sun08/05/24 at 1750, Until Sun08/06/24 at 2034, per procedure Linked Groups Order Group 1: ondansetron (Zofran) injection 4-8 mgJump to med 4-8 mg, Intravenous, EVERY 8 HOURS NEEDED, Starting on Sun08/04/24 at 1559, Until Sun08/06/24 at 2034, nausea & vomiting, 1st choice Or ondansetron (Zofran) disintegrating tablet 4-8 mgJump to med 4-8 mg, oral, EVERY 8 HOURS NEEDED, Starting on Sun08/04/24 at 1559, Until Sun08/06/24 at 2034, nausea & vomiting, 1st choice documented in this encounter Additional Health Concerns Infection Onset Date Last Indicated Resolved Time 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 Isolation precautions to remain in place until r/o per Infection Prevention. 06/13/2024 08/04/2024 08/06/2024 9:03 AM Fay Solorzano Rule-Out 08/04/2024 08/04/2024 documented as of this encounter Care Teams Athletic Shoe Designer Relationship Specialty Start Date End Date None, PCP - General Internal Medicine 06/03/24 documented as of this encounter
--- OUTSIDE RECORDS SUMMARY | 2024-08-05 17:15 | XMS_ITS | Encounter Summary ---
Author Organization [facility] h Address [address] [place] [address] Care Team Providers Care Lubrication Supervisor Name Role Phone Marisol, Primary Care Provider Unavailabl e Reason for Visit * Reason Comments Abdominal pain * Inpatient Admission (Routine) Specialty Diagnoses / Procedures Referred By Contac t Referred To Contact Diagnoses Abdominal pain Referral ID Status Reason Start Date Expiration Date Visits Re quested Visits Authorized [id number] 1 1 Encounter Details Date Type Department Care Team (Late st Contact Info) Description 08/05/2024 5:15 PM CDT - 08/05/2024 6:40 PM CDT Surgery [facility] Advanced Procedure Unit [address] [place] [id number] Jonathon Oscar MD [address] [id number] ENDOSCOPIC RETROGRADE CHOLANGIOPANCREATOGRAPHY SPHINCTEROTOMY Surgery Details Date/Time Status Location OR Service Patient Class Case Class Case Type Trauma Case? 08/05/2024 5:15 PM Posted [facility] Gastroenterology Inpatient Panel 1 Procedure LRB Anes Op Region Wound Class Comments ENDOSCOPIC RETROGRADE CHOLANGIOPANCREATOGRAPHY SPHINCTEROTOMY N/A General Gastrointestinal Not Applicable (0) biliary duct sweeping Surgeon Surgeon Role Service Panel Jonathon Oscar MD Primary Gastroenterology 1 documented in this encounter Social History Tobacco Use Types Packs/Day Years Used Date Smoking Tobacco: Former Cigarettes Smokeless Tobacco: Never Alcohol Use Standard Drinks/Week Comments Not Currently 0 (1 standard drink = 0.6 oz pur e alcohol) Feb 2024 [facility] Utilities Answer Date Recorded In the past 12 months has e [employer], [employer], oil, or water [employer] threatened to shut off services in your [...] any time in the past 12 m [facility], were you homeless or living in a nursing home (including now)? No 08/04/2024 Comments No Sex and Gender Information Value Date Recorded Sex Assigned at Not on file Legal Sex Female 10:22 AM CDT Gender Identity Not on file Sexual Orientation Not on file documented as of this encounter Last Filed Vital Signs Vital Sign Reading Time Taken Comments Blood Pressure 128/79 08/05/2024 4:35 PM CDT Pulse 76 08/05/2024 4:35 PM CDT Temperature 36.9 C (98.4 F) 08/05/2024 4:35 PM CDT Respiratory Rate 16 08/05/2024 4:35 PM CDT Oxygen Saturation 97% 08/05/2024 4:35 PM CDT Inhaled Oxygen Concentration - - Weight 102.1 kg (225 lb) 08/05/2024 4:13 AM CDT Height 167.6 cm (5' 6) 08/05/2024 4:13 AM CDT Body Mass Index 35.91 08/05/2024 4:13 AM CDT documented in this encounter Discharge Summaries * Shahida Zhang PA-C - 08/06/2024 12:55 PM CDT Images from the original note were not included. [facility] SUMMARY Patient Name: Esvin Taylor Date of : 1995 Attending Provider: Deandra Garcia MD Admission Date: 08/04/2024 Discharge Date: 08/06/2024 [...] for lab recheck (CBC and CMP) - [facility] will arrange follow up for H [...] RESULTS: NA FOLLOWUP: Contact information for follow-up [place], [place] Specify time frame for follow up?: [...] Reason: Continuity of Care Referred to Provider: [place], [place] Requested Specialty: Family Medicine Number of Visits Requested: 1 Total time spent on the day of discharge was Time: over 30 minutes including discharge planning, discussion with the patient, family, case management, RN, chart reviewing, and completing the discharge summary. Liana Zhang PA-C [facility] Medicine Cosigned by Deandra Garcia MD at 08/21/2024 5:53 PM CDT Associated attestation - Deandra Garcia MD - 08/21/2024 5:53 PM CDT I have personally shared in the visit of this patient along with the SHANNON providing [id number] participation in the evaluation and management. I [...] Care Everywhere. * Helicobacter Pylori (AfterCare(R) Instructions(ER/ED)) (Rwandan) documented in this encounter Medications at Time [...] RN - 08/06/2024 2:31 PM CDT Esvin Lyonsonez 1995 [id number] P: Discharge A: Discharged via wheelchair to [...] accompanied by transport staff. Care relinquished. JAYLEN PARADA, RN Pt's Simón MARLEY notified of return to room. * Chelsie Cartwright RN - 08/05/2024 6:44 PM CDT Med-Surg Care Progression Note Type: Shift to shift summary [id number] Length of stay: 0 days Code Status: Full Code Primary Problem: Abdominal pain Summary: Pt is a 29 y.o. nigerian speaking female with PMH significant for choledocholithiasis [...] oriented and able to make needs known; nigerian speaking. Ind with ambulation. C/o Abd pain [...] I discussed the patient's care with RN, VILMA, GI. Imaging CT A/P: No acute inflammatory [...] Post Hospital Plan: home Liana Zhang PA-C [facility] Medicine * Mary Mendoza RN - 08/05/2024 5:02 AM CDT Med-Surg Care Progression Note Type: Shift to shift summary Length of stay: 0 days Code Status: Full Code Primary Problem: Abd pain Summary: Pt alert and oriented and able to make needs known; nigerian speaking. Ind with ambulation.No pain reported. Did [...] to shift summary: Pt alert and oriented, nigerian speaking, barely communicates with Icelandic, needs proprio to communicate regarding admission. Pt [...] to call for help, name of assigned rn coronary care unit, PatientInformation booklet, hourly rounding procedures, belongings checklist, unit and plan of care. R. Patient expressed understanding of information.. documented in this encounter H&P Notes * Calvin Mon MD - 08/04/2024 3:54 PM CDT Images from the original note were not included. [facility] AD[facility] H[facility]ORY AND PHYSICAL Patient Name: Esvin Taylor Address: [address] [place] [id number] Age: 29 y.o. Sex: female Admission Date/Time: 08/04/2024 1:02 PM Primary Care Provider: Md Marisol Informant: patient and outpatient record CHIEF COMPLAINT: Abdominal pain HPI: This is a 29-year-old female with a past medical history of choledocholithiasis status post cholecystectomy biliary stent placement who underwent elective ERCP with biliary stent removal with Chaitanya 08/04, who subsequently presented to the ED [...] 1:02 PM Primary Care Provider: Md Marisol [facility] Attending Physician: Steve Branch MD REASON [...] accuracy, typos may remain. Steve Kang MD [facility] [employer] documented in this encounter Nursing Notes * Nilesh Haynes RN - 08/06/2024 9:00 AM CDT Problem: Communication Goal: Demonstrates/exhibits ability to communicate needs effectively Outcome: Ongoing Goal: Demonstrates utilization of alternative communication techniques effectively Outcome: Ongoing * Mary Mendoza RN - 08/06/2024 12:43 AM CDT Problem: Falls/Injury-Risk of Goal: Absence of Falls/Injury Outcome: Met this shift Flowsheets (Taken 08/05/2024 2332) Environmental Safety Interventions: Standard Interventions in Place [...] PM CDT Pt transferred to PACU with FIRER MARINE present * Stephenie Rojas RN - 08/05/2024 [...] pain HPI Due to language barrier, an professor of archaeology was present during the history-taking and subsequent [...] Medical Decision Making / Diagnosis MIPS None [facility] Esvin Taylor is a 29 y.o. [...] is accurate. Steve Branch MD 08/04/24 08/04/2024 [facility] documented in this encounter Miscellaneous Notes * Med Reconciliation - [place] - 08/04/2024 5:27 PM CDT PHARMACY MEDICATION RECONCILIATION NOTE MEDICATION RECONCILIATION on admission by pharmacy has been completed. Prior to admission medications were reviewed with patient via a foster care case manager and outside fill records. The ADVERTISING CLERK medication list has been updated and reflected in the chart below. Please use the ADVERTISING CLERK medication section for ordering home doses during admission. Medication related issues: Added: esomeprazole, probiotic, melatonin, vitamin C, cranberry supplement (AZO) Updated: Ferrous sulfate from daily to every other day Of note: Esomeprazole prescribed 07/12/24. Patient reports taking it only as needed. Added to ADVERTISING CLERK list as daily with a note about how patient is taking it. Patient reports taking hydroxyzine 1 tablet daily. Last filled on 11/06/23 for a 30 day supply. Did not add to ADVERTISING CLERK list due to fill records indicating a lack of supply for over six months. Last doses not reported. Did not add to ADVERTISING CLERK list. Medications requiring detailed history: Not applicable [...] Medications: None This patient obtains medications from [facility]. Thank you for the opportunity to participate in the care of this patient. Kiana Deal, Vending Machine Technician Phone #:[phone] or [phone] Time spent reconciling meds:15 min Location: face [...] Comprehensive Metabolic Panel (08/06/2024 4:23 AM CDT) [facility] Signature Sodium 140 136 - 145 mmol/L 08/06/2024 5:16 AM [facility] Potassium 4.4 3.4 - 5.1 mmol/L 08/06/2024 5:16 AM [facility] Chloride 110(H) 98 - 108 mmol/L 08/06/2024 5:16 AM [facility] Carbon Dioxide 24 20 - 31 mmol/L 08/06/2024 5:16 AM [facility] BUN (Urea Nitro) 13 9 - 23 mg/dL 08/06/2024 5:16 AM [facility] Creatinine 0.49(L) 0.55 - 1.02 mg/dL 08/06/2024 5:16 AM [facility] Est GFR (CKD-EPI) >60.00 >60.00 mL/min/1. 73m2 08/06/2024 5:16 AM [facility] Comment:Calculation based on the Chronic Kidney Disease Epidemiology Collaboration (CKD-EPI) equation refit without adjustment for race. Glucose 137(H) 74 - 106 mg/dL 08/06/2024 5:16 AM [facility] Calcium, Serum 8.5(L) 8.7 - 10.4 mg/dL 08/06/2024 5:16 AM [facility] Anion Gap 6.0 0.0 - 15.0 mmol/L 08/06/2024 5:16 AM [facility] Albumin 3.6 3.4 - 5.0 g/dL 08/06/2024 5:16 AM [facility] Bilirubin-Total 0.50 0.30 - 1.20 mg/dL 08/06/2024 5:16 AM [facility] Alkaline Phosphatase 155(H) 46 - 116 U/L 08/06/2024 5:16 AM [facility] Protein Total 7.3 5.7 - 8.2 g/dL 08/06/2024 5:16 AM [facility] AST (SGOT) 252(H) 13 - 40 U/L 08/06/2024 5:16 AM [facility] ALT 578(H) 7 - 40 U/L 08/06/2024 5:16 AM [facility] Blood 08/06/2024 4:23 AM CDT 08/06/2024 4:43 AM CDT us Shahida Zhang PA-C CHEMISTRY ORDERABLE Final Result [facility] [address] [id number] * (ABNORMAL) CBC (Hgb,Hct,WBC,RBC,Platelet) (08/06/2024 4:23 AM CDT) Only the most recent of3 resultswithin the time period is included. WBC 11.7(H) 4.3 - 10.8 K/uL 08/06/2024 5:14 AM [facility] RBC 4.13(L) 4.20 - 5.40 M/uL 08/06/2024 5:14 AM [facility] Hemoglobin 12.4 12.0 - 16.0 gm/dL 08/06/2024 5:14 AM [facility] Hematocrit 37.7 36.0 - 48.0 % 08/06/2024 5:14 AM [facility] MCV 91 80 - 100 fL 08/06/2024 5:14 AM [facility] MCH 30 27 - 33 pg 08/06/2024 5:14 AM [facility] MCHC 33 33 - 36 gm/dL 08/06/2024 5:14 AM [facility] RDW 13.5 11.5 - 14.5 % 08/06/2024 5:14 AM [facility] Platelet Count 241 150 - 400 K/UL 08/06/2024 5:14 AM [facility] MPV 10.2 6.5 - 12 fL 08/06/2024 5:14 AM [facility] Blood 08/06/2024 4:23 AM CDT 08/06/2024 5:12 AM CDT us Shahida Zhang PA-C HEMATOLOGY ORDERABL E Final Result [facility] [address] [address] * XR ERCP BILIARY ONLY (08/05/2024 6:58 [...] Narrative TEST - 08/05/2024 7:29 PM CDT [facility] Patient Name: Esvin Taylor Procedure Date: [...] retained stone. Providers: Jonathon Oscar MD, Aura Mujica RN, Pat Garg RN, Olga Lidia Rojas RN, Jonathon Oscar MD Requesting Provider: Medicines: General Anesthesia, Indomethacin 100 mg VT Complications: No immediate complications. Estimated blood loss: [...] by the physician, the nurse and the quality assurance monitor body in the pre-procedure area in the procedure [...] patient tolerated the procedure well. Findings: A epic willow analyst film of the abdomen was obtained. [...] clinical course. 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 All rights reserved. The codes documented in this report are preliminary and upon letter stamping machine operator review may be revised to meet current compliance requirements. Jonathon Oscar MD 08/05/2024 7:28:53 PM Number of Addenda: 0 Note Initiated On: 08/05/2024 6:22 PM [address] [id number] Procedure Note Jonathon Oscar MD - 08/05/2024 [facility] Patient Name: Esvin Taylor Procedure Date: [...] retained stone. Providers: Jonathon Oscar MD, Aura Mujica RN, Pat Garg RN, Olga Lidia Rojas RN, Jonathon Oscar MD Requesting Provider: Medicines: General Anesthesia, Indomethacin 100 mg VT Complications: No immediate complications. Estimated blood loss: [...] by the physician, the nurse and the quality assurance monitor body in the pre-procedure area in the procedure [...] patient tolerated the procedure well. Findings: A epic willow analyst film of the abdomen was obtained. [...] clinical course. Procedure Code(s): --- Professional --- 31422, Endoscopic retrograde cholangiopancreatography (ERCP); diagnostic, including collection of specimen(s) by brushing orwashing, when performed (separate procedure) 12111, Endoscopic cannulation of papilla with direct visualization of pancreatic/common bile duct(s) (List separately in addition tocode(s) for primary procedure) Diagnosis Code(s): --- Professional --- Z90.49, Acquired absence of other specified parts of digestivetract CPT copyright 2021 [employer]. All rights reserved. The codes documented in this report are preliminary and upon letter stamping machine operator reviewmay be revised to meet current compliance requirements. Jonathon Oscar MD 08/05/2024 7:28:53 PM Number of Addenda: 0 Note Initiated On: 08/05/2024 6:22 PM [address] [address] Jonathon Oscar MD PROCEDURE ORDERABLE Final Result Performing Organization Address City/[facility]/ZIP Co de Phone Number TEST * Extra Tube-EDTA (Lab Use Only) (08/05/2024 5:19 AM CDT) Only the most recent of2 resultswithin the time period is included. Blood 08/05/2024 5:19 AM CDT 08/05/2024 5:42 AM CDT Calvin Mon MD HEMATOLOGY ORDERABLE Final R esult Performing Organization Address City/[facility]/ZIP Co de Phone Number [facility] [address] [place] [address] * (ABNORMAL) Liver Profile (08/05/2024 5:19 AM CDT) Only the most recent of2 resultswithin the time period is included. ALT 783(H) 7 - 40 U/L 08/05/2024 6:08 AM [facility] Comment:Interpret with cauti on, specimen slightly hemolyzed. Results may be affected. Alkaline Phosphatase 144(H) 46 - 116 U/L 08/05/2024 6:08 AM [facility] AST (SGOT) 691(H) 13 - 40 U/L 08/05/2024 6:08 AM [facility] Protein Total 7.6 5.7 - 8.2 g/dL 08/05/2024 6:08 AM [facility] Albumin 3.7 3.4 - 5.0 g/dL 08/05/2024 6:08 AM [facility] Bilirubin-Direct 0.80(H) <0.40 mg/dL 08/05/2024 6:08 AM [facility] Bilirubin-Total 1.50(H) 0.30 - 1.20 mg/dL 08/05/2024 6:08 AM [facility] Blood 08/05/2024 5:19 AM CDT 08/05/2024 5:35 AM CDT Calvin Mon MD CHEMISTRY ORDERABLE Final Re sult [facility] [address] [address] * (ABNORMAL) Basic Metabolic Profile (08/05/2024 5:19 AM CDT) Only the most recent of2 resultswithin the time period is included. Sodium 137 136 - 145 mmol/L 08/05/2024 6:12 AM [facility] Potassium 4.9 3.4 - 5.1 mmol/L 08/05/2024 6:12 AM [facility] Comment:Interpret with cauti on, specimen slightly hemolyzed. Results may be affected. Chloride 107 98 - 108 mmol/L 08/05/2024 6:12 AM [facility] Carbon Dioxide 21 20 - 31 mmol/L 08/05/2024 6:12 AM [facility] BUN (Urea Nitro) 17 9 - 23 mg/dL 08/05/2024 6:12 AM [facility] Comment:Interpret with cauti on, specimen slightly hemolyzed. Results may be affected. Creatinine 0.48(L) 0.55 - 1.02 mg/dL 08/05/2024 6:12 AM [facility] Est GFR (CKD-EPI) >60.00 >60.00 mL/min/1. 73m2 08/05/2024 6:12 AM [facility] Comment:Calculation based on the Chronic Kidney Disease Epidemiology Collaboration (CKD-EPI) equation refit without adjustment for race. Glucose 132(H) 74 - 106 mg/dL 08/05/2024 6:12 AM [facility] Calcium, Serum 8.7 8.7 - 10.4 mg/dL 08/05/2024 6:12 AM [facility] Anion Gap 9.0 0.0 - 15.0 mmol/L 08/05/2024 6:12 AM [facility] Blood 08/05/2024 5:19 AM CDT 08/05/2024 5:35 AM CDT Calvin Mon MD CHEMISTRY ORDERABLE Final Re sult [facility] [address] [id number] * CT ABDOMEN & PELVIS W/O ORAL W IV CON (08/04/2024 2:33 PM CDT) Anatomical Region Laterality Modality ABD/Pelvis Computed Tomogra phy 08/04/2024 2:49 PM CDT Impressions 08/04/2024 3:01 PM CDT IMPRESSION: No acute inflammatory process. Gallbladder surgically absent. There is some pneumobilia present. No significant biliary ductal dilatation is identified. REPORT SIGNED BY DR. Cleve Aquino Narrative 08/04/2024 3:01 PM CDT EXAM: CT ABDOMEN [...] identified. REPORT SIGNED BY DR. Cleve Aquino us Steve Branch MD CT ORDERABLE Final Resul t * Extra Tube-Coag (Lab Use Only) (08/04/2024 1:13 PM CDT) Blood 08/04/2024 1:13 PM CDT 08/04/2024 1:25 PM CDT us Steve Branch MD COAGULATION ORDERABLE Final Result Performing Organization Address [facility] de Phone Number [facility] [address] [place] [address] [place] [address] * Extra Tube PST (Lab Use Only) (08/04/2024 1:13 PM CDT) Blood 08/04/2024 1:13 PM CDT 08/04/2024 1:27 PM CDT us Steve Branch MD CHEMISTRY ORDERABLE Final R esult Performing Organization Address [facility] Co de Phone Number [facility] [address] [place] [address] * Extra Tube-SST (Lab Use Only) (08/04/2024 1:13 PM CDT) Blood 08/04/2024 1:13 PM CDT 08/04/2024 1:25 PM CDT us Steve Branch MD CHEMISTRY ORDERABLE Final R esult Performing Organization Address [facility] Co de Phone Number [facility] [address] [place] [address] * Extra Tube-Blood Bank (Lab Use Only) (08/04/2024 1:13 PM CDT) Blood 08/04/2024 1:13 PM CDT 08/04/2024 1:26 PM CDT us Steve Branch MD BLOOD BANK ORDERABLE Final Result Performing Organization Address [facility] de Phone Number [facility] [address] [place] [address] * Lipase (08/04/2024 1:13 PM CDT) Lipase 39 12 - 53 U/L 08/04/2024 1:54 PM CDT [facility] Blood 08/04/2024 1:13 PM CDT 08/04/2024 1:27 PM CDT us Steve Branch MD CHEMISTRY ORDERABLE Final R esult Performing Organization Address [facility] Co de Phone Number [facility] [address] [place] [address] documented in this encounter Visit Diagnoses Not on filedocumented in this encounter Admitting Diagnoses Diagnosis Abdominal pain Abdominal pain, unspecified site documented in this encounter Administered Medications Inactive Administered Medications - up to 3 most recent administrations Medication Order MAR Action Action Date Dose Rate Site saline FLUSH syringe 10 mL 10 mL, Intravenous, EVERY 8 HOURS, First dose on 08/04/24 at 2200, Until Discontinued Given 08/06/2024 2:01 PM CDT 10 mL Given 08/06/2024 6:00 AM CDT 10 mL Given 08/05/2024 10:00 PM CDT 10 mL saline FLUSH syringe 10 mL 10 mL, Intravenous, NEEDED, Starting on Sun08/04/24 at 2020, Until Sun08/06/24 at 2034, Line Care Given 08/04/2024 9:40 PM CDT 10 mL acetaminophen (TYLENOL) tablet 500 mg 500 mg, oral, EVERY 6 HOURS, First dose (after last modification) on Sun08/05/24 at 1400, Until Discontinued Given 08/06/2024 7:39 AM CDT 500 mg Given 08/05/2024 1:43 PM CDT 500 mg alum-mag hydroxide-simethicone (MAALOX [...] Until Sun08/06/24 at 2034, Constipation, 2nd choice bismuth subsalicylate (PEPTO-BISMOL) chewable [...] tract infections (dosing stratified by severity): 0.5-2g [id number]:INTRA-ABDOMINAL INFECTION Given 08/06/2024 12:08 PM CDT 2 [...] at 2034, Pain, when NOT taking PO Given 08/05/2024 8:22 AM CDT 0.5 mg melatonin tablet 3 mg 3 mg, oral, AT BEDTIME, First dose on Sun08/06/24 at 0030, Until Discontinued Given 08/06/2024 12:30 AM CDT 3 mg methocarbamoL (ROBAXIN) tablet 500 mg 500 mg, oral, EVERY 6 HOURS NEEDED, Starting on Sun08/04/24 at 1559, Until Sun08/06/24 at 2034, muscle spasm Given 08/06/2024 12:39 AM CDT 500 mg metroNIDAZOLE (FLAGYL) tablet 500 mg 500 mg, oral, FOUR TIMES A DAY, First dose on Sun08/05/24 at 1800, Until Discontinued, For C. difficile, anaerobic bacteremia, parasitic, or AUTOMATIC SPINNING LATHE OPERATOR infections utilize q8h frequency. For all other [...] dose on Sun08/04/24 at 2200, Until Discontinued 2142 (Given - Provider: Manuel Ambrose RN) 0600 (Not Given - Provider: Mary Mendoza RN - Reason: Patient sleeping)1343 (Given - Provider: Myriam Forrest RN)1641 (MAY Hold - Provider: Interface, Incoming Adt - Reason: Procedure)2018 ([facility] Unhold - Provider: Interface, Incoming Adt)2200 (Given - Provider: Mary Mendoza RN) 0600 (Given - Provider: Mary Mendoza RN)1401 (Given - Provider: Nilesh Haynes RN) acetaminophen (TYLENOL) tablet 1,000 mg (CANCELED) 1,000 mg, oral, EVERY 6 HOURS, First dose on Sun08/04/24 at 2000, Until Discontinued 2040 (Given - Provider: Manuel Ambrose RN) 0200 (Declined - Provider: Mary Mendoza RN)0821 (Given - Provider: Myriam Forrest RN) acetaminophen (TYLENOL) tablet 500 mg 500 mg, oral, EVERY 6 HOURS, First dose (after last modification) on Sun08/05/24 at 1400, Until Discontinued 1343 (Given - Provider: Myriam Forrest RN)1641 ([facility] Hold - Provider: Interface, Incoming Adt - Reason: Procedure)1999 (Declined - Provider: Mary Mendoza RN)2017 ([facility] Unhold - Provider: Interface, Incoming Adt) 0200 (Declined - Provider: Mary Mendoza RN)0739 (Given - Provider: Nilesh Haynes, DONNA)1400 (Due) acetaminophen (TYLENOL) tablet 500-1,000 mg (COMPLETED) 500-1,000 mg, oral, ONCE, 1 dose, On Sun08/05/24 at 1900, Phase 1/2 1924 (Given - Provider: Jaylen Parada RN) bismuth subsalicylate (PEPTO-BISMOL) chewable tablet 524 mg 524 mg, oral, FOUR TIMES A DAY, First dose on Sun08/05/24 at 1800, Until Discontinued 1641 ([facility] Hold - Provider: Interface, Incoming Adt - Reason: Procedure)1800 (Restarted. - Provider: Mary Mendoza RN)2017 ([facility] Unhold - Provider: Interface, Incoming Adt)2045 (Given - Provider: Mary Mendoza RN)2200 (Not [...] dose on Sun08/05/24 at 0800, Until Discontinued 0822 (Given - Provider: Myriam Forrest RN)1640 (MAY Hold - Provider: Interface, Incoming Adt - Reason: Procedure)2017 (MAY Unhold - Provider: Interface, Incoming Adt) 0739 (Given - Provider: Nilesh Haynes RN) famotidine (PEPCID) tablet 20 mg 20 mg, oral, DAILY, First dose (after last modification) on Sun08/05/24 at 0000, Until Discontinued 3 (Given - Provider: Mary Mendoza RN)164 (MAY Hold - Provider: Interface, Incoming Adt - Reason: Procedure)2017 (MAY Unhold - Provider: Interface, Incoming Adt) 0739 (Given - Provider: Nilesh Haynes RN) ferrous sulfate (FERATAB) tablet 325 mg 325 mg, oral, EVERY 48 HOURS (NS), First dose on Sun08/05/24 at 0800, Until Discontinued 08 (Given - Provider: Myriam Forrest RN)1640 (MAR Hold - Provider: Interface, Incoming Adt - Reason: Procedure)2017 (MAY Unhold - Provider: Interface, Incoming Adt) melatonin tablet 3 mg 3 mg, oral, AT BEDTIME, First dose on Sun08/06/24 at 0030, Until Discontinued 0030 (Given - Provider: Mary Mendoza RN) metroNIDAZOLE (FLAGYL) IV piggyback 500 mg (CANCELED) 500 mg, Intravenous, EVERY 12 HOURS (NS), First dose on Sun08/05/24 at 1000, Until Discontinued, Administer over 60 Minutes, For C. difficile, anaerobic bacteremia, parasitic, or [employer] infections utilize q8h frequency. For all other infections, utilize q12h frequency. 1101 (New Bag - Provider: Myriam Forrest RN)1151 (Stopped - Provider: Mary Mendoza RN) metroNIDAZOLE (FLAGYL) tablet 500 mg 500 mg, oral, FOUR TIMES A DAY, First dose on Sun08/05/24 at 1800, Until Discontinued, For C. difficile, anaerobic bacteremia, parasitic, or [employer] infections utilize q8h frequency. For all other infections, utilize q12h frequency. 164 (MAY Hold - Provider: Interface, Incoming Adt - Reason: Procedure)1800 (Restarted. - Provider: Mary Mendoza RN)2017 ([facility] Unhold - Provider: Interface, Incoming Adt)2043 (Given - Provider: Mary Mendoza RN)2200 (Not Given - Provider: Mary Mendoza RN - Reason: Clinically appropriate (comment) - Comment: duplicate ; already given) 0739 (Given - Provider: Nilesh Haynes RN)1420 (Declined - Provider: Nilesh Haynes RN) pantoprazole (Protonix) delayed release tablet 40 mg 40 mg, oral, TWICE A DAY, First dose on Sun08/05/24 at 2000, Until Discontinued 164 (MAY Hold - Provider: Interface, Incoming Adt - Reason: Procedure)2000 (Declined - Provider: Mary Mendoza RN)2017 ([facility] Unhold - Provider: Interface, Incoming Adt)204 (Given - Provider: Mary Mendoza RN) 0739 (Given - Provider: Nilesh Haynes RN) polyethylene glycol (MIRALAX) packet 17 g 17 g, oral, DAILY, First dose (after last modification) on Sun08/06/24 at 1400, Until Discontinued 1640 ([facility] Hold - Provider: Interface, Incoming Adt - Reason: Procedure)2017 ([facility] Unhold - Provider: Interface, Incoming Adt) 1400 (Due) tetracycline (SUMYCIN) capsule 500 mg 500 mg, oral, THREE TIMES A DAY BEFORE MEALS AND AT BEDTIME, First dose (after last modification) on Sun08/05/24 at 2200, Until Discontinued 1640 ([facility] Hold - Provider: Interface, Incoming Adt - Reason: Procedure)2017 ([facility] Unhold - Provider: Interface, Incoming Adt)2200 (Declined - Provider: Mary Mendoza, DONNA)2237 (Given - Provider: Mary Mendoza, DONNA) 0730 (Given - Provider: Mary Mendoza RN)1420 (Declined - Provider: Nilesh Haynes RN) Continuous Medication Order 08/04/2024 08/05/2024 08/06/2024 lactated Ringers (LR) IV infusion () at 100 mL/hr, Intravenous, CONTINUOUS, Starting on Sun08/05/24 at 1330, Until Sun08/05/24 at 2329 1344 (New Bag - Provider: Myriam Forrest RN)1640 ([facility] Hold - Provider: Interface, Incoming Adt - Reason: Procedure)2017 ([facility] Unhold - Provider: Interface, Incoming Adt) PRN Medication Order 08/04/2024 08/05/2024 08/06/2024 saline FLUSH syringe 10 mL 10 mL, Intravenous, NEEDED, Starting on Sun08/04/24 at 202, Until Sun08/06/24 at 2034, Line Care 2140 (Given - Provider: Manuel Ambrose RN) 1640 ([facility] Hold - Provider: Interface, Incoming Adt - Reason: Procedure)2017 ([facility] Unhold - Provider: Interface, Incoming Adt) alum-mag hydroxide-simethicone (MAALOX PLUS) suspension 30 mL 30 mL, oral, EVERY 6 HOURS NEEDED, Starting on Sun08/04/24 at 2343, Until Sun08/06/24 at 2034, dyspepsia 0821 (Given - Provider: Myriam Forrest RN)1640 ([facility] Hold - Provider: Interface, Incoming Adt - Reason: Procedure)2017 ([facility] Unhold - Provider: Interface, Incoming Adt) 1414 (Given - Provider: Nilesh Haynes, DONNA) bisacodyl (DULCOLAX) delayed released tablet 5-15 mg 5-15 mg, oral, DAILY NEEDED, Starting on Sun08/05/24 at 0829, Until Sun08/06/24 at 2035, Constipation, 2nd choice 1641 ([facility] Hold - Provider: Interface, Incoming Adt - Reason: Procedure)2017 ([facility] Unhold - Provider: Interface, Incoming Adt) HYDROmorphone (Dilaudid) syringe 0.5-1 mg 0.5-1 mg, Intravenous, EVERY 4 HOURS NEEDED, Starting on Sun08/04/24 at 1633, Until Sun08/06/24 at 2035, Pain, when NOT taking PO 0822 (Given - Provider: Myriam Forrest, DONNA)164 ([facility] Hold - Provider: Interface, Incoming Adt - Reason: Procedure)2017 ([facility] Unhold - Provider: Interface, Incoming Adt) HYDROmorphone [...] by physician 1854 (Given - Provider: Stephenie Rojas, DONNA) iohexol 350 mgI/mL (OMNIPAQUE) 1-150 mL (COMPLETED) 1-150 mL, Intravenous, INTRA-PROCEDURE ONE TIME DOSE NEEDED, 1 dose, Starting on Sun08/04/24 at 1433, Until Sun08/04/24 at 1433, per procedure 1433 (Given - Provider: Sydnie Bates) lidocaine (LMX-4) topical cream 1 Application topical, NEEDED, Starting on Sun08/04/24 at 2020, Until Sun08/06/24 at 2034, IV start or restart if patient prefers a needleless local anesthetic. 1640 ([facility] Hold - Provider: Interface, Incoming Adt - Reason: Procedure)2017 ([facility] Unhold - Provider: Interface, Incoming Adt) lidocaine 1% injection (conc: 10 mg/mL) 0.1-0.3 mL 0.1-0.3 mL, Intradermal, NEEDED, Starting on Sun08/04/24 at 2020, Until Sun08/06/24 at 2034, Local Anesthesia, IV start or restart 1640 ([facility] Hold - Provider: Interface, Incoming Adt - Reason: Procedure)2017 ([facility] Unhold - Provider: Interface, Incoming Adt) methocarbamoL (ROBAXIN) tablet 500 mg 500 mg, oral, EVERY 6 HOURS NEEDED, Starting on Sun08/04/24 at 1559, Until Sun08/06/24 at 2034, muscle spasm 164 ([facility] Hold - Provider: Interface, Incoming Adt - Reason: Procedure)2017 ([facility] Unhold - Provider: Interface, Incoming Adt) 0039 (Given - Provider: Mary Mendoza, DONNA) naloxone (NARCAN) injection 0.1 mg 0.1 mg, Intravenous, EVERY 1 MINUTE PRN, Starting on Sun08/04/24 at 1559, Until Sun08/06/24 at 2034, Opiate Reversal 164 ([facility] Hold - Provider: Interface, Incoming Adt - Reason: Procedure)2017 ([facility] Unhold - Provider: Interface, Incoming Adt) ondansetron (Zofran) disintegrating tablet 4-8 mg(Linked Group 1) 4-8 mg, oral, EVERY 8 HOURS NEEDED, Starting on Sun08/04/24 at 1559, Until Sun08/06/24 at 2034, nausea & vomiting, 1st choice 2039 (Given - Provider: Manuel Ambrose RN) 164 ([facility] Hold - Provider: Interface, Incoming Adt - Reason: Procedure)2017 ([facility] Unhold - Provider: Interface, Incoming Adt) ondansetron (Zofran) injection 4-8 mg(Linked Group 1) 4-8 mg, Intravenous, EVERY 8 HOURS NEEDED, Starting on Sun08/04/24 at 1559, Until Sun08/06/24 at 2034, nausea & vomiting, 1st choice 2039 (See Alternative - Provider: Manuel Ambrose RN) 1640 ([facility] Hold - Provider: Interface, Incoming Adt - Reason: Procedure)2017 ([facility] Unhold - Provider: Interface, Incoming Adt) oxyCODONE (immediate release) (ROXICODONE) tablet 2.5-5 mg 2.5-5 mg, oral, EVERY 4 HOURS NEEDED, Starting on Sun08/04/24 at 1559, Until Sun08/06/24 at 2034, Pain, when taking PO 1640 ([facility] Hold - Provider: Interface, Incoming Adt - Reason: Procedure)2017 ([facility] Unhold - Provider: Interface, Incoming Adt) saline with benzyl alcohol injection 0.1-0.3 mL 0.1-0.3 mL, Intradermal, NEEDED, Starting on Sun08/04/24 at 202, Until Sun08/06/24 at 2034, IV start or restart 1640 ([facility] Hold - Provider: Interface, Incoming Adt - Reason: Procedure)2017 ([facility] Unhold - Provider: Interface, Incoming Adt) senna (SENOKOT) tablet 17.2 mg 17.2 mg (2 tablet), oral, TWICE A DAY NEEDED, Starting on Sun08/05/24 at 0828, Until Sun08/06/24 at 2034, Constipation, 1st choice 1640 ([facility] Hold - Provider: Interface, Incoming Adt - Reason: Procedure)2017 ([facility] Unhold - Provider: Interface, Incoming Adt) simethicone [...] oral, EVERY 8 HOURS NEEDED, Starting on 08/04/24 at 1559, Until Sun08/06/24 at 2034, nausea & vomiting, 1st choice documented in this encounter Additional Health Concerns Infection Onset Date Last Indicated Resolved Time YOUTH SPECIALIST Rule-Out Comment: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 Isolation precautions to remain in place until r/o per Infection Prevention. 06/13/2024 08/04/2024 08/06/2024 9:03 AM Fay Solorzano Rule-Out 08/04/2024 08/04/2024 documented as of this encounter Care Teams Lubrication Supervisor Relationship Specialty Start Date End Date None, PCP - General Internal Medicine 06/03/24 documented as of this encounter
--- OUTSIDE RECORDS SUMMARY | 2024-08-25 03:07 | XMS_ITS | Continuity of Care Document ---
Author Organization [facility] Address [address] [address] [place] [address] Phone Care Team Providers Care Hazard Waste Handler Name Role Phone Ceasar Cesar MD Unavailable Unavailabl e Allergies, Adverse Reactions, Alerts Substance Reaction Status Criticality No Known Allergies Active No Inform ation Medications Medication Instructions Dosage Effective Dates (start - stop) Status Comments iron ER 159 mg (45 mg iron) tablet,extended release - Active Vitamin D3 25 mcg (1,000 unit) tablet - Active omeprazole 20 mg tablet,delayed release take 1 capsule by oral route 2 times every day 30 minutes before breakfast and dinner 1 capsule - Active hydroxyzine HCl 25 mg tablet take 1 tablet by oral route 3 times every day as needed 25 MG - Active Procedures Procedure Date Established Level 4 Moderate Ercp; Dx W/wo Specmn (sep Pro) 25 Cholangioscopy Init Inpt E&M Moderate Ercp; W/bx 1/mx ERCP w/rem stent & sphinc Subsqt Hosp-da E&m Stable 15 M 25 ERCP w/stent & sphinc Init Hosp-da E&m Mod Severity 5 Offic/outpt E&m Estab Mod-hi 2 25 Colonoscopy Flex; Dx (sep Pro) 25 Ugi Endo; W/bx 1/mx Level Iv-surg Path Gross/micro 25 Immunocytochemistry, Each Antibody Offic/outpt E&m New Mod-hi Routine Serum Collection Advance Directives Directive Yes / No Effective Date File Name No Information Encounters Encounter Description Practice Location Reason(s) For Visit Diagnoses Date Provider Providers Copied on Encounter [facility], [address] [address], [place], [id number], [place] tel:[phone] [facility] Change in bowel habits 5 Luis Fernando Mcdonough. [address] [facility], [place], [id number], [place]. tel:[phone] Established Level 4 Moderate [facility], [address] [address], [place], [id number], [place] tel:[phone] [facility] GI Symptoms or Concerns (chief complaint) Change in bowel habitsMirizzi syndromeHelicobact er pylori infection 5 Brooklyn Robles. [address] [facility], [address], [place], [id number], [place]. tel:[phone] Referring Provider: Referral Self, USE FOR SELF REFERRALS. [facility], [address] [address], [place], [place], [address], [place] tel:[phone] [facility] No Information 5 Brooklyn Robles. [address] [facility], [address], [place], [address], [place]. tel:[phone] [facility], [address] [address], [place], [address], [place] tel:[phone] [facility] No Information 5 Dayne Holt. [address] [facility], [address], [place], [place], [address], [place]. tel:[phone] Referring Provider: Jonathon Koehler, [address], [place], [address] . tel:[phone] Init Inpt E&M Moderate [facility], [address] [address], [place], [id number], [place] tel:[phone] [facility] No Information 5 Jorge Luis Wilson. [address], [address], [place], [address], [place]. tel:[phone] Referring Provider: Steve Luna, [address] [facility] [address], [place], [address] . tel:[phone] [facility], [address] [address], [place], [address], [place] tel:[phone] [facility] Helicobacter pylori infection 5 Brooklyn Robles. [address] [facility] [address], [place], [address], [place]. tel:[phone] [facility], [address] [address], [place], [address], [place] tel:[phone] [facility] No Information 5 Brooklyn Robles. [address], [address], [place], [address], [place]. tel:[phone] Referring Provider: Travis Avendano, [address] [facility] [address], [place], [address] . tel:[phone] [facility], [address] [address], [place], [address], [place] tel:[phone] [facility] Mirizzi syndrome 5 Brooklyn Robles. [address], [address], [place], [place], [address], [place]. tel:[phone] Subsqt Hosp-da E&m Stable 15 M [facility], [address] [address], [place], [place], [address], [place] tel:[phone] [facility] No Information 5 Jhonatan Diop. [address], [address], [place], [place], [address], [place]. tel:[phone] Referring Provider: Estela York NP, [address], [place], [address] . tel:[phone] [facility], [address] [address], [place], [address], [place] tel:[phone] [facility] No Information 5 Brooklyn Robles. [address], [address], [place], [address], [place]. tel:[phone] Referring Provider: Estela York NP, [address] [facility] [address], [place], [address] . tel:[phone] Init Hosp-da E&m Mod Severity [facility], [address] [address], [place], [address], [place] tel:[phone] [facility] No Information 5 Melba WRIGHT Ivy. [address], [address], [place], [place], [address], [place]. tel:[phone] Referring Provider: Estela York NP, [address], [place], [address] . tel:[phone] [facility], [address] [address], [place], [address], [place] tel:[phone] [facility] Abnormal ultrasound 5 Chela Palmer. [address], [address], [place], [place], [address], [place]. tel:[phone] Offic/outpt E&m Estab Mod-hi 2 [facility], [address] [address], [place], [id number], [place] tel:[phone] [facility] GI Symptoms or Concerns (chief complaint) Dietary counseling and surveillanceEpigas tric painHeartburnAbnor mal ultrasoundAltered bowel habitsPain with bowel movements 5 Chela Palmer. [address] [facility], [address], [place], [address], [place]. tel:[phone] Referring Provider: Referral Self, USE FOR SELF REFERRALS. [facility], [address] [address], [place], [id number], [place] tel:[phone] [facility] MelenaMelena 5 Fay Mayberry. [address] [facility], [address], [place], [id number], [place]. tel:[phone] Referring Provider: Referral Self, USE FOR SELF REFERRALS. [facility], [address] [address], [place], [address], [place] tel:[phone] [facility] Epigastric painUnspecified chronic gastritis without bleedingPersonal history of other infectious and parasitic diseases 5 Benjamin Gallegos. [address] [facility], [address], [place], [id number], [place]. tel:[phone] Referring Provider: Referral Self, USE FOR SELF REFERRALS. Offic/outpt E&m [facility], [address] [address], [place], [id number], [place] tel:[phone] [facility] GI Symptoms or Concerns (chief complaint) Epigastric abdominal painAbnormal ultrasoundHeartbur nBlood in stoolDysphagia, unspecified type 5 Flabebek [employer] Estela. [address] [facility], [place], [id number], [place]. tel:[phone] Referring Provider: Referral Self, USE FOR SELF REFERRALS. Family History Family Member Type Diagnosis Age At Onset Father Problem Cancer, colon (Cause Of Deat h) Father Problem Alcoholism Mother Problem Reflux Mother Problem Gastritis Payers Payer name Insurance type Covered libertarian ID Nabila jacob(s) [facility] CI [id number] Social History Type Description Quantity Date Captured Comments Alcohol Use Details Unknown Caffeine Use Details Unknown Tobacco Use Status No Information Smoking Status No Information Sex Female Chief Complaint And Reason For Visit No Information Reason For Referral Reason For Referral No Information Plan Of Treatment Date Type Action Status Goal Lifestyle education regardin g diet completed Goal Lifestyle education regardin g diet completed Referral Ordered: MRCP Biliary/Pancreatic Ducts WITH Contrast Appointment date/timeframe: 06/03/2024 ordered Appointment Esvin Rendon History Of Present Illness Encounter Date Complaint History Of Prese nt Illness GI Symptoms or Concerns Jimi aragon is a 29-year-old female s/p cholecystectomy on 05/24/2024 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 Subsequent ERCP with 10 [place] stent placement to the common bile duct and resolution of symptoms. On repeat ERCP 08/04/2024 the cystic duct stone had migrated proximally was no longer compressing the bile duct. A stent free trial was attempted however she represented the same evening with recurrent right upper quadrant pain. ERCP the following day on 08/05/2024 with cholangioscopy demonstrated passage of the stone in the interim. She is presenting for virtual visit via parts interpreter for follow-up today.She was also diagnosed with H. pylori gastritis on initial procedures and completed her antibiotics. She reports diffuse abdominal pain that resolves after a bowel movement. She reports that she has 3-4 bowel movements daily that are formed. GI Symptoms or Concerns This is a 29-year-old female who presents for follow-up related to epigastric pain and blood in the stools. A professional parts interpreter was utilized during this visit.I last saw the patient in clinic on 04/21/2024. Please see this note for previous details.EGD on 05/01/2024 revealed normal esophagus, normal stomach, normal duodenum. Gastric biopsies revealed nonspecific chronic inflammation consistent with successfully treated Helicobacter infection.Colonoscopy on 05/07/2024 revealed rectosigmoid area normal with good preparation. Proximally there was a large amount of solid stool throughout the colon. Procedure aborted. Patient recommended to repeat colonoscopy earliest available with double colon preparation.History of Present Illness: The patient is endorsing no improvement in symptoms at today's visit. Patient states she continues to experience a daily epigastric pain. Patient states epigastric pain can occur with or without food. Patient states when she eats too much food the pain will get worse. She also endorses heartburn that occurs a couple times a week, as well as nighttime symptoms of heartburn that resulting in feelings of the need to regurgitate food. The patient does endorse she trialed 20mg of Nexium once daily following her last clinic visit and noticed improvement in heartburn and states it decreased some of her epigastric pain. She is currently taking FDgard 2 to 3 times daily with no noticeable improvement in epigastric pain. She also endorses nausea. She denies vomiting, dysphagia, or unintentional weight loss.The patient states she is currently having 2-3 bowel movements daily. She does endorse pain with bowel movements, primarily on the right side of her abdomen. She also endorses when she does go to the bathroom she evacuates a very small amount of stool with associated flatulence. She otherwise denies hematochezia or melena. GI Symptoms or Concerns This is a 28 year-old female who is self referred here for evaluation related to change in bowel habits, nausea/vomiting, abdominal pain, and history of H. pylori. A professional parts interpreter was utilized during this visit via neonatal critical care nurse on [employer]. In records available to me today patient had ultrasound of gallbladder and biliary ducts on 04/11/2024 that revealed biliary sludge without evidence of acute cholecystitis or biliary ductal dilatation. CT scan of abdomen and pelvis on 04/16/2024 revealed no acute abnormality in the chest abdomen or pelvis.EGD on 09/05/2023 through [facility] revealed normal esophagus, gastroesophageal flap valve classified as Hill grade 2, normal stomach, normal duodenum. Duodenal biopsies revealed architecturally preserved duodenal mucosa with mildly increased intraepithelial lymphocytes. Gastric biopsies revealed mild to moderate chronic gastritis, H. pylori immunostain is positive. Lower third and middle third esophageal biopsies negative.History of Present Illness: Today, patient reports over the last 2 years she has been struggling. More recently she has noticed increasing severity of her abdominal pain. Patient states she has been seen in the emergency department 4 times within the last couple weeks, reportedly more recently on 04/19/2024.Patient states she is currently having episodes of epigastric pain every 2 to 3 days. She states epigastric pain primarily occurs postprandially. Patient states epigastric pain has increased in severity resulting in 2 recent episodes of vomiting with associated nausea. She does endorse heartburn daily, she recently restarted taking Pepcid 20 mg once in the morning and evening as well as an antacid liquid with some relief of symptoms. Patient states she has taken omeprazole in the past which has made her symptoms worse. She does also endorses food dysphagia at the sternal notch, and occasional liquid dysphagia that has occurred over the last week. She is currently having a bowel movement daily, she describes her stools as soft. She does experience occasional tenesmus and diarrhea with episodes of abdominal pain. She also endorses regular blood in her stool. Patient states she is currently taking dicyclomine as needed as prescribed by her primary care provider, with minimal relief in abdominal pain. She otherwise denies black stools or unintentional weight loss. The patient also denies possibility of being related to her reported symptoms, as patient states she recently had her menstrual cycle. As mentioned above patient recently tested positive for H. pylori infection during her upper endoscopy on 09/05/2023. Patient states she underwent treatment for H. pylori and completed eradication stool testing 1 to 2 months following completion of treatment that was reportedly negative.She denies tobacco or marijuana use. Per the patient she quit drinking alcohol 2 years ago, but states she did have some alcohol in the month of February. Patient states she also takes ibuprofen/naproxen she estimates about twice weekly. Functional Status Date Functional Assessmen t No Information Instructions Date Instruction Additional Infor kushal It was nice seeing y michael today, Esvin! As we discussed -For continued reports of heartburn I recommend trialing Nexium 20mg once daily as this reportedly improved your symptoms of heartburn previously. I sent refills to your pharmacy today. Take one 20mg capsule of Nexium 30 to 60 minutes prior to breakfast or dinner. -Your recent upper endoscopy revealed nonspecific chronic inflammation consistent with successfully treated Helicobacter infection. I recommend trialing nortriptyline 10 mg once daily to see if this improves ongoing epigastric abdominal pain, which could potentially be related to functional dyspepsia. I sent this to your pharmacy today. Take one 10mg tablet of nortriptyline once daily at bedtime. -If FDgard is not improving your abdominal pain it is okay to stop taking it-For reports of altered bowel habits at today's, more specifically evacuating small amounts of stool, gas, and pain with bowel movements, I recommend trialing a daily fiber supplementation. I recommend Citrucel, Benefiber or FiberCon. You can get these over the counter. -As your recent colonoscopy was aborted due to poor colon preparation and you report pain with bowel movements today, I recommend proceeding with a colonoscopy for further evaluation of pain with bowel movements. I placed the orders today, we will reach out to you to assist you in scheduling this. -I will have my patient coordinator check to see if an MRCP was completed for further evaluation of epigastric pain and biliary sludge seen on your recent abdominal ultrasound. If the MRCP has not been completed, I recommend proceeding with an MRCP for further evaluation. -As you would like to request the records of your recent upper endoscopy for your employer I recommend reaching out to our records department. To contact [facility] records department dial [phone] [phone] up in clinic in 8 weeks or sooner if questions or concerns arise HOW TO REACH IDKorey can reach me by sending a message through your patient portal or calling my patient coordinator at [phone] [phone] Related to Epigastric pain Lifestyle education regarding di et Related to Dietary counseling and surveillance High Fiber Diet Related to Alter ed bowel habits Gastroesophageal Reflux Disease Related to Heartburn Lifestyle education regarding di et Related to Dietary counseling and surveillance It was nice meeting you today, Giovanna! As we discussed -Blood work to day -We will reach out to you to schedule an upper endoscopy for further evaluation of epigastric pain, as well as a colonoscopy for further evaluation of blood in the stool -We will also reach out to you to schedule an MRCP for further evaluation of reports of epigastric abdominal pain, as your recent abdominal ultrasound revealed biliary sludge -Continue to take Pepcid 20mg once in the morning and the evening and the liquid antiacid medication as provided by your primary care provider as you are, as these are reportedly providing some relief of epigastric pain -I recommend you start take Nexium 20mg twice daily. I sent this to your pharmacy today. Take one tablet of Nexium 30 to 60 minutes prior to breakfast and dinner. -Follow up in clinic following completion of your MRCP, upper endoscopy, and colonoscopy or sooner if questions or concerns arise -If you experience worsening abdominal pain, fevers, nausea, or vomiting please present to the emergency department for further evaluation HOW TO REACH You can reach me by sending a message through your patient portal or calling my patient coordinator at [phone] Related to Epigastric abdominal pain Assessments Type Assessment Date assessment Change in bowel habits 25 Patient Care Teams Name Effective Dates (start - stop) Status Members No Information
--- OUTSIDE RECORDS SUMMARY | 2024-08-25 03:07 | XMS_ITS | Continuity of Care Document ---
Author Organization [facility] Address [address] [address] [place] [address] Phone Care Team Providers Care Accountant Clerk Name Role Phone Ceasar Cesar MD Unavailable [...] Diagnoses Date Provider Providers Copied on Encounter [facility], [address] [address], [place], [id number], [place] tel:[phone] [facility] Change in bowel habits 5 Luis Fernando Mcdonough. [address] [facility], [place], [id number], [place]. tel:[phone] Established Level 4 Moderate [facility], [address] [address], [place], [id number], [place] tel:[phone] [facility] GI Symptoms or Concerns (chief complaint) Change in bowel habitsMirizzi syndromeHelicobact er pylori infection 5 Brooklyn Robles. [address] [facility], [place], [id number], [place]. tel:[phone] Referring Provider: Referral Self, USE FOR SELF REFERRALS. [facility], [address] [address], [place], [place], [id number], [place] tel:[phone] [facility] No Information 5 Brooklyn Robles. [address] [facility], [place], [place], [id number], [place]. tel:[phone] [facility], [address] [address], [place], [place], [address], [place] tel:[phone] [facility] No Information 5 Dayne Holt. [address] [facility], [place], [place], [address], [place]. tel:[phone] Referring Provider: Jonathon Koehler, [address], [place], [address] . tel:[phone] Init Inpt E&M Moderate [facility], [address] [address], [place], [address], [place] tel:[phone] [facility] No Information 5 Jorge Luis Wilson. [address], [address], [place], [address], [place]. tel:[phone] Referring Provider: Steve Luna, [address] [facility] [address], [place], [address] . tel:[phone] [facility], [address] [address], [place], [address], [place] tel:[phone] [facility] Helicobacter pylori infection 5 Brooklyn Robles. [address] [facility] [address], [address], [place], [place], [address], [place]. tel:[phone] [facility], [address] [address], [place], [id number], [place] tel:[phone] [facility] No Information 5 Brooklyn Robles. [address], [address], [place], [address], [place]. tel:[phone] Referring Provider: Travis Avendano, [address] [facility] [address], [place], [address] . tel:[phone] [facility], [address] [address], [place], [address], [place] tel:[phone] [facility] Mirizzi syndrome 5 Brooklyn Robles. [address], [address], [place], [place], [address], [place]. tel:[phone] [facility] Stable 15 M [facility], [address] [address], [place], [address], [place] tel:[phone] [facility] No Information 5 Jhonatan Diop. [address], [address], [place], [address], [place]. tel:[phone] Referring Provider: Estela York NP, [address], [place], [address] . tel:[phone] [facility], [address] [address], [place], [address], [place] tel:[phone] [facility] No Information 5 Brooklyn Robles. [address], [address], [place], [address], [place]. tel:[phone] Referring Provider: Estela York NP, [address] [facility] [address], [place], [address] . tel:[phone] Init Hosp-da E&m Mod Severity [facility], [address] [address], [place], [address], [place] tel:[phone] [facility] No Information 5 Melba WRIGHT Ivy. [address], [address], [place], [place], [address], [place]. tel:[phone] Referring Provider: Estela York NP, [address], [place], [address] . tel:[phone] [facility], [address] [address], [place], [address], [place] tel:[phone] [facility] Abnormal ultrasound 5 Chela Palmer. [address], [address], [place], [address], [place]. tel:[phone] Offic/outpt E&m Estab Mod-hi 2 [facility], [address] [address], [place], [id number], [place] tel:[phone] [facility] GI Symptoms or Concerns (chief complaint) Dietary counseling and surveillanceEpigas tric painHeartburnAbnor mal ultrasoundAltered bowel habitsPain with bowel movements 5 Chela Palmer. [address] [facility], [place], [id number], [place]. tel:[phone] Referring Provider: Referral Self, USE FOR SELF REFERRALS. [facility], [address] [address], [place], [address], [place] tel:[phone] [facility] MelenaMelena 5 Fay Mayberry. [address] [facility], [place], [address], [place]. tel:[phone] Referring Provider: Referral Self, USE FOR SELF REFERRALS. [facility], [address] [address], [place], [address], [place] tel:[phone] [facility] Epigastric painUnspecified chronic gastritis without bleedingPersonal history of other infectious and parasitic diseases 5 Benjamin Gallegos. [address] [facility], [place], [id number], [place]. tel:[phone] Referring Provider: Referral Self, USE FOR SELF REFERRALS. Offic/outpt E&m [facility], [address] [address], [place], [id number], [place] tel:[phone] [facility] GI Symptoms or Concerns (chief complaint) Epigastric abdominal painAbnormal ultrasoundHeartbur nBlood in stoolDysphagia, unspecified type 5 Flabebek CLIENT TECHNOLOGIES SPECIALIST Estela. [address] [facility], [place], [id number], [place]. tel:[phone] Referring Provider: Referral Self, USE FOR SELF REFERRALS. 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 Subsequent ERCP with 10 [place] stent placement to the common bile duct [...] She is presenting for virtual visit via delicatessen store manager for follow-up today.She was also diagnosed with [...] and blood in the stools. A professional delicatessen store manager was utilized during this visit.I last saw [...] and history of H. pylori. A professional delicatessen store manager was utilized during this visit via physical therapy professor on [employer]. In records available to me today patient had ultrasound of gallbladder and biliary ducts on 04/11/2024 that revealed biliary sludge without evidence of acute cholecystitis or biliary ductal dilatation. CT scan of abdomen and pelvis on 04/16/2024 revealed no acute abnormality in the chest abdomen or pelvis.EGD on 09/05/2023 through [facility] revealed normal esophagus, gastroesophageal flap valve classified [...] out to our records department. To contact [facility] records department dial [phone] [phone] up in clinic in 8 weeks or sooner if questions or concerns arise HOW TO REACH NCKorey can reach me by sending a message through your patient portal or calling my patient coordinator at [phone] ext. [phone] Related to Epigastric pain Lifestyle education regarding [...] portal or calling my patient coordinator at [phone] Related to Epigastric abdominal pain Assessments Type Assessment Date assessment Change in bowel habits 25 Patient Care Teams Name Effective Dates (start - stop) Status Members No Information
[2024-08-29 23:14] VITALS: BP 115/77; PULSE 82; RESP 18; TEMP 36.7; O2SAT 98; BMI 33.2
--- NOTE | 2024-08-29 23:43 | ED.FEMALEGU ---
HPI - Female Genitourinary General Chief complaint: Urogenital Problems, Female Stated complaint: UTI Time Seen by Provider: 08/29/24 23:24 Source: patient, old records reviewed and other Mode of arrival: ambulatory Limitations: no limitations History of Present Illness HPI Narrative: Patient is a very nice 29-year-old female Tuvaluan-speaking, her boyfriend Aditya elam who presents here for evaluation of dysuria, she was seen by urology and she brought results from voided urine from 3 days ago, she was seen [place]rology and [place] [facility] for ongoing burning when she urinates. She grew out Klebsiella and very dance group strep. Unfortunately she shows a broad resistance to all antibiotics except for Zosyn. The nurse practitioner called her and told her to go to the emergency room tonight. She is not having any nausea vomiting there is no back pain there is no fevers or chills, she has had this for months, and I think she was following up with Urology for ongoing issues. They picked up the culture results at 3:00 p.m., from the [facility], were told to go to the ER, and presented here at 2300 She has actually been to our hospital before. Even though we have no record of her in her chart, I suspect that this is spelling issue. She was sent up to the [facility] for choledocholithiasis, underwent ERCP and eventually cholecystectomy. She has a history of anxiety and depression, is on medications for this. No allergies to a medication. I attempted to call the number [phone] for [facility], there is no one there, and multiple times hung up. elicited complaint: dysuria Treatment prior to arrival: none Sexual activity: Yes Patient : No Related Data Home Medications ?Medication ?Instructions ?Recorded ?Confirmed iron 08/29/24 omeprazole 40 mg capsule,delayed 40 mg PO DAILY 08/29/24 08/29/24 release sertraline 25 mg tablet 25 mg PO DAILY 08/29/24 08/29/24 Allergies Allergy/AdvReac Type Severity Reaction Status Date / Time No Known Drug Allergies Allergy Verified 08/29/24 23:20 Review of Systems Status of ROS: Reports: 10 or more systems reviewed and unremarkable except as noted in History and below Narrative: Review of systems otherwise negative. Exam Narrative: Exam Narrative: On examination in room 3, she is nontoxic in no apparent distress speaking to me normally. Tells me this problem is been going on for 2-3 years, multiple cultures and urinalysis have been negative. This is the only 1 that grew anything like this. Chest is good air entry bilateral with no wheezing crackles noted heart sounds are normal her abdomen is soft there is no guarding no organomegaly, bowel sounds are normal. No CVA tenderness she moves all extremities independently and well with no rashes. Const: Vital Signs, click to edit/add: Vital Signs - 24 hr 08/29/24 23:14 Temperature 98.0 F Pulse Rate [Left P ulse Oximeter] 82 Respiratory Rate 18 Blood Pressure [Ri ght Upper Arm] 115/77 Pulse Oximetry 98 Oxygen Delivery Me thod Room Air Course Vital Signs Vital signs: Initial Vital Signs Temperature 98.0 F 08/29/24 23:14 Temperature Source Temporal Artery Scan 08/29/24 23:14 Pulse Rate 82 08/29/24 23:14 Pulse Rhythm Regular 08/29/24 23:14 Respiratory Rate 18 08/29/24 23:14 Blood Pressure 115/77 08/29/24 23:14 Blood Pressure Mean 89 08/29/24 23:14 Blood Pressure Position Sitting 08/29/24 23:14 Pulse Oximetry 98 08/29/24 23:14 Oxygen Delivery Method Room Air 08/29/24 23:14 Vital Signs Temperature 98.0 F 08/29/24 23:14 Pulse Rate 82 08/29/24 23:14 Respiratory Rate 18 08/29/24 23:14 Blood Pressure 115/77 08/29/24 23:14 Pulse Oximetry 98 08/29/24 23:14 Oxygen Delivery Method Room Air 08/29/24 23:14 Temperature 98.0 F 08/29/24 23:14 Pulse Rate 82 08/29/24 23:14 Respiratory Rate 18 08/29/24 23:14 Blood Pressure 115/77 08/29/24 23:14 Pulse Oximetry 98 08/29/24 23:14 Oxygen Delivery Method Room Air 08/29/24 23:14 Medications Administered Medications: Discontinued Medications Generic Name Dose Route Start Last Admin Trade Name Freq PRN Reason Stop Dose Admin Piperacillin Sod/Tazobactam 100 mls @ 200 mls/hr 08/29/24 23:41 08/29/24 23:53 Sod 4.5 gm/ Sodium Chloride IVPB 08/29/24 23:42 200 mls/hr ONCE ONE Administration MDM - Female Genitourinary MDM Narrative Medical decision making narrative: Clearly she has grown resistant organism, and clearly she is not toxic at all here today. I will do some labs, and I explained to them that Zosyn at the most is done q.8h, she would need to come back every 6-1/2 hours and get an IV every time, for treatments. Once I explained this to them they did not want to come back here for treatments. I think a reasonable approach here would be to give her a dose tonight, and then have them follow up through the [facility] tomorrow. And they could probably started do this as an outpatient. Or possibly through [facility] as she lives in [place]. Medical Records Attestation: I reviewed the patient's medical records. Medical records narrative: Reviewed the culture results, from 08/26/2024. This shows that she is growing Klebsiella, greater than 782416 , Strep Viridans less than 76166 units. Is pulliam resistant to everything except Zosyn Lab Data Attestation: I reviewed the patient's lab results. Lab results narrative: Clearly the labs are all within fairly normal parameters, there is no evidence of a UTI on the urinalysis. I wonder if she has been colonized by this organism. We will give her the 1 dose and then have her follow-up with Urology Labs: Lab Results 08/29/24 08/29/24 Range/Units 00:01 00:15 WBC 7.79 (4.50-11.00) K/uL RBC 4.01 (4.00-5.20) m/uL Hgb 12.0 (12.0-16.0) gm/dL Hct 35.6 (33.0-51.0) % MCV 89 (80-100) fL MCH 30 (26-34) pg MCHC 34 (32-36) gm/dL RDW Coeff of [place] 12.4 (11.5-15.5) % Plt Count 256 (140-440) K/uL Neut % (Auto) 57.4 (42.0-72.0) % Lymph % (Auto) 28.9 (20-44) % [place] % (Auto) 9.2 (0.0-11.0) % Eos % (Auto) 3.0 (0.0-7.0) % Baso % (Auto) 0.3 (0.0-3.0) % Neut # (Auto) 4.48 (1.7-7.0) K/uL Lymph # (Auto) 2.25 (0.90-2.90) K/uL [place] # (Auto) 0.70 (0.00-0.90) K/UL Eos # (Auto) 0.23 (0.00-0.50) K/uL Baso # (Auto) 0.02 (0.00-0.30) K/uL Abs Immat Gran (auto) 0.09 (0.00-0.30) K/uL Imm/Tot Granulo (auto) 1.2 % Sodium 138 (135-149) mmol/L Potassium 3.7 (3.6-5.1) mmol/L Chloride 106 (96-114) mmol/L Carbon Dioxide 24 (20-32) mmol/L Anion Gap 8 (7-15) mEq/L BUN 14 (5-24) mg/dL Creatinine 0.6 (0.5-1.5) mg/dL Estimated Creat Clear 141.98 Estimated GFR 123 ml/min Glucose 107 (60-115) mg/dL Calcium 8.8 (8.4-10.6) mg/dL Procalcitonin 0.05 (<0.50) ng/mL Urine Color Yellow (Yellow) Urine Appearance Clear (Clear) Urine pH 6.5 (5.0-8.5) Ur Specific [place] 1.020 (1.000-1.030) Urine Protein Negative (Negative) Urine Glucose (UA) Negative (Negative) Urine Ketones Negative (Negative) Urine Blood Trace-lysed A (Negative) Urine Nitrite Negative (Negative) Urine Bilirubin Negative (Negative) Urine Urobilinogen 0.2 (0.2-1.0) Ur Leukocyte Esterase Negative (Negative) Urine RBC 0-2 (0-2) Urine WBC 0-2 (0-5) Ur Squamous Epith Cells Few (None-Few) Urine Bacteria None (None) Urine HCG, Qual Negative (Negative) Discharge Plan Discharge Clinical Impression: Urinary tract infection, MDRO (multiple drug resistant organisms) resistance Patient Disposition: Home w/ Parent or Adult Condition: Stable Instructions: Urinary Tract Infection in Women (DC) Additional Instructions: We gave you 1 dose of the Zosyn here. He will need to follow up with the [place] [facility] tomorrow, they will possibly be able to set her up for this antibiotic, either there or at the hospital in [place]. Activity Level: Light activity Discharge Diet: Regular Prescriptions: No Action iron omeprazole 40 mg capsule,delayed release(DR/EC) 40 mg PO DAILY sertraline 25 mg tablet 25 mg PO DAILY Stand Alone Forms: [employer] Info Instructions
[2024-08-29] MEDS: PIPERACILLIN/TAZOBACTAM 4.5 GM in 0.9 % SODIUM CHLORIDE Mini-bag 100 ML IVPB (23:53)
[2024-08-30 00:25] LABS: Basophils Absolute Auto 0.02 K/uL (0.00-0.30); Basophils Percent Auto 0.3 % (0.0-3.0); Eosinophils Absolute Auto 0.23 K/uL (0.00-0.50); Hematocrit 35.6 % (33.0-51.0); Immature Granulocytes Abs Auto 0.09 K/uL (0.00-0.30); Immature Granulocytes Pct Auto 1.2 %; Lymphocytes Absolute Auto 2.25 K/uL (0.90-2.90); Lymphocytes Percent Auto 28.9 % (20-44); Mean Corpuscular HGB Conc 34 gm/dL (32-36); Mean Corpuscular Hemoglobin 30 pg (26-34); Mean Corpuscular Volume 89 fL (80-100); Monocytes Percent Auto 9.2 % (0.0-11.0); Neutrophils Absolute Auto 4.48 K/uL (1.7-7.0); Neutrophils Percent Auto 57.4 % (42.0-72.0); Platelet Count* 256 K/uL (140-440); RDW Coefficient of Variation % 12.4 % (11.5-15.5); Red Blood Count 4.01 m/uL (4.00-5.20); White Blood Count* 7.79 K/uL (4.50-11.00)
[2024-08-30 00:29] LABS: Slide Review Reflex No
--- OUTSIDE RECORDS SUMMARY | 2024-08-30 00:29 | XMS_ITS | Clinical Summary ---
Author Organization [facility] Address [address] [place] [address] Care Team Providers Care Employee Relations Consultant Name Role Phone None, Md Primary Care Provider Unavailabl e Allergies No known active allergies Medications acetaminophen (TYLENOL) 500 mg oral tablet Take 1 tablet (500 mg) by mouth every 6 (six) hours as needed for fever or pain. Active polyethylene glycol (MIRALAX) 17 gram oral powder Take 17 g by mouth twice a day as needed for constipatio n. Mix each dose in 4-8 ounces of liquid as directed. 238 g 5 7:34 AM CDT 06/04/19 25 Active cholecalciferol (VITAMIN D3) 400 unit (10 mcg) oral Tab tablet Take 12.5 tablets (125 mcg) by mouth once daily. Active ferrous sulfate (FERATAB) 325 mg (65 mg iron) oral tablet Take 1 tablet (325 mg) by mouth every other day. Active ascorbic acid, vitamin C, 250 mg oral tablet Take 1 tablet (250 mg) by mouth once daily. Active melatonin 3 mg oral tablet Take 1 tablet (3 mg) by mouth at bedtime. Active cranberry extract-vitamin C (AZO CRANBERRY PLUS VIT C) 250-60 mg oral Cap Take 1 capsule by mouth once daily. Active Bacillus coagulans 250 million cell oral chew tab Chew 1 tablet once daily. Active esomeprazole magnesium (NEXIUM) 40 mg oral delayed release capsule Take 1 capsule (40 mg) by mouth once daily. 025 Discontinued bismuth subsalicylate (PEPTO-BISMOL) 262 mg oral chewable tablet Chew 2 tablets (524 mg) four times a day for 14 days. 112 tablet 05/14/20 25 05/28/2 025 metroNIDAZOLE (FLAGYL) 500 mg oral tabletIndications :H pylori & intra-abdominal infection Take 1 tablet (500 mg) by mouth four times a day for 14 days Indications : H pylori & intra-abdom inal infection. 56 tablet 5 1:56 PM CDT 08/07/19 025 pantoprazole (PROTONIX) 40 mg oral delayed release tabletIndications :h pylori treatment Take 1 tablet (40 mg) by mouth twice a day for 14 days Indications : h pylori treatment. 28 tablet 5 1:56 PM CDT 08/07/19 025 tetracycline (SUMYCIN) 500 mg oral CapIndications:H pylori Take 1 capsule (500 mg) by mouth three times a day before meals and at bedtime for 14 days Indications : H pylori. 56 capsule 5 1:56 PM CDT 08/07/19 025 Active Problems Problem Noted Date Diagnosed Date Abdominal pain 08/04/2024 Choledocholithiasis 06/01/2024 Encounters Date Type Department Care Team Description 08/05/2024 5:15 PM CDT - 08/05/2024 6:40 PM CDT Surgery [facility] [address] [place] [address] Jonathon Oscar MD ENDOSCOPIC RETROGRADE CHOLANGIOPANCREATOGRAPHY SPHINCTEROTOMY 08/04/2024 1:02 PM CDT - 08/06/2024 2:35 PM CDT Hospital Encounter [facility] [place] [address] Steve Branch MD Korbitz, Parker M, MD Halverson, Emily L E, MD Abdominal pain Discharge Disposition: Returning Home/Self Care 08/04/2024 8:55 AM CDT - 08/04/2024 10:30 AM CDT Surgery [facility] [address] [place] [address] Travis Car MD ENDOSCOPIC RETROGRADE CHOLANGIOPANCREATOGRAPHY REMOVAL STENT 08/04/2024 6:55 AM CDT - 08/04/2024 12:04 PM CDT Hospital Encounter [facility] [address] [place] [address] Travis Car MD Mirizzi syndrome Discharge Disposition: Returning Home/Self Care 08/04/2024 Travel 08/01/2024 Travel 06/02/2024 1:45 PM CDT - 06/02/2024 2:50 PM CDT Surgery [facility] [address] [place] [address] Travis Car MD ENDOSCOPIC RETROGRADE CHOLANGIOPANCREATOGRAPHY SPHINCTEROTOMY 06/01/2024 4:27 PM CDT - 06/03/2024 8:15 PM CDT Hospital Encounter [facility] [address] -Hospitalist Aryan Munoz MD Dastrange, Mehdi, MD Choledocholithiasis Discharge Disposition: Returning Home/Self Care from Last 3 Months Social History Tobacco Use Types Packs/Day Years Used Date Smoking Tobacco: Former Cigarettes Smokeless Tobacco: Never Tobacco Cessation:Counseling Given: Not Answered Alcohol Use Standard Drinks/Week Comments Not Currently 0 (1 standard drink = 0.6 oz pur e alcohol) Feb 2024 [facility] Utilities Answer Date Recorded In the past 12 months has [facility] [employer], gas, oil, or water [employer] threatened to shut off services in your [...] any time in the past 12 m [facility], were you homeless or living in a residential (including now)? No 08/04/2024 Comments No Sex [...] Mass Index 35.91 08/05/2024 4:13 AM CDT Plan of Treatment Health Maintenance Due Date Last Done Comments Pap Smear 1993 Anxiety Screening (ALESSIA-2) 1994 Depression Assessment (PHQ-2) 1994 Adult Tetanus Booster 2012 COVID-19 Vaccine (2023-2 5 season) 2023 Influenza Vaccine (Season Ended) 2024 RSV Vaccines (1 - 1-dose 75+ series) 2068 Hepatitis C Screening Completed 06/01/2024 Meningococcal B Vaccine Aged Out No l onger eligible based on patient's age to complete this topic Pneumococcal Vaccine Aged Out No long er eligible based on patient's age to complete this topic Medical Devices Explanted Type Area Folder Machine Adjuster Device Identifier Shelf Expiration Date Model / Serial / Lot Cot Martini Sf Abelardo Stent 3.7x7 - [id number] Implanted:Qty: 1 on 06/02/2024 by Travis Car MD at [facility] Explanted:Qty: 1 on 08/04/2024 by Travis Car MD at [facility] Stent N/A: Bile Duct [employer] 02/20/2027 [id number] / / [id number] Procedures Procedure Name Priority Date/Time Associated Diagnosis Comments COMPREHENSIVE METABOLIC PANEL Routine 4:23 AM CDT CBC (HGB,HCT,WBC,RBC,PLATELET) Routine 08/06/2024 4:23 AM CDT XR ERCP BILIARY ONLY STAT 08/05/2024 6:58 PM CDT ENDOSCOPY Routine 08/05/2024 6:22 PM CDT INTUBATION Routine 08/05/2024 6:04 PM CDT ENDOSCOPIC RETROGRADE CHOLANGIOPANCREATOGRAPHY SPHINCTEROTOMY 08/05/2024 5:54 PM CDT EXTRA TUBE-EDTA Routine 08/05/2024 5:19 AM CDT CBC (HGB,HCT,WBC,RBC,PLATELET) Add On 08/05/2024 5:19 AM CDT LIVER PROFILE Routine 08/05/2024 5:19 AM CDT BASIC METAB PROFILE Routine 08/05/2024 5:[address] ABDOMEN & PELVIS W/O ORAL W IV CON STAT 08/04/2024 2:33 PM CDT EXTRA TUBE-COAG STAT 08/04/2024 1:13 PM CDT EXTRA TUBE PST STAT 08/04/2024 1:13 PM CDT EXTRA TUBE-SST (LAB USE ONLY) STAT 1:13 PM CDT EXTRA TUBE-EDTA STAT 08/04/2024 1:13 PM CDT EXTRA TUBE-BLOOD BANK STAT 08/04/2024 1:13 PM CDT LIPASE STAT 08/04/2024 1:13 PM CDT LIVER PROFILE STAT 08/04/2024 1:13 PM CDT BASIC METAB PROFILE STAT 08/04/2024 1:13 PM CDT CBC (HGB,HCT,WBC,RBC,PLATELET) STAT 08/04/2024 1:13 PM CDT XR C ARM/FLUORO LESS THAN 1HR STAT 10:44 AM CDT SURGICAL PATHOLOGY Routine 08/04/2024 10:33 AM CDT Mirizzi syndrome CARBAPENEMASE PCR STAT 08/04/2024 10:07 AM CDT INTUBATION Routine 08/04/2024 10:00 AM CDT EGD TRANSORAL BIOPSY SINGLE/MULTIPLE 08/04/2024 9:51 AM CDT Mirizzi syndrome ERCP DX COLLECTION SPECIMEN BRUSHING/WASHING 08/04/2024 9:51 AM CDT Mirizzi syndrome ERCP REMOVE FOREIGN BODY/STENT BILIARY/PANC DUCT 08/04/2024 9:51 AM CDT Mirizzi syndrome ENDOSCOPY Routine 08/04/2024 9:31 AM CDT LIVER PROFILE STAT 08/04/2024 9:29 AM CDT PROTIME/INR STAT 08/04/2024 9:29 AM CDT HCG URINE STAT 08/04/2024 7:08 AM CDT POCT GLU METER Routine 06/03/2024 4:58 PM CDT URINALYSIS MICROSCOPY (LAB USE ONLY) Routine 06/03/2024 11:08 AM CDT URINALYSIS MACROSCOPIC W/ MICROSCOPY, IF INDICATED (DOES NOT INC CULTURE) Routine 06/03/2024 11:08 AM CDT CBC (HGB,HCT,WBC,RBC,PLATELET) Routine 06/03/2024 5:01 AM CDT COMPREHENSIVE METABOLIC PANEL STAT 4:59 AM CDT POCT GLU METER Routine 06/02/2024 10:45 PM CDT XR ERCP BILIARY ONLY STAT 06/02/2024 5:14 PM CDT Elevated liver function tests ENDOSCOPY Routine 06/02/2024 4:36 PM CDT INTUBATION Routine 06/02/2024 3:59 PM CDT ERCP STENT PLACEMENT BILIARY/PANCREATIC DUCT Class C 06/02/2024 3:46 PM CDT Elevated liver function tests EDG US EXAM SURGICAL ALTER STOM DUODENUM/JEJUNUM Class C 06/02/2024 3:46 PM CDT Elevated liver function tests ENDOSCOPIC RETROGRADE CHOLANGIOPANCREATOGRAPHY SPHINCTEROTOMY Class C 06/02/2024 3:46 PM CDT Elevated liver function tests ENDOSCOPY Routine 06/02/2024 2:59 PM CDT POCT GLU METER Routine 06/02/2024 1:34 PM CDT LIPASE Add On 06/02/2024 8:44 AM CDT HCG TOTAL, SERUM STAT Add-on 06/02/2024 8:44 AM CDT COMPREHENSIVE METABOLIC PANEL Routine 8:44 AM CDT CBC (HGB,HCT,WBC,RBC,PLATELET) Routine 06/02/2024 8:44 AM CDT POCT GLU METER Routine 06/02/2024 7:45 AM CDT POCT GLU METER Routine 06/02/2024 3:52 AM CDT URINALYSIS MICROSCOPY (LAB USE ONLY) Routine 06/02/2024 12:27 AM CDT URINALYSIS MACROSCOPIC W/ MICROSCOPY, IF INDICATED (DOES NOT INC CULTURE) Routine 06/02/2024 12:27 AM CDT LACTIC ACID STAT 06/01/2024 5:05 PM CDT HEP A/B/C PANEL Routine 06/01/2024 5:05 PM CDT COMPREHENSIVE METABOLIC PANEL Routine 5:05 PM CDT CBC (HGB,HCT,WBC,RBC,PLATELET) STAT 06/01/2024 5:05 PM CDT PROTIME/INR Routine 06/01/2024 5:04 PM CDT from Last 3 Months Results * (ABNORMAL) Comprehensive Metabolic Panel (08/06/2024 4:23 AM CDT) Only the most recent of4 resultswithin the time period is included. [facility] Signature Sodium 140 136 - 145 mmol/L 08/06/2024 5:16 AM CDT [facility] Potassium 4.4 3.4 - 5.1 mmol/L 08/06/2024 5:16 AM [facility] Chloride 110(H) 98 - 108 mmol/L 08/06/2024 5:16 AM [facility] Carbon Dioxide 24 20 - 31 mmol/L 08/06/2024 5:16 AM [facility] BUN (Urea Nitro) 13 9 - 23 mg/dL 08/06/2024 5:16 AM [facility] Creatinine 0.49(L) 0.55 - 1.02 mg/dL 08/06/2024 5:16 AM [facility] Est GFR (CKD-EPI) >60.00 >60.00 mL/min/1. 73m2 08/06/2024 5:16 AM [facility] Comment:Calculation based on the Chronic Kidney Disease Epidemiology Collaboration (CKD-EPI) equation refit without adjustment for race. Glucose 137(H) 74 - 106 mg/dL 08/06/2024 5:16 AM [facility] Calcium, Serum 8.5(L) 8.7 - 10.4 mg/dL 08/06/2024 5:16 AM [facility] Anion Gap 6.0 0.0 - 15.0 mmol/L 08/06/2024 5:16 AM [facility] Albumin 3.6 3.4 - 5.0 g/dL 08/06/2024 5:16 AM [facility] Bilirubin-Total 0.50 0.30 - 1.20 mg/dL 08/06/2024 5:16 AM [facility] Alkaline Phosphatase 155(H) 46 - 116 U/L 08/06/2024 5:16 AM [facility] Protein Total 7.3 5.7 - 8.2 g/dL 08/06/2024 5:16 AM [facility] AST (SGOT) 252(H) 13 - 40 U/L 08/06/2024 5:16 AM [facility] ALT 578(H) 7 - 40 U/L 08/06/2024 5:16 AM [facility] Blood 08/06/2024 4:23 AM CDT 08/06/2024 4:43 AM CDT us Shahida Zhang PA-C CHEMISTRY ORDERABLE Final Result Performing Organization Address City/[facility]/ZIP Co de Phone Number [facility] [address] [address] * (ABNORMAL) CBC (Hgb,Hct,WBC,RBC,Platelet) (08/06/2024 4:23 AM CDT) Only the most recent of6 resultswithin the time period is included. WBC 11.7(H) 4.3 - 10.8 K/uL 08/06/2024 5:14 AM T [facility] RBC 4.13(L) 4.20 - 5.40 M/uL 08/06/2024 5:14 AM [facility] Hemoglobin 12.4 12.0 - 16.0 gm/dL 08/06/2024 5:14 AM [facility] Hematocrit 37.7 36.0 - 48.0 % 08/06/2024 5:14 AM [facility] MCV 91 80 - 100 fL 08/06/2024 5:14 AM [facility] MCH 30 27 - 33 pg 08/06/2024 5:14 AM [facility] MCHC 33 33 - 36 gm/dL 08/06/2024 5:14 AM [facility] RDW 13.5 11.5 - 14.5 % 08/06/2024 5:14 AM [facility] Platelet Count 241 150 - 400 K/UL 08/06/2024 5:14 AM [facility] MPV 10.2 6.5 - 12 fL 08/06/2024 5:14 AM [facility] Blood 08/06/2024 4:23 AM CDT 08/06/2024 5:12 AM CDT us Shahida Zhang PA-C HEMATOLOGY ORDERABL E Final Result [facility] [address] [place] [address] * XR ERCP BILIARY ONLY (08/05/2024 6:58 PM CDT) Only the most recent of2 resultswithin the time period is included. Anatomical Region Laterality Modality ABD/Pelvis Computed Radiogr [...] Narrative TEST - 08/05/2024 7:29 PM CDT [facility] Patient Name: Esvin Taylor Procedure Date: [...] Provider: Medicines: General Anesthesia, Indomethacin 100 mg [place] Complications: No immediate complications. Estimated blood loss: [...] by the physician, the nurse and the overhead distribution engineer in the pre-procedure area in the procedure [...] patient tolerated the procedure well. Findings: A salesforce administrator film of the abdomen was obtained. Surgical [...] clinical course. 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 All rights reserved. The codes documented in this report are preliminary and upon development consultant review may be revised to meet current compliance requirements. Jonathon Oscar MD 08/05/2024 7:28:53 PM Number of Addenda: 0 Note Initiated On: 08/05/2024 6:22 PM [address] [address] Procedure Note Jonathon Oscar MD - 08/05/2024 [facility] Patient Name: Esvin Taylor Procedure Date: [...] Provider: Medicines: General Anesthesia, Indomethacin 100 mg [place] Complications: No immediate complications. Estimated blood loss: [...] by the physician, the nurse and the overhead distribution engineer in the pre-procedure area in the procedure [...] patient tolerated the procedure well. Findings: A salesforce administrator film of the abdomen was obtained. Surgical [...] clinical course. Procedure Code(s): --- Professional --- 36194, Endoscopic retrograde cholangiopancreatography (ERCP); diagnostic, including collection of specimen(s) by brushing orwashing, when performed (separate procedure) [address]3602, Endoscopic cannulation of papilla with direct visualization of pancreatic/common bile duct(s) (List separately in addition tocode(s) for primary procedure) Diagnosis Code(s): --- Professional --- Z90.49, Acquired absence of other specified parts of digestivetract CPT copyright 2021 [employer]. All rights reserved. The codes documented in this report are preliminary and upon development consultant reviewmay be revised to meet current compliance requirements. Jonathon Oscar MD 08/05/2024 7:28:53 PM Number of Addenda: 0 Note Initiated On: 08/05/2024 6:22 PM [address] [address] Jonathon Oscar MD PROCEDURE ORDERABLE Final Result Performing Organization Address [facility] de Phone Number TEST * Intubation (08/05/2024 6:04 PM CDT) Narrative Elias Romero APRN, QI - 08/05/2024 6:04 PM CDT Elias Romero APRN, QI 08/05/2024 6:12 PM Intubation Location: OR Procedural Details: Direct Vision, Atraumatic, Rapid Sequence/Cricoid Pressure, Dentition Intact, Preox and Pharynx Clear Entry Site: Oral Laryngoscope size: 3 Laryngoscope type: Mac Tube size: 7.0 Maskability: not attempted Ease: easy Cormack-Lehane: grade I - visualization of entire laryngeal aperture (95%) Tube type: Single Lumen Performed by:, QI Post-procedure assessment: BBS and EtCO2 + Cuff inflated: yes ETT to lip: 21 cm us Jon Rodriguez MD AN BLOCKS Final Result * Extra Tube-EDTA (Lab Use Only) (08/05/2024 5:19 AM CDT) Only the most recent of2 resultswithin the time period is included. Blood 08/05/2024 5:19 AM CDT 08/05/2024 5:42 AM CDT us Calvin Mon MD HEMATOLOGY ORDERABLE Final R esult Performing Organization Address [facility] Co de Phone Number [facility] [address] [place] [address] * (ABNORMAL) Liver Profile (08/05/2024 5:19 AM CDT) Only the most recent of3 resultswithin the time period is included. ALT 783(H) 7 - 40 U/L 08/05/2024 6:08 AM T [facility] Comment:Interpret with cauti on, specimen slightly hemolyzed. Results may be affected. Alkaline Phosphatase 144(H) 46 - 116 U/L 08/05/2024 6:08 AM T [facility] AST (SGOT) 691(H) 13 - 40 U/L 08/05/2024 6:08 AM [facility] Protein Total 7.6 5.7 - 8.2 g/dL 08/05/2024 6:08 AM [facility] Albumin 3.7 3.4 - 5.0 g/dL 08/05/2024 6:08 AM [facility] Bilirubin-Direct 0.80(H) <0.40 mg/dL 08/05/2024 6:08 AM [facility] Bilirubin-Total 1.50(H) 0.30 - 1.20 mg/dL 08/05/2024 6:08 AM [facility] Blood 08/05/2024 5:19 AM CDT 08/05/2024 5:35 AM T us Calvin Mon MD CHEMISTRY ORDERABLE Final Re sult [facility] [address] [place] [address] * (ABNORMAL) Basic Metabolic Profile (08/05/2024 5:19 AM CDT) Only the most recent of2 resultswithin the time period is included. Sodium 137 136 - 145 mmol/L 08/05/2024 6:12 AM [facility] Potassium 4.9 3.4 - 5.1 mmol/L 08/05/2024 6:12 AM [facility] Comment:Interpret with cauti on, specimen slightly hemolyzed. Results may be affected. Chloride 107 98 - 108 mmol/L 08/05/2024 6:12 AM [facility] Carbon Dioxide 21 20 - 31 mmol/L 08/05/2024 6:12 AM [facility] BUN (Urea Nitro) 17 9 - 23 mg/dL 08/05/2024 6:12 AM [facility] Comment:Interpret with cauti on, specimen slightly hemolyzed. Results may be affected. Creatinine 0.48(L) 0.55 - 1.02 mg/dL 08/05/2024 6:12 AM [facility] Est GFR (CKD-EPI) >60.00 >60.00 mL/min/1. 73m2 08/05/2024 6:12 AM CDT [facility] Comment:Calculation based on the Chronic Kidney Disease Epidemiology Collaboration (CKD-EPI) equation refit without adjustment for race. Glucose 132(H) 74 - 106 mg/dL 08/05/2024 6:12 AM CDT [facility] Calcium, Serum 8.7 8.7 - 10.4 mg/dL 08/05/2024 6:12 AM CDT [facility] Anion Gap 9.0 0.0 - 15.0 mmol/L 08/05/2024 6:12 AM CDT [facility] Blood 08/05/2024 5:19 AM CDT 08/05/2024 5:35 AM CDT us Calvin Mon MD CHEMISTRY ORDERABLE Final Re sult [facility] [address] [place] [address] * CT ABDOMEN & PELVIS W/O ORAL [...] COAGULATION ORDERABLE Final Result Performing Organization Address [facility] Co de Phone Number [facility] [address] [place] [address] * Extra Tube-Blood Bank (Lab Use Only) (08/04/2024 1:13 PM CDT) Blood 08/04/2024 1:13 PM CDT 08/04/2024 1:26 PM CDT Steve Branch MD BLOOD BANK ORDERABLE Final Result Performing Organization Address [facility] Co de Phone Number [facility] [address] [place] [address] * Extra Tube-SST (Lab Use Only) (08/04/2024 1:13 PM CDT) Blood 08/04/2024 1:13 PM CDT 08/04/2024 1:25 PM CDT Steve Branch MD CHEMISTRY ORDERABLE Final R esult Performing Organization Address [facility] Co de Phone Number [facility] [address] [place] [address] * Lipase (08/04/2024 1:13 PM CDT) Only the most recent of2 resultswithin the time period is included. Lipase 39 12 - 53 U/L 08/04/2024 1:54 PM CDT [facility] Blood 08/04/2024 1:13 PM CDT 08/04/2024 1:27 PM CDT Steve Branch MD CHEMISTRY ORDERABLE Final R esult Performing Organization Address City/[facility] Co de Phone Number [facility] [address] [place] [address] * Extra Tube PST (Lab Use Only) (08/04/2024 1:13 PM CDT) Blood 08/04/2024 1:13 PM CDT 08/04/2024 1:27 PM CDT Steve Branch MD CHEMISTRY ORDERABLE Final R esult [facility] [address] [address] * XR FLUOROSCOPY LESS THAN 1 HR [...] above. REPORT SIGNED BY Con Enriquez M.D. us Travis Car MD XRAY ORDERABLE Final Re sult * Surgical Pathology (08/04/2024 10:33 AM CDT) Case Report Surgical Pathology Case: [id number] Authorizing Provider: Travis Car MD Collected: 08/04/2024 10:33 AM Ordering Location: [facility] Received: 08/04/2024 02:04 PM Hospital Advanced Procedure Unit Pathologist: Chai Newton Jr., MD Specimen: Stomach, Random Biopsy 08/05/2024 2:30 PM CDT [facility] Final Diagnosis Random stomach, biopsy: Chronic gastritis. Immunostain for Helicobacter is POSITIVE. 08/05/2024 2:30 PM CDT [facility] at 1430 CDT Gross Description Stomach biopsy, random: Four up to 0.3 cm. IT-1. 08/05/2024 2:30 PM CDT [facility] Microscopic Description Performed. Immunostain for Helicobacter with adequate positive and negative tissue controls shows scattered reactivity consistent with low-level positivity. 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] us Travis Car MD PATHOLOGY/CYTOLOGY ORDER ABLE Final Result [facility] [address] [place], [place] [id number] * Carbapenemase PCR (08/04/2024 10:07 AM CDT) Source RECTAL 08/06/2024 9:03 AM CDT [facility] KPC PCR Negative Negative 08/06/2024 9:03 AM CDT [facility] NDM PCR Negative Negative 08/06/2024 9:03 AM CDT [facility] VIM PCR Negative Negative 08/06/2024 9:03 AM CDT [facility] OXA-48 PCR Negative Negative 08/06/2024 9:03 AM CDT [facility] IMP PCR Negative Negative 08/06/2024 9:03 AM CDT [facility] Rectal swab RECTAL SWAB / Unknown 08/04/2024 10:07 AM CDT 08/04/2024 10:11 AM CDT Narrative [facility] - 08/06/2024 9:03 AM CDT This assay tests for the presence of the following carbapenemase gene sequences: blaKPC, blaNDM, blaVIM, blaOXA-48, and blaIMP. If a gene sequence is not detected the gene is absent, altered, or below the assay detection level. us Ivan Chadwick SEND OUT ORDERABLE Final Result [address] [address] * Intubation (08/04/2024 10:00 AM CDT) Narrative Marvin Magallanes APRN, CRNA - 08/04/2024 10:00 AM CDT Marvin Magallanes APRN, CRNA 08/04/2024 10:11 AM Intubation Location: OR Procedural Details: Direct Vision, Atraumatic, Rapid Sequence/Cricoid Pressure, Dentition Intact, Preox and Pharynx Clear Entry Site: Oral Laryngoscope size: 2 Laryngoscope type: Irving Tube size: 7.0 Maskability: not attempted Ease: easy Cormack-Lehane: grade I - visualization of entire laryngeal aperture (95%) Tube type: Single Lumen and Cuffed Performed by: Marvin Magallanes APRN, QI, SENIOR DYNAMICS CRM DEVELOPER Post-procedure assessment: BBS and EtCO2 + Cuff inflated: yes ETT to lip: 22 cm us Marvin Magallanes APRN, CRNA AN BLOCKS Final R esult * Endoscopy (08/04/2024 9:31 AM CDT) 08/04/2024 9:31 AM CDT Narrative TEST - 08/04/2024 11:12 AM CDT [facility] Patient Name: Esvin Talyor Procedure Date: 08/04/2024 9:31 AM Date of : 1995 Note Status: Finalized Attending MD: Travis Car MD, Procedure: ERCP Indications: Cystic duct stone(s); 29F s/p cholecystectomy on 05/24/2024 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 ERCP performed with 10 Malay by 7 cm stent placed, LFTs normalized other than mild elevation in AST today (normal alk phos). For ERCP for further evaluation and either stent removal versus stent exchange. Providers: Travis Car MD, Sonia Hagen RN, Travis Car MD Requesting Provider: Medicines: General Anesthesia, Indomethacin 100 mg [place] Complications: No immediate complications. Procedure: Pre-Anesthesia Assessment: [...] by the physician, the nurse and the overhead distribution engineer in the pre-procedure area in the procedure [...] patient tolerated the procedure well. Findings: A salesforce administrator film of the abdomen was obtained. Surgical [...] the patient. Procedure Code(s): --- Professional --- 91648, Endoscopic retrograde cholangiopancreatography (ERCP); with removal of foreign body(s) or stent(s) from biliary/pancreatic duct(s) 45159, Endoscopic catheterization of the biliary ductal system, radiological supervision and interpretation Diagnosis Code(s): --- Professional --- Z90.49, Acquired absence of other specified parts of digestive tract K80.20, Calculus of gallbladder without cholecystitis without obstruction Z46.59, Encounter for fitting and adjustment of other gastrointestinal appliance and device CPT copyright 2021 [employer]. All rights reserved. The codes documented in this report are preliminary and upon development consultant review may be revised to meet current compliance requirements. 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 ERCP performed with 10 Malay by 7cm stent placed, LFTs normalized other than mild elevation in AST today (normal alk phos). For ERCP for further evaluation and either stent removal versus stent exchange. Providers: Travis Car MD, Sonia Hagen RN, Travis Car MD Requesting Provider: Medicines: General Anesthesia, Indomethacin 100 mg [place] Complications: No immediate complications. Procedure: Pre-Anesthesia Assessment: [...] by the physician, the nurse and the overhead distribution engineer in the pre-procedure area in the procedure [...] patient tolerated the procedure well. Findings: A salesforce administrator film of the abdomen was obtained. Surgical [...] the patient. 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 All rights reserved. The codes documented in this report are preliminary and upon development consultant reviewmay be revised to meet current compliance requirements. Travis Car MD 08/04/2024 11:11:57 AM This report has been signed electronically.Travis Car MD Number of Addenda: 0 Note Initiated On: 08/04/2024 9:31 AM [address] [address] [place] Travis Car MD PROCEDURE ORDERABLE Danica l Result Performing Organization Address City/[facility]/ZIP Co de Phone Number TEST * Protime/INR (08/04/2024 9:29 AM CDT) Only the most recent of2 resultswithin the time period is included. INR 1.1 0.9 - 1.2 08/04/2024 9:45 AM CDT [facility] Blood VENOUS BLOOD SPECIMEN / Unknown 08/04/2024 9:29 AM CDT 08/04/2024 9:30 AM CDT us Travis Car MD COAGULATION ORDERABLE Fi nal Result Performing Organization Address [facility]/ZIP Co de Phone Number [facility] [address] [id number] * hCG Urine (08/04/2024 7:08 AM CDT) Pathologist [facility] hCG Urine Negative Negative 08/04/2024 7:20 AM CDT [facility] Urine 08/04/2024 7:08 AM CDT 08/04/2024 7:13 AM CDT us Wilmer Romo MD URINE ORDERABLE Final Res ult Performing Organization Address City/[facility] Co de Phone Number [facility] [address] [place] [phone] * (ABNORMAL) POCT Glucose Meter (06/03/2024 4:58 PM CDT) Only the most recent of5 resultswithin the time period is included. [facility] GLUCOSE WB METER 121(H) 60 - 100 mg/dL 06/03/2024 5:22 PM CDT [facility] Blood 06/03/2024 4:58 PM CDT 06/03/2024 5:22 PM CDT us Aryan Munoz MD LAB POINT OF CARE TEST RES ULTS Final Result Performing Organization Address [facility] Co de Phone Number [address] [address] * (ABNORMAL) Urinalysis Microscopy (Lab Use Only) (06/03/2024 11:08 AM CDT) Only the most recent of2 resultswithin the time period is included. [facility] WBC-UA 50-100(A) None Seen, Occasiona l, 1-4 /hpf 06/03/2024 1:10 PM CDT [facility] BACTERIA Present(A) Absent, None Seen 06/03/2024 1:10 PM CDT [facility] SQUAM EPITHELIAL Many(A) None Seen /lpf 06/03/2024 1:10 PM CDT [facility] RBC-UA None Seen None Seen, Occasiona l, 1-2 /hpf 06/03/2024 1:10 PM CDT [facility] Urine URINE SPECIMEN / Unknown 06/03/2024 11:08 AM CDT 06/03/2024 11:13 AM CDT us Aryan Munoz MD URINE ORDERABLE Final Resu lt [facility] [address] [id number] * (ABNORMAL) Urinalysis Macroscopic w/ Microscopy, if indicated (Does not inc culture) (06/03/2024 11:08 AM CDT) Only the most recent of2 resultswithin the time period is included. pH Urine 5.5 5.0 - 8.0 06/03/2024 12:41 PM CDT [facility] Specific [place], UA 1.025 1.015 - 1.025 06/03/2024 12:41 PM T [facility] Glucose, UA Negative Negative mg/dL 06/03/2024 12:41 PM T [facility] Ketone, UA Negative Negative mg/dL 06/03/2024 12:41 PM T [facility] Bilirubin, UA Negative Negative 06/03/2024 12:41 PM T [facility] Urobilinogen, UA 0.2 0.2 - 1.0 EU/dL 06/03/2024 12:41 PM T [facility] Protein, UA Negative Negative mg/dL 06/03/2024 12:41 PM T [facility] Occult Blood, UA Small(A) Negative, Trace 06/03/2024 12:41 PM T [facility] WBC Esterase, UA Moderate(A) Negative, Trace 06/03/2024 12:41 PM CDT [facility] Nitrite, UA Negative Negative 06/03/2024 12:41 PM T [facility] Urine URINE SPECIMEN / Unknown 06/03/2024 11:08 AM CDT 06/03/2024 11:13 AM CDT us Aryan Munoz MD URINE ORDERABLE Final Resu lt [facility] [address] [id number] * Endoscopy (06/02/2024 4:36 PM CDT) 06/02/2024 4:36 PM CDT Narrative TEST - 06/02/2024 5:52 PM CDT [facility] Patient Name: Esvin Taylor Procedure Date: 06/02/2024 4:36 PM Date of : 1995 Note Status: Gopherman Override Attending MD: Travis Car MD, Procedure: ERCP 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 Procedure: Pre-Anesthesia Assessment: [...] by the physician, the nurse and the overhead distribution engineer in the pre-procedure area in the procedure room. Mental Status Examination: alert and oriented. Airway Examination: normal oropharyngeal airway and neck mobility. Respiratory Examination: clear to auscultation. CV Examination: normal. Prophylactic Antibiotics: The patient does not require prophylactic antibiotics. Prior Anticoagulants: The patient has taken no anticoagulant or antiplatelet agents. ASA Grade Assessment: III - A patient with severe systemic disease. After reviewing the risks and [...] patient tolerated the procedure well. Findings: A salesforce administrator film of the abdomen was obtained. Surgical clips, consistent with a previous cholecystectomy, were seen in the area of the right upper quadrant of the abdomen. The esophagus was successfully intubated under direct vision. The scope was advanced to a normal major papilla in the descending duodenum without detailed examination of the pharynx, larynx and associated structures, and upper GI tract. The upper GI tract was grossly normal. The bile duct was deeply cannulated with the short-nosed traction sphincterotome. Contrast was injected. I personally interpreted the bile duct images. Ductal flow of contrast was adequate. Image quality was adequate. Contrast extended to the entire biliary tree. The cystic duct contained one stone, which was 7 mm in diameter. The common hepatic duct was diffusely dilated, with a stone causing an obstruction. The largest diameter was 8 mm. There is possible extravasation of contrast from the gallbladder fossa however given obstruction by the cystic duct stone this was not well characterized. An 8 mm biliary sphincterotomy was made with a monofilament traction (standard) sphincterotome using ERBE electrocautery. There was no post-sphincterotomy bleeding. The biliary tree was swept with an 11.5 mm balloon starting at the cystic duct and bifurcation. Nothing was found other than small amounts of pus. The stone was unable to be extracted from the cystic duct, and given high risk for cystic duct perforation with the size of the stone and the smaller caliber distal cystic duct, further attempts at stone extraction were not performed. One 10 Fr by 7 cm Sofflex stent with a single external flap and a single internal flap was placed 6.5 cm into the common bile duct. Bile flowed through the stent. The stent was in good position upstream from the area of compression from the cystic duct stone. Impression: - Mirizzi syndrome with a large 7 mm stone in the distal cystic duct and dilation of the common hepatic duct proximal to the stone up to 8 mm. - The stone was unable to be extracted from the cystic duct with an 11.5mm extraction balloon, and given high risk for cystic duct perforation with the size of the stone and the smaller caliber distal cystic duct, further attempts at stone extraction were not performed. - One 10 Fr by 7 cm Sofflex stent was placed into the common bile duct with the proximal end upstream from the area of compression. Recommendation: - [facility]. - No anticoagulation (to include DVT chemoprophylaxis) for 72 hours. - Okay to restart diet. - Given small amounts of pus in the duct found despite normal WBC, would recommend antibiotics for total of 5 days - can be transition to oral antibiotics if discharged before this. - Repeat ERCP in 2 months for stent removal and evaluation for possible cystic duct stone extraction. Can reassess for bile leak resolution at that time if amenable. - The findings and recommendations were discussed with the patient. Procedure Code(s): --- Professional --- 80083, Endoscopic retrograde cholangiopancreatography (ERCP); with placement of endoscopic stent into biliary or pancreatic duct, including pre- and post-dilation and guide wire passage, when performed, including sphincterotomy, when performed, each stent 98282, Endoscopic catheterization of the biliary ductal system, radiological supervision and interpretation Diagnosis Code(s): --- Professional --- K83.1, Obstruction of bile duct K80.51, Calculus of bile duct without cholangitis or cholecystitis with obstruction CPT copyright 2021 [employer]. All rights reserved. The codes documented in this report are preliminary and upon development consultant review may be revised to meet current compliance requirements. 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 Procedure: Pre-Anesthesia Assessment: [...] by the physician, the nurse and the overhead distribution engineer in the pre-procedure area in the procedure room. Mental Status Examination: alert and oriented. Airway Examination: normal oropharyngeal airway and neck mobility. Respiratory Examination:clear to auscultation. CV Examination: normal. Prophylactic Antibiotics:The patient does not require prophylactic antibiotics. PriorAnticoagulants: The patient has taken no anticoagulant or antiplatelet agents. ASAGrade Assessment: III - A patient with severe systemic disease. After reviewing the risks and benefits, the patient was deemed insatisfactory condition to undergo the procedure. The anesthesia plan was to use general anesthesia. Immediately prior to administration ofmedications, the patient was re-assessed for adequacy to receive sedatives. Theheart rate, respiratory rate, oxygen saturations, blood pressure, [...] patient tolerated the procedure well. Findings: A salesforce administrator film of the abdomen was obtained. Surgical clips, consistent with a previous cholecystectomy, were seen in the area of the right upper quadrant of the abdomen. The esophagus was successfullyintubated under direct vision. The scope was advanced to a normal major papillain the descending duodenum without detailed examination of the pharynx, larynx and associated structures, and upper GI tract. The upper GItract was grossly normal. The bile duct was deeply cannulated with the short-nosed traction sphincterotome. Contrast was injected. Ipersonally interpreted the bile duct images. Ductal flow of contrast wasadequate. Image quality was adequate. Contrast extended to the entire biliary tree. The cystic duct contained one stone, which was 7 mm indiameter. The common hepatic duct was diffusely dilated, with a stone causingan obstruction. The largest diameter was 8 mm. There is possible extravasation of contrast from the gallbladder fossa however given obstruction by the cystic duct stone this was not well characterized.An 8 mm biliary sphincterotomy was made with a monofilament traction (standard) sphincterotome using ERBE electrocautery. There was no post-sphincterotomy bleeding. The biliary tree was swept with an 11.5mm balloon starting at the cystic duct and bifurcation. Nothing wasfound other than small amounts of pus. The stone was unable to be extracted from the cystic duct, and given high risk for cystic duct perforation with the size of the stone and the smaller caliber distal cysticduct, further attempts at stone extraction were not performed. One 10 Fr by7 cm Sofflex stent with a single external flap and a single internalflap was placed 6.5 cm into the common bile duct. Bile flowed through the stent. The stent was in good position upstream from the area of compression from the cystic duct stone. Impression: - Mirizzi syndrome with a large 7 mm stone in the distal cystic ductand dilation of the common hepatic duct proximal to the stone up to 8mm. - The stone was unable to be extracted from the cystic duct with an 11.5mm extraction balloon, and given high risk for cystic duct perforation with the size of the stone and the smaller caliber distal cystic duct, further attempts at stone extraction were notperformed. - One 10 Fr by 7 cm Sofflex stent was placed into the common bileduct with the proximal end upstream from the area of compression. Recommendation: - [facility]. - No anticoagulation (to include DVT chemoprophylaxis) for 72hours. - Okay to restart diet. - Given small amounts of pus in the duct found despite normal WBC,would recommend antibiotics for total of 5 days - can be transition to oral antibiotics if discharged before this. - Repeat ERCP in 2 months for stent removal and evaluation forpossible cystic duct stone extraction. Can reassess for bile leak resolutionat that time if amenable. - The findings and recommendations were discussed with the patient. Procedure Code(s): --- Professional --- 63747, Endoscopic retrograde cholangiopancreatography (ERCP); with placement of endoscopic stent into biliary or pancreatic duct,including pre- and post-dilation and guide wire passage, when performed,including sphincterotomy, when performed, each stent 52751, Endoscopic catheterization of the biliary ductal system, radiological supervision and interpretation Diagnosis Code(s): --- Professional --- K83.1, Obstruction of bile duct K80.51, Calculus of bile duct without cholangitis or cholecystitiswith obstruction CPT copyright 2021 [employer]. All rights reserved. The codes documented in this report are preliminary and upon development consultant reviewmay be revised to meet current compliance requirements. Travis Car MD 06/02/2024 5:52:22 PM This report has been signed electronically.Travis Car MD Number of Addenda: 0 Note Initiated On: 06/02/2024 4:[address] [place] [address] Travis Car MD PROCEDURE ORDERABLE Edit ed Result - Final TEST * Intubation (06/02/2024 3:59 PM CDT) Narrative Richard Huff DNP, CRNA - 06/02/2024 3:59 PM CDT Richard Huff DNP, CRNA 06/02/2024 4:11 PM Intubation Location: OR Anesthesia Type: general Emergent? not emergent Procedural Details: Direct Vision, Atraumatic, Dentition Intact, Preox and Pharynx Clear Entry Site: Oral Laryngoscope size: 3 Laryngoscope type: Glidescope Tube size: 7.0 Maskability: not attempted Ease: easy Cormack-Lehane: grade I - visualization of entire laryngeal aperture (95%) Tube type: Single Lumen and Cuffed Performed by: Richard Huff DNP, CRNA, SENIOR DYNAMICS CRM DEVELOPER Post-procedure assessment: BBS and EtCO2 + Cuff inflated: yes ETT to lip: 21 cm us Jeb GOMES Final Result * Endoscopy (06/02/2024 2:59 PM CDT) 06/02/2024 2:59 PM CDT Narrative TEST - 06/02/2024 5:40 PM CDT [facility] Patient Name: Esvin Taylor Procedure Date: 06/02/2024 2:59 PM Date of : 1995 Note Status: Finalized Attending MD: Travis Car MD, Procedure: Upper EUS Indications: Elevated liver enzymes; 29 y.o. female with history of recent cholecystectomy (05/24/2024) who was directly admitted from outside hospital with persistent abdominal pain, elevated liver tests and mild lipase elevation. CT at OSH (images not available)with decreased volume of fluid at the gallbladder fossa with no evidence of hematoma or biloma. For EUS/ERCP for further evaluation. Providers: Travis Car MD, Aura Hagen RN, Travis Car MD Requesting Provider: Medicines: General Anesthesia Complications: No immediate complications. Procedure: Pre-Anesthesia Assessment: [...] by the physician, the nurse and the overhead distribution engineer in the pre-procedure area in the procedure room. Mental Status Examination: alert and oriented. Airway Examination: normal oropharyngeal airway and neck mobility. Respiratory Examination: clear to auscultation. CV Examination: normal. Prophylactic Antibiotics: The patient does not require prophylactic antibiotics. Prior Anticoagulants: The patient has taken no anticoagulant or antiplatelet agents. ASA Grade Assessment: III - A patient with severe systemic disease. After reviewing the risks and [...] the procedure. After obtaining informed consent, the endoscope was passed under direct vision. Throughout the procedure, the patient's blood pressure, pulse, and oxygen saturations were monitored continuously. The was introduced through the mouth, and advanced to the second part of duodenum. Retroflexion was performed in stomach. The upper EUS was accomplished without difficulty. The patient tolerated the procedure well. Findings: ENDOSONOGRAPHIC FINDING: : One stone was visualized endosonographically in the distal cystic duct. The stone measured 7 mm in greatest dimension. The stone was round. It was hyperechoic and characterized by shadowing. The cystic cuct also contains sludge throughout, with the proximal portion of the cystic duct communicating with a 20 mm x 18 mm hypoechoic lesion with irregular borders in the gallbladder fossa that is likely the decreasing fluid collection. The stone was causing compression of the bile duct at the junction with the cystic duct (Mirizzi syndrome). with a decompressed distal bile duct measuring 1 mm in maximum diameter at a dilated common hepatic duct above the cystic duct takeoff measuring 8 mm in diameter. The common hepatic duct proximal to the takeoff of the cystic duct was dilated up to 8 mm in the distal common bile duct was decompressed measuring 1 mm in maximum diameter. Endosonographic imaging in the visualized portion of the liver showed no other lesions. One enlarged, reactive appearing lymph node was visualized in the gastrohepatic ligament (level 18). It measured 7 mm by 4 mm in maximal cross-sectional diameter. The node was oval, hypoechoic and had well defined margins. The celiac axis, left adrenal gland, and spleen were normal in appearance. Impression: - Mirizzi syndrome with a 7 mm stone in the distal cystic duct compressing the bile duct with upstream dilation to 8 cm and a decompressed distal duct. - A 20 mm x 18 mm hypoechoic lesion in the gallbladder fossa likely representing the fluid collection that is decreasing in size. Recommendation: - Proceed with ERCP for biliary decompression. Procedure Code(s): --- Professional --- 02982, Esophagogastroduodenoscopy, flexible, transoral; with endoscopic ultrasound examination limited to the esophagus, stomach or duodenum, and adjacent structures Diagnosis Code(s): --- Professional --- K80.20, Calculus of gallbladder without cholecystitis without obstruction R74.8, Abnormal levels of other serum enzymes CPT copyright 2021 [employer]. All rights reserved. The codes documented in this report are preliminary and upon development consultant review may be revised to meet current compliance requirements. Travis Car MD 06/02/2024 5:40:55 PM This report has been signed electronically.Travis Car MD Number of Addenda: 0 Note Initiated On: 06/02/2024 2:59 PM [address] [place] [address] Procedure Note Travis Car MD - 06/02/2024 [facility] Patient Name: Esvin Taylor Procedure Date: 06/02/2024 2:59 PM Date of : 1995 Note Status: Finalized Attending MD: Travis Car MD, Procedure: Upper EUS Indications: Elevated liver enzymes; 29 y.o. female with history of recent cholecystectomy (05/24/2024) who was directly admitted from outside hospital with persistent abdominal pain, elevated liver tests andmild lipase elevation. CT at OSH (images not available)with decreasedvolume of fluid at the gallbladder fossa with no evidence of hematoma or biloma. For EUS/ERCP for further evaluation. Providers: Travis Car MD, Aura Hagen RN, Travis Car MD Requesting Provider: Medicines: General Anesthesia Complications: No immediate complications. Procedure: Pre-Anesthesia Assessment: [...] by the physician, the nurse and the overhead distribution engineer in the pre-procedure area in the procedure room. Mental Status Examination: alert and oriented. Airway Examination: normal oropharyngeal airway and neck mobility. Respiratory Examination:clear to auscultation. CV Examination: normal. Prophylactic Antibiotics:The patient does not require prophylactic antibiotics. PriorAnticoagulants: The patient has taken no anticoagulant or antiplatelet agents. ASAGrade Assessment: III - A patient with severe systemic disease. After reviewing the risks and benefits, the patient was deemed insatisfactory condition to undergo the procedure. The anesthesia plan was to use general anesthesia. Immediately prior to administration ofmedications, the patient was re-assessed for adequacy to receive sedatives. Theheart rate, respiratory rate, oxygen saturations, blood pressure, adequacyof pulmonary ventilation, and response to care were monitored throughout the procedure. The physical status of the patient was re-assessedafter the procedure. After obtaining informed consent, the endoscope was passed underdirect vision. Throughout the procedure, the patient's blood pressure,pulse, and oxygen saturations were monitored continuously. The wasintroduced through the mouth, and advanced to the second part of duodenum. Retroflexion was performed in stomach. The upper EUS was accomplished without difficulty. The patient tolerated the procedure well. Findings: ENDOSONOGRAPHIC FINDING: : One stone was visualized endosonographically in the distal cysticduct. The stone measured 7 mm in greatest dimension. The stone was round.It was hyperechoic and characterized by shadowing. The cystic cuct also contains sludge throughout, with the proximal portion of the cysticduct communicating with a 20 mm x 18 mm hypoechoic lesion with irregular borders in the gallbladder fossa that is likely the decreasing fluid collection. The stone was causing compression of the bile duct at the junction with the cystic duct (Mirizzi syndrome). with a decompressed distal bile duct measuring 1 mm in maximum diameter at a dilatedcommon hepatic duct above the cystic duct takeoff measuring 8 mm indiameter. The common hepatic duct proximal to the takeoff of the cystic ductwas dilated up to 8 mm in the distal common bile duct was decompressed measuring 1 mm in maximum diameter. Endosonographic imaging in the visualized portion of the liver showedno other lesions. One enlarged, reactive appearing lymph node was visualized in the gastrohepatic ligament (level 18). It measured 7 mm by 4 mm inmaximal cross-sectional diameter. The node was oval, hypoechoic and had well defined margins. The celiac axis, left adrenal gland, and spleen were normal in appearance. Impression: - Mirizzi syndrome with a 7 mm stone in the distal cystic duct compressing the bile duct with upstream dilation to 8 cm and a decompressed distal duct. - A 20 mm x 18 mm hypoechoic lesion in the gallbladder fossa likely representing the fluid collection that is decreasing in size. Recommendation: - Proceed with ERCP for biliary decompression. Procedure Code(s): --- Professional --- 28511, Esophagogastroduodenoscopy, flexible, transoral; withendoscopic ultrasound examination limited to the esophagus, stomach or duodenum, and adjacent structures Diagnosis Code(s): --- Professional --- K80.20, Calculus of gallbladder without cholecystitis withoutobstruction R74.8, Abnormal levels of other serum enzymes CPT copyright 2021 [employer]. All rights reserved. The codes documented in this report are preliminary and upon development consultant reviewmay be revised to meet current compliance requirements. Travis Car MD 06/02/2024 5:40:55 PM This report has been signed electronically.Travis Car MD Number of Addenda: 0 Note Initiated On: 06/02/2024 2:59 PM [address] [id number] [place] Travis Car MD PROCEDURE ORDERABLE Danica l Result Performing Organization Address City/[facility] Co de Phone Number TEST * HCG Total, Serum (06/02/2024 8:44 AM CDT) Pathologist [facility] hCG Total, Serum 3 <=10 MIU/mL 06/02/2024 12:22 PM CDT [facility] Blood 06/02/2024 8:44 AM CDT 06/02/2024 9:43 AM CDT us Travis Car MD CHEMISTRY ORDERABLE Danica l Result Performing Organization Address [facility] Co de Phone Number [facility] [address] [id number] * Lactic Acid (06/01/2024 5:05 PM CDT) Pathologist [facility] Lactic Acid 0.8 0.7 - 2.1 mmol/L 06/01/2024 5:19 PM CDT [facility] Blood 06/01/2024 5:05 PM CDT 06/01/2024 5:09 PM CDT Jose Carrasco MD CHEMISTRY ORDERABLE Final Res ult Performing Organization Address [facility]/ZIP Co de Phone Number [facility] [address] [place] [address] * Hepatitis A / B / C Profile (06/01/2024 5:05 PM CDT) HEP BC [facility] [place] Non-Reacti ve Non-Reacti ve 06/01/2024 6:14 PM CDT [facility] HEP A IGM [place] Non-Reacti ve Non-Reacti ve 06/01/2024 6:14 PM CDT [facility] HEP BS ANTIGEN Non-Reacti ve Non-Reacti ve 06/01/2024 6:14 PM CDT [facility] Hepatitis C Antibody Non-Reacti ve Non-Reacti ve 06/01/2024 6:14 PM CDT [facility] Blood 06/01/2024 5:05 PM CDT 06/01/2024 5:11 PM CDT Jose Carrasco MD IMMUNOLOGY ORDERABLE Final Re sult Performing Organization Address [facility] Co de Phone Number [facility] [address] [place] [address] from Last 3 Months Additional Health Concerns Infection Onset Date Last Indicated C.auris Rule-Out 08/04/2024 08/04/2024 [facility] For more information, please contact: [phone] * Full Code (Latest Code Status on File) Date Activated Date Inactivated Comments 08/04/2024 8:22 PM 08/06/2024 8:40 PM Question Answer Comments How was code status determined? Patient * Full Code Date Activated Date Inactivated Comments 06/01/2024 4:34 PM 06/04/2024 2:35 AM Question Answer Comments How was code status determined? Patient Care Teams Employee Relations Consultant Relationship Specialty Start Date End Date None, PCP - General Internal Medicine 06/03/24
--- OUTSIDE RECORDS SUMMARY | 2024-08-30 00:30 | XMS_ITS | Referral Summary ---
Author Organization [facility] Address [address] [place] [address] Care Team Providers Care Lawyer Criminal Name Role Phone Marisol, Primary Care Provider Unavailabl e Encounters Date Type Department Care Team Description 08/04/2024 1:02 PM CDT - 08/06/2024 2:35 PM CDT Hospital Encounter W[address] [place] [address] [place] [address] Steve Branch MD Korbitz, Parker M, MD Halverson, Emily L E, MD Abdominal pain Discharge Disposition: Returning Home/Self Care 08/05/2024 5:15 PM CDT - 08/05/2024 6:40 PM CDT Surgery [facility] Advanced Procedure Unit [facility] [place] [address] Jonathon Oscar MD ENDOSCOPIC RETROGRADE CHOLANGIOPANCREATOGRAPHY SPHINCTEROTOMY 08/04/2024 Travel 08/04/2024 8:55 AM CDT - 08/04/2024 10:30 AM CDT Surgery [facility] Advanced Procedure Unit [facility] [address] [address] Travis Car MD ENDOSCOPIC RETROGRADE CHOLANGIOPANCREATOGRAPHY REMOVAL STENT 08/04/2024 6:55 AM CDT - 08/04/2024 12:04 PM CDT Hospital Encounter [facility] Patient Care Center [facility] [address] V[place] [address] Travis Car MD Mirizzi syndrome Discharge Disposition: Returning Home/Self Care 08/01/2024 Travel 06/01/2024 4:27 PM CDT - 06/03/2024 8:15 PM CDT Hospital Encounter W3 [address] [address] -Hospitalist Aryan Munoz MD Dastrange, Mehdi, MD Choledocholithiasis Discharge Disposition: Returning Home/Self Care 06/02/2024 1:45 PM CDT - 06/02/2024 2:50 PM CDT Surgery [facility] Advanced Procedure Unit [address] [address] Travis Car MD ENDOSCOPIC RETROGRADE CHOLANGIOPANCREATOGRAPHY SPHINCTEROTOMY from Last 3 Months Allergies No known active allergies Medications acetaminophen (TYLENOL) 500 mg oral tablet Take 1 tablet (500 mg) by mouth every 6 (six) hours as needed for fever or pain. Active polyethylene glycol (MIRALAX) 17 gram oral powder Take 17 g by mouth twice a day as needed for constipatio n. Mix each dose in 4-8 ounces of liquid as directed. 238 g 7:34 AM CDT 06/04/19 25 Active cholecalciferol [...] a day for 14 days. 112 tablet 08/07/19 025 metroNIDAZOLE (FLAGYL) 500 mg oral tabletIndications [...] Diagnosed Date Abdominal pain 08/04/2024 Choledocholithiasis 06/01/2024 Social History Tobacco Use Types Packs/Day Years Used Date Smoking Tobacco: Former Cigarettes Smokeless Tobacco: Never Tobacco Cessation:Counseling Given: Not Answered Alcohol Use Standard Drinks/Week Comments Not Currently 0 (1 standard drink = 0.6 oz pur e alcohol) Feb 2024 [facility] Utilities Answer Date Recorded In the past 12 months has [facility] [employer], oil, or water [employer] threatened to shut off services in your [...] any time in the past 12 m [facility], were you homeless or living in a care home (including now)? No 08/04/2024 Comments No [...] 08/05/2024 4:13 AM CDT Plan of Treatment Not on file Medical Devices Explanted Type Area Leasing Representative Device Identifier Shelf Expiration Date Model / Serial / Lot Cot Martini Sf Abelardo Stent 3.7x7 - [id number] Implanted:Qty: 1 on 06/02/2024 by Travis Car MD at [facility] Explanted:Qty: 1 on 08/04/2024 by Travis Car MD at [facility] Stent N/A: Bile Duct [employer] 02/20/2027 [id number] / / [id number] Procedures Procedure Name Priority Date/Time Associated Diagnosis [...] of4 resultswithin the time period is included. Sodium 140 136 - 145 mmol/L 08/06/2024 5:16 AM T [facility] Potassium 4.4 3.4 - 5.1 mmol/L 08/06/2024 5:16 AM T [facility] Chloride 110(H) 98 - 108 mmol/L 08/06/2024 5:16 AM T [facility] Carbon Dioxide 24 20 - 31 mmol/L 08/06/2024 5:16 AM [facility] BUN (Urea Nitro) 13 9 - 23 mg/dL 08/06/2024 5:16 AM T [facility] Creatinine 0.49(L) 0.55 - 1.02 mg/dL 08/06/2024 5:16 AM T [facility] Est GFR (CKD-EPI) >60.00 >60.00 mL/min/1. 73m2 08/06/2024 5:16 AM T [facility] Comment:Calculation based on the Chronic Kidney Disease Epidemiology Collaboration (CKD-EPI) equation refit without adjustment for race. Glucose 137(H) 74 - 106 mg/dL 08/06/2024 5:16 AM T [facility] Calcium, Serum 8.5(L) 8.7 - 10.4 mg/dL 08/06/2024 5:16 AM [facility] Anion Gap 6.0 0.0 - 15.0 mmol/L 08/06/2024 5:16 AM [facility] Albumin 3.6 3.4 - 5.0 g/dL 08/06/2024 5:16 AM [facility] Bilirubin-Total 0.50 0.30 - 1.20 mg/dL 08/06/2024 5:16 AM [facility] Alkaline Phosphatase 155(H) 46 - 116 U/L 08/06/2024 5:16 AM [facility] Protein Total 7.3 5.7 - 8.2 g/dL 08/06/2024 5:16 AM [facility] AST (SGOT) 252(H) 13 - 40 U/L 08/06/2024 5:16 AM [facility] ALT 578(H) 7 - 40 U/L 08/06/2024 5:16 AM [facility] Blood 08/06/2024 4:23 AM CDT 08/06/2024 4:43 AM CDT us Shahida Zhang PA-C CHEMISTRY ORDERABLE Final Result [facility] [address] [place] [address] * (ABNORMAL) CBC (Hgb,Hct,WBC,RBC,Platelet) (08/06/2024 4:23 AM CDT) Only the most recent of6 resultswithin the time period is included. WBC 11.7(H) 4.3 - 10.8 K/uL 08/06/2024 5:14 AM [facility] RBC 4.13(L) 4.20 - 5.40 M/uL 08/06/2024 5:14 AM T [facility] Hemoglobin 12.4 12.0 - 16.0 gm/dL 08/06/2024 5:14 AM [facility] Hematocrit 37.7 36.0 - 48.0 % 08/06/2024 5:14 AM T [facility] MCV 91 80 - 100 fL 08/06/2024 5:14 AM T [facility] MCH 30 27 - 33 pg 08/06/2024 5:14 AM [facility] MCHC 33 33 - 36 gm/dL 08/06/2024 5:14 AM [facility] RDW 13.5 11.5 - 14.5 % 08/06/2024 5:14 AM [facility] Platelet Count 241 150 - 400 K/UL 08/06/2024 5:14 AM [facility] MPV 10.2 6.5 - 12 fL 08/06/2024 5:14 AM [facility] Blood 08/06/2024 4:23 AM CDT 08/06/2024 5:12 AM CDT us Shahida Zhang PA-C HEMATOLOGY ORDERABL E Final Result Performing Organization Address City/State/[facility] de Phone Number [facility] [address] [place] [address] * XR ERCP BILIARY ONLY (08/05/2024 6:58 [...] Narrative TEST - 08/05/2024 7:29 PM CDT [facility] Patient Name: Esvin Taylor Procedure Date: [...] Jonathon Oscar MD, Aura Mujica, DONNA, Pat Garg RN, Olga Lidia Rojas RN, Jonathon Oscar MD Requesting Provider: Medicines: General Anesthesia, Indomethacin 100 mg ID Complications: No immediate complications. Estimated blood loss: [...] by the physician, the nurse and the rubber stamp dies inspector in the pre-procedure area in the procedure [...] patient tolerated the procedure well. Findings: A steel pickler film of the abdomen was obtained. Surgical [...] clinical course. Procedure Code(s): --- Professional --- 03287, Endoscopic retrograde cholangiopancreatography (ERCP); diagnostic, including collection of specimen(s) by brushing or washing, when performed (separate procedure) 04859, Endoscopic cannulation of papilla with direct visualization of pancreatic/common bile duct(s) (List separately in addition to code(s) for primary procedure) Diagnosis Code(s): --- Professional --- Z90.49, Acquired absence of other specified parts of digestive tract CPT copyright 2021 [place] [employer]. All rights reserved. The codes documented in this report are preliminary and upon pre coder review may be revised to meet current compliance requirements. Jonathon Oscar MD 08/05/2024 7:28:53 PM Number of Addenda: 0 Note Initiated On: 08/05/2024 6:22 PM [address] [place] [address] Procedure Note Jonathon Oscar MD - 08/05/2024 [facility] Patient Name: Esvin Taylor Procedure Date: [...] Provider: Medicines: General Anesthesia, Indomethacin 100 mg ID Complications: No immediate complications. Estimated blood loss: [...] by the physician, the nurse and the rubber stamp dies inspector in the pre-procedure area in the procedure [...] patient tolerated the procedure well. Findings: A steel pickler film of the abdomen was obtained. Surgical [...] clinical course. Procedure Code(s): --- Professional --- 48866, Endoscopic retrograde cholangiopancreatography (ERCP); diagnostic, including collection of specimen(s) by brushing orwashing, when performed (separate procedure) 48250, Endoscopic cannulation of papilla with direct visualization of pancreatic/common bile duct(s) (List separately in addition tocode(s) for primary procedure) Diagnosis Code(s): --- Professional --- Z90.49, Acquired absence of other specified parts of digestivetract CPT copyright 2021 [place]. All rights reserved. The codes documented in this report are preliminary and upon pre coder reviewmay be revised to meet current compliance requirements. Jonathon Oscar MD 08/05/2024 7:28:53 PM Number of Addenda: 0 Note Initiated On: 08/05/2024 6:22 PM [address] [place] [address] Jonathon Oscar MD PROCEDURE ORDERABLE Final Result TEST * Intubation (08/05/2024 6:04 PM CDT) Narrative Elias Romero APRN, CRNA - 08/05/2024 6:04 PM CDT Elias Romero APRN, CRNA 08/05/2024 6:12 PM Intubation Location: OR Procedural [...] Mon MD HEMATOLOGY ORDERABLE Final R esult [facility] [address] [facility] [place] [address] * (ABNORMAL) Liver Profile (08/05/2024 5:19 AM CDT) Only the most recent of3 resultswithin the time period is included. ALT 783(H) 7 - 40 U/L 08/05/2024 6:08 AM [facility] Comment:Interpret with cauti on, specimen slightly hemolyzed. Results may be affected. Alkaline Phosphatase 144(H) 46 - 116 U/L 08/05/2024 6:08 AM [facility] AST (SGOT) 691(H) 13 - 40 U/L 08/05/2024 6:08 AM [facility] Protein Total 7.6 5.7 - 8.2 g/dL 08/05/2024 6:08 AM [facility] Albumin 3.7 3.4 - 5.0 g/dL 08/05/2024 6:08 AM [facility] Bilirubin-Direct 0.80(H) <0.40 mg/dL 08/05/2024 6:08 AM [facility] Bilirubin-Total 1.50(H) 0.30 - 1.20 mg/dL 08/05/2024 6:08 AM [facility] Blood 08/05/2024 5:19 AM CDT 08/05/2024 5:35 AM CDT us Calvin Mon MD CHEMISTRY ORDERABLE Final Re sult [facility] [address] [address] * (ABNORMAL) Basic Metabolic Profile (08/05/2024 5:19 AM CDT) Only the most recent of2 resultswithin the time period is included. Sodium 137 136 - 145 mmol/L 08/05/2024 6:12 AM [facility] Potassium 4.9 3.4 - 5.1 mmol/L 08/05/2024 6:12 AM [facility] Comment:Interpret with cauti on, specimen slightly hemolyzed. Results may be affected. Chloride 107 98 - 108 mmol/L 08/05/2024 6:12 AM [facility] Carbon Dioxide 21 20 - 31 mmol/L 08/05/2024 6:12 AM [facility] BUN (Urea Nitro) 17 9 - 23 mg/dL 08/05/2024 6:12 AM [facility] Comment:Interpret with cauti on, specimen slightly hemolyzed. Results may be affected. Creatinine 0.48(L) 0.55 - 1.02 mg/dL 08/05/2024 6:12 AM [facility] Est GFR (CKD-EPI) >60.00 >60.00 mL/min/1. 73m2 08/05/2024 6:12 AM [facility] Comment:Calculation based on the Chronic Kidney Disease Epidemiology Collaboration (CKD-EPI) equation refit without adjustment for race. Glucose 132(H) 74 - 106 mg/dL 08/05/2024 6:12 AM [facility] Calcium, Serum 8.7 8.7 - 10.4 mg/dL 08/05/2024 6:12 AM [facility] Anion Gap 9.0 0.0 - 15.0 mmol/L 08/05/2024 6:12 AM CDT [facility] Blood 08/05/2024 5:19 AM CDT 08/05/2024 5:35 AM CDT us Calvin Mon MD CHEMISTRY ORDERABLE Final Re sult [facility] [address] [address] * CT ABDOMEN & PELVIS W/O ORAL [...] 08/04/2024 1:25 PM CDT Steve Branch MD COAGULATION ORDERABLE Final Result Performing Organization Address [facility] de Phone Number [facility] [address] [facility] [place] [address] * Extra Tube-Blood Bank (Lab Use Only) (08/04/2024 1:13 PM CDT) Blood 08/04/2024 1:13 PM CDT 08/04/2024 1:26 PM CDT Steve Branch MD BLOOD BANK ORDERABLE Final Result Performing Organization Address [facility] [[email or web address]] Co de Phone Number [facility] [address] [place] [address] * Extra Tube-SST (Lab Use Only) (08/04/2024 1:13 PM CDT) Blood 08/04/2024 1:13 PM CDT 08/04/2024 1:25 PM CDT Steve Branch MD CHEMISTRY ORDERABLE Final R esult Performing Organization Address [facility] [[email or web address]] Co de Phone Number [facility] [address] [place] [address] * Lipase (08/04/2024 1:13 PM CDT) Only the most recent of2 resultswithin the time period is included. Lipase 39 12 - 53 U/L 08/04/2024 1:54 PM CDT [facility] Blood 08/04/2024 1:13 PM CDT 08/04/2024 1:27 PM CDT Steve Branch MD CHEMISTRY ORDERABLE Final R esult Performing Organization Address [facility] de Phone Number [facility] [address] [place] [address] * Extra Tube PST (Lab Use Only) (08/04/2024 1:13 PM CDT) Blood 08/04/2024 1:13 PM CDT 08/04/2024 1:27 PM CDT Steve Branch MD CHEMISTRY ORDERABLE Final R esult Performing Organization Address [facility] [[email or web address]] Co de Phone Number [facility] [address] [place] [address] * XR FLUOROSCOPY LESS THAN 1 HR [...] None. FINDINGS: Fluoroscopic guidance provided to Dr. RTAVIS CAR with total fluoroscopy time of 138 [...] AM CDT) Case Report Surgical Pathology Case: [id number] Authorizing Provider: Travis Car MD Collected: 08/04/2024 10:33 AM Ordering Location: [facility] Received: 08/04/2024 02:04 PM Hospital Advanced Procedure Unit Pathologist: Chai Newton Jr., MD Specimen: Stomach, Random Biopsy 08/05/2024 2:30 PM CDT [facility] Final Diagnosis Random stomach, biopsy: Chronic gastritis. Immunostain for Helicobacter is POSITIVE. 08/05/2024 2:30 PM CDT [facility] at 1430 CDT Gross Description Stomach biopsy, random: Four up to 0.3 cm. IT-1. 08/05/2024 2:30 PM CDT [facility] Microscopic Description Performed. Immunostain for Helicobacter with adequate positive and negative tissue controls shows scattered reactivity consistent with low-level positivity. 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] Travis Car MD PATHOLOGY/CYTOLOGY ORDER ABLE Final Result Performing Organization Address City/State/[facility] [[email or web address]] Co de Phone Number [facility] [address] [place] [address] * Carbapenemase PCR (08/04/2024 10:07 AM CDT) Source RECTAL 08/06/2024 9:03 AM CDT [facility] KPC PCR Negative Negative 08/06/2024 9:03 AM CDT [facility] NDM PCR Negative Negative 08/06/2024 9:03 AM CDT [facility] VIM PCR Negative Negative 08/06/2024 9:03 AM CDT [facility] OXA-48 PCR Negative Negative 08/06/2024 9:03 AM CDT [facility] IMP PCR Negative Negative 08/06/2024 9:03 AM CDT [facility] Rectal swab RECTAL SWAB / Unknown 08/04/2024 10:07 AM CDT 08/04/2024 10:11 AM CDT Narrative [facility] - 08/06/2024 9:03 AM CDT This assay tests for the presence of the following carbapenemase gene sequences: blaKPC, blaNDM, blaVIM, blaOXA-48, and blaIMP. If a gene sequence is not detected the gene is absent, altered, or below the assay detection level. us Ivan Chadwick SEND OUT ORDERABLE Final Result [facility] [address] [place] [address] * Intubation (08/04/2024 10:00 AM CDT) Narrative [...] and Cuffed Performed by: Marvin Magallanes APRN, CRNA, CRNA Post-procedure assessment: BBS and EtCO2 + Cuff inflated: yes ETT to lip: 22 cm us Marvin Magallanes APRN, CRNA AN BLOCKS Final R esult * Endoscopy (08/04/2024 9:31 AM CDT) 08/04/2024 9:31 AM CDT Narrative TEST - 08/04/2024 11:12 AM CDT [facility] Patient Name: Esvin Taylor Procedure Date: 08/04/2024 9:31 AM Date of : 1995 Note Status: Finalized Attending MD: Travis Car MD, Procedure: ERCP Indications: Cystic duct stone(s); 29F s/p cholecystectomy on 05/24/2024 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 ERCP performed with 10 Liberian by 7 cm stent placed, LFTs normalized other than mild elevation in AST today (normal alk phos). For ERCP for further evaluation and either stent removal versus stent exchange. Providers: Travis Car MD, Sonia Hagen RN, Travis Car MD Requesting Provider: Medicines: General Anesthesia, Indomethacin 100 mg ID Complications: No immediate complications. Procedure: Pre-Anesthesia Assessment: [...] by the physician, the nurse and the rubber stamp dies inspector in the pre-procedure area in the procedure [...] patient tolerated the procedure well. Findings: A steel pickler film of the abdomen was obtained. Surgical [...] the patient. Procedure Code(s): --- Professional --- 20482, Endoscopic retrograde cholangiopancreatography (ERCP); with removal of foreign body(s) or stent(s) from biliary/pancreatic duct(s) [address], Endoscopic catheterization of the biliary ductal system, radiological supervision and interpretation Diagnosis Code(s): --- Professional --- Z90.49, Acquired absence of other specified parts of digestive tract K80.20, Calculus of gallbladder without cholecystitis without obstruction Z46.59, Encounter for fitting and adjustment of other gastrointestinal appliance and device CPT copyright 2021 [place] [employer]. All rights reserved. The codes documented in this report are preliminary and upon pre coder review may be revised to meet current compliance requirements. Travis Car MD 08/04/2024 11:11:57 AM This report has been signed electronically.Travis Car MD Number of Addenda: 0 Note Initiated On: 08/04/2024 9:31 AM [address] [address] Procedure Note Travis Car MD - 08/04/2024 [facility] Patient Name: Esvin Taylor Procedure Date: 08/04/2024 9:31 AM Date of : 1995 Note Status: Finalized Attending MD: Travis Car MD, Procedure: ERCP Indications: Cystic duct stone(s); 29F s/p cholecystectomy on 05/24/2024 diagnosedwith Mirizzi syndrome on EUS 06/02/2024. ERCP performed with 10 Liberian by 7cm stent placed, LFTs normalized other than mild elevation in AST today (normal alk phos). For ERCP for further evaluation and either stent removal versus stent exchange. Providers: Travis Car MD, Sonia Hagen RN, Travis Cra MD Requesting Provider: Medicines: General Anesthesia, Indomethacin 100 mg ID Complications: No immediate complications. Procedure: Pre-Anesthesia Assessment: [...] by the physician, the nurse and the rubber stamp dies inspector in the pre-procedure area in the procedure [...] patient tolerated the procedure well. Findings: A steel pickler film of the abdomen was obtained. Surgical [...] the patient. Procedure Code(s): --- Professional --- 76392, Endoscopic retrograde cholangiopancreatography (ERCP); with removal of foreign body(s) or stent(s) from biliary/pancreaticduct(s) 47858, Endoscopic catheterization of the biliary ductal system, radiological supervision and interpretation Diagnosis Code(s): --- Professional --- Z90.49, Acquired absence of other specified parts of digestivetract K80.20, Calculus of gallbladder without cholecystitis withoutobstruction Z46.59, Encounter for fitting and adjustment of othergastrointestinal appliance and device CPT copyright 2021 [place]. All rights reserved. The codes documented in this report are preliminary and upon pre coder reviewmay be revised to meet current compliance requirements. Travis Car MD 08/04/2024 11:11:57 AM This report has been signed electronically.Travis Car MD Number of Addenda: 0 Note Initiated On: 08/04/2024 9:31 AM [address] [address] us Travis Car MD PROCEDURE ORDERABLE Danica l Result Performing Organization Address [facility]/ZIP Co de Phone Number TEST * Protime/INR (08/04/2024 9:29 AM CDT) Only the most recent of2 resultswithin the time period is included. INR 1.1 0.9 - 1.2 08/04/2024 9:45 AM CDT [facility] Blood VENOUS BLOOD SPECIMEN / Unknown 08/04/2024 9:29 AM CDT 08/04/2024 9:30 AM CDT us Travis Car MD COAGULATION ORDERABLE Fi nal Result Performing Organization Address [facility] [[email or web address]] Co de Phone Number [facility] [address] [place] [address] * hCG Urine (08/04/2024 7:08 AM CDT) hCG Urine Negative Negative 08/04/2024 7:20 AM CDT [facility] Urine 08/04/2024 7:08 AM CDT 08/04/2024 7:13 AM CDT us Wilmer Romo MD URINE ORDERABLE Final Res ult Performing Organization Address [facility] [[email or web address]] Co de Phone Number [facility] [address] [place] [place] [address] * (ABNORMAL) POCT Glucose Meter (06/03/2024 4:58 PM CDT) Only the most recent of5 resultswithin the time period is included. GLUCOSE WB METER 121(H) 60 - 100 mg/dL 06/03/2024 5:22 PM CDT [facility] Blood 06/03/2024 4:58 PM CDT 06/03/2024 5:22 PM CDT Aryan Munoz MD LAB POINT OF CARE TEST RES ULTS Final Result Performing Organization Address City/[facility]/ZIP Co de Phone Number [facility] [address] [place], [place] [id number] * (ABNORMAL) Urinalysis Microscopy (Lab Use Only) (06/03/2024 11:08 AM CDT) Only the most recent of2 resultswithin the time period is included. WBC-UA 50-100(A) None Seen, Occasiona l, 1-4 /hpf 06/03/2024 1:10 PM CDT [facility] BACTERIA Present(A) Absent, None Seen 06/03/2024 1:10 PM CDT [facility] SQUAM EPITHELIAL Many(A) None Seen /lpf 06/03/2024 1:10 PM CDT [facility] RBC-UA None Seen None Seen, Occasiona l, 1-2 /hpf 06/03/2024 1:10 PM CDT [facility] Urine URINE SPECIMEN / Unknown 06/03/2024 11:08 AM CDT 06/03/2024 11:13 AM CDT Aryan Munoz MD URINE ORDERABLE Final Resu lt [facility] [address] [place] [id number] * (ABNORMAL) Urinalysis Macroscopic w/ Microscopy, if indicated (Does not inc culture) (06/03/2024 11:08 AM CDT) Only the most recent of2 resultswithin the time period is included. pH Urine 5.5 5.0 - 8.0 06/03/2024 12:41 PM CDT [facility] Specific Stanton, UA 1.025 1.015 - 1.025 06/03/2024 12:41 PM CDT [facility] Glucose, UA Negative Negative mg/dL 06/03/2024 12:41 PM CDT [facility] Ketone, UA Negative Negative mg/dL 06/03/2024 12:41 PM CDT [facility] Bilirubin, UA Negative Negative 06/03/2024 12:41 PM CDT [facility] Urobilinogen, UA 0.2 0.2 - 1.0 EU/dL 06/03/2024 12:41 PM CDT [facility] Protein, UA Negative Negative mg/dL 06/03/2024 12:41 PM CDT [facility] Occult Blood, UA Small(A) Negative, Trace 06/03/2024 12:41 PM CDT [facility] WBC Esterase, UA Moderate(A) Negative, Trace 06/03/2024 12:41 PM CDT [facility] Nitrite, UA Negative Negative 06/03/2024 12:41 PM CDT [facility] Urine URINE SPECIMEN / Unknown 06/03/2024 11:08 AM CDT 06/03/2024 11:13 AM CDT us Aryan Munoz MD URINE ORDERABLE Final Resu lt Performing Organization Address City/State/[facility] de Phone Number [facility] [address] [place] [address] * Endoscopy (06/02/2024 4:36 PM CDT) 06/02/2024 4:36 PM CDT Narrative TEST - 06/02/2024 5:52 PM CDT M [facility] Patient Name: Esvin Taylor Procedure Date: 06/02/2024 4:36 PM Date of : 1995 Note 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 Procedure: Pre-Anesthesia Assessment: [...] by the physician, the nurse and the rubber stamp dies inspector in the pre-procedure area in the procedure [...] patient tolerated the procedure well. Findings: A steel pickler film of the abdomen was obtained. Surgical [...] the patient. Procedure Code(s): --- Professional --- 13580, Endoscopic retrograde cholangiopancreatography (ERCP); with placement of endoscopic stent into biliary or pancreatic duct, including pre- and post-dilation and guide wire passage, when performed, including sphincterotomy, when performed, each stent 48674, Endoscopic catheterization of the biliary ductal system, radiological supervision and interpretation Diagnosis Code(s): --- Professional --- K83.1, Obstruction of bile duct K80.51, Calculus of bile duct without cholangitis or cholecystitis with obstruction CPT copyright 2021 [employer]. All rights reserved. The codes documented in this report are preliminary and upon pre coder review may be revised to meet current compliance requirements. 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 Procedure: Pre-Anesthesia Assessment: [...] by the physician, the nurse and the rubber stamp dies inspector in the pre-procedure area in the procedure [...] patient tolerated the procedure well. Findings: A steel pickler film of the abdomen was obtained. Surgical [...] the patient. Procedure Code(s): --- Professional --- 88470, Endoscopic retrograde cholangiopancreatography (ERCP); with placement of endoscopic stent into biliary or pancreatic duct,including pre- and post-dilation and guide wire passage, when performed,including sphincterotomy, when performed, each stent 83805, Endoscopic catheterization of the biliary ductal system, radiological supervision and interpretation Diagnosis Code(s): --- Professional --- K83.1, Obstruction of bile duct K80.51, Calculus of bile duct without cholangitis or cholecystitiswith obstruction CPT copyright 2021 [employer]. All rights reserved. The codes documented in this report are preliminary and upon pre coder reviewmay be revised to meet current compliance requirements. Travis Cra MD 06/02/2024 5:52:22 PM This report has been signed electronically.Travis Car MD Number of Addenda: 0 Note Initiated On: 06/02/2024 4:36 PM [address] [place] [address] us Travis Car MD PROCEDURE ORDERABLE Edit ed [...] Cuffed Performed by: Richard Huff DNP, CRNA, CRNA Post-procedure assessment: BBS and EtCO2 + Cuff inflated: yes ETT to lip: 21 cm us Jeb Lewis MD AN BLOCKS Final Result * Endoscopy (06/02/2024 2:59 PM CDT) 06/02/2024 2:59 PM CDT Narrative TEST - 06/02/2024 5:40 PM CDT [facility] Patient Name: Esvin Taylor Procedure Date: [...] for further evaluation. Providers: Travis Car MD, Papo Chowdary, Aura Mujica RN, Travis Car MD Requesting Provider: Medicines: [...] by the physician, the nurse and the rubber stamp dies inspector in the pre-procedure area in the procedure [...] biliary decompression. Procedure Code(s): --- Professional --- 65468, Esophagogastroduodenoscopy, flexible, transoral; with endoscopic ultrasound examination limited to the esophagus, stomach or duodenum, and adjacent structures Diagnosis Code(s): --- Professional --- K80.20, Calculus of gallbladder without cholecystitis without obstruction R74.8, Abnormal levels of other serum enzymes CPT copyright 2021 [employer]. All rights reserved. The codes documented in this report are preliminary and upon pre coder review may be revised to meet current compliance requirements. Travis Car MD 06/02/2024 5:40:55 PM This report has been signed electronically.Travis Car MD Number of Addenda: 0 Note Initiated On: 06/02/2024 2:59 PM [address] [place] [address] Procedure Note Travis Car MD - 06/02/2024 [facility] Patient Name: Esvin Taylor Procedure Date: [...] for further evaluation. Providers: Travis Car MD, Papo Chowdary, Aura Mujica RN, Travis Car MD Requesting Provider: Medicines: [...] by the physician, the nurse and the rubber stamp dies inspector in the pre-procedure area in the procedure [...] biliary decompression. Procedure Code(s): --- Professional --- 86389, Esophagogastroduodenoscopy, flexible, transoral; withendoscopic ultrasound examination limited to the esophagus, stomach or duodenum, and adjacent structures Diagnosis Code(s): --- Professional --- K80.20, Calculus of gallbladder without cholecystitis withoutobstruction R74.8, Abnormal levels of other serum enzymes CPT copyright 2021 [employer]. All rights reserved. The codes documented in this report are preliminary and upon pre coder reviewmay be revised to meet current compliance requirements. Travis Car MD 06/02/2024 5:40:55 PM This report has been signed electronically.Travis Car MD Number of Addenda: 0 Note Initiated On: 06/02/2024 2:59 PM [place] [address] us Travis Car MD PROCEDURE ORDERABLE Danica l Result TEST * HCG Total, Serum (06/02/2024 8:44 AM CDT) hCG Total, Serum 3 <=10 MIU/mL 06/02/2024 12:22 PM CDT [facility] Blood 06/02/2024 8:44 AM CDT 06/02/2024 9:43 AM CDT us Travis Car MD CHEMISTRY ORDERABLE Danica l Result Performing Organization Address [facility] [[email or web address]] Co de Phone Number [facility] [address] [place] [address] * Lactic Acid (06/01/2024 5:05 PM CDT) Lactic Acid 0.8 0.7 - 2.1 mmol/L 06/01/2024 5:19 PM CDT [facility] Blood 06/01/2024 5:05 PM CDT 06/01/2024 5:09 PM CDT us Jose Carrasco MD CHEMISTRY ORDERABLE Final Res ult Performing Organization Address [facility]/ZIP Co de Phone Number [facility] [address] [place] [address] * Hepatitis A / B / C Profile (06/01/2024 5:05 PM CDT) HEP BC IGM PORTILLO Non-Reacti ve Non-Reacti ve 06/01/2024 6:14 PM CDT [facility] HEP A IGM PORTILLO Non-Reacti ve Non-Reacti ve 06/01/2024 6:14 PM CDT [facility] HEP BS ANTIGEN Non-Reacti ve Non-Reacti ve 06/01/2024 6:14 PM CDT [facility] Hepatitis C Antibody Non-Reacti ve Non-Reacti ve 06/01/2024 6:14 PM CDT [facility] Blood 06/01/2024 5:05 PM CDT 06/01/2024 5:11 PM CDT us Jose Carrasco MD IMMUNOLOGY ORDERABLE Final Re sult [facility] [address] [place] [address] from Last 3 Months Additional Health Concerns Infection Onset Date Last Indicated C.auris Rule-Out 08/04/2024 08/04/2024 Insurance [facility] Address: [address] [place] [address] Advance Directives For more information, please contact: [phone] * Full Code (Latest Code Status on File) Date Activated Date Inactivated Comments 08/04/2024 8:22 PM 08/06/2024 8:40 PM Question Answer Comments How was code status determined? Patient * Full Code Date Activated Date Inactivated Comments 06/01/2024 4:34 PM 06/04/2024 2:35 AM Question Answer Comments How was code status determined? Patient Care Teams Lawyer Criminal Relationship Specialty Start Date End Date None, PCP - General Internal Medicine 06/03/24
--- OUTSIDE RECORDS SUMMARY | 2024-08-30 00:30 | XMS_ITS | Encounter Summary ---
Author Organization [facility] Address [address] [place] [address] Care Team Providers Care Warehouse Delivery Manager Name Role Phone None, Primary Care Provider Unavailabl e Encounter Details Date Type Department Care Team (Latest Contact Info) Description 08/04/2024 Travel Social History Tobacco Use Types Packs/Day Years Used Date Smoking Tobacco: Former Cigarettes Smokeless Tobacco: Never Alcohol Use Standard Drinks/Week Comments Not Currently 0 (1 standard drink = 0.6 oz pur e alcohol) Feb 2024 [facility] Utilities Answer Date Recorded In the past 12 months has [facility] electric, gas, oil, or water [id number] threatened to shut off services in your [...] any time in the past [address] [facility], were you homeless or living in a fdc (including now)? 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 Isolation precautions to remain in place until r/o per Infection Prevention. 06/13/2024 08/04/2024 08/06/2024 9:03 AM C JEOVANNY Wayneauris Rule-Out 08/04/2024 08/04/2024 documented as of this encounter Care Teams Warehouse Delivery Manager Relationship Specialty Start Date End Date Md Marisol PCP - General Internal Medicine 06/03/24 documented as of this encounter
--- OUTSIDE RECORDS SUMMARY | 2024-08-30 00:33 | XMS_ITS | Encounter Summary ---
Author Organization [facility] Address [address] [place] [address] Care Team Providers Care Still Tender Name Role Phone None, Primary Care Provider Unavailabl e Encounter Details Date Type Department Care Team (Latest Contact Info) Description 08/01/2024 Travel Social History Tobacco Use Types Packs/Day Years Used Date Smoking Tobacco: Former Cigarettes Smokeless Tobacco: Never Alcohol Use Standard Drinks/Week Comments Not Currently 0 (1 standard drink = 0.6 oz pur e alcohol) Feb 2024 [facility] Utilities Answer Date Recorded In the past 12 months has [facility] electric, gas, oil, or water [employer] threatened to shut off services in your home? No 06/01/2024 Humiliation, Afraid, Rape, and Kick questionnair e Answer Date Recorded Within the last year, have y ou been afraid of your partner or ex-partner? No 06/01/2024 Within the last year, have y ou been humiliated or emotionally abused in other ways by your partner or ex-partner? No Within the last year, have y ou been kicked, hit, slapped, or otherwise physically hurt by your partner or ex-partner? No 06/01/2024 Within the last year, have y ou been raped or forced to have any kind of sexual activity by your partner or ex-partner? No 06/01/2024 Hunger Vital Sign Answer Date Recorded Within the past 12 months, y ou worried that your food would run out before you got the money to buy more. Never true 06/02/19 25 Within the past 12 months, t he food you bought just didn't last and you didn't have money to get more. Never true 06/01/2024 PRAPARE - Transportation Answer Date Re corded In the past 12 months, has l ack of transportation kept you from medical appointments or from getting medications? No 11/2024 In the past 12 months, has l ack of transportation kept you from meetings, work, or from getting things needed for daily living? No 06/01/2024 Housing Stability Vital Sign Answer Logan e Recorded In the last 12 months, was t here a time when you were not able to pay the mortgage or rent on time? Yes 06/01/2024 Number of Times Moved in the Last Year Not on fi le 06/01/2024 At any time in the past 12 m [facility], were you homeless or living in a chcf (including now)? 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 Isolation precautions to remain in place until r/o per Infection Prevention. 06/13/2024 08/04/2024 08/06/2024 9:03 AM C DT documented as of this encounter Care Teams Still Tender Relationship Specialty Start Date End Date None, PCP - General Internal Medicine 06/03/24 documented as of this encounter
--- OUTSIDE RECORDS SUMMARY | 2024-08-30 00:33 | XMS_ITS | Clinical Summary ---
Author Organization [facility] Address [address] [place] [address] Care Team Providers Care Mussel Opener Name Role Phone Montse Ruiz D.O. Primary Care Provider [phone] Source Comments Patient records contain information from all sites at [facility]. For routine questions regarding patient records, call [phone] during business hours, M-F 8:00 AM - 5:00 PM Central Time. Record requests for emergency care only can be directed to [phone] at any time.[facility] Allergies No known active allergies Medications hydrOXYzine (Atarax) 25 mg tabletIndication s:Anxiety,Insomn ia [...] (two) times a day. 60 tablet 5 Active dicyclomine (BENTYL) 10 mg capsuleIndicatio ns:Pain Abdominal Chronic Take 1 capsule (10 mg total) by mouth 4 (four) times a day as needed (adominal pain). 120 capsule 5 4 08/27/19 25 Active Problems No known active problems Encounters Date Type Department Care Team Description 05/31/2024 12:10 PM BULB SORTER - 05/31/2024 9:48 PM BULB SORTER Emergency [facility] Emergency Department [facility] [place] [address] Marvin Hutchinson M.D. Williams, Paul D, D.O., M.S. Abdominal Pain (Primary Dx); Pain Epigastric Discharge Disposition: Home or Self Care from [...] on file Legal Sex Female 8:30 AM BULB SORTER Gender Identity Not on file Sexual Orientation Not on file Last Filed Vital Signs Vital Sign Reading Time Taken Comments Blood Pressure 111/77 05/31/2024 8:00 PM BULB SORTER Pulse 84 05/31/2024 8:00 PM BULB SORTER Temperature 36.8 C (98.2 F) 05/31/2024 11:52 AM BULB SORTER Respiratory Rate 20 05/26/2024 5:33 PM BULB SORTER Oxygen Saturation 97% 05/31/2024 8:00 PM BULB SORTER Inhaled Oxygen Concentration - - Weight 93.9 kg (207 lb) 05/31/2024 11:52 AM BULB SORTER Height 170 cm (5' 6.93) 05/31/2024 11:52 AM BULB SORTER Body Mass Index 32.49 05/31/2024 11:52 AM BULB SORTER Plan of Treatment Health Maintenance Due Date [...] inpatients and all outpatients) 05/31/2024 7:33 PM BULB SORTER US GALLBLADDER AND OR BILIARY DUCTS RAD - Semiurgent (Fast; most ED patients; some inpatients) 05/31/2024 1:29 PM BULB SORTER HUMAN CHORIONIC GONADOTROPIN (HCG), BRISA, STAT 05/31/2024 12:56 PM BULB SORTER LIPASE, S/P STAT 05/31/2024 12:56 PM BULB SORTER COMPREHENSIVE METABOLIC PANEL, S/P STAT 05/31/2024 12:56 PM BULB SORTER CBC WITH DIFFERENTIAL, B STAT 05/31/2024 12:56 PM BULB SORTER HPV WITH GENOTYPING, PCR, THINPREP Routine 05/31/2023 4:11 PM BULB SORTER from Last 3 Months or Most Recently Relevant to Health Maintenance Results * NM Hepatobiliary (05/31/2024 7:33 PM BULB SORTER) Anatomical Region Laterality Modality Abdomen, Nuclear Medicine RS T LOS, Nuclear Medicine ARZ LOS, Nuclear Medicine FLA LOS, Nuclear Medicine N/A Nuclea r Medicine Impressions 05/31/2024 8:08 PM BULB SORTER Normal post cholecystectomy HIDA scan. Narrative 05/31/2024 8:08 PM BULB SORTER REVISED REPORT: EXAM: NM HEPATOBILIARY COMPARISON: None [...] post cholecystectomy HIDA scan. Marvin Hutchinson M.D. [facility] PROCEDURES Edited Re sult - Final * US Gallbladder and or Biliary Ducts (05/31/2024 1:29 PM BULB SORTER) Anatomical Region Laterality Modality Abdomen, Ultrasound RST LOS, Ultrasound ARZ LOS, Ultrasound FLA LOS N/A Ultrasound Impressions 05/31/2024 1:44 PM BULB SORTER Postoperative findings status post cholecystectomy. Small amount of fluid within the gallbladder fossa, similar findings on recent postoperative CT from 05/26/2024. Nuclear medicine hepatobiliary scintigraphy more sensitive for evaluation of localized bile leak if clinically indicated. Narrative 05/31/2024 1:44 PM BULB SORTER EXAM: US GALLBLADDER AND OR BILIARY DUCTS [...] CBC with Differential, Blood (05/31/2024 12:56 PM BULB SORTER) Hemoglobin 12.5 11.6 - 15.0 g/dL 05/31/2024 1:17 PM BULB SORTER [facility] Hematocrit 37.5 35.5 - 44.9 % 05/31/2024 1:17 PM BULB SORTER [facility] Erythrocytes 4.15 3.92 - 5.13 x10(12)/L 05/31/2024 1:17 PM BULB SORTER [facility] MCV 90.4 78.2 - 97.9 fL 05/31/2024 1:17 PM BULB SORTER [facility] RBC Distrib Width 12.2 12.2 - 16.1 % 05/31/2024 1:17 PM BULB SORTER [facility] Platelet Count 281 157 - 371 x10(9)/L 05/31/2024 1:17 PM BULB SORTER [facility] Leukocytes 8.4 3.4 - 9.6 x10(9)/L 05/31/2024 1:17 PM BULB SORTER [facility] Neutrophils 6.34 1.56 - 6.45 x10(9)/L 05/31/2024 1:17 PM BULB SORTER [facility] Lymphocytes 1.27 0.95 - 3.07 x10(9)/L 05/31/2024 1:17 PM BULB SORTER [facility] Monocytes 0.68 0.26 - 0.81 x10(9)/L 05/31/2024 1:17 PM BULB SORTER [facility] Eosinophils 0.09 0.03 - 0.48 x10(9)/L 05/31/2024 1:17 PM BULB SORTER [facility] Basophils 0.03 0.01 - 0.08 x10(9)/L 05/31/2024 1:17 PM BULB SORTER [facility] Blood (Blood, Venous) 05/31/2024 12:56 PM BULB SORTER 05/31/2024 1:11 PM BULB SORTER us Marvin Hutchinson M.D. LAB BLOOD ADD-ON Final Resu lt [facility] [address] [place] [address], [facility]TO [facility] [place] [address] [place] [address] * hCG (Human Chorionic Gonadotropin), Quantitative, (05/31/2024 12:56 PM BULB SORTER) HCG, Quantitative, , P <1.0 <5 IU/L 05/31/2024 2:52 PM BULB SORTER [facility] Blood (Blood, Venous) 05/31/2024 12:56 PM BULB SORTER 05/31/2024 2:37 PM BULB SORTER us Marvin Hutchinson M.D. LAB BLOOD ADD-ON Final Resu lt Performing Organization Address City/[facility]/ZIP Co de Phone Number [facility] [address] [place] [address], [place] [address] * Lipase (05/31/2024 12:56 PM BULB SORTER) Lipase, P 44 13 - 60 U/L 05/31/2024 1: 31 PM BULB SORTER [facility] Blood (Blood, Venous) 05/31/2024 12:56 PM BULB SORTER 05/31/2024 1:11 PM BULB SORTER us Marvin Hutchinson M.D. LAB BLOOD ADD-ON Final Resu lt Performing Organization Address [facility] Co de Phone Number [facility] [address] [place] [address], [place] [address] * (ABNORMAL) Comprehensive Metabolic Panel (05/31/2024 12:56 PM BULB SORTER) Potassium, P 4.4 3.6 - 5.2 mmol/L 05/31/2024 1:31 PM BULB SORTER [facility] Sodium, P 139 135 - 145 mmol/L 05/31/2024 1:31 PM BULB SOR[facility] Chloride, P 105 98 - 107 mmol/L 05/31/2024 1:31 PM BULB SORTER [facility] Bicarbonate, P 23 22 - 29 mmol/L 05/31/2024 1:31 PM BULB SORTER [facility] Anion Gap, P 11 7 - 15 05/31/2024 1:31 PM BULB SORTER [facility] BUN (Blood Urea Nitrogen), P 15 6 - 21 mg/dL 05/31/2024 1:31 PM BULB SORTER [facility] Creatinine 0.61 0.59 - 1.04 mg/dL 05/31/2024 1:31 PM BULB SORTER [facility] Estimated GFR (eGFR) >90 >=60 mL/min/B SA 05/31/2024 1:31 PM BULB SORTER [facility] Comment: Estimated GFR calculated using the 2020 CKD_EPI creatinine equation. Calcium, Total, P 8.9 8.6 - 10.0 mg/dL 05/31/2024 1:31 PM BULB SORTER [facility] Glucose, P 97 70 - 140 mg/dL 05/31/2024 1:31 PM [facility]UL[facility] SOR[facility] Protein, Total, P 7.3 6.3 - 7.9 g/dL 05/31/2024 1:31 PM BULB SORTER [facility] Albumin, P 3.9 3.5 - 5.0 g/dL 05/31/2024 1:31 PM BULB SORTER [facility] Aspartate Aminotransferase (AST), P SEE COMMENT 8 - 43 U/L 05/31/2024 2:00 PM BUL[facility] SOR[facility] Comment:Specimen was hemolyz ed. Alkaline Phosphatase, P 203(H) 35 - 104 U/L 05/31/2024 1:31 PM BUL[facility] SORTER [facility] Alanine Aminotransferase (ALT), P 152(H) 7 - 45 U/L 05/31/2024 1:31 PM BUL[facility] SORTER [facility] Bilirubin, Total, P 0.5 0.0 - 1.2 mg/dL 05/31/2024 1:31 PM BUL[facility] SORTER [facility] Blood (Blood, Venous) 05/31/2024 12:56 PM BULB SORTER 05/31/2024 1:11 PM BULB SORTER us Marvin Hutchinson M.D. LAB BLOOD ADD-ON Final Resu lt [facility] [place] [address], [facility] [place] [address] [place] [address] * HPV with Genotyping, PCR, ThinPrep (05/31/2023 4:11 PM BULB SORTER) HPV with Genotyping, ThinPrep, PCR Negative Negative 06/01/2023 3:42 PM BULB SORTER [facility] Comment: Negative for high risk HPV [...] correlated with patient's history, clinical presentation, and CIGARETTE CATCHER cytology report. 05/31/2023 4:11 PM BULB SORTER 06/01/2023 7:37 AM BULB SORTER Shanna Gallagher CNM, D.N.P. LAB MICROBIOLOGY - NERMD ORDERABLES Final Result [facility] [address] [place] [address], [facility] [address] [facility] [address] [place] [address] from Last 3 Months or Most Recently Relevant to Health Maintenance Insurance [facility] [address] [id number] Care Teams Mussel Opener Relationship Specialty Start Date End Date Montse Ruiz D.O. [address] [place] [address] PCP - General Family Medicine 11/27/23
--- OUTSIDE RECORDS SUMMARY | 2024-08-30 00:33 | XMS_ITS ---
Author Organization [facility] Address [address] [place], [place] [id number] Care Team Providers Care Water Quality Analyst Name Role Phone None, Primary Care Provider Unavailabl e Transitional Care Management Status:Closed (Closed) Start date:08/06/2024 End date:08/07/2024 Overview Transitional Care Management (TCM) is a [facility] Program designed to decrease risk and increase continuity of care for patients after discharge. Continued Care and Services Coordination
[2024-08-30 00:37] LABS: Chloride* 106 mmol/L (96-114); Potassium* 3.7 mmol/L (3.6-5.1); Sodium* 138 mmol/L (135-149)
[2024-08-30 00:39] LABS: Appearance Urine Clear (Clear); Bilirubin Urine Negative (Negative); Blood Urine Trace-lysed (Negative); Color Urine Yellow (Yellow); Glucose Urine Negative (Negative); Ketones Urine Negative (Negative); Leukocyte Esterase Urine Negative (Negative); Nitrite Urine Negative (Negative); Protein Urine Negative (Negative); Urobilinogen Urine 0.2 (0.2-1.0); pH Urine 6.5 (5.0-8.5)
[2024-08-30 00:40] LABS: Anion Gap 8 mEq/L (7-15); Blood Urea Nitrogen* 14 mg/dL (5-24); Carbon Dioxide* 24 mmol/L (20-32); Creatinine* 0.6 mg/dL (0.5-1.5); Est. Creatinine Clearance* 141.98; Estimated Glomerular Filt Rate 123 ml/min
[2024-08-30 00:41] LABS: Calcium* 8.8 mg/dL (8.4-10.6); Glucose* 107 mg/dL (60-115)
[2024-08-30 00:47] LABS: RBC Urine 0-2 (0-2); Squamous Epithelial Cell Urine Few (None-Few); WBC Urine 0-2 (0-5)
[2024-08-30 00:58] LABS: Procalcitonin* 0.05 ng/mL (<0.50)
[2024-08-30 00:59] LABS: Ur HCG Qualitative* Negative (Negative)
== END 2024-08-30 02:22 | disposition home or self-care (01) ==
LOC: ED 08-30 00:28
PROVIDERS: Emergency Provider Family Medicine
DX: N39.0 Urinary tract infection, site not specified (principal); Z16.35 Resistance to multiple antimicrobial drugs
CPT/HCPCS: 36415; 80048; 81001; 81025; 84145; 85025; 96365; 99284; J2543